=== PATIENT | male | born 1955 | race Caucasian/White ===

== ENCOUNTER 2016-09-14 21:25 | Inpatient (IN) ==
[2016-09-14 22:08] LABS: Basophils % 0.3 %; Eosinophils % 0.5 %; Hematocrit 44.1 % (37.5-50.1); Hemoglobin 14.2 g/dL (12.9-16.9); Lymphocytes % 16.3 %; Mean Corpuscular HGB Conc 32.2 g/dL (31.6-35.5); Mean Corpuscular Hemoglobin 33.6 pg (28.0-33.3); Mean Corpuscular Volume 104.5 fL (83.0-100.0); Mean Platelet Volume 9.2 fL (9.4-12.4); Monocytes # 0.4 K/mcL (0.0-1.3); Monocytes % 7.2 %; Neutrophils # 4.3 K/mcL (1.6-8.9); Platelet Count 138 K/mcL (140-400); Red Blood Count 4.22 M/mcL (4.19-5.50); Red Cell Distribution Width 15.2 % (11.5-14.5); Segmented Neutrophils % 74.7 %; VBG HCO3 28.5 mEq/L (21-27)
[2016-09-14 22:09] LABS: VBG PH 7.17 pH Units (7.32-7.42)
[2016-09-14] MEDS ORDERED: methylPREDNISolone 125 MG/2 ML VIAL IVP ONE (22:09)
[2016-09-14] MEDS ORDERED: *HR* LORazepam 2 MG/ML VIAL IVP ONE (22:12)
[2016-09-14 22:14] LABS: INR 1.2; Prothrombin Time 12.7 Seconds (9.4-12.1)
[2016-09-14 22:16] LABS: Activated Partial Thrombo Time 31.8 Seconds (26.0-36.0)
[2016-09-14] MEDS ORDERED: Ipratropium/Albuterol Neb 3 ML IH ONE (22:18)
[2016-09-14] MEDS ORDERED: Ipratropium/Albuterol Neb 3 ML ONE (22:19)
[2016-09-14 23:18] LABS: Calcium 9.2 mg/dL (8.6-10.8)
[2016-09-14 23:23] LABS: Potassium 8.3 mEq/L (3.5-4.5)
[2016-09-14] MEDS ORDERED: Furosemide 40 MG/4 ML VIAL IVP ONE (23:23)
[2016-09-14] MEDS ORDERED: Calcium Gluconate 1,000 MG in D5% in Water 100 ML IVPB ONE (23:24)
--- NOTE | 2016-09-14 23:30 | Emergency Department Note ---
Disposition Clinical Impression: Hyperkalemia Respiratory failure Qualifiers: Chronicity: acute on chronic Respiratory failure complication: hypercapnia Qualified Code(s): J96.22 - Acute and chronic respiratory failure with hypercapnia CHF (congestive heart failure) Qualifiers: Congestive heart failure type: unspecified congestive heart failure type Congestive heart failure chronicity: acute on chronic Qualified Code(s): I50.9 - Heart failure, unspecified COPD (chronic obstructive pulmonary disease) Qualifiers: COPD type: unspecified COPD Qualified Code(s): J44.9 - Chronic obstructive pulmonary disease, unspecified Disposition: Admitted As Inpatient Condition: Fair Time of Disposition: 00:17 SOB HPI - General Chief Complaint: ED Shortness of Breath/Dyspnea Stated Complaint: ITZ, right side weakness Time Seen by Provider: 09/14/16 21:41 Source: patient Mode of arrival: EMS Limitations: no limitations Nursing Notes Reviewed: Yes Vital Signs Reviewed: Yes - History of Present Illness 61-year-old male with history of end-stage renal disease, CHF, and COPD presents with worsening shortness of breath over the last 2-3 days. He was not feeling well so he did not go to dialysis this morning and his symptoms have worsened over the last 24 hours. He has wheezing that is not resolved despite nebulizer treatments. He has edema that is slightly worse than usual. Family also notes that he is having difficulty moving his left upper shoulder. In the context of shoulder injury which is being treated by orthopedic. He does not have any weakness of the lower extremities. He does not have any facial droop. History is limited due to patient's medical condition. Pt Subjective Complaint: shortness of breath - Related Data Home Medications Medication Instructions Recorded Confirmed Allopurinol [Zyloprim 100 MG] 100 mg PO DAILY 11/09/15 09/01/16 Amlodipine [Norvasc] 10 mg PO DAILY 11/09/15 09/01/16 Aspirin [Adult Low Dose Aspirin EC] 81 mg PO DAILY 11/09/15 09/01/16 Carvedilol [Coreg] 50 mg PO BID 11/09/15 09/01/16 Cinacalcet HCl [Sensipar] 60 mg PO DAILY 11/09/15 09/01/16 Docusate [Colace] 100 mg PO BID 11/09/15 09/01/16 Famotidine [Pepcid] 20 mg PO DAILY 11/09/15 09/01/16 Fluticasone Propionate Nasal 50 mcg NS DAILY 11/09/15 09/01/16 [Flonase] Furosemide [Lasix] 40 mg PO DAILY 11/09/15 09/01/16 Guaifenesin [Mucinex] 600 mg PO Q12H PRN 11/09/15 09/01/16 Mycophenolate Sodium [Myfortic] 360 mg PO BID 11/09/15 09/01/16 Omeprazole [PriLOSEC] 40 mg PO DAILY 11/09/15 09/01/16 Pravastatin Sodium [Pravastatin 10 mg PO QPM 11/09/15 09/01/16 Sodium] Sennosides [Senna] 8.6 mg PO BID 11/09/15 09/01/16 Spironolactone [Aldactone] 50 mg PO DAILY 11/09/15 09/01/16 FLUoxetine HCl [PROzac] 40 mg PO QAM 01/28/16 09/01/16 Albuterol Neb [Proventil Neb] 2.5 mg IH Q6H PRN 06/29/16 09/01/16 Albuterol Sulfate [Proair Hfa] 2 puff IH Q4-6H PRN 06/29/16 09/01/16 Alpha Lipoic Acid 100 mg PO DAILY 06/29/16 09/01/16 Ammonium Lactate [Marilee-Hydrolac] 1 appl TP DAILY 06/29/16 09/01/16 Aspirin 81 mg PO DAILY 06/29/16 09/01/16 CloNIDine HCl [Clonidine HCl] 0.3 mg PO TID 06/29/16 09/01/16 Diclofenac Sodium [Voltaren] 100 gm TP 2-3XD PRN 06/29/16 09/01/16 Ergocalciferol (VITAMIN D2) 400 unit PO BID 06/29/16 09/01/16 [Vitamin D] Gabapentin [Neurontin] 400 mg PO TID 06/29/16 09/01/16 Levothyroxine Sodium [Synthroid] 25 mcg PO DAILY 06/29/16 09/01/16 Mirtazapine 7.5 mg PO HS 06/29/16 09/01/16 Orphenadrine [Norflex] 100 mg PO HS 06/29/16 09/01/16 Oxycodone HCl 10 mg PO Q6H PRN 06/29/16 09/01/16 Polyethylene Glycol 3350 [MiraLAX] 17 gm PO BID PRN 06/29/16 09/01/16 PredniSONE 10 mg PO DAILY 06/29/16 09/01/16 Sulfamethoxazole/Trimeth DS 1 each PO MOWEFR 06/29/16 09/01/16 [Bactrim DS] Tiotropium [Spiriva] 18 mcg IH DAILY 06/29/16 09/01/16 Venlafaxine HCl [Venlafaxine HCl 37.5 mg PO BID 06/29/16 09/01/16 ER] Previous Rx's Medication Instructions Recorded Ropinirole HCl [Requip Xl] 2 mg PO DAILY #30 tab.er.24h 06/29/16 Allergies Allergy/AdvReac Type Severity Reaction Status Date / Time No Known Allergies Allergy Verified 09/14/16 21:36 All systems ED: reviewed and negative except as stated. Past Medical History - Past Medical History Attestation: Yes The following information was validated with the patient. Source: patient Medical history: Reports: CHF, COPD, diabetes, dialysis, hypertension, renal disease, thyroid disease, other Surgical history: Reports: cataract, orthopedic, other (Ankle fixation), vascular surgery (Right arm AV shunt - nonfunctional, left arm AV shunt, left subclavian dialysis access), other (All transplants in 1982 in 2010) Psychiatric history: Reports: no psych history - Social History Smoking Status: Former smoker Smokeless Tobacco Status: No Alcohol use: Reports: none Drug use: Reports: none Physical Exam - Head Head exam: atraumatic, normocephalic, normal inspection - Eye Eye exam: Present: normal appearance, PERRL, EOMI - ENT ENT exam: normal exam, normal oropharynx, mucous membranes moist - Neck Neck exam: Present: normal inspection, full ROM, trachea midline - Chest Chest inspection: Present: normal inspection, symmetric chest wall rise - Respiratory Increased work of breathing with bilateral diffuse wheezing. Cardiovascular Cardiovascular exam: Present: regular rate, normal rhythm, normal heart sounds - Abdominal Exam Abdominal exam: Present: soft, Non-Tender. Absent: tenderness, distention, guarding, rebound, rigidity - Extremities Exam Bilateral pedal edema with chronic venous stasis changes. Motor 5 out of 5 in all extremities. - Expanded Lower Extremity Exam Hip/Pelvis exam: Present: normal inspection, full ROM - Back Exam Back exam: Present: normal inspection, full ROM. Absent: tenderness, CVA tenderness (R), CVA tenderness (L) - Neurological Exam Neurological exam: Present: alert, oriented X3, CN II-XII intact - Psychiatric Psychiatric exam: Present: normal affect, normal mood - Skin Skin exam: Present: warm, dry, intact, normal color - General Limitations: no limitations General appearance: alert Course - Reevaluation(s) Reevaluation #1: Evaluation here showed COPD and congestive heart failure. Hyperkalemia to 8.3 due to missing dialysis. CO2 was initially 78, but improved after BiPAP. Patient was initially fighting BiPAP, but is tolerating it well now with Ativan. Patient received Lasix, insulin, bicarbonate, and calcium gluconate. He will need emergent dialysis. Dr. Perez is setting this up. Patient will go to ICU after dialysis. Accepted by Dr. Eid to the hospitalist service after dialysis. Time: 00:17 Vital Signs Temperature 97.8 F 09/14/16 21:28 Pulse Rate 95 09/14/16 21:28 Respiratory Rate 28 09/14/16 21:28 Blood Pressure 154/82 09/14/16 21:28 O2 Sat by Pulse Oximetry 78 L 09/14/16 21:28 Temperature 96.5 F L 09/15/16 02:30 Pulse Rate 63 09/15/16 03:00 Respiratory Rate 10 09/15/16 03:00 Blood Pressure 137/78 09/15/16 03:00 O2 Sat by Pulse Oximetry 93 L 09/15/16 03:00 Oxygen Delivery Oxygen Delivery Bipap Shortness of Breath/Dyspnea - Medical Records Medical records reviewed: Yes I reviewed the patient's medical records. - Lab Data Lab results reviewed: Yes I reviewed the patient's lab results. Result diagrams: 09/14/16 21:58 09/14/16 22:58 Lab Results 09/14/16 09/14/16 09/14/16 Range/Units 21:58 21:58 21:58 WBC 5.8 (4.3-11.1) K/mcL RBC 4.22 (4.19-5.50) M/mcL Hgb 14.2 (12.9-16.9) g/dL Hct 44.1 (37.5-50.1) % MCV 104.5 H (83.0-100.0) fL MCH 33.6 H (28.0-33.3) pg MCHC 32.2 (31.6-35.5) g/dL RDW 15.2 H (11.5-14.5) % Plt Count 138 L (140-400) K/mcL MPV 9.2 L (9.4-12.4) fL Immature Gran % 1.0 (0-4) % Seg Neutrophils % 74.7 % Lymphocytes % 16.3 % Monocytes % 7.2 % Eosinophils % 0.5 % Basophils % 0.3 % Neutrophils # 4.3 (1.6-8.9) K/mcL Lymphocytes # 1.0 (0.6-4.6) K/mcL Monocytes # 0.4 (0.0-1.3) K/mcL Eosinophils # 0.0 (0.0-0.6) K/mcL Basophils # 0.0 (0.0-0.2) K/mcL PT 12.7 H (9.4-12.1) Seconds INR 1.2 APTT 31.8 (26.0-36.0) Seconds VBG pH (7.32-7.42) pH Units VBG pCO2 (41-51) mmHg VBG pO2 (25-40) mmHg VBG HCO3 (21-27) mEq/L Sodium (136-145) mEq/L Potassium (3.5-4.5) mEq/L Chloride (98-109) mEq/L Carbon Dioxide (19-29) mEq/L BUN (8-26) mg/dL Creatinine (0.72-1.25) mg/dL Est GFR ( Amer) (> 60) Est GFR (Non-Af Amer) (> 60) BUN/Creatinine Ratio (6-26) Glucose (70-99) mg/dL POC Glucose (58-89) Calculated Osmolality (280-300) Calcium (8.6-10.8) mg/dL Troponin I 0.00 (0-0.03) ng/mL B-Natriuretic Peptide (0-100) pg/mL 09/14/16 09/14/16 09/14/16 Range/Units 21:58 21:58 22:58 WBC (4.3-11.1) K/mcL RBC (4.19-5.50) M/mcL Hgb (12.9-16.9) g/dL Hct (37.5-50.1) % MCV (83.0-100.0) fL MCH (28.0-33.3) pg MCHC (31.6-35.5) g/dL RDW (11.5-14.5) % Plt Count (140-400) K/mcL MPV (9.4-12.4) fL Immature Gran % (0-4) % Seg Neutrophils % % Lymphocytes % % Monocytes % % Eosinophils % % Basophils % % Neutrophils # (1.6-8.9) K/mcL Lymphocytes # (0.6-4.6) K/mcL Monocytes # (0.0-1.3) K/mcL Eosinophils # (0.0-0.6) K/mcL Basophils # (0.0-0.2) K/mcL PT (9.4-12.1) Seconds INR APTT (26.0-36.0) Seconds VBG pH 7.17 L* (7.32-7.42) pH Units VBG pCO2 78 H (41-51) mmHg VBG pO2 58 H (25-40) mmHg VBG HCO3 28.5 H (21-27) mEq/L Sodium 125 L (136-145) mEq/L Potassium 8.3 H* (3.5-4.5) mEq/L Chloride 92 L (98-109) mEq/L Carbon Dioxide 20 (19-29) mEq/L BUN 57 H (8-26) mg/dL Creatinine 7.44 H (0.72-1.25) mg/dL Est GFR ( Amer) 9 L (> 60) Est GFR (Non-Af Amer) 7 L (> 60) BUN/Creatinine Ratio 8 (6-26) Glucose 102 H (70-99) mg/dL POC Glucose (58-89) Calculated Osmolality 276 L (280-300) Calcium 9.2 (8.6-10.8) mg/dL Troponin I (0-0.03) ng/mL B-Natriuretic Peptide 1097 H (0-100) pg/mL 09/14/16 09/15/16 09/15/16 Range/Units 23:26 00:42 01:10 WBC (4.3-11.1) K/mcL RBC (4.19-5.50) M/mcL Hgb (12.9-16.9) g/dL Hct (37.5-50.1) % MCV (83.0-100.0) fL MCH (28.0-33.3) pg MCHC (31.6-35.5) g/dL RDW (11.5-14.5) % Plt Count (140-400) K/mcL MPV (9.4-12.4) fL Immature Gran % (0-4) % Seg Neutrophils % % Lymphocytes % % Monocytes % % Eosinophils % % Basophils % % Neutrophils # (1.6-8.9) K/mcL Lymphocytes # (0.6-4.6) K/mcL Monocytes # (0.0-1.3) K/mcL Eosinophils # (0.0-0.6) K/mcL Basophils # (0.0-0.2) K/mcL PT (9.4-12.1) Seconds INR APTT (26.0-36.0) Seconds VBG pH 7.26 L (7.32-7.42) pH Units VBG pCO2 57 H (41-51) mmHg VBG pO2 182 H (25-40) mmHg VBG HCO3 25.6 (21-27) mEq/L Sodium (136-145) mEq/L Potassium (3.5-4.5) mEq/L Chloride (98-109) mEq/L Carbon Dioxide (19-29) mEq/L BUN (8-26) mg/dL Creatinine (0.72-1.25) mg/dL Est GFR ( Amer) (> 60) Est GFR (Non-Af Amer) (> 60) BUN/Creatinine Ratio (6-26) Glucose (70-99) mg/dL POC Glucose 270 H 150 H (58-89) Calculated Osmolality (280-300) Calcium (8.6-10.8) mg/dL Troponin I (0-0.03) ng/mL B-Natriuretic Peptide (0-100) pg/mL 09/15/16 Range/Units 01:40 WBC (4.3-11.1) K/mcL RBC (4.19-5.50) M/mcL Hgb (12.9-16.9) g/dL Hct (37.5-50.1) % MCV (83.0-100.0) fL MCH (28.0-33.3) pg MCHC (31.6-35.5) g/dL RDW (11.5-14.5) % Plt Count (140-400) K/mcL MPV (9.4-12.4) fL Immature Gran % (0-4) % Seg Neutrophils % % Lymphocytes % % Monocytes % % Eosinophils % % Basophils % % Neutrophils # (1.6-8.9) K/mcL Lymphocytes # (0.6-4.6) K/mcL Monocytes # (0.0-1.3) K/mcL Eosinophils # (0.0-0.6) K/mcL Basophils # (0.0-0.2) K/mcL PT (9.4-12.1) Seconds INR APTT (26.0-36.0) Seconds VBG pH (7.32-7.42) pH Units VBG pCO2 (41-51) mmHg VBG pO2 (25-40) mmHg VBG HCO3 (21-27) mEq/L Sodium (136-145) mEq/L Potassium (3.5-4.5) mEq/L Chloride (98-109) mEq/L Carbon Dioxide (19-29) mEq/L BUN (8-26) mg/dL Creatinine (0.72-1.25) mg/dL Est GFR ( Amer) (> 60) Est GFR (Non-Af Amer) (> 60) BUN/Creatinine Ratio (6-26) Glucose (70-99) mg/dL POC Glucose 124 H (58-89) Calculated Osmolality (280-300) Calcium (8.6-10.8) mg/dL Troponin I (0-0.03) ng/mL B-Natriuretic Peptide (0-100) pg/mL - Radiology Data Radiology results reviewed: Yes I reviewed the patient's radiology results. - EKG Data EKG attestation: Yes I reviewed and interpreted this EKG. EKG results narrative: Normal sinus rhythm at 61 with first-degree AV block with CA of 272. There mild peaked T waves that are not significantly changed from [address] elevation or depression. Attestation Statement - Attestation Attestation: For this encounter, I have reviewed the resident, [employer], or PA documentation, treatment plan, and medical decision making; and I have had face to face time with this patient. 61-year-old male presents with concerns of shortness of breath. Patient states that his symptoms have been worsening over the past 2-3 days. He does report having an upper respiratory infection one week ago from which he has not improved. Patient has a history of CHF, COPD and renal failure. Patient is scheduled for dialysis Wednesday, Wednesday, Wednesday. He was unable to have his dialysis session today because he did not feel well. Patient presents emergency Department in respiratory distress. He is hypoxic on nasal cannula. He is placed on a nonrebreather with improvement of his O2 saturation. Patient was then given a breathing treatment and placed on BiPAP with improvement of symptoms. Patient will be admitted to the hospital for further care and evaluation of COPD exacerbation and likely CHF exacerbation. The resident spoke with the renal specialist on-call who agreed that the patient needed dialysis tonight secondary to his hyperkalemia. Patient was given calcium, bicarbonate and albuterol for temporary management of the patient's hyperkalemia. He was also given Lasix as he does produce some urine.
[2016-09-14 23:32] LABS: VBG HCO3 25.6 mEq/L (21-27); VBG PH 7.26 pH Units (7.32-7.42)
[2016-09-15] MEDS ORDERED: Insulin Human Regular 10 UNIT in 0.9 % Sodium Chloride 10 ML IV ONE (00:06)
[2016-09-15] MEDS ORDERED: *HR* Dextrose 50 % in Water (Vial) 50 ML VIAL IVP ONE (00:07)
[2016-09-15] MEDS ORDERED: *HR* Dextrose 50 % in Water (Syg) 50 ML SYRINGE IVP ONE (00:07)
[2016-09-15] MEDS ORDERED: Mannitol 25% vial 12.5 GM/50 ML VIAL IVP PRN (01:53)
[2016-09-15] MEDS ORDERED: 0.9 % Sodium Chloride 250 ML IV PRN ×3 (01:53→09:02)
[2016-09-15] MEDS ORDERED: Albumin 25% 12.5gm/50mL 12.5 GM/50 ML IV.SOLN IVPB PRN (01:53)
[2016-09-15] MEDS ORDERED: Ondansetron 4 MG/2 ML VIAL IVP PRN (01:55)
[2016-09-15] MEDS ORDERED: Acetaminophen 325 MG TABLET PO PRN (01:55)
[2016-09-15] MEDS ORDERED: Naloxone 0.4 MG/ML INJ IVP PRN (01:55)
[2016-09-15] MEDS ORDERED: Pantoprazole 40 MG VIAL IVPB STA (01:55)
[2016-09-15] MEDS ORDERED: Albuterol 2.5 MG/3 ML NEBULIZER IH PRN (02:07)
[2016-09-15] MEDS ORDERED: hydrALAZINE 10 MG TABLET PO PRN (02:11)
[2016-09-15] MEDS ORDERED: 0.9 % Sodium Chloride 1,000 ML PRIME SCH (02:15)
--- NOTE | 2016-09-15 02:25 | Internal Med History&Physical ---
Date of Encounter: 09/15/16 Time of Encounter: 02:00 Assessment and Plan (1) ESRD (end stage renal disease) on dialysis Status: Chronic . (2) H/O noncompliance with medical treatment, presenting hazards to health Status: Acute . (3) Hyperkalemia, diminished renal excretion Status: Resolved . (4) Acute exacerbation of COPD with asthma Status: Acute . (5) Acute on chronic respiratory failure with hypoxia and hypercapnia Status: Acute . (6) Acute respiratory acidosis Status: Acute . (7) COPD (chronic obstructive pulmonary disease) Status: Chronic . Qualifiers: COPD type: unspecified COPD Qualified Code(s): J44.9 - Chronic obstructive pulmonary disease, unspecified (8) Myoclonic disorder Status: Acute . (9) Ataxia Status: Acute . (10) Toxic metabolic encephalopathy Status: Acute . (11) Delirium due to conditions classified elsewhere Status: Acute . Internal Medicine - H&P: HPI Chief complaint: Difficulty breathing Admitted From: Emergency Dept Plans for Post Hospital Care: Home History of present illness: Mr. 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, type II DM, GERD, hypothyroidism, anemia of chronic disease, depression and anxiety, osteoarthritis, H/O gout, osteopenia, nicotine dependency The patient was visited and interviewed and examined. Patient is admitted to [facility] via the emergency department when she presents with complaints of difficulty breathing. The patient presents via EMS from home with reports of worsening shortness of breath over a three-day period of time. Patient history is noteworthy for CHF, end-stage renal disease COPD. The patient reports audible wheezing not resolved following nebulizer treatments. He reports some peripheral edema slightly worse than baseline. Denies fevers chills sweats. Denies orthopnea PND syncope or presyncopal complaints. Hemodialysis schedule due to illness. Presents with elevated potassium of 8.3. Initial PCO2 on arterial blood gas elevated at 78 improved following BiPAP application. Treated acutely in the urgent setting with intravenous Lasix insulin sodium bicarbonate and calcium gluconate to address metabolic electrolyte arrangements pending emergent hemodialysis schedule. Findings in the ED: Temperature 97.8 pulse 53-95 respirations 12-28 BP 139-154/ 79-82. O2 saturation 78% room air; 91% BiPAP. WBC 5.8 hemoglobin 14.2 platelets 38,000. Differential normal. RDW 15.2. BNP 9.2. MCV 104.5 MCH 33.6. PT 12.7 INR 1.2 PTT 31.8. Troponin 0.0. Venous blood gas pH 7.17 PCO2 78 PO2 58 bicarbonate 28.5. (Venous blood gas pH 7.26 PCO2 57 PO2 182 bicarbonate 25.6 with BiPAP). BNP 1097. Metabolic panel sodium 125 potassium 8.3 chloride 92. BUN 57 creatinine 7.44. GFR 7. Osmolality 276. EKG sinus rhythm. Rate 60. First degree AV block. Mild peaked T waves. Not significantly changed from June 2016. Chest x-ray demonstrated no acute or active cardiopulmonary process. Preliminary impression suggests end-stage renal disease hemodialysis dependent with acute volume overload and critical hyperkalemia and respiratory acidosis. Patient noncompliant with scheduled hemodialysis runs days prior to admission. Acute On chronic hypoxic hypercapnic respiratory failure is apparent. And notes symptoms motivating ER presentation. The patient presents a risk of further acute clinical decline and morbidity given his presenting chief complaint, findings and comorbid conditions. Workup and treatment progress comprehensively. Cumulative laboratory and radiographic data base was reviewed, considered and discussed. Pertinent ancillary medical records including ECW and PCI documentation was reviewed and considered. Given the patient's presenting concerns, past medical history, clinical findings and symptoms, he is admitted at this time will undergo further evaluation and disposition. Orders were written as per the computerized physician shipping order clerk system.......................................................................... .................... Consultative opinions will be sought as clinical circumstances justify. Initial consultation has been admitted to nephrology/dialysis team Pain management needs will be addressed. Laboratory and radiographic data base will be updated as appropriate. Studies include: PT/INR,APPT, Ddimer, cardiac injury panel, BNP, CPK, metabolic and hematologic panel, magnesium, phosphorus, ionized calcium, thyroid panel, lipid profile, A1c, C-peptide, CRP, sed rate, respiratory infection profile, respiratory virus panel, blood gas, lactic acid, UA, UDS, serologies, etc. Precautions: Aspiration, fall, delirium protocol/surveillance initiated. Telemetry with continuous hemodynamic monitoring and pulse oximetry initiated. Empiric antibody coverage: Intravenous Rocephin and azithromycin pending culture data. Special studies: CT chest, echocardiogram, chest x-ray, telemetry, EKG. Pulmonary toilet: Incentive spirometry, aerosol bronchodilator, mucolytic, antitussive, supplemental oxygen. Corticosteroid therapyPRN. CPAP/BiPAP supplemental oxygen delivery. Aerosol Mucomyst therapy. Fluid and electrolyte repletion efforts will proceed. Careful attention to fluid balance and renal recovery will be emphasized. Avoidance of nephrotoxic exposure and adverse drug drug interaction in the setting of impaired renal function will be monitored closely. Acute coronary syndrome protocol/surveillance initiated. DVT and PUD prophylaxis initiated: PPI therapy, intermittent pneumatic cuffs. Subcutaneous heparin. Early ambulation will be encouraged. Immunization updates recommended. Influenza and pneumococcal vaccinations as part of ongoing preventative healthcare recommendations strongly recommended. Smoking cessation counseling briefly addressed. Patient accepts nicotine substitution during this hospitalization.. Advanced care directive discussion briefly addressed. Patient does not declare any healthcare restrictions at this time. Cardiovascular risk appraisal and cardiovascular risk reduction efforts will be emphasized. Physical and occupational therapy may be consulted to evaluate/assess patient's functional capacity and progress mobility if circumstances justify. Sliding scale insulin coverage, ADA-Renal dietary restraint and schedule an as- needed basis fingerstick glucose assessments were initiated. Nutrition/ diabetes education counseling may be considered as circumstances justify. Outpatient medication schedules will be reviewed, confirmed and facilitated as appropriate. Reconciliation of home treatments including adjustments, substitutions and reintroduction into the treatment regimen will address necessary maintenance therapies for chronic pre-existing medical conditions. Plan of care has been reviewed and discussed in detail with the patient. Questions addressed. Hospital course dictated by clinical findings, treatment response and potential consultative interventions. Patient is at risk for further acute clinical decline and morbidity due to his presenting chief complaints, findings and comorbid conditions. Condition is serious. Prognosis is guarded. CODE STATUS is full. Past Med Surg Social Fam HX - Past Medical History Source: old records reviewed Medical history: arthritis, CHF, COPD, diabetes, dialysis, GERD, hyperlipidemia , hypertension, osteoporosis, renal disease, thyroid disease, other (Peripheral neuropathy. Constipation. Vitamin D deficiency.) Psychiatric history: anxiety, depression - Past Surgical History Surgical History: cataract, orthopedic, other, transplant (Transplant kidney in 1982 and then 2009. Transplant kidney biopsy 2012.), vascular surgery, other - Social History Smoking Status: Former smoker Smokeless Tobacco Status: No Alcohol use: none Drug use: none Occupational status: unemployed, disabled Current living situation: Home - Independent, With Family Activity Level: Independent ambulation, Mostly sedentary Recent Out of Country Travel Within the Last 8 Weeks: No Exposure or Possible Exposure to Illness During Travel: No Internal Medicine - H&P: Meds Allopurinol [Zyloprim 100 MG] 100 mg PO DAILY 11/09/15 [History] Amlodipine [Norvasc] 10 mg PO DAILY 11/09/15 [History] Carvedilol [Coreg] 50 mg PO BID 11/09/15 [History] Cinacalcet HCl [Sensipar] 60 mg PO DAILY 11/09/15 [History] Docusate [Colace] 100 mg PO BID 11/09/15 [History] Fluticasone Propionate Nasal [Flonase] 50 mcg NS DAILY 11/09/15 [History] Furosemide [Lasix] 40 mg PO DAILY 11/09/15 [History] Guaifenesin [Mucinex] 600 mg PO Q12H PRN 11/09/15 [History] Omeprazole [PriLOSEC] 40 mg PO DAILY 11/09/15 [History] Pravastatin Sodium 10 mg PO QPM 11/09/15 [History] Spironolactone [Aldactone] 50 mg PO DAILY 11/09/15 [History] Alpha Lipoic Acid 100 mg PO DAILY 06/29/16 [History] Aspirin 81 mg PO DAILY 06/29/16 [History] Ergocalciferol (VITAMIN D2) [Vitamin D] 400 unit PO BID 06/29/16 [History] Levothyroxine Sodium [Synthroid] 25 mcg PO DAILY 06/29/16 [History] PredniSONE 10 mg PO DAILY 06/29/16 [History] Sulfamethoxazole/Trimeth DS [Bactrim Ds] 1 each PO MOWEFR 06/29/16 [History] Venlafaxine HCl [Venlafaxine HCl ER] 37.5 mg PO BID 06/29/16 [History] Ergocalciferol (VITAMIN D2) [Vitamin D] 400 unit PO BID 09/18/16 [History] Gabapentin [Neurontin] 200 mg PO TID #0 09/21/16 [Rx] Levofloxacin [Levaquin] 750 mg PO Q48H #3 tablet 09/21/16 [Rx] Oxygen 1 each .ROUTE CONT #1 each 09/21/16 [Rx] Ropinirole [Requip] 2 mg PO DAILY #30 tablet 09/21/16 [Rx] Tiotropium [Spiriva] 18 mcg IH DAILY #2 inh 09/21/16 [Rx] Allergies No Known Allergies Allergy (Verified 09/14/16 21:36) ROS unobtainable: due to mental status All Systems PM: A 10-system review of systems was performed and is negative for pertinent findings except as documented above in the HPI. - Constitutional Constitutional: as per HPI, malaise, no chills, no fever(s), no night sweats - EENT Eyes: as per HPI, no change in vision, no discharge, no pain, no photophobia Ears: as per HPI, no ear discharge, no ear pain, no tinnitus Nose, mouth and throat: as per HPI, no dysphagia, no nasal discharge, no neck pain, no sore throat - Cardiovascular Cardiovascular ROS IM: as per HPI, edema, lightheadedness, orthopnea, no chest pain, no diaphoresis, no dyspnea, no palpitations, no syncope - Respiratory Respiratory: as per HPI, dyspnea, dyspnea on exertion, wheezing, other, no cough , no excessive phlegm production - Gastrointestinal Gastrointestinal: as per HPI, no abdominal pain, no diarrhea, no hematemesis, no hematochezia, no melena, no nausea, no vomiting - Genitourinary Genitourinary ROS male: as per HPI, other - Musculoskeletal Musculoskeletal ROS IM: as per HPI, no numbness, no tingling - Integumentary Integumentary IM: as per HPI, no rash, no unusual bruising - Neurological Neurological ROS: as per HPI, no confusion, no convulsions, no focal weakness, no numbness, no tingling, no tremor(s) - Psychiatric Psychiatric: as per HPI - Endocrine Endocrine IM: as per HPI - Hematologic/Lymphatic Hematologic/Lymphatic: as per HPI, no easy bruising - Allergic/Immunologic Allergic/Immunologic: as per HPI - Constitutional Vitals: Temp Pulse Resp BP Pulse Ox 96.5 F L 64 12 164/98 96 09/15/16 01:45 09/15/16 01:45 09/15/16 01:45 09/15/16 01:45 09/15/16 01:45 General appearance: Present: cachectic, disheveled, A&O X 3, obese, severe distress. Absent: cooperative, answers questions appropriately - Head Head exam: Present: atraumatic, normocephalic - Eye Eye exam: Present: EOMI, PERRL, conjuntiva pink, sclera anicteric Pupils: Present: normal accommodation, PERRL - ENT ENT exam: Present: mucous membranes moist, normal external ear exam, normal oropharynx - Neck Neck exam general surgery: Present: full ROM, supple, trachea midline. Absent: lymphadenopathy, tenderness, nuchal rigidity - Respiratory Respiratory exam: Present: decreased breath sounds, prolonged expiratory phase, rhonchi. Absent: accessory muscle use, rales, wheezes - Cardiovascular Cardiovascular exam: Present: distant heart sounds, RRR, +S1, +S2, tachycardia. Absent: diastolic murmur, gallop, rubs, systolic murmur - GI/Abdominal GI/Abdominal exam: Present: normal bowel sounds, soft, no peritoneal signs. Absent: distended, tenderness - Extremities Exam Extremities exam: Present: cyanotic, full ROM, joint swelling, pedal edema, tenderness, warm, radial pulses palpable and symetrical. Absent: calf tenderness - Neurological Exam Neurological exam: Present: alert, altered, CN II-XII intact, motor sensory deficit, oriented X3. Absent: pronater drift, facial droop, speech deficit - Psychiatric Psychiatric exam: Present: agitated, flat affect - Skin Skin exam: Present: cyanosis, dry, intact, warm. Absent: petechiae, rash, urticaria, vesicles Internal Med - H&P Results - Labs CBC & Chem 7: 09/21/16 06:40 09/21/16 06:40 - Impressions Vital Signs Temp Pulse Resp BP Pulse Ox 09/15/16 01:45 96.5 F L 62 12 164/98 96 09/15/16 01:36 18 112/79 09/15/16 00:44 67 12 136/94 94 L 09/15/16 00:40 16 94 L 09/15/16 00:02 53 12 139/79 91 L 09/14/16 23:41 55 19 122/73 92 L 09/14/16 23:22 57 12 118/74 90 L 09/14/16 23:02 57 18 120/75 96 09/14/16 22:23 17 95 09/14/16 22:21 62 20 153/100 92 L 09/14/16 22:08 59 15 161/142 97 09/14/16 22:01 90 L 09/14/16 21:28 97.8 F 95 28 154/82 78 L Intake and Output 09/14/16 09/14/16 09/15/16 15:59 23:59 07:59 Intake Total 120.1 / 120.1 Balance 120.1 / 120.1 Intake: IV Fluids 120.1 / 120.1 HumuLIN R 10 UNIT In 10.1 / 10.1 Normal Saline Flush 10 ML @ 1212 mls/hr IV ONCE ONE Rx#:[id number] Calcium Gluconate 1,000 110 / 110 MG In Dextrose 5% 100 ML @ 220 mls/hr IVPB ONCE ONE Rx#:[id number] Other: Weight 81.647 kg 86 kg Blood Glucose* 124 Patient Weight 09/15/16 23:59 Weight 86 kg Short CBC 09/14/16 Range/Units 21:58 WBC 5.8 (4.3-11.1) K/mcL Hgb 14.2 (12.9-16.9) g/dL Hct 44.1 (37.5-50.1) % Plt Count 138 L (140-400) K/mcL Neutrophils # 4.3 (1.6-8.9) K/mcL BMP 09/14/16 Range/Units 22:58 Sodium 125 L (136-145) mEq/L Potassium 8.3 H* (3.5-4.5) mEq/L Chloride 92 L (98-109) mEq/L Carbon Dioxide 20 (19-29) mEq/L BUN 57 H (8-26) mg/dL Creatinine 7.44 H (0.72-1.25) mg/dL Glucose 102 H (70-99) mg/dL Calcium 9.2 (8.6-10.8) mg/dL Cardiac Enzymes 09/14/16 Range/Units 21:58 Troponin I 0.00 (0-0.03) ng/mL 09/14/16 09/14/16 21:58 23:26 VBG pH 7.17 L* 7.26 L VBG pCO2 78 H 57 H VBG pO2 58 H 182 H VBG HCO3 28.5 H 25.6 Abnormal lab results MCV 104.5 fL (83.0-100.0) H 09/14/16 21:58 MCH 33.6 pg (28.0-33.3) H 09/14/16 21:58 RDW 15.2 % (11.5-14.5) H 09/14/16 21:58 Plt Count 138 K/mcL (140-400) L 09/14/16 21:58 MPV 9.2 fL (9.4-12.4) L 09/14/16 21:58 PT 12.7 Seconds (9.4-12.1) H 09/14/16 21:58 VBG pH 7.26 pH Units (7.32-7.42) L 09/14/16 23:26 VBG pCO2 57 mmHg (41-51) H 09/14/16 23:26 VBG pO2 182 mmHg (25-40) H 09/14/16 23:26 Sodium 125 mEq/L (136-145) L 09/14/16 22:58 Potassium 8.3 mEq/L (3.5-4.5) H* 09/14/16 22:58 Chloride 92 mEq/L (98-109) L 09/14/16 22:58 BUN 57 mg/dL (8-26) H 09/14/16 22:58 Creatinine 7.44 mg/dL (0.72-1.25) H 09/14/16 22:58 Est GFR ( Amer) 9 (> 60) L 09/14/16 22:58 Est GFR (Non-Af Amer) 7 (> 60) L 09/14/16 22:58 Glucose 102 mg/dL (70-99) H 09/14/16 22:58 POC Glucose 124 (58-89) H 09/15/16 01:40 Calculated Osmolality 276 (280-300) L 09/14/16 22:58 B-Natriuretic Peptide 1097 pg/mL (0-100) H 09/14/16 21:58 Allergies Allergy/AdvReac Type Severity Reaction Status Date / Time No Known Allergies Allergy Verified 09/14/16 21:36 Laboratory Results WBC 5.8 K/mcL (4.3-11.1) 09/14/16 21:58 RBC 4.22 M/mcL (4.19-5.50) 09/14/16 21:58 Hgb 14.2 g/dL (12.9-16.9) 09/14/16 21:58 Hct 44.1 % (37.5-50.1) 09/14/16 21:58 MCV 104.5 fL (83.0-100.0) H 09/14/16 21:58 MCH 33.6 pg (28.0-33.3) H 09/14/16 21:58 MCHC 32.2 g/dL (31.6-35.5) 09/14/16 21:58 RDW 15.2 % (11.5-14.5) H 09/14/16 21:58 Plt Count 138 K/mcL (140-400) L 09/14/16 21:58 MPV 9.2 fL (9.4-12.4) L 09/14/16 21:58 Immature Gran % 1.0 % (0-4) 09/14/16 21:58 Seg Neutrophils % 74.7 % 09/14/16 21:58 Lymphocytes % 16.3 % 09/14/16 21:58 Monocytes % 7.2 % 09/14/16 21:58 Eosinophils % 0.5 % 09/14/16 21:58 Basophils % 0.3 % 09/14/16 21:58 Neutrophils # 4.3 K/mcL (1.6-8.9) 09/14/16 21:58 Lymphocytes # 1.0 K/mcL (0.6-4.6) 09/14/16 21:58 Monocytes # 0.4 K/mcL (0.0-1.3) 09/14/16 21:58 Eosinophils # 0.0 K/mcL (0.0-0.6) 09/14/16 21:58 Basophils # 0.0 K/mcL (0.0-0.2) 09/14/16 21:58 PT 12.7 Seconds (9.4-12.1) H 09/14/16 21:58 INR 1.2 09/14/16 21:58 APTT 31.8 Seconds (26.0-36.0) 09/14/16 21:58 VBG pH 7.26 pH Units (7.32-7.42) L 09/14/16 23:26 VBG pCO2 57 mmHg (41-51) H 09/14/16 23:26 VBG pO2 182 mmHg (25-40) H 09/14/16 23:26 VBG HCO3 25.6 mEq/L (21-27) 09/14/16 23:26 Sodium 125 mEq/L (136-145) L 09/14/16 22:58 Potassium 8.3 mEq/L (3.5-4.5) H* 09/14/16 22:58 Chloride 92 mEq/L (98-109) L 09/14/16 22:58 Carbon Dioxide 20 mEq/L (19-29) 09/14/16 22:58 BUN 57 mg/dL (8-26) H 09/14/16 22:58 Creatinine 7.44 mg/dL (0.72-1.25) H 09/14/16 22:58 Est GFR ( Amer) 9 (> 60) L 09/14/16 22:58 Est GFR (Non-Af Amer) 7 (> 60) L 09/14/16 22:58 BUN/Creatinine Ratio 8 (6-26) 09/14/16 22:58 Glucose 102 mg/dL (70-99) H 09/14/16 22:58 POC Glucose 124 (58-89) H 09/15/16 01:40 Calculated Osmolality 276 (280-300) L 09/14/16 22:58 Calcium 9.2 mg/dL (8.6-10.8) 09/14/16 22:58 Troponin I 0.00 ng/mL (0-0.03) 09/14/16 21:58 B-Natriuretic Peptide 1097 pg/mL (0-100) H 09/14/16 21:58 Impressions Chest X-Ray 09/14/16 21:48 IMPRESSION: No evidence of acute cardiopulmonary disease. D/ / Aries Woods MD / Aries Woods MD Interpreting Provider: Aries Woods MD
[2016-09-15] MEDS ORDERED: 0.9 % Sodium Chloride 2,000 ML ONE (02:27)
[2016-09-15 03:12] LABS: Basophils % 0.2 %; Hematocrit 42.6 % (37.5-50.1); Hemoglobin 13.7 g/dL (12.9-16.9); Immature Granulocytes % 0.9 % (0-4); Lymphocytes # 0.4 K/mcL (0.6-4.6); Lymphocytes % 7.7 %; Mean Corpuscular HGB Conc 32.2 g/dL (31.6-35.5); Mean Corpuscular Hemoglobin 33.3 pg (28.0-33.3); Mean Corpuscular Volume 103.4 fL (83.0-100.0); Mean Platelet Volume 9.4 fL (9.4-12.4); Monocytes # 0.1 K/mcL (0.0-1.3); Monocytes % 1.5 %; Neutrophils # 4.2 K/mcL (1.6-8.9); Platelet Count 138 K/mcL (140-400); Red Blood Count 4.12 M/mcL (4.19-5.50); Red Cell Distribution Width 15.1 % (11.5-14.5); Segmented Neutrophils % 89.7 %
[2016-09-15 03:29] LABS: Albumin 3.2 g/dL (3.5-5.0); Albumin/Globulin Ratio 1.1 (1.1-2.2); Bilirubin,Total 0.6 mg/dL (0.2-1.2); Calcium 9.3 mg/dL (8.6-10.8); Magnesium 2.4 mg/dL (1.6-2.6); Phosphorous 7.7 mg/dL (2.3-4.7); Total Protein 6.2 g/dL (6.0-8.3)
[2016-09-15 03:33] LABS: Potassium 6.7 mEq/L (3.5-4.5)
[2016-09-15 03:49] LABS: Hepatitis B Surface Antibody 0.09 mIU/mL; Hepatitis B Surface Antigen Nonreactive (Nonreactive)
[2016-09-15] MEDS: *HR* LORazepam 2 MG/ML VIAL IVP PRN (04:56)
[2016-09-15 05:12] LABS: Basophils % 0.2 %; Hemoglobin 14.6 g/dL (12.9-16.9); Immature Granulocytes % 0.9 % (0-4); Lymphocytes # 0.3 K/mcL (0.6-4.6); Lymphocytes % 4.6 %; Mean Corpuscular HGB Conc 32.4 g/dL (31.6-35.5); Mean Corpuscular Hemoglobin 33.3 pg (28.0-33.3); Mean Corpuscular Volume 102.7 fL (83.0-100.0); Mean Platelet Volume 9.5 fL (9.4-12.4); Monocytes # 0.1 K/mcL (0.0-1.3); Monocytes % 1.2 %; Neutrophils # 5.3 K/mcL (1.6-8.9); Platelet Count 150 K/mcL (140-400); Red Blood Count 4.38 M/mcL (4.19-5.50); Red Cell Distribution Width 14.8 % (11.5-14.5); Segmented Neutrophils % 93.1 %
[2016-09-15 05:30] LABS: Albumin 3.4 g/dL (3.5-5.0); Bilirubin,Total 0.5 mg/dL (0.2-1.2); Calcium 9.6 mg/dL (8.6-10.8); Globulin 3.4 g/dL (2.4-3.5); Potassium 6.4 mEq/L (3.5-4.5); Total Protein 6.8 g/dL (6.0-8.3)
[2016-09-15] MEDS ORDERED: Dextrose Gel 15 GM PO PRN ×2 (06:30)
[2016-09-15] MEDS ORDERED: D5% in Water 1,000 ML IV PRN (06:30)
[2016-09-15 06:46] LABS: Hemoglobin A1C 4.7 %
[2016-09-15] MEDS: Tiotropium 18 MCG inhalation IH SCH (07:37)
[2016-09-15] MEDS: Insulin LISPRO 300 UNITS/3 ML VIAL SQ SCH ×4 (08:09→21:16)
--- NOTE | 2016-09-15 08:22 | Nephrology Consult Note ---
Date of Encounter: 09/15/16 Time of Encounter: 08:16 Assessment and Plan (1) Hyperkalemia Current Visit: Yes Status: Acute Patient was given urgent dialysis last night for 2 hours. K+ down from 8.3 to 6.4 Stat K+ at 8am; if K+ 5.3 or less will hold off on further dialysis today and resume his regular HD treatments tomorrow. If greater than 5.3, will proceed with additional HD today. Needs renal diet which is low K+ diet-ordered (2) ESRD (end stage renal disease) on dialysis Current Visit: Yes Status: Chronic see above re: next HD treatment Renal diet Strict I/Os Fluid restriction 1.5 liters/day Patient has permacath and fistula; fistula still maturing, placed several months ago; had fistulagram several weeks ago and narrowing found and opened per HD nurse. Currently using fistula in outpatient HD however they are only using 2 smaller needles at this time, giving fistula more time to mature before advancing to larger needles. Avoid nephrotoxins if possible (3) Hyperphosphatemia Current Visit: Yes Status: Acute Phoslo 667mg 3 tabs with meals and 2 tabs with snacks Renal diet (4) Acute on chronic respiratory failure with hypoxia and hypercapnia Current Visit: Yes Status: Acute per critical care team (5) H/O noncompliance with medical treatment, presenting hazards to health Current Visit: Yes Status: Acute Patient routinely misses one outpatient dialysis treatment every week Non-compliant with diet History of Present Illness - Reason for Consult Consult date: 09/15/16 end stage renal disease - Chief Complaint hyperkalemia, ESRD on dialysis - History of Present Illness Mr. Ackerman is a 61 year old male well known to our practice with a history significant for hypertension, dyslipidemia, chronic respiratory failure home O2 dependent, COPD, TU, ESRD HD dependent (MWF at [facility]), CKD stage 5 s/ p transplants 1982+ 2009, type II DM, GERD, hypothyroidism, anemia of chronic disease, depression and anxiety, osteoarthritis, H/O gout, osteopenia, nicotine dependency. He presented with worsening shortness of breath over the last 2-3 days and not feeling well. Mr Ackerman did not go to dialysis yesterday morning and his symptoms have worsened over the last 24 hours. Patient normally misses one treatment out of three every week. Past Med Surg Social Fam HX - Past Medical History Medical history: arthritis, CHF, COPD, diabetes, dialysis, GERD, hyperlipidemia , hypertension, osteoporosis, renal disease, thyroid disease, other (Peripheral neuropathy. Constipation. Vitamin D deficiency.) Psychiatric history: anxiety, depression - Past Surgical History Surgical History: cataract, orthopedic, other, transplant (Transplant kidney in 1982 and then 2009. Transplant kidney biopsy 2012.), vascular surgery, other - Social History Smoking Status: Former smoker Smokeless Tobacco Status: No Alcohol use: none Drug use: none Medications and Allergies Allopurinol [Zyloprim 100 MG] 100 mg PO DAILY 11/09/15 [History] Amlodipine [Norvasc] 10 mg PO DAILY 11/09/15 [History] Aspirin [Adult Low Dose Aspirin EC] 81 mg PO DAILY 11/09/15 [History] Carvedilol [Coreg] 50 mg PO BID 11/09/15 [History] Cinacalcet HCl [Sensipar] 60 mg PO DAILY 11/09/15 [History] Docusate [Colace] 100 mg PO BID 11/09/15 [History] Famotidine [Pepcid] 20 mg PO DAILY 11/09/15 [History] Fluticasone Propionate Nasal [Flonase] 50 mcg NS DAILY 11/09/15 [History] Furosemide [Lasix] 40 mg PO DAILY 11/09/15 [History] Guaifenesin [Mucinex] 600 mg PO Q12H PRN 11/09/15 [History] Mycophenolate Sodium [Myfortic] 360 mg PO BID 11/09/15 [History] Omeprazole [PriLOSEC] 40 mg PO DAILY 11/09/15 [History] Pravastatin Sodium [Pravastatin Sodium] 10 mg PO QPM 11/09/15 [History] Sennosides [Senna] 8.6 mg PO BID 11/09/15 [History] Spironolactone [Aldactone] 50 mg PO DAILY 11/09/15 [History] FLUoxetine HCl [PROzac] 40 mg PO QAM 01/28/16 [History] Albuterol Neb [Proventil Neb] 2.5 mg IH Q6H PRN 06/29/16 [History] Albuterol Sulfate [Proair Hfa] 2 puff IH Q4-6H PRN 06/29/16 [History] Alpha Lipoic Acid 100 mg PO DAILY 06/29/16 [History] Ammonium Lactate [Marilee-Hydrolac] 1 appl TP DAILY 06/29/16 [History] Aspirin 81 mg PO DAILY 06/29/16 [History] CloNIDine HCl [Clonidine HCl] 0.3 mg PO TID 06/29/16 [History] Diclofenac Sodium [Voltaren] 100 gm TP 2-3XD PRN 06/29/16 [History] Ergocalciferol (VITAMIN D2) [Vitamin D] 400 unit PO BID 06/29/16 [History] Gabapentin [Neurontin] 400 mg PO TID 06/29/16 [History] Levothyroxine Sodium [Synthroid] 25 mcg PO DAILY 06/29/16 [History] Mirtazapine 7.5 mg PO HS 06/29/16 [History] Orphenadrine [Norflex] 100 mg PO HS 06/29/16 [History] Oxycodone HCl 10 mg PO Q6H PRN 06/29/16 [History] Polyethylene Glycol 3350 [MiraLAX] 17 gm PO BID PRN 06/29/16 [History] PredniSONE 10 mg PO DAILY 06/29/16 [History] Ropinirole HCl [Requip Xl] 2 mg PO DAILY #30 tab.er.24h 06/29/16 [Rx] Sulfamethoxazole/Trimeth DS [Bactrim DS] 1 each PO MOWEFR 06/29/16 [History] Tiotropium [Spiriva] 18 mcg IH DAILY 06/29/16 [History] Venlafaxine HCl [Venlafaxine HCl ER] 37.5 mg PO BID 06/29/16 [History] Allergies No Known Allergies Allergy (Verified 09/14/16 21:36) Review of Systems All Systems: reviewed and no additional remarkable complaints except as stated Constitutional: malaise, weight gain Cardiovascular: dyspnea, dyspnea on exertion, edema, leg edema, pedal edema, no chest pain Respiratory: dyspnea, dyspnea on exertion, wheezing Gastrointestinal: no constipation, no vomiting Neurological: no behavioral changes Exam - Vital Signs Vital signs: Initial Vital Signs Temp Pulse Resp BP Pulse Ox 97.8 F 95 28 154/82 78 L 09/14/16 21:28 09/14/16 21:28 09/14/16 21:28 09/14/16 21:28 09/14/16 21:28 Vital Signs - Last 8 Hours Temp Pulse Resp BP Pulse Ox 09/15/16 08:00 78 16 168/87 91 L 09/15/16 07:51 97.6 F 09/15/16 07:10 72 92 L 09/15/16 07:00 72 16 140/85 92 L 09/15/16 06:00 73 15 156/91 92 L 09/15/16 05:00 96.8 F L 75 16 146/89 90 L 09/15/16 04:32 96.5 F L 22 150/114 09/15/16 04:30 131/77 09/15/16 04:15 152/75 09/15/16 04:14 19 125/70 90 L 09/15/16 04:00 75 12 138/85 90 L 09/15/16 03:45 118/89 09/15/16 03:30 110/76 09/15/16 03:15 118/77 09/15/16 03:00 63 10 137/78 93 L 09/15/16 02:45 146/93 09/15/16 02:44 63 11 150/84 92 L 09/15/16 02:30 96.5 F L 22 141/110 Intake and Output 09/14/16 09/15/16 09/15/16 23:59 07:59 15:59 Intake Total 600 / 720.1 Output Total 3075 / 3075 Balance -2475 / -2354.9 Intake: Oral 0 / 0 Intake, Rinseback and 600 / 600 Flushes Output: Urine 0 / 0 Total Dialysis Output 2600 / 2600 Catheter 475 / 475 Other: Weight 83.7 kg Blood Glucose* 88 88 Hemodialysis Net Fluid 2000 Removed (mL) Patient Weight 09/15/16 23:59 Weight 83.7 kg - General Appearance General appearance: well-developed, well-nourished, obese EENT: ATNC Neck: supple Respiratory: course breath sounds Cardiology: edema, normal S1, normal S2 - Dialysis Access Dialysis Vascular Access: Venous Catheter Gastrointestinal: no guarding, obese Integumentary: warm and dry Psychiatric: cooperative (sleeps through exam; on CPAP) Results - Lab Results 09/15/16 05:03 09/15/16 05:03 Most recent lab results Calcium 9.6 mg/dL (8.6-10.8) 09/15/16 05:03 Phosphorus 7.7 mg/dL (2.3-4.7) H 09/15/16 02:45 Magnesium 2.4 mg/dL (1.6-2.6) 09/15/16 02:45 Consult Discharge Plan - Plan Referrals: NO,PCP [Primary Care Provider] -
[2016-09-15] MEDS ORDERED: Gabapentin 400 MG CAPSULE PO SCH (09:00)
[2016-09-15] MEDS: cloNIDine HCl 0.1 MG TABLET PO SCH ×3 (09:20→21:15)
[2016-09-15] MEDS: *HR* Heparin 5,000 UNIT/ML VIAL SQ SCH ×2 (09:21→16:26)
[2016-09-15] MEDS: Levothyroxine 25 MCG TABLET PO SCH (09:21)
[2016-09-15] MEDS: Aspirin Enteric Coated 81 MG Tablet PO SCH (09:21)
[2016-09-15] MEDS: clonazePAM 0.5 MG TABLET PO SCH ×3 (09:21→21:16)
[2016-09-15] MEDS: FLUoxetine 20 MG CAPSULE PO SCH (09:21)
[2016-09-15] MEDS: amLODIPine 5 MG TABLET PO SCH (09:21)
[2016-09-15] MEDS: Sennosides 8.6 MG TABLET PO SCH ×2 (09:21→21:16)
[2016-09-15] MEDS: rOPINIRole 1 MG TABLET PO SCH (09:22)
[2016-09-15] MEDS: Nystatin SUSP 5 ML UD.LIQ PO SCH ×4 (09:22→21:16)
[2016-09-15] MEDS: Calcium Acetate 667 MG CAPSULE PO SCH ×2 (12:28→17:20)
--- NOTE | 2016-09-15 13:20 | Neurology - Consult Note ---
Date of Encounter: 09/15/16 Time of Encounter: 13:19 Assessment and Plan (1) Myoclonic disorder Current Visit: Yes Status: Acute This appear to be related to metabolic encephalopathy especially uremic that causes instability of gait, multi-focal myoclonus, asterixis, action tremor and sensorial clouding. The encephalopathy can certainly be complicated also by acute respiratory failure CO2 retention and still many others. No focal neurological deficits is present at this but he does have focal pain and reduced of ROM to the right arm therefore routine non contrast CT of head should be done to rule out acute intracranial abnormality. At the same time will continue aggressive medical and supportive care. History of Present Illness Chief complaint: myoclnic jerking HPI: Mr. Ackerman is a 61 year old male with past medical history significant for end -stage renal failure, s/p kidney transplant, DM, COPD, chronic pain hypothyroidism,, HTN who developed mental status changes. Neurology was consulted regarding increasing myoclonic jerking activity. Patient presented with increasing SOB since the last few days and he does have history of COPD with exacerbation. He was not feeling well and missed hemodialysis prior to admission. He has history of kidney transplant and also has some chronic myoclonic jerking disorder per medical staff who asked his earlier. It was reported that this is not an acute new symptoms. Patient is easily arousal but appears to be drowsy. He has no focal weakness in his legs but does have pain to the right arm due to the shoulder surgery. His right arm is adducted at the shoulder region. Noticed some asterixis per medical staff. No fever reported. Denies headaches. CT of head at the time of this interview not done yet Past Med Surg Social Fam HX - Past Medical History Medical history: arthritis, CHF, COPD, diabetes, dialysis, GERD, hyperlipidemia , hypertension, osteoporosis, renal disease, thyroid disease, other (Peripheral neuropathy. Constipation. Vitamin D deficiency.) Psychiatric history: anxiety, depression - Past Surgical History Surgical History: cataract, orthopedic, other, transplant (Transplant kidney in 1982 and then 2009. Transplant kidney biopsy 2012.), vascular surgery, other - Social History Smoking Status: Former smoker Smokeless Tobacco Status: No Alcohol use: none Drug use: none Medications and Allergies Allopurinol [Zyloprim 100 MG] 100 mg PO DAILY 11/09/15 [History] Amlodipine [Norvasc] 10 mg PO DAILY 11/09/15 [History] Aspirin [Adult Low Dose Aspirin EC] 81 mg PO DAILY 11/09/15 [History] Carvedilol [Coreg] 50 mg PO BID 11/09/15 [History] Cinacalcet HCl [Sensipar] 60 mg PO DAILY 11/09/15 [History] Docusate [Colace] 100 mg PO BID 11/09/15 [History] Famotidine [Pepcid] 20 mg PO DAILY 11/09/15 [History] Fluticasone Propionate Nasal [Flonase] 50 mcg NS DAILY 11/09/15 [History] Furosemide [Lasix] 40 mg PO DAILY 11/09/15 [History] Guaifenesin [Mucinex] 600 mg PO Q12H PRN 11/09/15 [History] Mycophenolate Sodium [Myfortic] 360 mg PO BID 11/09/15 [History] Omeprazole [PriLOSEC] 40 mg PO DAILY 11/09/15 [History] Pravastatin Sodium [Pravastatin Sodium] 10 mg PO QPM 11/09/15 [History] Sennosides [Senna] 8.6 mg PO BID 11/09/15 [History] Spironolactone [Aldactone] 50 mg PO DAILY 11/09/15 [History] FLUoxetine HCl [PROzac] 40 mg PO QAM 01/28/16 [History] Albuterol Neb [Proventil Neb] 2.5 mg IH Q6H PRN 06/29/16 [History] Albuterol Sulfate [Proair Hfa] 2 puff IH Q4-6H PRN 06/29/16 [History] Alpha Lipoic Acid 100 mg PO DAILY 06/29/16 [History] Ammonium Lactate [Marilee-Hydrolac] 1 appl TP DAILY 06/29/16 [History] Aspirin 81 mg PO DAILY 06/29/16 [History] CloNIDine HCl [Clonidine HCl] 0.3 mg PO TID 06/29/16 [History] Diclofenac Sodium [Voltaren] 100 gm TP 2-3XD PRN 06/29/16 [History] Ergocalciferol (VITAMIN D2) [Vitamin D] 400 unit PO BID 06/29/16 [History] Gabapentin [Neurontin] 400 mg PO TID 06/29/16 [History] Levothyroxine Sodium [Synthroid] 25 mcg PO DAILY 06/29/16 [History] Mirtazapine 7.5 mg PO HS 06/29/16 [History] Orphenadrine [Norflex] 100 mg PO HS 06/29/16 [History] Oxycodone HCl 10 mg PO Q6H PRN 06/29/16 [History] Polyethylene Glycol 3350 [MiraLAX] 17 gm PO BID PRN 06/29/16 [History] PredniSONE 10 mg PO DAILY 06/29/16 [History] Ropinirole HCl [Requip Xl] 2 mg PO DAILY #30 tab.er.24h 06/29/16 [Rx] Sulfamethoxazole/Trimeth DS [Bactrim DS] 1 each PO MOWEFR 06/29/16 [History] Tiotropium [Spiriva] 18 mcg IH DAILY 06/29/16 [History] Venlafaxine HCl [Venlafaxine HCl ER] 37.5 mg PO BID 06/29/16 [History] Allergies No Known Allergies Allergy (Verified 09/14/16 21:36) All Systems: A 10-system review of systems was performed and is negative for pertinent findings except as documented above in the HPI. Physical Examination - Vital Signs Vital Signs: Initial Vital Signs Temp Pulse Resp BP Pulse Ox 97.8 F 95 28 154/82 78 L 09/14/16 21:28 09/14/16 21:28 09/14/16 21:28 09/14/16 21:28 09/14/16 21:28 - Constitutional General appearance: uncomfortable, chronically ill - Neurologic Sensorimotor examination: other (Grossly intact but detailed sensory examination is difficult. Has pain to the right shoulder area when passively moving her right arm. Left arm has AV fistula for HD. ) Detailed motor examination: other (I detected no significant focal weakness, except limited right arm ROM due to shoulder pain. Legs withdrawal to pain equally. ) Motor examination - right side: 3/5: deltoids, 4/5: biceps, triceps, wrist flexion, wrist extension, mold cooler, hip flexors, tibialis Anterior, quadriceps, toe extension (EHL), plantarflexion Motor examination - left side: 3/5: deltoids, 4/5: biceps, triceps, wrist flexion, wrist extension, hip flexors, mold cooler, quadriceps, tibialis Anterior, toe extension (EHL), plantarflexion Detailed sensory examination: other (Grossly intact as mentioned above, detailed sensory examination difficult. Pain on passive ROM to right arm) Posture: other (none) Reflex and gait examination: other (Reflexs are brisk bilaterally. right arm DTR difficult to assess. Trace of astexis difficult to examine.) Mental Status Examination: awake, alert, oriented to person, oriented to place, follows commands appropriately, opens eyes to voice, makes eye contact, follows simple commands, answers questions by nodding yes or no Cranial nerve examination: PERRL, EOMI, visual mehta intact (difficult to assess), corneal reflexes brisk symmetrically, sensory to face intact, mastication intact, no facial asymmetry is present, no dysarthria, hearing is intact symmetrically, soft palate elevates bilaterally upon phonation (Unable to assess), gag reflex intact (Not tested), flexes SCM and trapezius muscles symmetrically with full power, tongue protrudes midline, no atrophy or facial fasiculations present Results - Laboratory Findings CBC and BMP: 09/15/16 05:03 09/15/16 08:31 Abnormal lab findings: Abnormal lab results MCV 102.7 fL (83.0-100.0) H 09/15/16 05:03 RDW 14.8 % (11.5-14.5) H 09/15/16 05:03 Lymphocytes # 0.3 K/mcL (0.6-4.6) L 09/15/16 05:03 PT 12.7 Seconds (9.4-12.1) H 09/14/16 21:58 VBG pH 7.26 pH Units (7.32-7.42) L 09/14/16 23:26 VBG pCO2 57 mmHg (41-51) H 09/14/16 23:26 VBG pO2 182 mmHg (25-40) H 09/14/16 23:26 Sodium 133 mEq/L (136-145) L 09/15/16 05:03 Potassium 7.2 mEq/L (3.5-4.5) H* 09/15/16 08:31 Chloride 95 mEq/L (98-109) L 09/15/16 05:03 BUN 37 mg/dL (8-26) H D 09/15/16 05:03 Creatinine 5.39 mg/dL (0.72-1.25) H 09/15/16 05:03 Est GFR ( Amer) 13 (> 60) L 09/15/16 05:03 Est GFR (Non-Af Amer) 11 (> 60) L 09/15/16 05:03 POC Glucose 90 (58-89) H 09/15/16 11:09 Phosphorus 7.7 mg/dL (2.3-4.7) H 09/15/16 02:45 B-Natriuretic Peptide 1097 pg/mL (0-100) H 09/14/16 21:58 Albumin 3.4 g/dL (3.5-5.0) L 09/15/16 05:03 Albumin/Globulin Ratio 1.0 (1.1-2.2) L 09/15/16 05:03 Consult Discharge Plan - Plan Referrals: NO,PCP [Primary Care Provider] -
--- NOTE | 2016-09-15 15:13 | Electrocardiograph Report ---
[place] [id number] Test Date: 2016-09-14 Pat Name: Shyam Ackerman Department: 102 Room: 02 Gender: M Pack Operator: : 1955 Requested By: Mohan Graham Order Number: [id number] Reading MD: Bouchra Miranda Measurements Intervals [place] Rate: 62 P: 70 ME: 272 QRS: 34 QRSD: 134 T: 64 QT: 379 QTc: 385 Interpretive Statements SINUS RHYTHM WITH FIRST DEGREE AV BLOCK INTRAVENTRICULAR CONDUCTION DELAY [130+ ms QRS DURATION] Electronically Signed On 09-15-2016 15:11:46 EST by Bouchra Miranda
[2016-09-15] MEDS: Gabapentin 100 MG CAPSULE PO SCH ×2 (16:26→21:16)
--- NOTE | 2016-09-15 19:09 | Internal Med Progress Note ---
Date of Encounter: 09/15/16 Time of Encounter: 10:00 - Assessment and plan (1) Acute on chronic respiratory failure with hypoxia and hypercapnia Current Visit: Yes Status: Acute Assessment and plan: Most likely due to fluid overdose caused by missing dialysis. Will arrange another dialysis today. Continue supportive treatment with BiPAP. Patient has COPD, continue bronchodilator and prednisone treatment. (2) Hyperkalemia Current Visit: Yes Status: Acute Assessment and plan: Due to missing dialysis. Had emergency dialysis, potassium level is still high , will arrange another dialysis today. Follow-up CMP. Nephrology is on board. Patient is at high risk because of severe hyperkalemia. (3) COPD (chronic obstructive pulmonary disease) Current Visit: Yes Status: Chronic Assessment and plan: Patient's shortness of breath is more like fluid overload. We will continue treat his COPD with prednisone and bronchodilator. Continue BiPAP supportive treatment Qualifiers: COPD type: unspecified COPD Qualified Code(s): J44.9 - Chronic obstructive pulmonary disease, unspecified (4) ESRD (end stage renal disease) on dialysis Current Visit: Yes Status: Chronic Assessment and plan: Patient is on hemodialysis. We will continue dialysis and follow-up renal function (5) DVT prophylaxis Current Visit: Yes Status: Acute Assessment and plan: Heparin subcutaneously - Time Spent With Patient Greater than 35 minutes - Subjective Interval history: Patient is a 61-year-old male admitted for difficulty breathing. He has a history of end-stage renal disease on hemodialysis and has missed dialysis. Patient has emergency dialysis last night. Other significant medical history include CHF, COPD, diabetes, hypertension, thyroid disease. Patient was seen and examined this morning. He is awake alert, still in acute respiratory distress and on BiPAP. Nephrology consult on case, patient still has hyperkalemia and will have another hemodialysis today. Neurology consult for jerking movement, recommendation appreciated. Had a head CT done, results negative. - Constitutional Vitals: Temp Pulse Resp BP Pulse Ox 97 F L 70 20 148/75 92 L 09/15/16 16:54 09/15/16 18:00 09/15/16 18:00 09/15/16 18:00 09/15/16 18:00 General appearance: Present: cachectic, disheveled, A&O X 3, obese, severe distress. Absent: cooperative, answers questions appropriately - Head Head exam: Present: atraumatic, normocephalic - Eye Eye exam: Present: PERRL, conjuntiva pink, sclera anicteric Pupils: Present: PERRL - Neck Neck exam general surgery: Present: supple, trachea midline. Absent: lymphadenopathy - Respiratory Respiratory exam: Present: CTAB, respiratory distress, rhonchi (Diffused rhonchi bilaterally). Absent: accessory muscle use, rales, wheezes - Cardiovascular Cardiovascular exam: Present: RRR, +S1, +S2. Absent: diastolic murmur, gallop, rubs, systolic murmur - GI/Abdominal GI/Abdominal exam: Present: normal bowel sounds, soft, no peritoneal signs. Absent: distended, tenderness - Extremities Exam Extremities exam: Present: warm, radial pulses palpable and symetrical. Absent : calf tenderness, cyanotic, pedal edema - Neurological Exam Neurological exam: Present: CN II-XII intact, oriented X3, no focal deficits. Absent: pronater drift, facial droop, speech deficit - Skin Skin exam: Present: dry, intact Internal Medicine: Result - Labs CBC & Chem 7: 09/15/16 05:03 09/15/16 08:31 Labs: Short CBC 09/15/16 09/15/16 Range/Units 02:45 05:03 WBC 4.7 5.7 (4.3-11.1) K/mcL Hgb 13.7 14.6 (12.9-16.9) g/dL Hct 42.6 45.0 (37.5-50.1) % Plt Count 138 L 150 (140-400) K/mcL Neutrophils # 4.2 5.3 (1.6-8.9) K/mcL BMP 09/15/16 09/15/16 09/15/16 02:45 05:03 08:31 Sodium 131 L 133 L Potassium 6.7 H* D 6.4 H 7.2 H* Chloride 93 L 95 L Carbon Dioxide 25 23 BUN 52 H 37 H D Creatinine 6.60 H 5.39 H Glucose 96 98 Calcium 9.3 9.6 Liver Function 09/15/16 09/15/16 Range/Units 02:45 05:03 Total Bilirubin 0.6 0.5 (0.2-1.2) mg/dL AST 13 14 (5-34) Units/L ALT 11 11 (0-55) Units/L Alkaline Phosphatase 109 119 (38-126) Units/L Albumin 3.2 L 3.4 L (3.5-5.0) g/dL - ABG Interpretation ABG results: PT/INR, D-dimer PT 12.7 Seconds (9.4-12.1) H 09/14/16 21:58 - Impressions Impressions Head CT 09/15/16 12:25 IMPRESSION: No acute intracranial abnormality. Stable mild chronic small vessel ischemic disease within the right parietal lobe periventricular white matter. New severe right maxillary sinus disease which may be acute or chronic. D/ / 09/15/2016 15:18:47 Castro Orlando MD / Rhoda Juarez Interpreting Provider: Castro Orlando MD Consult Discharge Plan - Plan Referrals: NO,PCP [Primary Care Provider] -
[2016-09-15] MEDS: Mirtazapine 15 MG TABLET PO SCH (21:16)
[2016-09-15] MEDS: Venlafaxine XR (24 HR) 37.5 MG CAP.ER.24H PO SCH (21:16)
[2016-09-15] MEDS: *HR* Morphine 2 MG/ML SYRINGE IVP PRN (21:24)
[2016-09-16] MEDS: *HR* Heparin 5,000 UNIT/ML VIAL SQ SCH ×3 (00:55→17:31)
[2016-09-16 03:37] LABS: Basophils % 0.4 %; Hematocrit 43.4 % (37.5-50.1); Hemoglobin 13.7 g/dL (12.9-16.9); Immature Granulocytes % 0.6 % (0-4); Lymphocytes # 0.9 K/mcL (0.6-4.6); Lymphocytes % 12.1 %; Mean Corpuscular HGB Conc 31.6 g/dL (31.6-35.5); Mean Corpuscular Volume 104.6 fL (83.0-100.0); Mean Platelet Volume 9.5 fL (9.4-12.4); Monocytes # 0.7 K/mcL (0.0-1.3); Monocytes % 9.6 %; Neutrophils # 5.6 K/mcL (1.6-8.9); Platelet Count 170 K/mcL (140-400); Red Blood Count 4.15 M/mcL (4.19-5.50); Red Cell Distribution Width 15.4 % (11.5-14.5); Segmented Neutrophils % 77.3 %
[2016-09-16 03:52] LABS: Bilirubin,Total 0.4 mg/dL (0.2-1.2); Globulin 2.9 g/dL (2.4-3.5); Total Protein 5.9 g/dL (6.0-8.3)
[2016-09-16 03:55] LABS: Potassium 5.5 mEq/L (3.5-4.5)
[2016-09-16] MEDS: *HR* Dextrose 50 % in Water (Syg) 50 ML SYRINGE IVP PRN (05:20)
[2016-09-16] MEDS: *HR* Morphine 2 MG/ML SYRINGE IVP PRN ×3 (05:26→23:57)
[2016-09-16] MEDS: Insulin LISPRO 300 UNITS/3 ML VIAL SQ SCH ×4 (07:52→23:49)
[2016-09-16] MEDS: Calcium Acetate 667 MG CAPSULE PO SCH ×3 (07:56→17:31)
[2016-09-16] MEDS: Tiotropium 18 MCG inhalation IH SCH (08:02)
[2016-09-16] MEDS ORDERED: 0.9 % Sodium Chloride 250 ML IV PRN (08:19)
[2016-09-16] MEDS ORDERED: predniSONE 10 MG TABLET PO SCH (09:00)
[2016-09-16] MEDS: cloNIDine HCl 0.1 MG TABLET PO SCH ×3 (09:50→23:48)
[2016-09-16] MEDS: Aspirin Enteric Coated 81 MG Tablet PO SCH (09:50)
[2016-09-16] MEDS: Venlafaxine XR (24 HR) 37.5 MG CAP.ER.24H PO SCH ×2 (09:51→23:49)
[2016-09-16] MEDS: FLUoxetine 20 MG CAPSULE PO SCH (09:51)
[2016-09-16] MEDS: Sennosides 8.6 MG TABLET PO SCH ×2 (09:51→23:49)
[2016-09-16] MEDS: Levothyroxine 25 MCG TABLET PO SCH (09:51)
[2016-09-16] MEDS: clonazePAM 0.5 MG TABLET PO SCH ×3 (09:51→23:49)
[2016-09-16] MEDS: Nystatin SUSP 5 ML UD.LIQ PO SCH ×4 (09:51→23:49)
[2016-09-16] MEDS: rOPINIRole 1 MG TABLET PO SCH (09:51)
[2016-09-16] MEDS: amLODIPine 5 MG TABLET PO SCH (09:51)
[2016-09-16] MEDS: Gabapentin 100 MG CAPSULE PO SCH ×3 (09:51→23:49)
[2016-09-16] MEDS: GuaiFENesin Liq 200 MG/10 ML UDC PO SCH ×2 (12:16→18:26)
[2016-09-16] MEDS: Azithromycin 500 MG in D5% in Water 250 ML IVPB SCH (12:42)
--- NOTE | 2016-09-16 12:46 | Nephrology Progress Note ---
Date of Encounter: 09/16/16 Time of Encounter: 09:50 - Assessment and Plan (1) ESRD (end stage renal disease) on dialysis Current Visit: Yes Status: Chronic HD today for clearance, which should help his uremic AMS (delirium and myoclonic activity) improve. (2) Delirium due to conditions classified elsewhere Current Visit: Yes Status: Acute See above (3) Hyperkalemia Current Visit: Yes Status: Acute Remains elevated; Low K+ diet and I have ordered a lower K+ bath for HD today. (4) Myoclonic disorder Current Visit: Yes Status: Acute See above Subjective Principal diagnosis: ESRD, Hyperkalemia Interval history: The pt was s/e earlier today. He did not affirm N/V/D or uremic complaints. I reviewed his interval hx: remains in the ICU and his AMS is slowly improving. Objective - Vital Signs Vital signs: Vital Signs Temp Pulse Resp BP Pulse Ox 09/16/16 12:29 64 09/16/16 12:04 97.7 F 09/16/16 09:00 64 18 156/77 95 09/16/16 08:04 12 95 09/16/16 08:01 72 09/16/16 07:49 97.8 F 09/16/16 07:00 72 12 145/78 92 L 09/16/16 06:00 80 37 143/74 98 09/16/16 05:00 75 21 156/91 95 09/16/16 04:00 97.2 F L 68 15 150/81 96 09/16/16 03:00 67 11 139/65 94 L 09/16/16 02:00 74 12 159/82 92 L 09/16/16 01:00 71 13 142/82 93 L 09/16/16 00:13 98.3 F 09/16/16 00:00 98.3 F 78 13 163/78 92 L 09/15/16 23:00 81 23 145/73 93 L 09/15/16 22:00 70 23 148/96 89 L 09/15/16 21:00 70 12 160/85 96 09/15/16 20:00 97.9 F 74 13 144/76 96 09/15/16 19:45 97.9 F 78 09/15/16 19:00 78 17 134/94 94 L 09/15/16 18:00 70 20 148/75 92 L 09/15/16 17:00 79 18 151/84 95 09/15/16 16:54 97 F L 22 121/81 09/15/16 16:45 140/76 09/15/16 16:30 142/93 09/15/16 16:15 144/86 09/15/16 16:00 69 18 146/79 92 L 09/15/16 15:45 104/85 09/15/16 15:30 148/75 09/15/16 15:25 96.9 F L 09/15/16 15:15 159/91 09/15/16 15:11 88 09/15/16 15:00 70 18 147/106 94 L 09/15/16 14:45 97.7 F 22 137/92 09/15/16 14:00 88 20 130/44 92 L 09/15/16 13:00 74 20 146/54 90 L Intake and Output 09/15/16 09/16/16 09/16/16 23:59 07:59 15:59 Output Total 2850 / 2850 500 / 500 250 / 250 Balance -2850 / -2850 -500 / -500 -250 / -250 Output: Total Dialysis Output 2600 / 2600 Catheter 250 / 250 500 / 500 250 / 250 Other: Weight 80.15 kg 79.8 kg Blood Glucose* 84 71 63 Hemodialysis Net Fluid 2000 Removed (mL) Patient Weight 09/16/16 23:59 Weight 79.8 kg - General Appearance General appearance: Present: well-developed, chronically ill, fatigue, frail EENT: Present: ATNC, PERRL, mucous membranes moist Neck: Present: supple Respiratory: Present: clear Cardiology: Present: edema, regular rate, normal S1, normal S2 Gastrointestinal: Present: normoactive bowel sounds, no guarding Integumentary: Present: no rash, warm and dry Neurologic: Present: no focal deficit, confused, disoriented Musculoskeletal: Present: no deformities, no erythema, no clubbing Psychiatric: Present: cooperative - Lab 09/16/16 03:17 09/16/16 03:17 Most recent lab results Calcium 10.0 mg/dL (8.6-10.8) 09/16/16 03:17 Phosphorus 7.7 mg/dL (2.3-4.7) H 09/15/16 02:45 Magnesium 2.4 mg/dL (1.6-2.6) 09/15/16 02:45 Consult Discharge Plan - Plan Referrals: NO,PCP [Primary Care Provider] -
--- NOTE | 2016-09-16 17:39 | Internal Med Progress Note ---
Date of Encounter: 09/16/16 Time of Encounter: 10:00 - Assessment and plan (1) Acute on chronic respiratory failure with hypoxia and hypercapnia Current Visit: Yes Status: Acute Assessment and plan: Most likely due to fluid overdose caused by missing dialysis. Plan for another dialysis today. Continue supportive treatment with BiPAP. Also consider COPD exacerbation, continue bronchodilator and prednisone treatment, add antibiotics. (2) Hyperkalemia Current Visit: Yes Status: Acute Assessment and plan: Due to missing dialysis. Had emergency dialysis, potassium level has improved, will arrange another dialysis today. Follow-up CMP. Nephrology is on board. (3) COPD (chronic obstructive pulmonary disease) Current Visit: Yes Status: Chronic Assessment and plan: Patient's shortness of breath not improved after hemodialysis. Also consider COPD exacerbation . Treat patient with prednisone 40 mg daily , and antibiotics and bronchodilator. Continue BiPAP supportive treatment Qualifiers: COPD type: unspecified COPD Qualified Code(s): J44.9 - Chronic obstructive pulmonary disease, unspecified (4) ESRD (end stage renal disease) on dialysis Current Visit: Yes Status: Chronic Assessment and plan: Patient is on hemodialysis. We will continue dialysis and follow-up renal function (5) DVT prophylaxis Current Visit: Yes Status: Acute Assessment and plan: Heparin subcutaneously - Time Spent With Patient 25 - 35 minutes - Subjective Interval history: Patient is a 61-year-old male admitted for difficulty breathing. He has a history of end-stage renal disease on hemodialysis and has missed dialysis. Patient has emergency dialysis last night. Other significant medical history include CHF, COPD, diabetes, hypertension, thyroid disease. Patient was seen and examined this morning. He is sleepy but can be aroused, still in acute respiratory distress and on BiPAP or high level oxygen. Has nonproductive cough. Hyperkalemia has improved, plan for HD today. Given his hx of COPD and cough/SOB symptoms, will also treat pt as COPD exacerbation. Abx , and steroid placed. Cough syrup placed. Continue BiPAP during night. - Constitutional Vitals: Temp Pulse Resp BP Pulse Ox 97.9 F 73 16 141/83 93 L 09/16/16 15:30 09/16/16 17:00 09/16/16 17:00 09/16/16 17:00 09/16/16 17:00 General appearance: Present: cachectic, disheveled, A&O X 3, obese, severe distress. Absent: cooperative, answers questions appropriately - Head Head exam: Present: atraumatic, normocephalic - Eye Eye exam: Present: PERRL, conjuntiva pink, sclera anicteric Pupils: Present: PERRL - Neck Neck exam general surgery: Present: supple, trachea midline. Absent: lymphadenopathy - Respiratory Respiratory exam: Present: CTAB, rhonchi (Diffuse rhonchi bilaterally), wheezes (Scattered wheezing bilaterally). Absent: accessory muscle use, rales - Cardiovascular Cardiovascular exam: Present: RRR, +S1, +S2. Absent: diastolic murmur, gallop, rubs, systolic murmur - GI/Abdominal GI/Abdominal exam: Present: normal bowel sounds, soft, no peritoneal signs. Absent: distended, tenderness - Extremities Exam Extremities exam: Present: warm, radial pulses palpable and symetrical. Absent : calf tenderness, cyanotic, pedal edema - Neurological Exam Neurological exam: Present: CN II-XII intact, oriented X3, no focal deficits. Absent: pronater drift, facial droop, speech deficit - Skin Skin exam: Present: dry, intact Internal Medicine: Result - Labs CBC & Chem 7: 09/16/16 03:17 09/16/16 03:17 Labs: Short CBC 09/16/16 Range/Units 03:17 WBC 7.2 (4.3-11.1) K/mcL Hgb 13.7 (12.9-16.9) g/dL Hct 43.4 (37.5-50.1) % Plt Count 170 (140-400) K/mcL Neutrophils # 5.6 (1.6-8.9) K/mcL BMP 09/16/16 03:17 Sodium 138 Potassium 5.5 H D Chloride 99 Carbon Dioxide 26 BUN 30 H Creatinine 5.05 H Glucose 68 L Calcium 10.0 Liver Function 09/16/16 Range/Units 03:17 Total Bilirubin 0.4 (0.2-1.2) mg/dL AST 10 (5-34) Units/L ALT 9 (0-55) Units/L Alkaline Phosphatase 99 (38-126) Units/L Albumin 3.0 L (3.5-5.0) g/dL - ABG Interpretation ABG results: PT/INR, D-dimer PT 12.7 Seconds (9.4-12.1) H 09/14/16 21:58 Consult Discharge Plan - Plan Referrals: NO,PCP [Primary Care Provider] -
--- NOTE | 2016-09-16 21:51 | Neurology Progress Note ---
Date of Encounter: 09/16/16 Time of Encounter: 11:00 Assessment and Plan (1) Myoclonic disorder Current Visit: Yes Status: Acute Again this is a chronic phenomenon likely related to his metabolic encephalopathy that usually fluctuate in intensity according to multiple medication conditions especially renal failure and uremia. The symptoms follows improvement in uremia and improve after hemodialysis. mental clouding also improved and CT of head showed no acute changes. No evidence of primary neurological disorder. Will recommend continuing medical and supportive care. Agree with reducing gabapentin dosage. Will sign off at this time please call if any questions. Subjective Principal diagnosis: myoclonic jerking Interval history: Patient seen and examined this AM around 11:30am. Patient is drowsy but easily arousable. patient's mental clouding and myoclonic jerking improved especially after dialysis last night, per nursing staff. Also noticed that his muscle strength also improved. Hand venereal disease control head are equal, although range of motion to right shoulder still limited at the shoulder area. CT of head was reviewed and it looks unremarkable. No acute intracranial abnormality reported Objective - Constitutional Vitals: Temp Pulse Resp BP Pulse Ox 98.1 F 70 17 118/73 89 L 09/16/16 20:50 09/16/16 20:00 09/16/16 20:50 09/16/16 21:20 09/16/16 20:00 - Neurological Exam Sensorimotor examination: Present: other (difficult to assess due to change in mental status but no significant abnormality noted. Withdrawal to pain in both legs) Motor Examination: Present: other (Grossly intact and symmetrical at present time. Hand venereal disease control head are equal. Right arm adducted at the right shoulder. Legs withdrawal to pain and able to hold against gravity when doing leg straight falling test) Motor examination - right side: 4/5: deltoids, biceps, triceps, wrist flexion, wrist extension, player development executive, hip flexors, tibialis Anterior, quadriceps, toe extension (EHL), plantarflexion Motor examination - left side: 4/5: deltoids, biceps, triceps, wrist flexion, wrist extension, hip flexors, player development executive, quadriceps, tibialis Anterior, toe extension (EHL), plantarflexion Sensation intact: Present: other (Grossly intact as mentioned above, detailed sensory examination difficult. Pain on passive ROM to right arm) Posture: Present: other (none) Reflex and gait examination: other (Reflexs are brisk bilaterally. right arm DTR difficult to assess. Trace of astexis difficult to examine.) Reflexes: Biceps: 2+, Triceps: 2+, Brachioradialis: 2+, Patella: 2+, Achilles: 2 + Mental Status Examination: Present: awake, alert, oriented to person, oriented to place, follows commands appropriately, answers questions appropriately, opens eyes to voice, makes eye contact, follows simple commands, answers questions by nodding yes or no Cranial nerve examination: Present: PERRL, EOMI, visual mehta intact ( difficult to assess), corneal reflexes brisk symmetrically, sensory to face intact, mastication intact, no facial asymmetry is present, no dysarthria, hearing is intact symmetrically, soft palate elevates bilaterally upon phonation (Unable to assess), gag reflex intact (Not tested), flexes SCM and trapezius muscles symmetrically with full power, tongue protrudes midline, no atrophy or facial fasiculations present Results - Laboratory Findings CBC and BMP: 09/16/16 03:17 09/16/16 03:17 Abnormal lab findings: Abnormal lab results RBC 4.15 M/mcL (4.19-5.50) L 09/16/16 03:17 MCV 104.6 fL (83.0-100.0) H 09/16/16 03:17 RDW 15.4 % (11.5-14.5) H 09/16/16 03:17 PT 12.7 Seconds (9.4-12.1) H 09/14/16 21:58 VBG pH 7.26 pH Units (7.32-7.42) L 09/14/16 23:26 VBG pCO2 57 mmHg (41-51) H 09/14/16 23:26 VBG pO2 182 mmHg (25-40) H 09/14/16 23:26 Potassium 5.5 mEq/L (3.5-4.5) H D 09/16/16 03:17 BUN 30 mg/dL (8-26) H 09/16/16 03:17 Creatinine 5.05 mg/dL (0.72-1.25) H 09/16/16 03:17 Est GFR ( Amer) 14 (> 60) L 09/16/16 03:17 Est GFR (Non-Af Amer) 12 (> 60) L 09/16/16 03:17 Glucose 68 mg/dL (70-99) L 09/16/16 03:17 Phosphorus 7.7 mg/dL (2.3-4.7) H 09/15/16 02:45 B-Natriuretic Peptide 1097 pg/mL (0-100) H 09/14/16 21:58 Serum Total Protein 5.9 g/dL (6.0-8.3) L 09/16/16 03:17 Albumin 3.0 g/dL (3.5-5.0) L 09/16/16 03:17 Albumin/Globulin Ratio 1.0 (1.1-2.2) L 09/16/16 03:17 Consult Discharge Plan - Plan Referrals: NO,PCP [Primary Care Provider] -
[2016-09-16] MEDS: *HR* LORazepam 2 MG/ML VIAL IVP PRN (22:37)
[2016-09-16] MEDS: Mirtazapine 15 MG TABLET PO SCH (23:49)
[2016-09-17] MEDS: Gabapentin 100 MG CAPSULE PO SCH ×4 (00:03→21:49)
[2016-09-17] MEDS: clonazePAM 0.5 MG TABLET PO SCH ×4 (00:03→21:49)
[2016-09-17] MEDS: *HR* Heparin 5,000 UNIT/ML VIAL SQ SCH ×3 (00:03→15:43)
[2016-09-17] MEDS: Mirtazapine 15 MG TABLET PO SCH ×2 (00:03→21:49)
[2016-09-17] MEDS: GuaiFENesin Liq 200 MG/10 ML UDC PO SCH ×5 (00:03→21:49)
[2016-09-17] MEDS: *HR* Morphine 2 MG/ML SYRINGE IVP PRN ×2 (02:45→10:23)
[2016-09-17 03:24] LABS: Basophils % 0.4 %; Eosinophils # 0.1 K/mcL (0.0-0.6); Hematocrit 47.3 % (37.5-50.1); Immature Granulocytes % 0.4 % (0-4); Lymphocytes # 0.9 K/mcL (0.6-4.6); Lymphocytes % 13.1 %; Mean Corpuscular HGB Conc 31.7 g/dL (31.6-35.5); Mean Corpuscular Hemoglobin 33.3 pg (28.0-33.3); Mean Corpuscular Volume 104.9 fL (83.0-100.0); Mean Platelet Volume 9.3 fL (9.4-12.4); Monocytes # 0.6 K/mcL (0.0-1.3); Monocytes % 9.3 %; Neutrophils # 5.2 K/mcL (1.6-8.9); Platelet Count 151 K/mcL (140-400); Red Blood Count 4.51 M/mcL (4.19-5.50); Red Cell Distribution Width 15.2 % (11.5-14.5); Segmented Neutrophils % 75.8 %
[2016-09-17 03:39] LABS: Albumin 3.1 g/dL (3.5-5.0); Bilirubin,Total 0.5 mg/dL (0.2-1.2); Calcium 9.9 mg/dL (8.6-10.8); Total Protein 6.1 g/dL (6.0-8.3)
[2016-09-17 03:40] LABS: Potassium 4.3 mEq/L (3.5-4.5)
[2016-09-17] MEDS: *HR* Dextrose 50 % in Water (Syg) 50 ML SYRINGE IVP PRN ×2 (03:50→08:26)
[2016-09-17] MEDS: Insulin LISPRO 300 UNITS/3 ML VIAL SQ SCH ×4 (07:52→21:50)
[2016-09-17] MEDS: Tiotropium 18 MCG inhalation IH SCH (08:09)
[2016-09-17] MEDS ORDERED: 0.9 % Sodium Chloride 250 ML IV PRN (08:33)
--- NOTE | 2016-09-17 08:36 | Nephrology Progress Note ---
Date of Encounter: 09/17/16 Time of Encounter: 08:34 - Assessment and Plan (1) ESRD (end stage renal disease) on dialysis Current Visit: Yes Status: Chronic Na+ and K+ now back WNL. Lethargy still remains. Getting Ativan 1mg IV, Morphine 2mg every 2 hours prn, Klonopin 0.5 mg p.o TID; meds may be contributing to patient's mental status. Agree with lowering Neurontin to 100mg TID Does not appear to be greatly fluid overload but will consider a brief 2 hours of UF today (2) Hyperkalemia Current Visit: Yes Status: Resolved (3) Hyperphosphatemia Current Visit: Yes Status: Acute Continue renal diet and binders (4) H/O noncompliance with medical treatment, presenting hazards to health Current Visit: Yes Status: Acute Non-compliant with outpatient dialysis treatments. Subjective Principal diagnosis: ESRD, Hyperkalemia Interval history: Patient seen and examined. Very lethargic, wakes up briefly when I talk to him. Objective - Vital Signs Vital signs: Vital Signs Temp Pulse Resp BP Pulse Ox 09/17/16 08:10 16 94 L 09/17/16 07:43 98.6 F 09/17/16 06:00 93 14 142/82 94 L 09/17/16 05:00 85 20 157/88 92 L 09/17/16 04:00 84 09/17/16 03:55 98.1 F 84 20 170/86 91 L 09/17/16 03:00 72 24 140/82 92 L 09/17/16 02:00 80 20 163/88 92 L 09/17/16 01:00 80 22 151/82 94 L 09/17/16 00:57 16 94 L 09/17/16 00:00 97.4 F L 69 18 134/76 90 L 09/16/16 23:46 97.4 F L 09/16/16 23:00 72 16 129/75 89 L 09/16/16 22:00 70 18 114/67 93 L 09/16/16 21:20 118/73 09/16/16 21:05 139/73 09/16/16 21:00 63 17 127/69 90 L 09/16/16 20:50 98.1 F 17 141/72 09/16/16 20:16 98.1 F 09/16/16 20:00 98.1 F 70 12 128/74 89 L 09/16/16 19:00 62 12 139/5 93 L 09/16/16 18:00 66 18 130/68 92 L 09/16/16 17:00 73 16 141/83 93 L 09/16/16 16:49 64 09/16/16 16:00 63 18 132/76 93 L 09/16/16 15:30 97.9 F 09/16/16 14:00 64 18 120/68 96 09/16/16 12:29 64 09/16/16 12:04 97.7 F 09/16/16 09:00 64 18 156/77 95 Intake and Output 09/16/16 09/17/16 09/17/16 23:59 07:59 15:59 Intake Total 700 / 700 120 / 120 Output Total 200 / 200 200 / 200 Balance 500 / 500 -80 / -80 Intake: IV Fluids 100 / 100 Rocephin 1,000 MG In 100 / 100 Dextrose 5% (Minibag+) 100 ML 100 ML @ 200 mls/ hr IVPB DAILY [facility] Rx#: [id number] Oral 0 / 0 120 / 120 Intake, Rinseback and 600 / 600 Flushes Output: Catheter 200 / 200 200 / 200 Other: Meal Dinner Percent of Meal Consumed 25% Weight 79 kg Blood Glucose* 84 66 Hemodialysis Net Fluid 595 Removed (mL) Patient Weight 09/17/16 23:59 Weight 79 kg - General Appearance General appearance: Present: chronically ill, fatigue EENT: Present: ATNC Neck: Present: supple Respiratory: Present: course breath sounds, rhonchi Cardiology: Present: edema (feet, BLL ), normal S1, normal S2 Dialysis Vascular Access: Venous Catheter Gastrointestinal: Present: no guarding Integumentary: Present: warm and dry Neurologic: Present: confused, disoriented (very lethargic) - Lab 09/17/16 02:51 09/17/16 02:51 Most recent lab results Calcium 9.9 mg/dL (8.6-10.8) 09/17/16 02:51 Phosphorus 7.7 mg/dL (2.3-4.7) H 09/15/16 02:45 Magnesium 2.4 mg/dL (1.6-2.6) 09/15/16 02:45 Consult Discharge Plan - Plan Referrals: NO,PCP [Primary Care Provider] -
[2016-09-17] MEDS: amLODIPine 5 MG TABLET PO SCH (08:45)
[2016-09-17] MEDS: rOPINIRole 1 MG TABLET PO SCH (08:45)
[2016-09-17] MEDS: predniSONE 10 MG TABLET PO SCH (08:45)
[2016-09-17] MEDS: Nystatin SUSP 5 ML UD.LIQ PO SCH ×4 (08:45→21:49)
[2016-09-17] MEDS: Calcium Acetate 667 MG CAPSULE PO SCH ×3 (08:45→17:23)
[2016-09-17] MEDS: Sennosides 8.6 MG TABLET PO SCH ×2 (08:46→21:49)
[2016-09-17] MEDS: cloNIDine HCl 0.1 MG TABLET PO SCH ×3 (08:46→21:48)
[2016-09-17] MEDS: Levothyroxine 25 MCG TABLET PO SCH (08:46)
[2016-09-17] MEDS: Aspirin Enteric Coated 81 MG Tablet PO SCH (08:46)
[2016-09-17] MEDS: Venlafaxine XR (24 HR) 37.5 MG CAP.ER.24H PO SCH ×2 (08:46→21:49)
[2016-09-17] MEDS: FLUoxetine 20 MG CAPSULE PO SCH (08:46)
[2016-09-17] MEDS ORDERED: *HR* Heparin 10,000 UNIT/10 ML VIAL IV PRN (09:07)
[2016-09-17] MEDS ORDERED: 0.9 % Sodium Chloride 1,000 ML PRIME SCH (09:15)
[2016-09-17] MEDS: Azithromycin 500 MG in D5% in Water 250 ML IVPB SCH (12:06)
--- NOTE | 2016-09-17 16:11 | Internal Med Progress Note ---
Date of Encounter: 09/17/16 Time of Encounter: 10:00 - Assessment and plan (1) Acute on chronic respiratory failure with hypoxia and hypercapnia Current Visit: Yes Status: Acute Assessment and plan: Most likely due to fluid overdose caused by missing dialysis. Patient also has signs of COPD exacerbation. Continue supportive treatment with BiPAP. continue bronchodilator and prednisone treatment, and antibiotics. (2) Hyperkalemia Current Visit: Yes Status: Resolved Assessment and plan: Due to missing dialysis. Had emergency dialysis, potassium level has improved. Follow-up CMP. Nephrology is on board. (3) COPD (chronic obstructive pulmonary disease) Current Visit: Yes Status: Chronic Assessment and plan: Patient's shortness of breath not improved after hemodialysis. Also consider COPD exacerbation . Treat patient with prednisone 40 mg daily , and antibiotics and bronchodilator. Continue BiPAP supportive treatment Qualifiers: COPD type: unspecified COPD Qualified Code(s): J44.9 - Chronic obstructive pulmonary disease, unspecified (4) ESRD (end stage renal disease) on dialysis Current Visit: Yes Status: Chronic Assessment and plan: Patient is on hemodialysis. We will continue dialysis and follow-up renal function (5) DVT prophylaxis Current Visit: Yes Status: Acute Assessment and plan: Heparin subcutaneously - Time Spent With Patient 25 - 35 minutes - Subjective Interval history: Patient is a 61-year-old male admitted for difficulty breathing. He has a history of end-stage renal disease on hemodialysis and has missed dialysis. Patient has emergency dialysis last night. Other significant medical history include CHF, COPD, diabetes, hypertension, thyroid disease. Patient was seen and examined this morning. He is more alert, awake today. Less respiratory distress. Still need on BiPAP or high level oxygen. Has nonproductive cough. Hyperkalemia has improved after HD. Jerky movement also improved. Will continue treat pt as COPD exacerbation with Abx, and steroid. Cough syrup placed. Continue BiPAP during night. - Constitutional Vitals: Temp Pulse Resp BP Pulse Ox 97.4 F L 76 16 115/69 92 L 09/17/16 11:15 09/17/16 15:00 09/17/16 15:00 09/17/16 15:00 09/17/16 15:00 General appearance: Present: cachectic, disheveled, A&O X 3, obese, severe distress. Absent: cooperative, answers questions appropriately - Head Head exam: Present: atraumatic, normocephalic - Eye Eye exam: Present: PERRL, conjuntiva pink, sclera anicteric Pupils: Present: PERRL - Neck Neck exam general surgery: Present: supple, trachea midline. Absent: lymphadenopathy - Respiratory Respiratory exam: Present: CTAB, rhonchi (Diffuse rhonchi bilaterally). Absent : accessory muscle use, rales, wheezes - Cardiovascular Cardiovascular exam: Present: RRR, +S1, +S2. Absent: diastolic murmur, gallop, rubs, systolic murmur - GI/Abdominal GI/Abdominal exam: Present: normal bowel sounds, soft, no peritoneal signs. Absent: distended, tenderness - Extremities Exam Extremities exam: Present: warm, radial pulses palpable and symetrical. Absent : calf tenderness, cyanotic, pedal edema - Neurological Exam Neurological exam: Present: CN II-XII intact, oriented X3, no focal deficits. Absent: pronater drift, facial droop, speech deficit - Skin Skin exam: Present: dry, intact Internal Medicine: Result - Labs CBC & Chem 7: 09/17/16 02:51 09/17/16 02:51 Labs: Short CBC 09/17/16 Range/Units 02:51 WBC 6.8 (4.3-11.1) K/mcL Hgb 15.0 (12.9-16.9) g/dL Hct 47.3 (37.5-50.1) % Plt Count 151 (140-400) K/mcL Neutrophils # 5.2 (1.6-8.9) K/mcL BMP 09/17/16 02:51 Sodium 140 Potassium 4.3 D Chloride 99 Carbon Dioxide 29 BUN 20 D Creatinine 4.14 H Glucose 64 L Calcium 9.9 Liver Function 09/17/16 Range/Units 02:51 Total Bilirubin 0.5 (0.2-1.2) mg/dL AST 11 (5-34) Units/L ALT 9 (0-55) Units/L Alkaline Phosphatase 104 (38-126) Units/L Albumin 3.1 L (3.5-5.0) g/dL - ABG Interpretation ABG results: PT/INR, D-dimer PT 12.7 Seconds (9.4-12.1) H 09/14/16 21:58 Consult Discharge Plan - Plan Referrals: NO,PCP [Primary Care Provider] -
[2016-09-17] MEDS: Ipratropium/Albuterol Neb 3 ML IH SCH ×3 (16:30→23:11)
[2016-09-18] MEDS: *HR* Heparin 5,000 UNIT/ML VIAL SQ SCH ×3 (00:39→16:44)
[2016-09-18] MEDS: Ipratropium/Albuterol Neb 3 ML IH SCH ×5 (03:43→20:38)
[2016-09-18 06:32] LABS: Basophils % 0.3 %; Eosinophils % 0.4 %; Hematocrit 40.8 % (37.5-50.1); Immature Granulocytes % 0.4 % (0-4); Lymphocytes # 1.3 K/mcL (0.6-4.6); Lymphocytes % 16.8 %; Mean Corpuscular HGB Conc 32.4 g/dL (31.6-35.5); Mean Corpuscular Hemoglobin 33.5 pg (28.0-33.3); Mean Corpuscular Volume 103.6 fL (83.0-100.0); Mean Platelet Volume 9.7 fL (9.4-12.4); Monocytes # 0.8 K/mcL (0.0-1.3); Monocytes % 9.5 %; Neutrophils # 5.8 K/mcL (1.6-8.9); Platelet Count 129 K/mcL (140-400); Red Blood Count 3.94 M/mcL (4.19-5.50); Segmented Neutrophils % 72.6 %
[2016-09-18 06:37] LABS: Hemoglobin 13.2 g/dL (12.9-16.9)
[2016-09-18] MEDS: GuaiFENesin Liq 200 MG/10 ML UDC PO SCH ×4 (06:42→22:38)
[2016-09-18] MEDS: Aspirin Enteric Coated 81 MG Tablet PO SCH (06:43)
[2016-09-18] MEDS: Nystatin SUSP 5 ML UD.LIQ PO SCH ×4 (06:44→22:38)
[2016-09-18] MEDS: Venlafaxine XR (24 HR) 37.5 MG CAP.ER.24H PO SCH ×2 (06:44→22:40)
[2016-09-18] MEDS: amLODIPine 5 MG TABLET PO SCH (06:44)
[2016-09-18] MEDS: predniSONE 10 MG TABLET PO SCH (06:44)
[2016-09-18] MEDS: Gabapentin 100 MG CAPSULE PO SCH ×3 (06:44→22:39)
[2016-09-18] MEDS: Sennosides 8.6 MG TABLET PO SCH ×2 (06:45→22:39)
[2016-09-18] MEDS: Levothyroxine 25 MCG TABLET PO SCH (06:45)
[2016-09-18] MEDS: FLUoxetine 20 MG CAPSULE PO SCH (06:45)
[2016-09-18 07:02] LABS: Albumin 2.8 g/dL (3.5-5.0); Bilirubin,Total 0.4 mg/dL (0.2-1.2); Globulin 2.7 g/dL (2.4-3.5); Potassium 4.9 mEq/L (3.5-4.5); Total Protein 5.5 g/dL (6.0-8.3)
[2016-09-18] MEDS ORDERED: *HR* Heparin 10,000 UNIT/10 ML VIAL IV PRN (07:34)
[2016-09-18] MEDS ORDERED: 0.9 % Sodium Chloride 1,000 ML PRIME SCH (07:45)
[2016-09-18] MEDS ORDERED: 0.9 % Sodium Chloride 2,000 ML ONE (08:09)
[2016-09-18] MEDS: Insulin LISPRO 300 UNITS/3 ML VIAL SQ SCH ×4 (08:58→22:40)
[2016-09-18] MEDS ORDERED: Furosemide 40 MG TABLET PO SCH (09:00)
[2016-09-18] MEDS: clonazePAM 0.5 MG TABLET PO SCH ×3 (09:09→22:39)
[2016-09-18] MEDS: Calcium Acetate 667 MG CAPSULE PO SCH ×3 (09:09→16:43)
[2016-09-18] MEDS: rOPINIRole 1 MG TABLET PO SCH (09:51)
[2016-09-18] MEDS: Tiotropium 18 MCG inhalation IH SCH (09:58)
--- NOTE | 2016-09-18 12:19 | Nephrology Progress Note ---
Date of Encounter: 09/18/16 Time of Encounter: 11:30 - Assessment and Plan (1) ESRD (end stage renal disease) on dialysis Current Visit: Yes Status: Chronic HD planned today for 3.5hrs with UF as tolerated Continue phos binders and sensipar (2) Hyperkalemia Current Visit: Yes Status: Resolved Potassium mildly elevated at 4.9, should resolve with HD today (3) Delirium due to conditions classified elsewhere Current Visit: Yes Status: Acute discontinued prn morphine which might have been contributing to altered MS Continue gabapentin at reduced dose Subjective Principal diagnosis: ESRD, Hyperkalemia Interval history: Pt seen and examined back at baseline mental status and awake, communicative. Objective - Vital Signs Vital signs: Vital Signs Temp Pulse Resp BP Pulse Ox 09/18/16 11:40 98.3 F 96 16 102/59 88 L 09/18/16 11:02 18 90 L 09/18/16 07:01 97.5 F L 76 20 97/59 88 L 09/18/16 03:43 16 89 L 09/18/16 03:35 98 F 70 16 93/58 89 L 09/17/16 23:25 97.7 F 72 16 96/60 96 09/17/16 23:11 16 94 L 09/17/16 20:15 16 91 L 09/17/16 19:22 98 F 82 16 115/71 90 L 09/17/16 16:36 97.9 F 09/17/16 16:30 16 94 L 09/17/16 15:00 76 16 115/69 92 L Intake and Output 09/17/16 09/18/16 09/18/16 23:59 07:59 15:59 Intake Total 350 / 350 550 / 550 240 / 240 Output Total 0 / 0 Balance 350 / 350 550 / 550 240 / 240 Intake: Oral 350 / 350 550 / 550 240 / 240 Output: Catheter 0 / 0 Other: Meal pudding Breakfast Percent of Meal Consumed 100% Weight 77.7 kg 77.2 kg Blood Glucose* 113 84 122 Patient Weight 09/18/16 23:59 Weight 77.2 kg - General Appearance General appearance: Present: chronically ill (NAD) EENT: Present: ATNC, mucous membranes moist Neck: Present: no JVD, supple Respiratory: Present: clear (ant bilat) Cardiology: Present: no edema, normal S1, normal S2 Dialysis Vascular Access: Venous Catheter Gastrointestinal: Present: no tenderness, no guarding Integumentary: Present: warm and dry, ecchymotic Neurologic: Present: no focal deficit Musculoskeletal: Present: no deformities Psychiatric: Present: mood/affect appropriate, cooperative - Lab 09/19/16 06:41 09/19/16 06:41 Most recent lab results Calcium 10.0 mg/dL (8.6-10.8) 09/18/16 05:57 Phosphorus 7.7 mg/dL (2.3-4.7) H 09/15/16 02:45 Magnesium 2.4 mg/dL (1.6-2.6) 09/15/16 02:45 Consult Discharge Plan - Plan Referrals: NO,PCP [Primary Care Provider] -
[2016-09-18] MEDS ORDERED: *HR* OxyCODONE/APAP 5/325 TABLET PO PRN (12:39)
[2016-09-18] MEDS: cloNIDine HCl 0.1 MG TABLET PO SCH ×3 (12:59→22:40)
--- NOTE | 2016-09-18 16:03 | Internal Med Progress Note ---
Date of Encounter: 09/18/16 Time of Encounter: 11:30 - Assessment and plan (1) Pneumonia Current Visit: Yes Status: Acute Assessment and plan: HCAP Add Cefepime, d/c ceftriaxone Continue supplemental O2 Incentive spirometry Qualifiers: Pneumonia type: due to unspecified organism Laterality: bilateral Lung location: unspecified part of lung Qualified Code(s): J18.9 - Pneumonia, unspecified organism (2) Hypothyroid Current Visit: Yes Status: Chronic Assessment and plan: Continue synthroid Qualifiers: Hypothyroidism type: unspecified Qualified Code(s): E03.9 - Hypothyroidism , unspecified (3) Physical deconditioning Current Visit: Yes Status: Acute Assessment and plan: PT/OT eval (4) Acute on chronic respiratory failure with hypoxia and hypercapnia Current Visit: Yes Status: Acute Assessment and plan: Most likely due to fluid overdose caused by missing dialysis, HCAP. Patient also has signs of COPD exacerbation. Continue supportive treatment with BiPAP. continue bronchodilator and prednisone treatment, and antibiotics. (5) CHF (congestive heart failure) Current Visit: Yes Status: Suspected Assessment and plan: Obtain ECHO Qualifiers: Congestive heart failure type: unspecified congestive heart failure type Congestive heart failure chronicity: acute on chronic Qualified Code(s): I50.9 - Heart failure, unspecified (6) Hyperkalemia, diminished renal excretion Current Visit: Yes Status: Resolved (7) ESRD (end stage renal disease) on dialysis Current Visit: Yes Status: Chronic Assessment and plan: Patient is on hemodialysis. We will continue dialysis and follow-up renal function - Subjective Interval history: Mr. 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, type II DM, GERD, hypothyroidism, anemia of chronic disease, depression and anxiety, osteoarthritis, H/O gout, osteopenia, nicotine dependency Patient is seen , at bedside, with no new complains Chart review reveals he is having increasing O2 requirements He is being managed for Refractory hyperkalemia, fluid overload, acute on chronic hypoxemic respiratory failure secondary to COPD, acute bronchitis CXR was ordered this morning, which revealed bilateral pneumonitis vs atelectasis Will escalate antibiotic therapy PT/OT has also been consulted to assess deconditioning - Constitutional Vitals: Temp Pulse Resp BP Pulse Ox 98.3 F 96 16 112/72 88 L 09/18/16 12:15 09/18/16 11:40 09/18/16 12:15 09/18/16 15:15 09/18/16 11:40 General appearance: Present: cachectic, disheveled, A&O X 3, obese, severe distress. Absent: cooperative, answers questions appropriately - Head Head exam: Present: atraumatic, normocephalic - Eye Eye exam: Present: PERRL, conjuntiva pink, sclera anicteric Pupils: Present: PERRL - Neck Neck exam general surgery: Present: supple, trachea midline. Absent: lymphadenopathy - Respiratory Respiratory exam: Present: rhonchi. Absent: rales, stridor, wheezes, tachypnea - Cardiovascular Cardiovascular exam: Present: RRR, +S1, +S2, systolic murmur - GI/Abdominal GI/Abdominal exam: Present: normal bowel sounds, soft, no peritoneal signs. Absent: tenderness - Extremities Exam Extremities exam: Absent: pedal edema - Neurological Exam Neurological exam: Present: alert, oriented X3, no focal deficits. Absent: pronater drift, facial droop, speech deficit - Skin Skin exam: Present: dry Internal Medicine: Result - Labs CBC & Chem 7: 09/18/16 05:57 09/18/16 05:57 Labs: Short CBC 09/18/16 Range/Units 05:57 WBC 8.0 (4.3-11.1) K/mcL Hgb 13.2 D (12.9-16.9) g/dL Hct 40.8 (37.5-50.1) % Plt Count 129 L (140-400) K/mcL Neutrophils # 5.8 (1.6-8.9) K/mcL BMP 09/18/16 05:57 Sodium 139 Potassium 4.9 H Chloride 100 Carbon Dioxide 26 BUN 39 H D Creatinine 5.92 H Glucose 86 Calcium 10.0 Liver Function 09/18/16 Range/Units 05:57 Total Bilirubin 0.4 (0.2-1.2) mg/dL AST 10 (5-34) Units/L ALT 7 (0-55) Units/L Alkaline Phosphatase 91 (38-126) Units/L Albumin 2.8 L (3.5-5.0) g/dL - ABG Interpretation ABG results: PT/INR, D-dimer PT 12.7 Seconds (9.4-12.1) H 09/14/16 21:58 - Impressions Impressions Chest X-Ray 09/18/16 08:11 IMPRESSION: Bibasilar atelectasis or pneumonitis. D/ / Panchito Prescott MD / Panchito Prescott MD Interpreting Provider: Panchito Prescott MD Consult Discharge Plan - Plan Referrals: NO,PCP [Primary Care Provider] -
[2016-09-18] MEDS: Mirtazapine 15 MG TABLET PO SCH (22:40)
[2016-09-18] MEDS: *HR* OxyCODONE/APAP 10/325 TABLET PO PRN (22:42)
[2016-09-19] MEDS: Ipratropium/Albuterol Neb 3 ML IH SCH ×6 (00:08→19:55)
[2016-09-19] MEDS: 0.9 % Sodium Chloride 250 ML IV PRN ×2 (01:30→02:11)
[2016-09-19] MEDS: *HR* Heparin 5,000 UNIT/ML VIAL SQ SCH ×3 (02:51→16:34)
[2016-09-19] MEDS: GuaiFENesin Liq 200 MG/10 ML UDC PO SCH ×3 (05:45→18:19)
[2016-09-19 07:01] LABS: Basophils % 0.5 %; Eosinophils # 0.1 K/mcL (0.0-0.6); Eosinophils % 0.9 %; Hematocrit 41.2 % (37.5-50.1); Hemoglobin 13.4 g/dL (12.9-16.9); Immature Granulocytes % 0.5 % (0-4); Lymphocytes # 1.9 K/mcL (0.6-4.6); Lymphocytes % 22.6 %; Mean Corpuscular HGB Conc 32.5 g/dL (31.6-35.5); Mean Corpuscular Hemoglobin 33.4 pg (28.0-33.3); Mean Corpuscular Volume 102.7 fL (83.0-100.0); Mean Platelet Volume 9.9 fL (9.4-12.4); Monocytes # 0.8 K/mcL (0.0-1.3); Monocytes % 9.7 %; Neutrophils # 5.4 K/mcL (1.6-8.9); Platelet Count 130 K/mcL (140-400); Red Blood Count 4.01 M/mcL (4.19-5.50); Red Cell Distribution Width 14.8 % (11.5-14.5); Segmented Neutrophils % 65.8 %
[2016-09-19 07:10] LABS: Albumin 2.8 g/dL (3.5-5.0); Bilirubin,Total 0.4 mg/dL (0.2-1.2); Calcium 9.9 mg/dL (8.6-10.8); Globulin 2.9 g/dL (2.4-3.5); Potassium 4.4 mEq/L (3.5-4.5); Total Protein 5.7 g/dL (6.0-8.3)
[2016-09-19] MEDS: Insulin LISPRO 300 UNITS/3 ML VIAL SQ SCH ×4 (08:22→22:47)
[2016-09-19] MEDS: Levothyroxine 25 MCG TABLET PO SCH (08:23)
[2016-09-19] MEDS: FLUoxetine 20 MG CAPSULE PO SCH (08:24)
[2016-09-19] MEDS: Venlafaxine XR (24 HR) 37.5 MG CAP.ER.24H PO SCH ×2 (08:24→21:10)
[2016-09-19] MEDS: Gabapentin 100 MG CAPSULE PO SCH ×3 (08:25→21:11)
[2016-09-19] MEDS: Nystatin SUSP 5 ML UD.LIQ PO SCH ×6 (08:26→21:10)
[2016-09-19] MEDS: Aspirin Enteric Coated 81 MG Tablet PO SCH (08:26)
[2016-09-19] MEDS: rOPINIRole 1 MG TABLET PO SCH (08:26)
[2016-09-19] MEDS: Calcium Acetate 667 MG CAPSULE PO SCH ×3 (08:27→17:22)
[2016-09-19] MEDS: Sennosides 8.6 MG TABLET PO SCH ×2 (08:27→21:10)
[2016-09-19] MEDS: Cefepime HCl 1,000 MG in D5% in Water (Mini-Bag+) 100 ML IVPB SCH (08:27)
[2016-09-19] MEDS: predniSONE 10 MG TABLET PO SCH (08:52)
[2016-09-19] MEDS: Tiotropium 18 MCG inhalation IH SCH (10:44)
--- NOTE | 2016-09-19 10:47 | Nephrology Progress Note ---
Date of Encounter: 09/19/16 Time of Encounter: 10:45 - Assessment and Plan (1) ESRD (end stage renal disease) on dialysis Current Visit: Yes Status: Chronic s/p HD yesterday, next HD planned for wednesday if still hospitalized Continue phos binders and sensipar (2) Delirium due to conditions classified elsewhere Current Visit: Yes Status: Acute Improved, though had issues last night. Per primary, discontinue benzos (3) Hyperkalemia Current Visit: Yes Status: Resolved Potassium normalized Continue renal diet Subjective Principal diagnosis: ESRD, Hyperkalemia Interval history: Pt seen and examined with no new complaints except still feeling very "run down " Objective - Vital Signs Vital signs: Vital Signs Temp Pulse Resp BP Pulse Ox 09/19/16 10:42 16 90 L 09/19/16 06:52 97.9 F 75 16 97/59 92 L 09/19/16 04:04 98.1 F 76 16 99/65 96 09/19/16 03:31 18 97 09/19/16 03:04 98.2 F 09/19/16 02:58 110/62 09/19/16 02:05 78/52 09/19/16 00:45 98.3 F 74 18 72/50 90 L 09/18/16 21:12 98.1 F 94 20 116/77 94 L 09/18/16 20:38 18 93 L 09/18/16 16:30 18 95 09/18/16 16:24 97.6 F 113 15 112/73 88 L 09/18/16 15:50 97.6 F 18 119/65 09/18/16 15:45 102/63 09/18/16 15:30 117/94 09/18/16 15:15 112/72 09/18/16 15:00 117/84 09/18/16 14:45 107/64 09/18/16 14:30 113/65 09/18/16 14:15 102/59 09/18/16 14:00 101/61 09/18/16 13:45 113/65 09/18/16 13:30 107/68 09/18/16 13:15 112/67 09/18/16 13:00 107/65 09/18/16 12:45 115/67 09/18/16 12:30 112/67 09/18/16 12:15 98.3 F 16 104/67 09/18/16 11:40 98.3 F 96 16 102/59 88 L 09/18/16 11:02 18 90 L Intake and Output 09/18/16 09/19/16 09/19/16 23:59 07:59 15:59 Intake Total 0 / 0 250 / 250 360 / 360 Output Total 0 / 0 200 / 200 Balance 0 / 0 50 / 50 360 / 360 Intake: IV Fluids 250 / 250 0.9 % Sodium Chloride 250 250 / 250 ML @ 999 mls/hr IV ONCE PRN Rx#:[id number] Oral 0 / 0 0 / 0 360 / 360 Output: Urine 0 / 0 200 / 200 Urethral (Gandhi) 0 / 0 0 / 0 Other: Meal Breakfast Percent of Meal Consumed 100% Weight 74 kg Blood Glucose* 114 83 Patient Weight 09/19/16 23:59 Weight 74 kg - General Appearance General appearance: Present: chronically ill (NAD) EENT: Present: ATNC, mucous membranes moist Neck: Present: no JVD, supple Cardiology: Present: no edema, normal S1, normal S2 Dialysis Vascular Access: Venous Catheter Gastrointestinal: Present: no tenderness, no guarding Integumentary: Present: warm and dry, ecchymotic Neurologic: Present: no focal deficit Musculoskeletal: Present: no deformities Psychiatric: Present: mood/affect appropriate - Lab 09/19/16 06:41 09/19/16 06:41 Most recent lab results Calcium 9.9 mg/dL (8.6-10.8) 09/19/16 06:41 Phosphorus 7.7 mg/dL (2.3-4.7) H 09/15/16 02:45 Magnesium 2.4 mg/dL (1.6-2.6) 09/15/16 02:45 Consult Discharge Plan - Plan Referrals: NO,PCP [Primary Care Provider] -
--- NOTE | 2016-09-19 13:39 | ECHO - Doppler Report ---
Echocardiogram Name: Shyam Ackerman Date of Study: 09/19/2016 Date: 1955 Ht: 70.0 in Medical Record#: [id number] Age: 61 Wt: 163.0 lb Gender: Male BSA: 1.91 Order #: [id number] Location: [facility] Room #: [id number] Reading Physician: Supriya Oliveira DO Engine Setter: Megan Bocanegra DAVID Ordering Physician: Ish Bruner MD Primary Physician: None Indications: Fluid overload Impressions: LVEF 60%. Normal left ventricular size and systolic function. There is evidence of mild diastolic dysfunction of the left ventricle. Normal right ventricular size and function. No significant valvular dysfunction. No pulmonary hypertension. Left Ventricular Wall Motion: Rest Echo Findings All wall segments showed normal motion. Findings: Study Quality * Technically adequate exam. ECG Findings * Normal sinus rhythm. Left Ventricle * LVEF 60%. * Normal LV chamber size, wall thickness and function. * Mild left ventricular diastolic dysfunction. Left Atrium * Normal left atrial size. Mitral Valve * Normal mitral valve structure. * No mitral stenosis. * No mitral regurgitation. * Mild mitral annular calcification Aortic Valve * No aortic regurgitation. * Aortic valve not well visualized. * No aortic stenosis. Tricuspid Valve * Tricuspid valve not well visualized. * Trace tricuspid regurgitation. * Estimated RA pressure is 3 mmHg. * Estimated RVSP is 32 mmHg. * No pulmonary hypertension. Pulmonic Valve * Pulmonic valve is not well visualized. * No pulmonic stenosis. * No pulmonic regurgitation. Pulmonary Artery * Pulmonary artery not well visualized. Right Ventricle * Normal right ventricular structure and function. Right Atrium * Normal right atrial size. Interatrial Septum * No evidence of PFO by color Doppler. IVC * Normal IVC dimensions and inspiratory collapse. Pericardium * There is no pericardial effusion present. Aorta * Normally sized aortic root. History Hypertension Diabetes Hypercholesteremia Family History of CAD Congestive Heart Failure 09-09-13 a Previous Echo was performed. Measurements: BP: 97/ 59 2D Normal Values IVSd: 1.10 cm 0.6 - 1.0 cm LVIDd: 4.90 cm 3.7 - 5.6 cm LVPWd: 1.10 cm 0.6 - 1.1 cm LVIDs: 3.50 cm 1.5 - 3.6 cm AO: 2.70 cm < 4.0 cm LA: 3.40 cm 2.0 - 4.0cm %FS: 28.60 cm >25 % LVOT Diam: 2.00 cm LA volume: 36 Mitral Valve Peak E:.67 m/sec Peak A:1.18 m/sec E/A Ratio:0.6 Peak E' Lat Holland:6.24 cm/s Peak E' Med Holland:5.65 cm/s E/E' Lat Ratio:10.7 E/E' Med Ratio:11.8 Tricuspid Valve TV Regurg Peak Grad: 29.00mmHg TV Regurg Peak Holland: 2.70m/sec Updated by Supriya Oliveira on 09/19/2016 1:32:20 PM electronically signed on 09/19/2016 1:33:20 PM with status of Final Wall Motion Lewis: 1=Normal, 2=Hypokinesis, 3=Akinesis, 4=Dyskinesis, 5=Aneurysmal, 6=Hyperkinetic, X=Not Visualized (Blank)=Missing
--- NOTE | 2016-09-19 16:18 | Internal Med Progress Note ---
Date of Encounter: 09/19/16 Time of Encounter: 10:45 - Assessment and plan (1) Pneumonia Current Visit: Yes Status: Acute Assessment and plan: HCAP Continue Cefepime Continue supplemental O2 Incentive spirometry Qualifiers: Pneumonia type: due to unspecified organism Laterality: bilateral Lung location: unspecified part of lung Qualified Code(s): J18.9 - Pneumonia, unspecified organism (2) Hypothyroid Current Visit: Yes Status: Chronic Assessment and plan: Continue synthroid Qualifiers: Hypothyroidism type: unspecified Qualified Code(s): E03.9 - Hypothyroidism , unspecified (3) Physical deconditioning Current Visit: Yes Status: Acute Assessment and plan: PT/OT eval (4) Acute on chronic respiratory failure with hypoxia and hypercapnia Current Visit: Yes Status: Acute Assessment and plan: Most likely due to fluid overdose caused by missing dialysis, HCAP. Patient also has signs of COPD exacerbation. Continue supportive treatment with BiPAP. continue bronchodilator and prednisone treatment, and antibiotics. (5) CHF (congestive heart failure) Current Visit: Yes Status: Suspected Assessment and plan: Some documentation of CHF per chart ECHo done today LVEF 60%, N LV size and function, mild LVDD, normal RVSS, no pulmonary HTN Qualifiers: Congestive heart failure type: unspecified congestive heart failure type Congestive heart failure chronicity: acute on chronic Qualified Code(s): I50.9 - Heart failure, unspecified (6) Hyperkalemia, diminished renal excretion Current Visit: Yes Status: Resolved (7) ESRD (end stage renal disease) on dialysis Current Visit: Yes Status: Chronic Assessment and plan: Patient is on hemodialysis. We will continue dialysis and follow-up renal function - Subjective Interval history: Mr. 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, type II DM, GERD, hypothyroidism, anemia of chronic disease, depression and anxiety, osteoarthritis, H/O gout, osteopenia, nicotine dependency Chart review reveals he is having increasing O2 requirements He is being managed for Refractory hyperkalemia, fluid overload, acute on chronic hypoxemic respiratory failure secondary to COPD, acute bronchitis CXR was 09/18 revealed bilateral pneumonitis vs atelectasis, he was started on Cefepime He is seen at bedside,denies new complains - Constitutional Vitals: Temp Pulse Resp BP Pulse Ox 97.6 F 90 16 108/68 93 L 09/19/16 11:00 09/19/16 11:00 09/19/16 11:00 09/19/16 11:00 09/19/16 11:00 General appearance: Present: A&O X 3, pleasant, obese, severe distress, answers questions appropriately. Absent: cooperative - Head Head exam: Present: atraumatic, normocephalic - Eye Eye exam: Present: PERRL, conjuntiva pink, sclera anicteric Pupils: Present: PERRL - Neck Neck exam general surgery: Present: supple, trachea midline. Absent: lymphadenopathy - Respiratory Additional comments: Right chest wall permacath CTAB NO chest wall tenderness - Cardiovascular Cardiovascular exam: Present: RRR, +S1, +S2. Absent: diastolic murmur, gallop, rubs, systolic murmur - GI/Abdominal GI/Abdominal exam: Present: normal bowel sounds, soft, no peritoneal signs. Absent: distended, tenderness - Extremities Exam Extremities exam: Present: warm, radial pulses palpable and symetrical. Absent : calf tenderness, cyanotic, pedal edema Additional comments: R ankle DJD - Neurological Exam Neurological exam: Present: CN II-XII intact, oriented X3, no focal deficits. Absent: pronater drift, facial droop, speech deficit - Skin Skin exam: Present: dry Internal Medicine: Result - Labs CBC & Chem 7: 09/19/16 06:41 09/19/16 06:41 Labs: Short CBC 09/19/16 Range/Units 06:41 WBC 8.2 (4.3-11.1) K/mcL Hgb 13.4 (12.9-16.9) g/dL Hct 41.2 (37.5-50.1) % Plt Count 130 L (140-400) K/mcL Neutrophils # 5.4 (1.6-8.9) K/mcL BMP 09/19/16 06:41 Sodium 137 Potassium 4.4 Chloride 98 Carbon Dioxide 26 BUN 26 D Creatinine 4.69 H Glucose 80 Calcium 9.9 Liver Function 09/19/16 Range/Units 06:41 Total Bilirubin 0.4 (0.2-1.2) mg/dL AST 12 (5-34) Units/L ALT 6 (0-55) Units/L Alkaline Phosphatase 88 (38-126) Units/L Albumin 2.8 L (3.5-5.0) g/dL - ABG Interpretation ABG results: PT/INR, D-dimer PT 12.7 Seconds (9.4-12.1) H 09/14/16 21:58 Consult Discharge Plan - Plan Referrals: NO,PCP [Primary Care Provider] -
[2016-09-19] MEDS: Mirtazapine 15 MG TABLET PO SCH (21:11)
[2016-09-19] MEDS: *HR* OxyCODONE/APAP 10/325 TABLET PO PRN (23:01)
[2016-09-20] MEDS: GuaiFENesin Liq 200 MG/10 ML UDC PO SCH ×4 (00:17→16:46)
[2016-09-20] MEDS: *HR* Heparin 5,000 UNIT/ML VIAL SQ SCH ×3 (00:17→16:48)
[2016-09-20] MEDS: Ipratropium/Albuterol Neb 3 ML IH SCH ×6 (00:23→20:55)
[2016-09-20 05:00] LABS: Basophils % 0.2 %; Eosinophils % 0.2 %; Hematocrit 41.7 % (37.5-50.1); Hemoglobin 13.4 g/dL (12.9-16.9); Immature Granulocytes % 0.5 % (0-4); Lymphocytes # 1.3 K/mcL (0.6-4.6); Lymphocytes % 12.7 %; Mean Corpuscular HGB Conc 32.1 g/dL (31.6-35.5); Mean Corpuscular Hemoglobin 32.7 pg (28.0-33.3); Mean Corpuscular Volume 101.7 fL (83.0-100.0); Mean Platelet Volume 9.8 fL (9.4-12.4); Neutrophils # 7.7 K/mcL (1.6-8.9); Platelet Count 144 K/mcL (140-400); Red Cell Distribution Width 14.3 % (11.5-14.5); Segmented Neutrophils % 76.4 %
[2016-09-20 05:11] LABS: Bilirubin,Total 0.4 mg/dL (0.2-1.2); Calcium 10.2 mg/dL (8.6-10.8); Potassium 4.8 mEq/L (3.5-4.5)
[2016-09-20] MEDS: *HR* OxyCODONE/APAP 10/325 TABLET PO PRN ×4 (05:36→21:34)
[2016-09-20] MEDS: Levothyroxine 25 MCG TABLET PO SCH ×2 (07:51→09:57)
[2016-09-20] MEDS: Tiotropium 18 MCG inhalation IH SCH (08:56)
[2016-09-20] MEDS: Insulin LISPRO 300 UNITS/3 ML VIAL SQ SCH ×4 (09:50→21:28)
[2016-09-20] MEDS: Cefepime HCl 1,000 MG in D5% in Water (Mini-Bag+) 100 ML IVPB SCH (09:52)
[2016-09-20] MEDS: FLUoxetine 20 MG CAPSULE PO SCH (09:54)
[2016-09-20] MEDS: Aspirin Enteric Coated 81 MG Tablet PO SCH (09:54)
[2016-09-20] MEDS: Sennosides 8.6 MG TABLET PO SCH ×2 (09:54→21:34)
[2016-09-20] MEDS: predniSONE 10 MG TABLET PO SCH (09:55)
[2016-09-20] MEDS: rOPINIRole 1 MG TABLET PO SCH (09:55)
[2016-09-20] MEDS: Nystatin SUSP 5 ML UD.LIQ PO SCH ×4 (09:56→21:34)
[2016-09-20] MEDS: Gabapentin 100 MG CAPSULE PO SCH ×3 (09:56→21:33)
[2016-09-20] MEDS: Venlafaxine XR (24 HR) 37.5 MG CAP.ER.24H PO SCH ×2 (09:56→21:33)
[2016-09-20] MEDS: Calcium Acetate 667 MG CAPSULE PO SCH ×3 (09:57→16:40)
[2016-09-20] MEDS ORDERED: Bisacodyl 10 MG RECTAL SUPPOSITORY RC ONE (10:01)
--- NOTE | 2016-09-20 10:04 | Internal Med Progress Note ---
Date of Encounter: 09/20/16 Time of Encounter: 09:45 - Assessment and plan (1) Pneumonia Current Visit: Yes Status: Acute Assessment and plan: HCAP Continue Cefepime Continue supplemental O2 Incentive spirometry Qualifiers: Pneumonia type: due to unspecified organism Laterality: bilateral Lung location: unspecified part of lung Qualified Code(s): J18.9 - Pneumonia, unspecified organism (2) Hypothyroid Current Visit: Yes Status: Chronic Assessment and plan: Continue synthroid Qualifiers: Hypothyroidism type: unspecified Qualified Code(s): E03.9 - Hypothyroidism , unspecified (3) Physical deconditioning Current Visit: Yes Status: Acute Assessment and plan: PT/OT eval noted Patient to return home (4) Acute on chronic respiratory failure with hypoxia and hypercapnia Current Visit: Yes Status: Acute Assessment and plan: Improved. Most likely due to fluid overdose caused by missing dialysis, HCAP. Patient also has signs of COPD exacerbation. Continue supportive treatment with BiPAP. continue bronchodilator and prednisone treatment, and antibiotics. (5) CHF (congestive heart failure) Current Visit: Yes Status: Chronic Assessment and plan: Some documentation of CHF per chart ECHo done today LVEF 60%, N LV size and function, mild LVDD, normal RVSS, no pulmonary HTN Qualifiers: Congestive heart failure type: diastolic Congestive heart failure chronicity: acute on chronic Qualified Code(s): I50.33 - Acute on chronic diastolic (congestive) heart failure (6) Hyperkalemia, diminished renal excretion Current Visit: Yes Status: Resolved (7) ESRD (end stage renal disease) on dialysis Current Visit: Yes Status: Chronic Assessment and plan: Patient is on hemodialysis. We will continue dialysis and follow-up renal function - Subjective Interval history: Mr. 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, type II DM, GERD, hypothyroidism, anemia of chronic disease, depression and anxiety, osteoarthritis, H/O gout, osteopenia, nicotine dependency Chart review reveals he is having increasing O2 requirements He is being managed for Refractory hyperkalemia, fluid overload, acute on chronic hypoxemic respiratory failure secondary to COPD, acute bronchitis CXR was 09/18 revealed bilateral pneumonitis vs atelectasis, he was started on Cefepime He is seen at bedside, sitting up in bed He Complains of constipation he has an indwelling Gandhi he has 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 Absent: cooperative - Head Head exam: Present: atraumatic, normocephalic - Eye Eye exam: Present: PERRL, conjuntiva pink, sclera anicteric Pupils: Present: PERRL - Neck Neck exam general surgery: Present: supple, trachea midline. Absent: lymphadenopathy - Respiratory Respiratory exam: Present: CTAB. Absent: accessory muscle use, rales, rhonchi, wheezes Additional comments: Right chest wall permacath - Cardiovascular Cardiovascular exam: Present: RRR, +S1, +S2. Absent: diastolic murmur, gallop, rubs, systolic murmur - GI/Abdominal GI/Abdominal exam: Present: normal bowel sounds, soft, no peritoneal signs. Absent: distended, tenderness - Extremities Exam Extremities exam: Present: warm, radial pulses palpable and symetrical. Absent : calf tenderness, cyanotic, pedal edema Additional comments: R ankle deformed - Neurological Exam Neurological exam: Present: CN II-XII intact, oriented X3, no focal deficits. Absent: pronater drift, facial droop, speech deficit - Skin Skin exam: Present: dry Internal Medicine: Result - Labs CBC & Chem 7: 09/20/16 04:18 09/20/16 04:18 Labs: Short CBC 09/20/16 Range/Units 04:18 WBC 10.0 (4.3-11.1) K/mcL Hgb 13.4 (12.9-16.9) g/dL Hct 41.7 (37.5-50.1) % Plt Count 144 (140-400) K/mcL Neutrophils # 7.7 (1.6-8.9) K/mcL BMP 09/20/16 04:18 Sodium 137 Potassium 4.8 H Chloride 99 Carbon Dioxide 25 BUN 46 H D Creatinine 6.31 H Glucose 64 L Calcium 10.2 Liver Function 09/20/16 Range/Units 04:18 Total Bilirubin 0.4 (0.2-1.2) mg/dL AST 10 (5-34) Units/L ALT 7 (0-55) Units/L Alkaline Phosphatase 99 (38-126) Units/L Albumin 3.0 L (3.5-5.0) g/dL - ABG Interpretation ABG results: PT/INR, D-dimer PT 12.7 Seconds (9.4-12.1) H 09/14/16 21:58 Consult Discharge Plan - Plan Referrals: NO,PCP [Primary Care Provider] -
--- NOTE | 2016-09-20 12:55 | Nephrology Progress Note ---
Date of Encounter: 09/20/16 Time of Encounter: 13:10 - Assessment and Plan (1) ESRD (end stage renal disease) on dialysis Status: Chronic s/p HD wednesday, next HD planned for wednesday if still hospitalized Continue phos binders and sensipar (2) Delirium due to conditions classified elsewhere Status: Acute Improved, though still on/off confused. should improved on discharge in familiar enviroment Per primary, discontinue benzos (3) Hyperkalemia Status: Resolved Potassium slightly elevated at 4.8, not surprising for second day without HD, will monitor for now Continue renal diet Subjective Principal diagnosis: ESRD, Hyperkalemia Interval history: Pt seen and examined with no new complaints. Still gets a little confused on/ off. Objective - Vital Signs Vital signs: Vital Signs Temp Pulse Resp BP Pulse Ox 09/20/16 10:44 98.0 F 87 20 138/77 96 09/20/16 08:58 19 91 L 09/20/16 07:26 97.4 F L 91 19 131/70 93 L 09/20/16 04:27 18 94 L 09/20/16 04:13 97.7 F 104 20 144/78 95 09/20/16 00:23 18 92 L 09/19/16 23:52 97.5 F L 100 20 129/71 94 L 09/19/16 20:05 98.5 F 75 20 135/73 97 09/19/16 19:55 20 92 L 09/19/16 16:17 16 92 L 09/19/16 16:14 98.3 F 80 18 123/75 95 Intake and Output 09/19/16 09/20/16 09/20/16 23:59 07:59 15:59 Intake Total 240 / 240 240 / 240 Output Total 250 / 250 350 / 350 Balance -10 / -10 -110 / -110 Intake: Oral 240 / 240 240 / 240 Output: Catheter 250 / 250 350 / 350 Other: Meal Apolinar crackers, peanut butter, pudding Breakfast Percent of Meal Consumed 75% 100% Weight 73.482 kg Blood Glucose* 134 68 83 Patient Weight 09/20/16 23:59 Weight 73.482 kg - General Appearance General appearance: Present: chronically ill (NAD) EENT: Present: ATNC, mucous membranes moist Neck: Present: supple Respiratory: Present: clear Cardiology: Present: no edema, normal S1, normal S2 Dialysis Vascular Access: Venous Catheter Gastrointestinal: Present: no tenderness, no guarding Integumentary: Present: warm and dry Neurologic: Present: no focal deficit Musculoskeletal: Present: no deformities Psychiatric: Present: mood/affect appropriate - Lab 09/21/16 06:40 09/21/16 06:40 Most recent lab results Calcium 10.2 mg/dL (8.6-10.8) 09/20/16 04:18 Phosphorus 7.7 mg/dL (2.3-4.7) H 09/15/16 02:45 Magnesium 2.4 mg/dL (1.6-2.6) 09/15/16 02:45 Consult Discharge Plan - Plan Instructions: Levofloxacin (By mouth), Ropinirole (By mouth), Tiotropium (By breathing), Heart Failure (DC), Chronic Obstructive Pulmonary Disease (DC), Hyperkalemia (DC) Referrals: Lucio Rodriguez MD [Non-Partnered Physician] - (The Physician is in active.. Patient insisted he is seeing this physician. Patient will call himself for his hospital follow up. Or Hospice is taking will take care of it..) Prescriptions: Levofloxacin [Levaquin] 750 mg PO Q48H #3 tablet Oxygen 1 each .ROUTE CONT #1 each Ropinirole [Requip] 2 mg PO DAILY #30 tablet Tiotropium [Spiriva] 18 mcg IH DAILY #2 inh
[2016-09-20] MEDS: Mirtazapine 15 MG TABLET PO SCH (21:34)
[2016-09-21] MEDS: GuaiFENesin Liq 200 MG/10 ML UDC PO SCH ×3 (00:36→13:25)
[2016-09-21] MEDS: *HR* Heparin 5,000 UNIT/ML VIAL SQ SCH ×2 (00:36→08:33)
[2016-09-21] MEDS: Ipratropium/Albuterol Neb 3 ML IH SCH ×5 (00:48→16:39)
[2016-09-21] MEDS: *HR* OxyCODONE/APAP 10/325 TABLET PO PRN ×3 (01:59→14:00)
[2016-09-21] MEDS: Nystatin SUSP 5 ML UD.LIQ PO SCH ×2 (07:07→13:25)
[2016-09-21] MEDS: Sennosides 8.6 MG TABLET PO SCH (07:07)
[2016-09-21] MEDS: Venlafaxine XR (24 HR) 37.5 MG CAP.ER.24H PO SCH (07:07)
[2016-09-21] MEDS: Levothyroxine 25 MCG TABLET PO SCH (07:08)
[2016-09-21] MEDS: Aspirin Enteric Coated 81 MG Tablet PO SCH (07:08)
[2016-09-21] MEDS: rOPINIRole 1 MG TABLET PO SCH (07:08)
[2016-09-21] MEDS: FLUoxetine 20 MG CAPSULE PO SCH (07:08)
[2016-09-21] MEDS: Gabapentin 100 MG CAPSULE PO SCH ×2 (07:08→14:00)
[2016-09-21] MEDS: predniSONE 10 MG TABLET PO SCH (07:09)
[2016-09-21 07:19] LABS: Albumin 3.2 g/dL (3.5-5.0); Basophils % 0.1 %; Bilirubin,Total 0.5 mg/dL (0.2-1.2); Calcium 10.1 mg/dL (8.6-10.8); Eosinophils % 0.2 %; Globulin 3.2 g/dL (2.4-3.5); Hematocrit 41.4 % (37.5-50.1); Hemoglobin 13.6 g/dL (12.9-16.9); Immature Granulocytes % 0.5 % (0-4); Lymphocytes # 1.3 K/mcL (0.6-4.6); Lymphocytes % 14.9 %; Mean Corpuscular HGB Conc 32.9 g/dL (31.6-35.5); Mean Corpuscular Hemoglobin 33.5 pg (28.0-33.3); Monocytes # 0.8 K/mcL (0.0-1.3); Monocytes % 8.6 %; Neutrophils # 6.6 K/mcL (1.6-8.9); Platelet Count 149 K/mcL (140-400); Potassium 4.7 mEq/L (3.5-4.5); Red Blood Count 4.06 M/mcL (4.19-5.50); Red Cell Distribution Width 14.5 % (11.5-14.5); Segmented Neutrophils % 75.7 %; Total Protein 6.4 g/dL (6.0-8.3)
[2016-09-21] MEDS: Tiotropium 18 MCG inhalation IH SCH (07:58)
[2016-09-21] MEDS ORDERED: 0.9 % Sodium Chloride 250 ML IV PRN (08:28)
[2016-09-21] MEDS ORDERED: *HR* Heparin 10,000 UNIT/10 ML VIAL IV PRN (08:28)
[2016-09-21] MEDS: Insulin LISPRO 300 UNITS/3 ML VIAL SQ SCH ×2 (08:29→11:29)
[2016-09-21] MEDS: Calcium Acetate 667 MG CAPSULE PO SCH ×2 (08:33→14:33)
[2016-09-21] MEDS ORDERED: 0.9 % Sodium Chloride 2,000 ML ONE (09:17)
--- NOTE | 2016-09-21 10:20 | Discharge Summary ---
Date of Encounter: 09/21/16 Time of Encounter: 10:19 - Discharge Diagnosis (1) Pneumonia Priority: Primary Status: Acute Qualifiers: Pneumonia type: due to unspecified organism Laterality: bilateral Lung location: unspecified part of lung Qualified Code(s): J18.9 - Pneumonia, unspecified organism (2) Hypothyroid Priority: Secondary Status: Chronic Qualifiers: Hypothyroidism type: unspecified Qualified Code(s): E03.9 - Hypothyroidism , unspecified (3) Physical deconditioning Priority: Primary Status: Acute (4) Acute on chronic respiratory failure with hypoxia and hypercapnia Priority: Primary Status: Acute (5) CHF (congestive heart failure) Priority: Secondary Status: Chronic Qualifiers: Congestive heart failure type: diastolic Congestive heart failure chronicity: acute on chronic Qualified Code(s): I50.33 - Acute on chronic diastolic (congestive) heart failure (6) Hyperkalemia, diminished renal excretion Priority: Primary Status: Resolved (7) ESRD (end stage renal disease) on dialysis Priority: Secondary Status: Chronic - Discharge Medications Prescriptions: Levofloxacin [Levaquin] 750 mg PO Q48H #3 tablet Oxygen 1 each .ROUTE CONT #1 each Ropinirole [Requip] 2 mg PO DAILY #30 tablet Tiotropium [Spiriva] 18 mcg IH DAILY #2 inh Home Medications: Allopurinol [Zyloprim 100 MG] 100 mg PO DAILY 11/09/15 [History] Amlodipine [Norvasc] 10 mg PO DAILY 11/09/15 [History] Carvedilol [Coreg] 50 mg PO BID 11/09/15 [History] Cinacalcet HCl [Sensipar] 60 mg PO DAILY 11/09/15 [History] Docusate [Colace] 100 mg PO BID 11/09/15 [History] Fluticasone Propionate Nasal [Flonase] 50 mcg NS DAILY 11/09/15 [History] Furosemide [Lasix] 40 mg PO DAILY 11/09/15 [History] Guaifenesin [Mucinex] 600 mg PO Q12H PRN 11/09/15 [History] Omeprazole [PriLOSEC] 40 mg PO DAILY 11/09/15 [History] Pravastatin Sodium 10 mg PO QPM 11/09/15 [History] Spironolactone [Aldactone] 50 mg PO DAILY 11/09/15 [History] Alpha Lipoic Acid 100 mg PO DAILY 06/29/16 [History] Aspirin 81 mg PO DAILY 06/29/16 [History] Ergocalciferol (VITAMIN D2) [Vitamin D] 400 unit PO BID 06/29/16 [History] Levothyroxine Sodium [Synthroid] 25 mcg PO DAILY 06/29/16 [History] PredniSONE 10 mg PO DAILY 06/29/16 [History] Sulfamethoxazole/Trimeth DS [Bactrim Ds] 1 each PO MOWEFR 06/29/16 [History] Venlafaxine HCl [Venlafaxine HCl ER] 37.5 mg PO BID 06/29/16 [History] Ergocalciferol (VITAMIN D2) [Vitamin D] 400 unit PO BID 09/18/16 [History] Gabapentin [Neurontin] 200 mg PO TID #0 09/21/16 [Rx] Levofloxacin [Levaquin] 750 mg PO Q48H #3 tablet 09/21/16 [Rx] Oxygen 1 each .ROUTE CONT #1 each 09/21/16 [Rx] Ropinirole [Requip] 2 mg PO DAILY #30 tablet 09/21/16 [Rx] Tiotropium [Spiriva] 18 mcg IH DAILY #2 inh 09/21/16 [Rx] Allergies/Adverse Reactions: Allergies No Known Allergies Allergy (Verified 09/14/16 21:36) Procedures/tests Complete & Pending: Procedures Performed prior 72 hours Category Date Time Status EV echocardiogram Routine Y 09/19/16 12:00 Completed Date of admission: 09/15/16 02:06 Primary care physician: PCP NO Consults: 09/15/16 02:15 Consult to Dialysis [CONS] ONCE 09/15/16 06:30 Consult to Sub Prior [CONS] Routine Comment: 09/15/16 09:00 Consult to Neurology [CONS] Routine Consulting Provider: [facility] Reason for Consult: ESRD HD patient presenting with H/O of persisting myoclonic twitching uncertain etiology. These evaluate advised. Time Notified: 06:26 Call Completed: No 09/15/16 09:15 Consult to Dialysis [CONS] ONCE 09/16/16 08:30 Consult to Dialysis [CONS] ONCE 09/17/16 08:45 Consult to Dialysis [CONS] ONCE 09/17/16 09:15 Consult to Dialysis [CONS] ONCE 09/18/16 05:00 Consult to Dialysis [CONS] ONCE 09/18/16 15:59 PT [Consult to Physical Therapy] [CONS] Routine Comment: Evaluate, develop and implement POC 09/18/16 16:00 OT [Consult to Occupational Therapy] [CONS] Routine Comment: Evaluate, develop and implement POC 09/21/16 08:30 Consult to Dialysis [CONS] ONCE Discharging clinician: Ish Bruner Anticipated date of discharge: 09/21/16 - Patient Status Disposition: Hospice - Home Condition: Fair Functional capacity at discharge: wheelchair bound Overall status at discharge: patient is progressing back to baseline - Discharge Instructions Instructions: Levofloxacin (By mouth), Ropinirole (By mouth), Tiotropium (By breathing), Heart Failure (DC), Chronic Obstructive Pulmonary Disease (DC), Hyperkalemia (DC) Follow Up With: Lucio Rodriguez MD [Non-Partnered Physician] - (The Physician is in active.. Patient insisted he is seeing this physician. Patient will call himself for his hospital follow up. Or Hospice is taking will take care of it..) - Diet and Activity Activity: resume usual activities as tolerated, wear oxygen at all times Diet: low fat, low cholesterol, low salt diet, other (Renal diet) Interval History: See below Hospital course: Mr. 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, type II DM, GERD, hypothyroidism, anemia of chronic disease, depression and anxiety, osteoarthritis, H/O gout, osteopenia, nicotine dependency He was admitted for altered mental status secondary to acute metabolic encephalopathy , refractory hyperkalemia, fluid overload secondary to non- compliance with dialysis, acute on chronic hypoxemic respiratory failure secondary to COPD, HCAP Patient improved with repeated daily hemodiaysis sessions His potassium has since returned to baseline ECHo done 09/19 showed LVEF 60%, N LV size and function, mild LVDD, normal RVSS, no pulmonary HTN His home doses of gabapentin was decreased due to his mental status on admission Also, he has been without most of his blood pressure medications, hence will continue to hold clonidine on discharge, he may resume other medications CXR on admission revealed bilateral pneumonitis, patient received total 5 days of IV antibiotics inpatient He will be discharged on po levaquin for 3 more doses Due to his DJD and OA, PT/OT was consulted Patient reports living alone, being independent and moves around with an electric wheelchair He later stated he has home hospice, return home to hospice services Tobacco cessation strongly encouraged Home O2 dosing increased per requirement of patient Immunization is UTD - Time Spent with Patient Total time spent providing and/or coordinating discharge services: Greater than 30 minutes (40 minutes spent with prescriptions, assessment, face to face, documentation) - Constitutional Vitals: Temp Pulse Resp BP Pulse Ox 97.6 F 78 18 156/81 91 L 09/21/16 07:49 09/21/16 07:49 09/21/16 07:59 09/21/16 07:49 09/21/16 07:59 General appearance: Present: A&O X 3, pleasant, no acute distress, obese, answers questions appropriately. Absent: cooperative - Head Head exam: Present: atraumatic, normocephalic - Eye Eye exam: Present: PERRL, conjuntiva pink, sclera anicteric Pupils: Present: PERRL - Neck Neck exam general surgery: Present: supple, trachea midline. Absent: lymphadenopathy - Respiratory Additional comments: Chest wall with R permacath Chest exam unremarkable otherwise - Cardiovascular Cardiovascular exam: Present: RRR, +S1, +S2. Absent: diastolic murmur, gallop, rubs, systolic murmur - GI/Abdominal GI/Abdominal exam: Present: normal bowel sounds, soft, no peritoneal signs. Absent: distended, tenderness - Extremities Exam Extremities exam: Absent: pedal edema Additional comments: Deformed R ankle due to DJD - Neurological Exam Neurological exam: Present: CN II-XII intact, oriented X3, no focal deficits. Absent: pronater drift, facial droop, speech deficit - Skin Skin exam: Present: dry
--- NOTE | 2016-09-21 13:27 | Nephrology Progress Note ---
Date of Encounter: 09/21/16 Time of Encounter: 10:45 - Assessment and Plan (1) ESRD (end stage renal disease) on dialysis Status: Chronic Continue HD with UF as tolerated. Resume next HD outpatient on wednesday upon discharge Continue phos binders and sensipar (2) Delirium due to conditions classified elsewhere Status: Acute Mostly resolved, will monitor on outpatient Per primary, discontinue benzos (3) Hyperkalemia Status: Resolved Potassium stable at 4.7 Continue renal diet Subjective Principal diagnosis: ESRD, Hyperkalemia Interval history: Pt seen and examined on hD with no new complaints. Eager to go home today Objective - Vital Signs Vital signs: Vital Signs Temp Pulse Resp BP Pulse Ox 09/21/16 11:45 155/73 09/21/16 11:30 138/77 09/21/16 11:15 151/66 09/21/16 11:00 146/79 09/21/16 10:45 148/75 09/21/16 10:30 150/75 09/21/16 10:15 125/67 09/21/16 10:00 158/76 09/21/16 09:45 161/72 09/21/16 09:40 18 161/71 09/21/16 07:59 18 91 L 09/21/16 07:49 97.6 F 78 18 156/81 87 L 09/21/16 05:09 98.0 F 81 16 155/86 90 L 09/21/16 04:35 16 98 09/21/16 00:45 20 91 L 09/21/16 00:36 97.7 F 91 16 166/80 94 L 09/20/16 20:55 18 90 L 09/20/16 20:07 98.8 F 89 16 137/84 90 L 09/20/16 16:43 97.6 F 83 18 155/71 90 L 09/20/16 15:17 96 Intake and Output 09/20/16 09/21/16 09/21/16 23:59 07:59 15:59 Intake Total 840 / 840 Output Total 0 / 0 Balance 840 / 840 Intake: Oral 240 / 240 Intake, Rinseback and 600 / 600 Flushes Output: Urine 0 / 0 Other: Meal Breakfast Percent of Meal Consumed 100% Weight 74 kg 74 kg Blood Glucose* 161 75 96 Hemodialysis Net Fluid 1430 Removed (mL) Patient Weight 09/21/16 23:59 Weight 74 kg - General Appearance General appearance: Present: chronically ill (NAD) EENT: Present: ATNC, mucous membranes moist Neck: Present: supple Respiratory: Present: clear Cardiology: Present: no edema, normal S1, normal S2 Dialysis Vascular Access: Venous Catheter Gastrointestinal: Present: no tenderness, no guarding Integumentary: Present: warm and dry Neurologic: Present: no focal deficit Musculoskeletal: Present: no deformities Psychiatric: Present: mood/affect appropriate - Lab 09/21/16 06:40 09/21/16 06:40 Most recent lab results Calcium 10.1 mg/dL (8.6-10.8) 09/21/16 06:40 Phosphorus 7.7 mg/dL (2.3-4.7) H 09/15/16 02:45 Magnesium 2.4 mg/dL (1.6-2.6) 09/15/16 02:45 Consult Discharge Plan - Plan Instructions: Levofloxacin (By mouth), Ropinirole (By mouth), Tiotropium (By breathing), Heart Failure (DC), Chronic Obstructive Pulmonary Disease (DC), Hyperkalemia (DC) Referrals: Lucio Rodriguez MD [Non-Partnered Physician] - (The Physician is in active.. Patient insisted he is seeing this physician. Patient will call himself for his hospital follow up. Or Hospice is taking will take care of it..) Prescriptions: Levofloxacin [Levaquin] 750 mg PO Q48H #3 tablet Oxygen 1 each .ROUTE CONT #1 each Ropinirole [Requip] 2 mg PO DAILY #30 tablet Tiotropium [Spiriva] 18 mcg IH DAILY #2 inh
[2016-09-21] MEDS: Cefepime HCl 1,000 MG in D5% in Water (Mini-Bag+) 100 ML IVPB SCH (14:38)
--- NOTE | 2016-09-21 15:52 | Physician Discharge Referral ---
Home Health/Hosp Referral Info Transfer to: Hospice (Home hospice) Provider in Charge Post Discharge: Poultry Service Technician - Diagnosis (1) Pneumonia Priority: Primary Status: Acute (2) Hypothyroid Priority: Secondary Status: Chronic (3) Physical deconditioning Priority: Primary Status: Acute (4) Acute on chronic respiratory failure with hypoxia and hypercapnia Priority: Primary Status: Acute (5) CHF (congestive heart failure) Priority: Secondary Status: Chronic (6) Hyperkalemia, diminished renal excretion Priority: Primary Status: Resolved (7) ESRD (end stage renal disease) on dialysis Priority: Secondary Status: Chronic - Respiratory Orders Oxygen / L per min (3L /minute continuous) Smoking Cessation: Smoking cessation has been advised. For more information, call the [employer] Tobacco Quit Line at 9-549-PRDH-NOW. - Diet/Nutrition Diet/Nutrition Orders: Renal, Cardiac, No Concentrated Sweets - Activity Activity Orders: Chair (Wheel chair) - Services Needed Home Care Orders: HO[facility] hospice 2X weekly - Transfer Medications Prescriptions: Levofloxacin [Levaquin] 750 mg PO Q48H #3 tablet Oxygen 1 each .ROUTE CONT #1 each Ropinirole [Requip] 2 mg PO DAILY #30 tablet Tiotropium [Spiriva] 18 mcg IH DAILY #2 inh Home Medications: Allopurinol [Zyloprim 100 MG] 100 mg PO DAILY 11/09/15 [History] Amlodipine [Norvasc] 10 mg PO DAILY 11/09/15 [History] Carvedilol [Coreg] 50 mg PO BID 11/09/15 [History] Cinacalcet HCl [Sensipar] 60 mg PO DAILY 11/09/15 [History] Docusate [Colace] 100 mg PO BID 11/09/15 [History] Fluticasone Propionate Nasal [Flonase] 50 mcg NS DAILY 11/09/15 [History] Furosemide [Lasix] 40 mg PO DAILY 11/09/15 [History] Guaifenesin [Mucinex] 600 mg PO Q12H PRN 11/09/15 [History] Omeprazole [PriLOSEC] 40 mg PO DAILY 11/09/15 [History] Pravastatin Sodium 10 mg PO QPM 11/09/15 [History] Spironolactone [Aldactone] 50 mg PO DAILY 11/09/15 [History] Alpha Lipoic Acid 100 mg PO DAILY 06/29/16 [History] Aspirin 81 mg PO DAILY 06/29/16 [History] Ergocalciferol (VITAMIN D2) [Vitamin D] 400 unit PO BID 06/29/16 [History] Levothyroxine Sodium [Synthroid] 25 mcg PO DAILY 06/29/16 [History] PredniSONE 10 mg PO DAILY 06/29/16 [History] Sulfamethoxazole/Trimeth DS [Bactrim Ds] 1 each PO MOWEFR 06/29/16 [History] Venlafaxine HCl [Venlafaxine HCl ER] 37.5 mg PO BID 06/29/16 [History] Ergocalciferol (VITAMIN D2) [Vitamin D] 400 unit PO BID 09/18/16 [History] Gabapentin [Neurontin] 200 mg PO TID #0 09/21/16 [Rx] Levofloxacin [Levaquin] 750 mg PO Q48H #3 tablet 09/21/16 [Rx] Oxygen 1 each .ROUTE CONT #1 each 09/21/16 [Rx] Ropinirole [Requip] 2 mg PO DAILY #30 tablet 09/21/16 [Rx] Tiotropium [Spiriva] 18 mcg IH DAILY #2 inh 09/21/16 [Rx] Allergies/Adverse Reactions: Allergies No Known Allergies Allergy (Verified 09/14/16 21:36) Certification: Further, I certify that my clinical findings support that this patient is homebound (i.e. absences from home require considerable and taxing effort and are for medical reasons or church services or infrequently or short duration when for other reasons) because: Homebound Reason: Patient requires assistance of a person or device to safely leave home, Leaving home requires considerable and taxing effort due to condition, Severity of cardiac or pulmonary status limits activity tolerance Attestation: My signature below is to certify that this patient is under my care and that I, or nurse practitioner, or a physician's psychiatric nursing assistant working with me, has a face-to -face encounter with this patient.
[2016-09-21 16:22] VITALS: BP 122/41
== END 2016-09-21 16:40 | disposition hospice, home (50) | DRG 291 ==
LOC: EMEROO 21:25 → ICNU 21:25 → SUATTDRO 09-15 02:06 → 2ANU 09-17 18:19
PROVIDERS: ADMIT Pediatrics; ATTEND Internal Medicine

== ENCOUNTER 2016-12-29 14:41 | Inpatient (IN) ==
[~2016-12-29 14:41] MED LIST: *HR* Etomidate 20 MG/10 ML AMPUL IVP ONE; *HR* Midazolam HCl 5 MG/5 ML VIAL IVP ONE; *HR* Rocuronium Bromide 50 MG/5 ML VIAL IVC ONE; *HR* Succinylcholine 200 MG/10 ML VIAL IVP ONE
[2016-12-29] MEDS ORDERED: Ipratropium/Albuterol Neb 3 ML IH ONE (14:59)
[2016-12-29] MEDS ORDERED: methylPREDNISolone 125 MG/2 ML VIAL IVP ONE (14:59)
[2016-12-29 15:25] LABS: Basophils # 0.1 K/mcL (0.0-0.2); Basophils % 0.7 %; Eosinophils # 0.1 K/mcL (0.0-0.6); Eosinophils % 1.5 %; Hematocrit 47.4 % (37.5-50.1); Hemoglobin 15.7 g/dL (12.9-16.9); Immature Granulocytes % 0.5 % (0-4); Lymphocytes # 1.4 K/mcL (0.6-4.6); Lymphocytes % 17.5 %; Mean Corpuscular HGB Conc 33.1 g/dL (31.6-35.5); Mean Corpuscular Hemoglobin 33.8 pg (28.0-33.3); Mean Corpuscular Volume 102.2 fL (83.0-100.0); Mean Platelet Volume 9.7 fL (9.4-12.4); Monocytes # 0.7 K/mcL (0.0-1.3); Monocytes % 8.9 %; Neutrophils # 5.9 K/mcL (1.6-8.9); Platelet Count 163 K/mcL (140-400); Red Blood Count 4.64 M/mcL (4.19-5.50); Red Cell Distribution Width 14.5 % (11.5-14.5); Segmented Neutrophils % 70.9 %
--- NOTE | 2016-12-29 15:32 | Emergency Department Note ---
Disposition Clinical Impression: Altered mental status Disposition: Admitted As Inpatient Referrals: NO,PCP [Primary Care Provider] - Forms: ED Satisfaction Letter Altered Mental Status HPI - General Chief Complaint: ED Altered Mental Status Stated Complaint: altered mental status Time Seen by Provider: 12/29/16 14:52 Source: family Limitations: altered mental status Nursing Notes Reviewed: Yes Vital Signs Reviewed: Yes - History of Present Illness HPI Narrative: Presents from home due to her mental status. Per family report this is more lethargic and not as responsive. There is no report of chest pain or shortness of breath. States he has been altered. Patient has had similar fashion similar to his medication. There is no reported shortness of breath or chest pain. There is no report of any injuries. Patient does live alone so they are not sure. Last known well was unknown. - Related Data Home Medications Medication Instructions Recorded Confirmed Allopurinol [Zyloprim 100 MG] 100 mg PO DAILY 11/09/15 12/29/16 Carvedilol [Coreg] 50 mg PO BID 11/09/15 12/29/16 Cinacalcet HCl [Sensipar] 60 mg PO DAILY 11/09/15 12/29/16 Docusate [Colace] 100 mg PO BID 11/09/15 12/29/16 Fluticasone Propionate Nasal 50 mcg NS DAILY 11/09/15 12/29/16 [Flonase] Furosemide [Lasix] 40 mg PO BID 11/09/15 12/29/16 Omeprazole [PriLOSEC] 40 mg PO DAILY 11/09/15 12/29/16 Pravastatin Sodium 10 mg PO QPM 11/09/15 12/29/16 Alpha Lipoic Acid 100 mg PO DAILY 06/29/16 12/29/16 Aspirin 81 mg PO DAILY 06/29/16 12/29/16 Levothyroxine Sodium [Synthroid] 25 mcg PO DAILY 06/29/16 12/29/16 Sulfamethoxazole/Trimeth DS 1 each PO MOWEFR 06/29/16 12/29/16 [Bactrim Ds] predniSONE [PredniSONE] 10 mg PO DAILY 06/29/16 12/29/16 Ergocalciferol (VITAMIN D2) 400 unit PO BID 09/18/16 12/29/16 [Vitamin D] Albuterol Neb [Proventil Neb] 2.5 mg IH Q6H PRN 12/29/16 12/29/16 Albuterol Sulfate [Proair Hfa] 2 puff IH Q4-6H PRN 12/29/16 12/29/16 Amlodipine Besylate 10 mg PO DAILY 12/29/16 12/29/16 Ammonium Lactate [Marilee-Hydrolac] 1 appl TP DAILY 12/29/16 12/29/16 Calcium Acetate [Phos-LO] 667 mg PO 12/29/16 Diclofenac Sodium [Voltaren] 1 appl TP TID PRN 12/29/16 12/29/16 FLUoxetine HCl [Prozac] 40 mg PO DAILY 12/29/16 12/29/16 Famotidine [Heartburn Prevention] 20 mg PO DAILY 12/29/16 12/29/16 Gabapentin [Neurontin] 400 mg PO TID 12/29/16 12/29/16 Orphenadrine [Norflex] 100 mg PO HS 12/29/16 12/29/16 Oxycodone HCl 10 mg PO Q6H PRN 12/29/16 12/29/16 Oxygen 1 each NS CONT 12/29/16 12/29/16 Polyethylene Glycol 3350 17 gm PO BID 12/29/16 12/29/16 [Smoothlax] Sennosides [Senna] 8.6 mg PO BID PRN 12/29/16 12/29/16 Spironolactone [Aldactone] 25 mg PO DAILY 12/29/16 12/29/16 Tiotropium [Spiriva] 18 mcg IH DAILY 12/29/16 12/29/16 Venlafaxine XR (24 HR) [Effexor XR] 37.5 mg PO 12/29/16 12/29/16 cloNIDine HCl [Clonidine HCl] 0.3 mg PO TID 12/29/16 12/29/16 Allergies Allergy/AdvReac Type Severity Reaction Status Date / Time No Known Allergies Allergy Verified 12/29/16 14:46 Limitations: ROS unobtainable due to patients medical condition Past Medical History - Past Medical History Source: obtained from family Medical history: Reports: arthritis, CHF, COPD, diabetes, dialysis, GERD, hyperlipidemia, hypertension, osteoporosis, renal disease, thyroid disease, other Surgical history: Reports: cataract, orthopedic, other, transplant (Transplant kidney in 1982 and then 2009. Transplant kidney biopsy 2013.), vascular surgery , other Psychiatric history: Reports: anxiety, depression - Social History Smoking Status: Former smoker Smokeless Tobacco Status: No Alcohol use: Reports: none Drug use: Reports: none Physical Exam - General Limitations: altered mental status General appearance: in no apparent distress - Head Head exam: atraumatic, normocephalic, normal inspection - Eye Eye exam: Present: normal appearance, PERRL, EOMI - ENT ENT exam: normal exam, normal oropharynx, mucous membranes moist - Neck Neck exam: Present: normal inspection. Absent: tenderness, lymphadenopathy, thyromegaly - Chest Chest inspection: Present: normal inspection, symmetric chest wall rise - Respiratory Respiratory exam: Present: wheezes, prolonged expiratory phase - Cardiovascular Cardiovascular exam: Present: regular rate, normal rhythm, normal heart sounds - Abdominal Exam Abdominal exam: Present: soft, Non-Tender. Absent: tenderness, distention, guarding, rebound, rigidity Course Vital Signs Temperature 98.1 F 12/29/16 14:46 Pulse Rate 78 12/29/16 14:46 Respiratory Rate 18 12/29/16 14:46 Blood Pressure 110/72 12/29/16 14:46 O2 Sat by Pulse Oximetry 99 12/29/16 14:46 Temperature 98.1 F 12/29/16 14:46 Pulse Rate 102 12/29/16 16:51 Respiratory Rate 17 12/29/16 16:52 Blood Pressure 152/97 12/29/16 16:52 O2 Sat by Pulse Oximetry 99 12/29/16 16:52 Oxygen Delivery Oxygen Delivery Room Air Procedures - Intubation sedative: Etomidate Mg Given: 20 paralytic: Succinylcholine Mg Given: 100 Laryngoscope: Corrine ET Tube Size: 7.5 ET Tube Uncuffed: No Tube Secured Location: lips Tube Placement Confirmation: visualized tube passing through cords, equal breath sounds bilaterally, confirmation by capnometry Intubation Complications: none Altered Mental Status - Differential Diagnosis Likely: alcoholic intoxication, altered mental status, hypoglycemia, subarachnoid hemorrhage, substance use - Lab Data Lab results reviewed: Yes I reviewed the patient's lab results. Result diagrams: 12/29/16 15:12 12/29/16 15:12 Lab Results 12/29/16 12/29/16 12/29/16 Range/Units 15:12 15:12 15:12 WBC 8.2 (4.3-11.1) K/mcL RBC 4.64 (4.19-5.50) M/mcL Hgb 15.7 (12.9-16.9) g/dL Hct 47.4 (37.5-50.1) % MCV 102.2 H (83.0-100.0) fL MCH 33.8 H (28.0-33.3) pg MCHC 33.1 (31.6-35.5) g/dL RDW 14.5 (11.5-14.5) % Plt Count 163 (140-400) K/mcL MPV 9.7 (9.4-12.4) fL Immature Gran % 0.5 (0-4) % Seg Neutrophils % 70.9 % Lymphocytes % 17.5 % Monocytes % 8.9 % Eosinophils % 1.5 % Basophils % 0.7 % Neutrophils # 5.9 (1.6-8.9) K/mcL Lymphocytes # 1.4 (0.6-4.6) K/mcL Monocytes # 0.7 (0.0-1.3) K/mcL Eosinophils # 0.1 (0.0-0.6) K/mcL Basophils # 0.1 (0.0-0.2) K/mcL ABG pH (7.32-7.45) pH Units ABG pCO2 (35-45) mmHg ABG pO2 (85-104) mmHg ABG HCO3 (21-27) mEQ/L ABG Total CO2 (20-26) mEq/L ABG O2 Saturation (95-98) % ABG Base Excess (-2.0 to 3.0) mEq/L Respiration Rate Blood Gas Modality Inspired O2 % Tidal Volume cc PEEP cm H2O Sodium 135 L (136-145) mEq/L Potassium 5.8 H (3.5-4.5) mEq/L Chloride 94 L (98-109) mEq/L Carbon Dioxide 28 (19-29) mEq/L BUN 41 H (8-26) mg/dL Creatinine 6.84 H (0.72-1.25) mg/dL Est GFR ( Amer) 10 L (> 60) Est GFR (Non-Af Amer) 8 L (> 60) BUN/Creatinine Ratio 6 (6-26) Glucose 114 H (70-99) mg/dL Calculated Osmolality 291 (280-300) Lactic Acid 1.1 (0.5-2.2) mmol/L Calcium 10.7 (8.6-10.8) mg/dL Total Bilirubin 0.6 (0.2-1.2) mg/dL AST 10 (5-34) Units/L ALT 10 (0-55) Units/L Alkaline Phosphatase 109 (38-126) Units/L Ammonia (18-72) mcmol/L Troponin I (0-0.03) ng/mL Serum Total Protein 6.6 (6.0-8.3) g/dL Albumin 3.3 L (3.5-5.0) g/dL Globulin 3.3 (2.4-3.5) g/dL Albumin/Globulin Ratio 1.0 L (1.1-2.2) TSH 1.697 (0.350-4.840) mcIU/mL Urine Color (Yellow) Urine Clarity (Clear) Urine pH (5.0-8.0) pH Units Ur Specific [place] (1.010-1.025) Urine Protein (Neg-Trace) mg/dL Urine Glucose (UA) (Normal) mg/dL Urine Ketones (Negative) mg/dL Urine Blood (Negative) Urine Nitrite (Negative) Urine Bilirubin (Negative) Urine Urobilinogen (Normal) mg/dL Ur Leukocyte Esterase (Negative) Urine Microscopic RBC (0-3) per hpf Urine Microscopic WBC (0-3) per hpf Ur Squamous Epith Cells (None-Few) per lpf Urine Bacteria (None-Few) per hpf Hyaline Casts (None-Few) per lpf Urine Opiates Screen (Rihuvf=094) ng/mL Ur Barbiturates Screen (Ljdfde=097) ng/mL Ur Phencyclidine Scrn (Cutoff=25) ng/mL Ur Amphetamines Screen (Wuijga=1405) ng/mL U Benzodiazepines Scrn (Mxfogf=781) ng/mL Urine Cocaine Screen (Cutoff= 300) ng/mL U Marijuana (THC) Screen (Cutoff = 50) ng/mL 12/29/16 12/29/16 12/29/16 Range/Units 15:12 15:28 15:51 WBC (4.3-11.1) K/mcL RBC (4.19-5.50) M/mcL Hgb (12.9-16.9) g/dL Hct (37.5-50.1) % MCV (83.0-100.0) fL MCH (28.0-33.3) pg MCHC (31.6-35.5) g/dL RDW (11.5-14.5) % Plt Count (140-400) K/mcL MPV (9.4-12.4) fL Immature Gran % (0-4) % Seg Neutrophils % % Lymphocytes % % Monocytes % % Eosinophils % % Basophils % % Neutrophils # (1.6-8.9) K/mcL Lymphocytes # (0.6-4.6) K/mcL Monocytes # (0.0-1.3) K/mcL Eosinophils # (0.0-0.6) K/mcL Basophils # (0.0-0.2) K/mcL ABG pH 7.40 (7.32-7.45) pH Units ABG pCO2 53 H (35-45) mmHg ABG pO2 59 L (85-104) mmHg ABG HCO3 32.8 H (21-27) mEQ/L ABG Total CO2 34.4 H (20-26) mEq/L ABG O2 Saturation 90 L (95-98) % ABG Base Excess 6.2 H (-2.0 to 3.0) mEq/L Respiration Rate Blood Gas Modality NC Inspired O2 36 % Tidal Volume cc PEEP cm H2O Sodium (136-145) mEq/L Potassium (3.5-4.5) mEq/L Chloride (98-109) mEq/L Carbon Dioxide (19-29) mEq/L BUN (8-26) mg/dL Creatinine (0.72-1.25) mg/dL Est GFR ( Amer) (> 60) Est GFR (Non-Af Amer) (> 60) BUN/Creatinine Ratio (6-26) Glucose (70-99) mg/dL Calculated Osmolality (280-300) Lactic Acid (0.5-2.2) mmol/L Calcium (8.6-10.8) mg/dL Total Bilirubin (0.2-1.2) mg/dL AST (5-34) Units/L ALT (0-55) Units/L Alkaline Phosphatase (38-126) Units/L Ammonia (18-72) mcmol/L Troponin I 0.01 (0-0.03) ng/mL Serum Total Protein (6.0-8.3) g/dL Albumin (3.5-5.0) g/dL Globulin (2.4-3.5) g/dL Albumin/Globulin Ratio (1.1-2.2) TSH (0.350-4.840) mcIU/mL Urine Color Dark Yellow (Yellow) Urine Clarity Turbid A (Clear) Urine pH 7.0 (5.0-8.0) pH Units Ur Specific [place] 1.018 (1.010-1.025) Urine Protein 100 H (Neg-Trace) mg/dL Urine Glucose (UA) Normal (Normal) mg/dL Urine Ketones Negative (Negative) mg/dL Urine Blood Moderate H (Negative) Urine Nitrite Negative (Negative) Urine Bilirubin Small H (Negative) Urine Urobilinogen Normal (Normal) mg/dL Ur Leukocyte Esterase Large H (Negative) Urine Microscopic RBC 15-30 H (0-3) per hpf Urine Microscopic WBC TNTC H (0-3) per hpf Ur Squamous Epith Cells None Seen (None-Few) per lpf Urine Bacteria None Seen (None-Few) per hpf Hyaline Casts None Seen (None-Few) per lpf Urine Opiates Screen (Umffnn=932) ng/mL Ur Barbiturates Screen (Rfivvd=996) ng/mL Ur Phencyclidine Scrn (Cutoff=25) ng/mL Ur Amphetamines Screen (Goacid=8101) ng/mL U Benzodiazepines Scrn (Riwibj=430) ng/mL Urine Cocaine Screen (Cutoff= 300) ng/mL U Marijuana (THC) Screen (Cutoff = 50) ng/mL 12/29/16 12/29/16 12/29/16 Range/Units 16:46 16:55 17:27 WBC (4.3-11.1) K/mcL RBC (4.19-5.50) M/mcL Hgb (12.9-16.9) g/dL Hct (37.5-50.1) % MCV (83.0-100.0) fL MCH (28.0-33.3) pg MCHC (31.6-35.5) g/dL RDW (11.5-14.5) % Plt Count (140-400) K/mcL MPV (9.4-12.4) fL Immature Gran % (0-4) % Seg Neutrophils % % Lymphocytes % % Monocytes % % Eosinophils % % Basophils % % Neutrophils # (1.6-8.9) K/mcL Lymphocytes # (0.6-4.6) K/mcL Monocytes # (0.0-1.3) K/mcL Eosinophils # (0.0-0.6) K/mcL Basophils # (0.0-0.2) K/mcL ABG pH 7.44 (7.32-7.45) pH Units ABG pCO2 46 H (35-45) mmHg ABG pO2 56 L (85-104) mmHg ABG HCO3 31.2 H (21-27) mEQ/L ABG Total CO2 32.6 H (20-26) mEq/L ABG O2 Saturation 90 L (95-98) % ABG Base Excess 5.9 H (-2.0 to 3.0) mEq/L Respiration Rate 12 Blood Gas Modality VENT Inspired O2 40 % Tidal Volume 600 cc PEEP 5 cm H2O Sodium (136-145) mEq/L Potassium (3.5-4.5) mEq/L Chloride (98-109) mEq/L Carbon Dioxide (19-29) mEq/L BUN (8-26) mg/dL Creatinine (0.72-1.25) mg/dL Est GFR ( Amer) (> 60) Est GFR (Non-Af Amer) (> 60) BUN/Creatinine Ratio (6-26) Glucose (70-99) mg/dL Calculated Osmolality (280-300) Lactic Acid (0.5-2.2) mmol/L Calcium (8.6-10.8) mg/dL Total Bilirubin (0.2-1.2) mg/dL AST (5-34) Units/L ALT (0-55) Units/L Alkaline Phosphatase (38-126) Units/L Ammonia 27 (18-72) mcmol/L Troponin I (0-0.03) ng/mL Serum Total Protein (6.0-8.3) g/dL Albumin (3.5-5.0) g/dL Globulin (2.4-3.5) g/dL Albumin/Globulin Ratio (1.1-2.2) TSH (0.350-4.840) mcIU/mL Urine Color (Yellow) Urine Clarity (Clear) Urine pH (5.0-8.0) pH Units Ur Specific [place] (1.010-1.025) Urine Protein (Neg-Trace) mg/dL Urine Glucose (UA) (Normal) mg/dL Urine Ketones (Negative) mg/dL Urine Blood (Negative) Urine Nitrite (Negative) Urine Bilirubin (Negative) Urine Urobilinogen (Normal) mg/dL Ur Leukocyte Esterase (Negative) Urine Microscopic RBC (0-3) per hpf Urine Microscopic WBC (0-3) per hpf Ur Squamous Epith Cells (None-Few) per lpf Urine Bacteria (None-Few) per hpf Hyaline Casts (None-Few) per lpf Urine Opiates Screen Positive H (Swntlk=737) ng/mL Ur Barbiturates Screen Negative (Npzxvp=346) ng/mL Ur Phencyclidine Scrn Negative (Cutoff=25) ng/mL Ur Amphetamines Screen Negative (Ezdinr=2403) ng/mL U Benzodiazepines Scrn Negative (Avrmgr=388) ng/mL Urine Cocaine Screen Negative (Cutoff= 300) ng/mL U Marijuana (THC) Screen Negative (Cutoff = 50) ng/mL - Radiology Data Radiology results reviewed: Yes I reviewed the patient's radiology results. Head CT 12/29/16 14:53 IMPRESSION: 1. No acute intracranial abnormality. 2. Stable chronic white matter microvascular ischemic changes. D/ / Len Nunn MD / Len Nunn MD Interpreting Provider: Len Nunn MD Chest X-Ray 12/29/16 14:54 IMPRESSION: No acute process. D/ / Castro Orlando MD / Castro Orlando MD Interpreting Provider: Castro Orlando MD - EKG Data EKG attestation: Yes I reviewed and interpreted this EKG. EKG shows normal: sinus rhythm Rate: normal Rhythm: NSR TPA Checklist - LKW: 3-4.5 hrs Add. Contraindications Patient/family understanding: The patient/family members have been counseled and understood the risk, benefit , and alternatives of treatment. Critical Care Time Total Critical Care Time: 60 Attestation: Critical care performed: Time is exclusive of separately billable procedures. Time includes: direct patient care, patient reassessment, coordination of patient care, interpretation of data (laboratory data, radiology data, and respiratory data), review of patient's medical records, medical consultation and documentation of patient care. Procedures included in critical care time: Procedures excluded from critical care time:
[2016-12-29 15:37] LABS: Albumin 3.3 g/dL (3.5-5.0); Bilirubin,Total 0.6 mg/dL (0.2-1.2); Calcium 10.7 mg/dL (8.6-10.8); Globulin 3.3 g/dL (2.4-3.5); Potassium 5.8 mEq/L (3.5-4.5); Total Protein 6.6 g/dL (6.0-8.3)
[2016-12-29 15:38] LABS: ABG Base Excess 6.2 mEq/L (-2.0 to 3.0); ABG HCO3 32.8 mEQ/L (21-27); ABG Oxygen Saturation 90 % (95-98); ABG PCO2 53 mmHg (35-45); ABG PO2 59 mmHg (85-104); ABG TCO2 34.4 mEq/L (20-26)
[2016-12-29 15:40] LABS: Blood Gas FiO2 36 %
[2016-12-29] MEDS ORDERED: *HR* LORazepam 2 MG/ML VIAL ONE (15:53)
[2016-12-29 15:58] LABS: Thyroid Stimulating Hormone 1.697 mcIU/mL (0.350-4.840)
[2016-12-29] MEDS ORDERED: Propofol 500 MG/50 ML INFUS..BTL ONE ×2 (16:05→17:56)
[2016-12-29] MEDS ORDERED: 0.9 % Sodium Chloride 1,000 ML ONE (16:14)
[2016-12-29] MEDS ORDERED: *HR* Midazolam HCl 5 MG/ML VIAL IVP ONE (16:15)
[2016-12-29 16:56] LABS: Bilirubin,Urine Small (Negative); Blood,Urine Moderate (Negative); Clarity,Urine Turbid (Clear); Color,Urine Dark Yellow (Yellow); Glucose,Urine (UA) Normal (Normal); Ketones,Urine Negative (Negative); Leukocyte Esterase,Urine Large (Negative); Nitrite,Urine Negative (Negative); Protein,Urine 100 mg/dL (Neg-Trace); Specific Gravity,Urine 1.018 (1.010-1.025); Urobilinogen,Urine Normal (Normal)
[2016-12-29 16:59] LABS: Bacteria,Urine None Seen per hpf (None-Few); Hyaline Casts,Urine None Seen per lpf (None-Few); RBC,Urine 15-30 per hpf (0-3); Squamous Epithelial Cell,Urine None Seen per lpf (None-Few); WBC,Urine TNTC per hpf (0-3)
[2016-12-29 17:03] LABS: Amphetamine Screen,Urine Negative ng/mL (Cutoff=1000); Barbiturate Screen,Urine Negative ng/mL (Cutoff=200); Benzodiazepines Screen,Urine Negative ng/mL (Cutoff=200); Cannabinoid Screen,Urine Negative ng/mL (Cutoff = 50); Cocaine Screen,Urine Negative ng/mL (Cutoff= 300); Opiate Screen,Urine Positive ng/mL (Cutoff=300); Phencyclidine Screen,Urine Negative ng/mL (Cutoff=25)
[2016-12-29 17:42] LABS: ABG Base Excess 5.9 mEq/L (-2.0 to 3.0); ABG HCO3 31.2 mEQ/L (21-27); ABG Oxygen Saturation 90 % (95-98); ABG PCO2 46 mmHg (35-45); ABG PH 7.44 pH Units (7.32-7.45); ABG PO2 56 mmHg (85-104); ABG TCO2 32.6 mEq/L (20-26); Blood Gas FiO2 40 %; Blood Gas PEEP 5 cm H2O; Blood Gas Respiration Rate 12; Blood Gas VT 600 cc
[2016-12-29] MEDS ORDERED: *HR* HYDROmorphone (PF) 1 MG/ML SYRINGE IVP ONE ×2 (18:07→18:58)
[2016-12-29] MEDS ORDERED: 0.9 % Sodium Chloride 500 ML ONE (18:21)
[2016-12-29] MEDS ORDERED: Naloxone 0.4 MG/ML INJ IVP PRN (21:14)
[2016-12-29 21:26] LABS: ABG Base Excess 3.1 mEq/L (-2.0 to 3.0); ABG HCO3 29.9 mEQ/L (21-27); ABG Oxygen Saturation 89 % (95-98); ABG PCO2 53 mmHg (35-45); ABG PH 7.36 pH Units (7.32-7.45); ABG PO2 58 mmHg (85-104); ABG TCO2 31.5 mEq/L (20-26)
[2016-12-29] MEDS ORDERED: Lacri-Lube 3.5 GM TUBE BOTH EYES PRN (21:26)
[2016-12-29 21:27] LABS: Blood Gas FiO2 40 %; Blood Gas PEEP 5 cm H2O; Blood Gas Respiration Rate 12; Blood Gas VT 550 cc
[2016-12-29] MEDS ORDERED: Ipratropium/Albuterol Neb 3 ML IH PRN (21:30)
--- NOTE | 2016-12-29 21:39 | Internal Med History&Physical ---
<Darnell Serrano - Last Filed: 12/29/16 21:56> Date of Encounter: 12/29/16 Time of Encounter: 21:55 Assessment and Plan (1) Altered mental status Current visit: Yes Status: Acute Unknown cause however opioid use in the setting of end-stage renal disease appears to be most likely at this time. Patient also has a UTI so altered mental status in the setting of infection is also possible. Does not appear to be related to his end-stage renal disease or uremia. Chest x-ray is normal, no signs of infection. Head CT is unremarkable. Patient was intubated to protect his airway, we will monitor overnight and hopefully extubate tomorrow. Family states that the patient is receiving services through [facility] however they stated the patient is full code and the patient only recently stated that he wished to have everything done to prolong his life. Qualifiers: Altered mental status type: somnolence Qualified Code(s): R40.0 - Somnolence (2) ESRD (end stage renal disease) on dialysis Current visit: No Status: Chronic Patient normally gets dialysis Wednesday, family states that the patient has not missed any dialysis. Nephrology has been consulted no indications for acute dialysis at this time, we will plan for regular scheduled dialysis tomorrow. (3) Hyperkalemia, diminished renal excretion Current visit: No Status: Resolved Likely related to end-stage renal disease, appears slightly above his baseline but there are no EKG changes. No indications for acute dialysis at this time. (4) Hypothyroid Current visit: No Status: Chronic TSH normal, continue Synthroid Qualifiers: Hypothyroidism type: unspecified Qualified Code(s): E03.9 - Hypothyroidism , unspecified (5) DVT prophylaxis Current visit: No Status: Acute Heparin 5000 units subcutaneous twice a day. Internal Medicine - H&P: HPI Chief complaint: Altered Mental status History of present illness: Mr. Ackerman is a 61 year old male with history of ESRD status post transplant on dialysis, COPD, hypertension presents with altered mental status. Patient is intubated and sedated and cannot provide history. Per family the patient seemed to be confused and not acting right on Wednesday. They state that Wednesday he seemed more like his normal self and completed his regular scheduled dialysis session on Wednesday. Family then states that today he again was more confused and altered so they called the squad. ED physician states that the patient was altered upon arrival, not following commands and there is concern that he was not protecting his airway so the patient was intubated. Past Med Surg Social Fam HX - Past Medical History Medical history: arthritis, CHF, COPD, diabetes, dialysis, GERD, hyperlipidemia , hypertension, osteoporosis, renal disease, thyroid disease, other Psychiatric history: anxiety, depression - Past Surgical History Surgical History: cataract, orthopedic, other, transplant (Transplant kidney in 1982 and then 2009. Transplant kidney biopsy 2012.), vascular surgery, other - Social History Smoking Status: Former smoker Smokeless Tobacco Status: No Alcohol use: none Drug use: none - Additional Family History Additional family history: Unable to obtain Internal Medicine - H&P: Meds Allopurinol [Zyloprim 100 MG] 100 mg PO DAILY 11/09/15 [History] Carvedilol [Coreg] 50 mg PO BID 11/09/15 [History] Cinacalcet HCl [Sensipar] 60 mg PO DAILY 11/09/15 [History] Docusate [Colace] 100 mg PO BID 11/09/15 [History] Fluticasone Propionate Nasal [Flonase] 50 mcg NS DAILY 11/09/15 [History] Furosemide [Lasix] 40 mg PO BID 11/09/15 [History] Omeprazole [PriLOSEC] 40 mg PO DAILY 11/09/15 [History] Pravastatin Sodium 10 mg PO QPM 11/09/15 [History] Alpha Lipoic Acid 100 mg PO DAILY 06/29/16 [History] Aspirin 81 mg PO DAILY 06/29/16 [History] Levothyroxine Sodium [Synthroid] 25 mcg PO DAILY 06/29/16 [History] Sulfamethoxazole/Trimeth DS [Bactrim Ds] 1 each PO MOWEFR 06/29/16 [History] predniSONE [PredniSONE] 10 mg PO DAILY 06/29/16 [History] Ergocalciferol (VITAMIN D2) [Vitamin D] 400 unit PO BID 09/18/16 [History] Albuterol Neb [Proventil Neb] 2.5 mg IH Q6H PRN 12/29/16 [History] Albuterol Sulfate [Proair Hfa] 2 puff IH Q4-6H PRN 12/29/16 [History] Amlodipine Besylate 10 mg PO DAILY 12/29/16 [History] Ammonium Lactate [Marilee-Hydrolac] 1 appl TP DAILY 12/29/16 [History] Calcium Acetate [Phos-LO] 667 mg PO 12/29/16 [History] Diclofenac Sodium [Voltaren] 1 appl TP TID PRN 12/29/16 [History] FLUoxetine HCl [Prozac] 40 mg PO DAILY 12/29/16 [History] Famotidine [Heartburn Prevention] 20 mg PO DAILY 12/29/16 [History] Gabapentin [Neurontin] 400 mg PO TID 12/29/16 [History] Orphenadrine [Norflex] 100 mg PO HS 12/29/16 [History] Oxycodone HCl 10 mg PO Q6H PRN 12/29/16 [History] Oxygen 1 each NS CONT 12/29/16 [History] Polyethylene Glycol 3350 [Smoothlax] 17 gm PO BID 12/29/16 [History] Sennosides [Senna] 8.6 mg PO BID PRN 12/29/16 [History] Spironolactone [Aldactone] 25 mg PO DAILY 12/29/16 [History] Tiotropium [Spiriva] 18 mcg IH DAILY 12/29/16 [History] Venlafaxine XR (24 HR) [Effexor XR] 37.5 mg PO 12/29/16 [History] cloNIDine HCl [Clonidine HCl] 0.3 mg PO TID 12/29/16 [History] Allergies No Known Allergies Allergy (Verified 12/29/16 14:46) ROS unobtainable: due to endotracheal tube All Systems PM: A 10-system review of systems was performed and is negative for pertinent findings except as documented above in the HPI. - Constitutional Vitals: Temp Pulse Resp BP Pulse Ox 97.4 F L 78 12 131/85 92 12/29/16 20:00 12/29/16 20:00 12/29/16 21:22 12/29/16 20:00 12/29/16 21:22 Exam: Intubated and sedated. No acute distress. - Eye Eye exam: Present: EOMI, PERRL - ENT ENT exam: Present: mucous membranes dry - Neck Neck exam general surgery: Present: full ROM - Respiratory Respiratory exam: Present: CTAB. Absent: rales, rhonchi, wheezes - Cardiovascular Cardiovascular exam: Present: RRR. Absent: gallop, rubs, systolic murmur - GI/Abdominal GI/Abdominal exam: Present: normal bowel sounds, soft. Absent: distended, tenderness - Extremities Exam Extremities exam: Present: warm. Absent: pedal edema, tenderness Additional comments: Fistula in the left upper arm with a weak palpable thrill but good bruit. Ecchymosis to the upper extremities bilaterally. - Neurological Exam Neurological exam: Present: no focal deficits Additional comments: Patient is awake but sedated. He is not following commands. He is moving all 4 limbs spontaneously. Internal Med - H&P Results - Labs CBC & Chem 7: 12/29/16 15:12 12/29/16 15:12 - ABG Interpretation ABG results: 12/29/16 21:03 ABG pH 7.36 ABG pCO2 53 H ABG pO2 58 L ABG HCO3 29.9 H ABG Total CO2 31.5 H ABG O2 Saturation 89 L ABG Base Excess 3.1 H <Steven Bynum - Last Filed: 12/30/16 04:28> Date of Encounter: 12/29/16 Internal Medicine - H&P: HPI History of present illness: Mr. Ackerman is a 61 year old male All Systems PM: A 10-system review of systems was performed and is negative for pertinent findings except as documented above in the HPI. - Constitutional Vitals: Temp Pulse Resp BP Pulse Ox 97.8 F 69 12 100/64 95 12/30/16 04:00 12/30/16 04:00 12/30/16 04:08 12/30/16 04:00 12/30/16 04:08 Internal Med - H&P Results - Labs CBC & Chem 7: 12/30/16 03:12 12/29/16 15:12 Labs: Short CBC 12/30/16 Range/Units 03:12 WBC 5.5 (4.3-11.1) K/mcL Hgb 16.1 (12.9-16.9) g/dL Hct 45.4 (37.5-50.1) % Plt Count 151 (140-400) K/mcL Neutrophils # 4.8 (1.6-8.9) K/mcL Cardiac Enzymes 12/29/16 12/30/16 Range/Units 21:33 03:12 Troponin I 0.03 0.03 (0-0.03) ng/mL - ABG Interpretation ABG results: 12/29/16 21:03 ABG pH 7.36 ABG pCO2 53 H ABG pO2 58 L ABG HCO3 29.9 H ABG Total CO2 31.5 H ABG O2 Saturation 89 L ABG Base Excess 3.1 H - Impressions ITS Impressions Chest X-Ray 12/29/16 20:30 IMPRESSION: Limited study due to patient rotation. The tania is not well seen, but the endotracheal tube tip is projecting in area of the right mainstem bronchus origin. Consider retraction of tube or repeat radiograph. D/ / Stanford Clayton MD / Stanford Clayton MD Interpreting Provider: Stanford Clayton MD X-Ray 12/29/16 20:30 IMPRESSION: Tip and side port of the enteric tube in the gastric body. D/ / Torsten Price MD / Torsten Price MD Interpreting Provider: Torsten Price MD - Diagnostic Studies Chest x-ray Status: image reviewed by me CT scan - head Status: image reviewed by me - Attending Attestation Patient with multiple co-morbidities admitted with critical illness, with multiple vital organ impairment; brain, respiratory and renal with a high probability of imminent life threatening deterioration in his condition. I performed critical intervention, involving high complexity decision making to assess, manipulate, and support vital organ system failure; and I spent about 45 minutes engaged in work directly related to the patient's care at his immediate bedside and also on the unit.
[2016-12-29] MEDS: Lacri-Lube 3.5 GM TUBE BOTH EYES SCH (21:44)
[2016-12-29] MEDS: Budesonide/Formoterol 160/4.5 MDI IH SCH (23:31)
[2016-12-30 03:19] LABS: Basophils % 0.2 %; Hematocrit 45.4 % (37.5-50.1); Hemoglobin 16.1 g/dL (12.9-16.9); Immature Granulocytes % 0.5 % (0-4); Lymphocytes # 0.6 K/mcL (0.6-4.6); Lymphocytes % 10.6 %; Mean Corpuscular HGB Conc 35.5 g/dL (31.6-35.5); Mean Corpuscular Hemoglobin 35.9 pg (28.0-33.3); Mean Corpuscular Volume 101.3 fL (83.0-100.0); Mean Platelet Volume 10.7 fL (9.4-12.4); Monocytes # 0.1 K/mcL (0.0-1.3); Monocytes % 1.4 %; Neutrophils # 4.8 K/mcL (1.6-8.9); Platelet Count 151 K/mcL (140-400); Red Blood Count 4.48 M/mcL (4.19-5.50); Red Cell Distribution Width 14.1 % (11.5-14.5); Segmented Neutrophils % 87.3 %
[2016-12-30 03:40] LABS: INR 1.1; Prothrombin Time 11.9 Seconds (9.4-12.1)
[2016-12-30] MEDS: Lacri-Lube 3.5 GM TUBE BOTH EYES SCH ×6 (04:06→23:31)
[2016-12-30 05:03] LABS: ABG Base Excess 7.8 mEq/L (-2.0 to 3.0); ABG HCO3 34.7 mEQ/L (21-27); ABG Oxygen Saturation 95 % (95-98); ABG PCO2 56 mmHg (35-45); ABG PO2 75 mmHg (85-104); ABG TCO2 36.4 mEq/L (20-26)
[2016-12-30 05:08] LABS: Blood Gas FiO2 80 %; Blood Gas PEEP 5 cm H2O; Blood Gas Respiration Rate 12; Blood Gas VT 550 cc
[2016-12-30] MEDS: *HR* Heparin 5,000 UNIT/ML VIAL SQ SCH ×2 (05:27→18:33)
[2016-12-30] MEDS: Pantoprazole 40 MG VIAL IVPB SCH (05:29)
[2016-12-30] MEDS: Levothyroxine 25 MCG TABLET PO SCH (05:32)
[2016-12-30 07:13] LABS: Albumin 3.1 g/dL (3.5-5.0); Albumin/Globulin Ratio 0.8 (1.1-2.2); Bilirubin,Total 0.5 mg/dL (0.2-1.2); Calcium 11.4 mg/dL (8.6-10.8); Globulin 4.1 g/dL (2.4-3.5); Total Protein 7.2 g/dL (6.0-8.3)
--- NOTE | 2016-12-30 07:15 | Pulmonology Consult Note ---
Date of Encounter: 12/30/16 Time of Encounter: 07:15 Assessment and Plan (1) Altered mental status Current Visit: Yes Status: Acute Patient admitted with altered mental status for the last several days. Intubated due to concerns if he could protect his airway. Cause of the altered mental status is unknown. Head CT negative. Labs indicated that this should not be secondary to patient's ERSD or uremia. Concern is that the patient uses opioids in the setting of ESRD with positive urine drugs screen. He also is on a very high dose of neurotin that with his ESRD could result in altered mental status. Patient also has a UTI however WBC and patient does not appear to be septic. Will re-evaluate patient after dialysis. Patient will hopefully begin to wake up. - Continue to monitor vitals and labs - Antibiotics for UTI - Dialysis for ESRD - If secondary to medication use, patient should improve with time. Qualifiers: Altered mental status type: somnolence Qualified Code(s): R40.0 - Somnolence (2) Respiratory failure Current Visit: No Status: Acute Reports of patient gurgling prior to intubation. Initial CXR showed no acute abnormality. Overnight patient would desaturate and required increasing FiO2 support. This morning on exam patient has wheezing and some rhonchi. He does have underlying COPD. - Repeat CXR - Continue duonebs - Continue home dose prednisone - Wean O2 as tolerated towards extubation Qualifiers: Chronicity: acute on chronic Respiratory failure complication: hypercapnia Qualified Code(s): J96.22 - Acute and chronic respiratory failure with hypercapnia (3) Urinary tract infection Current Visit: Yes Status: Acute UA suggestive of UTI with moderate blood, large LE, and WBC. Blood WBC was normal and patient has been afebrile. Patient does not appear to be septic, as such, unsure if this is the cause of patient's AMS. Started ceftriaxone. - Ceftriaxone 1g daily (day 1/5) - Follow cultures Qualifiers: Urinary tract infection type: site unspecified Hematuria presence: without hematuria Qualified Code(s): N39.0 - Urinary tract infection, site not specified (4) ESRD (end stage renal disease) on dialysis Current Visit: No Status: Chronic Patient with history of ESRD s/p failed renal transplant now on dialysis. Creatinine and potassium are elevated but patient is due for dialysis today. Nephrology consulted. While we do not believe that there is a metabolic/ eletrolyte cause of patient's AMS, will re-evaluate after dialysis. - Appreciate nephrology recommendations - Dialysis today - Re-evaluate after dialysis. (5) Hyperkalemia, diminished renal excretion Current Visit: No Status: Resolved Hyperkalemia secondary to ESRD. Plan for dialysis today. - Nephrology consulted - Dialysis today - Follow potassium levels. (6) CHF (congestive heart failure) Current Visit: No Status: Chronic Patient with history of CHF. Last ECHO showed LVEF 60% and mild diastolic dysfunction. - Monitor fluid status Qualifiers: Congestive heart failure type: diastolic Congestive heart failure chronicity: acute on chronic Qualified Code(s): I50.33 - Acute on chronic diastolic (congestive) heart failure (7) COPD (chronic obstructive pulmonary disease) Current Visit: No Status: Chronic Reports of patient gurgling prior to intubation. Initial CXR showed no acute abnormality. Overnight patient would desaturate and required increasing FiO2 support. This morning on exam patient has wheezing and some rhonchi. He does have underlying COPD. - Repeat CXR - Continue duonebs - Continue home dose prednisone - Wean O2 as tolerated towards extubation Qualifiers: COPD type: unspecified COPD Qualified Code(s): J44.9 - Chronic obstructive pulmonary disease, unspecified (8) DVT prophylaxis Current Visit: No Status: Acute History of Present Illness Consult date: 12/30/16 Reason for consult: other (Critical Care - Intubated in ICU) Chief complaint: Altered Mental Status History of present illness: Mr Shyam Ackerman is a 61yo male with PMH of ESRD s/p transplant on diallysis, COPD, HTN and CHF who presented with altered mental status for several days. Patient was gurgling and not following commands in the ED so patient was intubated for airway protection. Altered mental status work up revealed negative head CT, electrolytes not drastically out of range, and no signs of infection. UDS was positive for opiates. UA suggestive of UTI. Patient seen and examined this morning. Afebrile overnight, vital signs largely within normal limits. He remains intubated and sedated. He opens eyes to voice. Neuro exam limited due to sedation. Lungs with inspiratory wheezes and maybe some rhonchi. Abdomen soft non-tender. Left foot is swollen and a little warm, was present on admission. Does not seem to cause pain and patient moves his leg and foot. Past Med Surg Social Fam HX - Past Medical History Medical history: arthritis, CHF, COPD, diabetes, dialysis, GERD, hyperlipidemia , hypertension, osteoporosis, renal disease, thyroid disease, other Psychiatric history: anxiety, depression - Past Surgical History Surgical History: cataract, orthopedic, other, transplant (Transplant kidney in 1982 and then 2009. Transplant kidney biopsy 2012.), vascular surgery, other - Social History Smoking Status: Former smoker Smokeless Tobacco Status: No Alcohol use: none Drug use: none Medications and Allergies Allopurinol [Zyloprim 100 MG] 100 mg PO DAILY 11/09/15 [History] Carvedilol [Coreg] 50 mg PO BID 11/09/15 [History] Cinacalcet HCl [Sensipar] 60 mg PO DAILY 11/09/15 [History] Docusate [Colace] 100 mg PO BID 11/09/15 [History] Fluticasone Propionate Nasal [Flonase] 50 mcg NS DAILY 11/09/15 [History] Furosemide [Lasix] 40 mg PO BID 11/09/15 [History] Omeprazole [PriLOSEC] 40 mg PO DAILY 11/09/15 [History] Pravastatin Sodium 10 mg PO QPM 11/09/15 [History] Alpha Lipoic Acid 100 mg PO DAILY 06/29/16 [History] Aspirin 81 mg PO DAILY 06/29/16 [History] Levothyroxine Sodium [Synthroid] 25 mcg PO DAILY 06/29/16 [History] Sulfamethoxazole/Trimeth DS [Bactrim Ds] 1 each PO MOWEFR 06/29/16 [History] predniSONE [PredniSONE] 10 mg PO DAILY 06/29/16 [History] Ergocalciferol (VITAMIN D2) [Vitamin D] 400 unit PO BID 09/18/16 [History] Albuterol Neb [Proventil Neb] 2.5 mg IH Q6H PRN 12/29/16 [History] Albuterol Sulfate [Proair Hfa] 2 puff IH Q4-6H PRN 12/29/16 [History] Amlodipine Besylate 10 mg PO DAILY 12/29/16 [History] Ammonium Lactate [Marilee-Hydrolac] 1 appl TP DAILY 12/29/16 [History] Calcium Acetate [Phos-LO] 667 mg PO 12/29/16 [History] Diclofenac Sodium [Voltaren] 1 appl TP TID PRN 12/29/16 [History] FLUoxetine HCl [Prozac] 40 mg PO DAILY 12/29/16 [History] Famotidine [Heartburn Prevention] 20 mg PO DAILY 12/29/16 [History] Gabapentin [Neurontin] 400 mg PO TID 12/29/16 [History] Orphenadrine [Norflex] 100 mg PO HS 12/29/16 [History] Oxycodone HCl 10 mg PO Q6H PRN 12/29/16 [History] Oxygen 1 each NS CONT 12/29/16 [History] Polyethylene Glycol 3350 [Smoothlax] 17 gm PO BID 12/29/16 [History] Sennosides [Senna] 8.6 mg PO BID PRN 12/29/16 [History] Spironolactone [Aldactone] 25 mg PO DAILY 12/29/16 [History] Tiotropium [Spiriva] 18 mcg IH DAILY 12/29/16 [History] Venlafaxine XR (24 HR) [Effexor XR] 37.5 mg PO 12/29/16 [History] cloNIDine HCl [Clonidine HCl] 0.3 mg PO TID 12/29/16 [History] Allergies No Known Allergies Allergy (Verified 12/29/16 14:46) ROS unobtainable: due to endotracheal tube All Systems: A 10-system review of systems was performed and is negative for pertinent findings except as documented above in the HPI. Physical Examination Vital Signs: Vital Signs, Last 4 Hours Temp Pulse Resp BP Pulse Ox 12/30/16 06:00 73 12 111/67 92 12/30/16 05:26 12 97 12/30/16 05:00 80 12 120/73 99 12/30/16 04:08 12 95 12/30/16 04:00 97.8 F 69 12 100/64 95 General appearance: other (Intubated and sedated) Eyes: nonicteric ENT: oropharynx moist, other (ET tube in place) Neck: supple Effort: normal Inspection: normal Auscultation: bilateral: wheezes, rhonchi Cardiovascular: regular rate and rhythm Gastrointestinal: soft, non-tender, non-distended Extremities: other (right foot is big and slightly warm) Musculoskeletal: joint inflammation unable to assess due to mental status Ventilator Settings Ventilator Settings: Ventilator Settings, Last 8 Hours Ventilator Mode A/C Ventilator Mode VC+ Ventilator Mode A/C Ventilator Mode VC+ Ventilator Mode VC+ Ventilator Mode A/C Ventilator Mode A/C Ventilator Mode A/C Ventilator Mode VC+ Ventilator Mode A/C Ventilator Mode A/C Ventilator Mode VC+ Ventilator Tidal Volume 550 Setting Ventilator Tidal Volume 550 Setting Ventilator Tidal Volume 550 Setting Ventilator Tidal Volume 550 Setting Ventilator Tidal Volume 550 Setting Ventilator Tidal Volume 550 Setting Ventilator Tidal Volume 550 Setting Ventilator Tidal Volume 550 Setting Ventilator Tidal Volume 550 Setting Ventilator Tidal Volume 550 Setting Ventilator Tidal Volume 550 Setting Ventilator Tidal Volume 550 Setting Ventilator Respiratory Rate 12 Setting Ventilator Respiratory Rate 12 Setting Ventilator Respiratory Rate 12 Setting Ventilator Respiratory Rate 12 Setting Ventilator Respiratory Rate 12 Setting Ventilator Respiratory Rate 12 Setting Ventilator Respiratory Rate 12 Setting Ventilator Respiratory Rate 12 Setting Ventilator Respiratory Rate 12 Setting Ventilator Respiratory Rate 12 Setting Ventilator Respiratory Rate 12 Setting Ventilator Respiratory Rate 12 Setting Actual Respiratory Rate 12 Actual Respiratory Rate 12 Actual Respiratory Rate 12 Actual Respiratory Rate 12 Actual Respiratory Rate 12 Actual Respiratory Rate 12 Actual Respiratory Rate 12 Actual Respiratory Rate 12 Actual Respiratory Rate 12 Actual Respiratory Rate 12 Actual Respiratory Rate 12 Positive End Expiratory 5 Pressure Positive End Expiratory 5 Pressure Positive End Expiratory 5 Pressure Positive End Expiratory 5 Pressure Positive End Expiratory 5 Pressure Positive End Expiratory 5 Pressure Positive End Expiratory 5 Pressure Positive End Expiratory 5 Pressure Positive End Expiratory 5 Pressure Positive End Expiratory 5 Pressure Positive End Expiratory 5 Pressure Positive End Expiratory 5 Pressure Peak Inspiratory Airway 25 Pressure Peak Inspiratory Airway 27 Pressure Peak Inspiratory Airway 28 Pressure Peak Inspiratory Airway 23 Pressure Peak Inspiratory Airway 23 Pressure Peak Inspiratory Airway 27 Pressure Peak Inspiratory Airway 24 Pressure Peak Inspiratory Airway 23 Pressure Peak Inspiratory Airway 26 Pressure Peak Inspiratory Airway 26 Pressure Peak Inspiratory Airway 22 Pressure Results - Laboratory Findings CBC and BMP: 12/30/16 03:12 12/30/16 09:14 ABG ABG pH 7.40 pH Units (7.32-7.45) 12/30/16 04:33 ABG pCO2 56 mmHg (35-45) H 12/30/16 04:33 ABG pO2 75 mmHg (85-104) L 12/30/16 04:33 ABG O2 Saturation 95 % (95-98) 12/30/16 04:33 PT/INR, D-dimer PT 11.9 Seconds (9.4-12.1) 12/30/16 03:12 Abnormal lab findings: Abnormal lab results MCV 101.3 fL (83.0-100.0) H 12/30/16 03:12 MCH 35.9 pg (28.0-33.3) H 12/30/16 03:12 ABG pCO2 56 mmHg (35-45) H 12/30/16 04:33 ABG pO2 75 mmHg (85-104) L 12/30/16 04:33 ABG HCO3 34.7 mEQ/L (21-27) H 12/30/16 04:33 ABG Total CO2 36.4 mEq/L (20-26) H 12/30/16 04:33 ABG Base Excess 7.8 mEq/L (-2.0 to 3.0) H 12/30/16 04:33 Sodium 135 mEq/L (136-145) L 12/29/16 15:12 Potassium 5.8 mEq/L (3.5-4.5) H 12/29/16 15:12 Chloride 94 mEq/L (98-109) L 12/29/16 15:12 BUN 41 mg/dL (8-26) H 12/29/16 15:12 Creatinine 6.84 mg/dL (0.72-1.25) H 12/29/16 15:12 Est GFR ( Amer) 10 (> 60) L 12/29/16 15:12 Est GFR (Non-Af Amer) 8 (> 60) L 12/29/16 15:12 Glucose 114 mg/dL (70-99) H 12/29/16 15:12 POC Glucose 119 (58-89) H 12/29/16 20:06 Magnesium 2.7 mg/dL (1.6-2.6) H 12/29/16 21:33 Albumin 3.3 g/dL (3.5-5.0) L 12/29/16 15:12 Albumin/Globulin Ratio 1.0 (1.1-2.2) L 12/29/16 15:12 Urine Clarity Turbid (Clear) A 12/29/16 15:51 Urine Protein 100 mg/dL (Neg-Trace) H 12/29/16 15:51 Urine Blood Moderate (Negative) H 12/29/16 15:51 Urine Bilirubin Small (Negative) H 12/29/16 15:51 Ur Leukocyte Esterase Large (Negative) H 12/29/16 15:51 Urine Microscopic RBC 15-30 per hpf (0-3) H 12/29/16 15:51 Urine Microscopic WBC TNTC per hpf (0-3) H 12/29/16 15:51 Urine Opiates Screen Positive ng/mL (Ylkacb=007) H 12/29/16 16:46 - Diagnostic Findings Chest x-ray: report reviewed, image reviewed - Clinical Findings Intake & Output: Intake & Output 12/29/16 12/29/16 12/30/16 15:59 23:59 07:59 Intake Total 233 / 247.0 93 / 93 Output Total 150 / 150 775 / 775 Balance 83 / 97.0 -682 / -682 Weight 77.5 kg Consult Discharge Plan - Plan Referrals: NO,PCP [Primary Care Provider] -
[2016-12-30] MEDS: Budesonide/Formoterol 160/4.5 MDI IH SCH ×2 (07:42→19:33)
[2016-12-30] MEDS: predniSONE 10 MG TABLET PO SCH (08:07)
[2016-12-30] MEDS: Chlorhexidine Rinse 15 ML MOUTHWASH MM SCH ×2 (08:07→20:26)
[2016-12-30] MEDS: Aspirin 81 MG TAB.CHEW PO SCH (08:07)
[2016-12-30] MEDS: FLUoxetine 20 MG CAPSULE PO SCH (08:07)
[2016-12-30] MEDS: cloNIDine HCl 0.1 MG TABLET PO SCH ×3 (08:08→20:27)
[2016-12-30 08:28] LABS: Potassium 6.6 mEq/L (3.5-4.5)
[2016-12-30] MEDS ORDERED: 0.9 % Sodium Chloride 250 ML IVC PRN (09:30)
[2016-12-30] MEDS ORDERED: 0.9 % Sodium Chloride 1,000 ML PRIME SCH (09:30)
[2016-12-30 09:38] LABS: Acetaminophen < 1.0 mcg/mL (10-30); Ethanol < 10 mg/dL (0-10); Potassium 6.5 mEq/L (3.5-4.5); Salicylate < 5.0 mg/dL (15-30)
[2016-12-30 10:00] LABS: Hepatitis B Surface Antigen Nonreactive (Nonreactive)
--- NOTE | 2016-12-30 11:24 | Electrocardiograph Report ---
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
[2016-12-30] MEDS: Ipratropium/Albuterol Neb 3 ML IH SCH ×4 (11:59→23:33)
--- NOTE | 2016-12-30 12:18 | Nephrology Consult Note ---
Date of Encounter: 12/30/16 Time of Encounter: 12:17 Assessment and Plan (1) ESRD (end stage renal disease) on dialysis Current Visit: No Status: Chronic Patient seen on dialysis. HD MWF Renal dose medications Renal diet once patient is eating. Will evaluate for the need for additional dialysis. (2) Altered mental status Current Visit: Yes Status: Acute Likely multifactorial. Gabapentin could be contributing. Agree with holding neurontin. Not secondary to uremia. Per primary team. Qualifiers: Qualified Code(s): R40.0 - Somnolence (3) Urinary tract infection Current Visit: Yes Status: Acute Managment per primary team. Qualifiers: Qualified Code(s): N39.0 - Urinary tract infection, site not specified History of Present Illness - Reason for Consult Consult date: 12/30/16 end stage renal disease - Chief Complaint ESRD AMS - History of Present Illness Mr. Ackerman is a 61 yo man with a history of ESRD followed by Dr. Fulton who presents with altered mental status. History obtained from the electronic chart and discussion with primary team. Patient is intubated and sedated. Past Med Surg Social Fam HX - Past Medical History Medical history: arthritis, CHF, COPD, diabetes, dialysis, GERD, hyperlipidemia , hypertension, osteoporosis, renal disease, thyroid disease, other Psychiatric history: anxiety, depression - Past Surgical History Surgical History: cataract, orthopedic, other, transplant (Transplant kidney in 1982 and then 2009. Transplant kidney biopsy 2012.), vascular surgery, other - Social History Smoking Status: Former smoker Smokeless Tobacco Status: No Alcohol use: none Drug use: none Medications and Allergies Allopurinol [Zyloprim 100 MG] 100 mg PO DAILY 11/09/15 [History] Carvedilol [Coreg] 50 mg PO BID 11/09/15 [History] Cinacalcet HCl [Sensipar] 60 mg PO DAILY 11/09/15 [History] Docusate [Colace] 100 mg PO BID 11/09/15 [History] Fluticasone Propionate Nasal [Flonase] 50 mcg NS DAILY 11/09/15 [History] Furosemide [Lasix] 40 mg PO BID 11/09/15 [History] Omeprazole [PriLOSEC] 40 mg PO DAILY 11/09/15 [History] Pravastatin Sodium 10 mg PO QPM 11/09/15 [History] Alpha Lipoic Acid 100 mg PO DAILY 06/29/16 [History] Aspirin 81 mg PO DAILY 06/29/16 [History] Levothyroxine Sodium [Synthroid] 25 mcg PO DAILY 06/29/16 [History] Sulfamethoxazole/Trimeth DS [Bactrim Ds] 1 each PO MOWEFR 06/29/16 [History] predniSONE [PredniSONE] 10 mg PO DAILY 06/29/16 [History] Ergocalciferol (VITAMIN D2) [Vitamin D] 400 unit PO BID 09/18/16 [History] Albuterol Neb [Proventil Neb] 2.5 mg IH Q6H PRN 12/29/16 [History] Albuterol Sulfate [Proair Hfa] 2 puff IH Q4-6H PRN 12/29/16 [History] Amlodipine Besylate 10 mg PO DAILY 12/29/16 [History] Ammonium Lactate [Marilee-Hydrolac] 1 appl TP DAILY 12/29/16 [History] Calcium Acetate [Phos-LO] 667 mg PO 12/29/16 [History] Diclofenac Sodium [Voltaren] 1 appl TP TID PRN 12/29/16 [History] FLUoxetine HCl [Prozac] 40 mg PO DAILY 12/29/16 [History] Famotidine [Heartburn Prevention] 20 mg PO DAILY 12/29/16 [History] Gabapentin [Neurontin] 400 mg PO TID 12/29/16 [History] Orphenadrine [Norflex] 100 mg PO HS 12/29/16 [History] Oxycodone HCl 10 mg PO Q6H PRN 12/29/16 [History] Oxygen 1 each NS CONT 12/29/16 [History] Polyethylene Glycol 3350 [Smoothlax] 17 gm PO BID 12/29/16 [History] Sennosides [Senna] 8.6 mg PO BID PRN 12/29/16 [History] Spironolactone [Aldactone] 25 mg PO DAILY 12/29/16 [History] Tiotropium [Spiriva] 18 mcg IH DAILY 12/29/16 [History] Venlafaxine XR (24 HR) [Effexor XR] 37.5 mg PO 12/29/16 [History] cloNIDine HCl [Clonidine HCl] 0.3 mg PO TID 12/29/16 [History] Allergies No Known Allergies Allergy (Verified 12/29/16 14:46) Review of Systems ROS unobtainable: due to endotracheal tube Exam - Vital Signs Vital signs: Initial Vital Signs Temp Pulse Resp BP Pulse Ox 98.1 F 78 18 110/72 99 12/29/16 14:46 12/29/16 14:46 12/29/16 14:46 12/29/16 14:46 12/29/16 14:46 Vital Signs - Last 8 Hours Temp Pulse Resp BP Pulse Ox 12/30/16 12:10 101/54 12/30/16 11:55 105/76 12/30/16 11:46 97.6 F 12/30/16 11:40 93/58 12/30/16 11:25 92/62 12/30/16 11:10 93/52 12/30/16 10:55 90/58 12/30/16 10:40 97.6 F 18 100/62 12/30/16 10:15 66 12 97/58 96 12/30/16 09:15 65 12 84/56 92 12/30/16 09:00 12 89/58 93 12/30/16 08:15 70 12 116/72 90 12/30/16 07:30 12 89/56 99 12/30/16 07:15 74 12 98/67 91 12/30/16 07:00 97.6 F 12/30/16 06:00 73 12 111/67 92 12/30/16 05:26 12 97 12/30/16 05:00 80 12 120/73 99 Intake and Output 12/29/16 12/30/16 12/30/16 23:59 07:59 15:59 Intake Total 233 / 247.0 633 / 633 Output Total 150 / 150 800 / 800 Balance 83 / 97.0 -707 / -707 608 / 608 Intake: IV Fluids 233 / 247.0 Diprivan 500 mg In 50 ml 50 / 50 As .ROUTE .STK-[facility] Rx #:[id number] Versed 50 MG In 0.9 % 76 / 90.0 Sodium Chloride 90 ML @ 0 .02 MG/KG/HR 3.26 mls/hr IVC [facility] Rx#: [id number] Diprivan 1,000 mg In 100 7 / 7 93 / 93 33 / 33 ml @ 30 MCG/KG/MIN 14.696 mls/hr IVC .Q6H49M [facility] Rx#:[id number] Rocephin 1,000 MG In 100 / 100 Dextrose 5% (Minibag+) 100 ML 100 ML @ 200 mls/ hr IVPB Q24H [facility] Rx#: [id number] Oral 0 / 0 0 / 0 Intake, Rinseback and 600 / 600 Flushes Output: Catheter 150 / 150 50 / 50 25 / 25 Gastric Drainage 750 / 750 Other: Weight 77.5 kg Hemodialysis Net Fluid 1110 Removed (mL) Patient Weight 12/30/16 23:59 Weight 77.5 kg - General Appearance General appearance: well-developed, well-nourished EENT: ATNC Neck: supple Respiratory: course breath sounds Cardiology: no edema, regular rate Gastrointestinal: no tenderness Integumentary: warm and dry Additional Comments: intubated and sedated Musculoskeletal: no cyanosis Results - Lab Results 12/31/16 06:09 12/31/16 06:09 Most recent lab results ABG pH 7.40 pH Units (7.32-7.45) 12/30/16 04:33 ABG pCO2 56 mmHg (35-45) H 12/30/16 04:33 ABG pO2 75 mmHg (85-104) L 12/30/16 04:33 ABG HCO3 34.7 mEQ/L (21-27) H 12/30/16 04:33 ABG O2 Saturation 95 % (95-98) 12/30/16 04:33 Calcium 11.4 mg/dL (8.6-10.8) H 12/30/16 05:18 Magnesium 2.7 mg/dL (1.6-2.6) H 12/29/16 21:33 Consult Discharge Plan - Plan Referrals: NO,PCP [Primary Care Provider] -
[2016-12-30] MEDS: Dexmedetomidine HCl 400 MCG/100 ML MLS IVC SCH (16:16)
[2016-12-30] MEDS ORDERED: *HR* FentaNYL (PF) 100 MCG/2 ML VIAL IVP ONE (23:24)
[2016-12-31] MEDS: Dexmedetomidine HCl 400 MCG/100 ML MLS IVC SCH (01:13)
[2016-12-31] MEDS: *HR* Midazolam HCl 2 MG/2 ML VIAL IVP PRN ×5 (01:16→08:30)
[2016-12-31] MEDS: Ipratropium/Albuterol Neb 3 ML IH SCH ×6 (03:24→23:11)
[2016-12-31] MEDS: Lacri-Lube 3.5 GM TUBE BOTH EYES SCH ×5 (04:00→20:23)
[2016-12-31 04:46] LABS: ABG Base Excess 6.7 mEq/L (-2.0 to 3.0); ABG HCO3 31.3 mEQ/L (21-27); ABG Oxygen Saturation 96 % (95-98); ABG PCO2 43 mmHg (35-45); ABG PH 7.47 pH Units (7.32-7.45); ABG PO2 78 mmHg (85-104); ABG TCO2 32.6 mEq/L (20-26)
[2016-12-31 04:51] LABS: Blood Gas FiO2 80 %
[2016-12-31] MEDS: Pantoprazole 40 MG VIAL IVPB SCH (04:58)
[2016-12-31] MEDS: *HR* Heparin 5,000 UNIT/ML VIAL SQ SCH ×2 (05:01→17:50)
[2016-12-31] MEDS: Levothyroxine 25 MCG TABLET PO SCH (05:02)
[2016-12-31 06:23] LABS: Basophils % 0.2 %; Eosinophils % 0.2 %; Hematocrit 48.9 % (37.5-50.1); Hemoglobin 15.7 g/dL (12.9-16.9); Immature Granulocytes % 0.6 % (0-4); Ionized Calcium 1.16 mmol/L (1.15-1.35); Lymphocytes # 1.1 K/mcL (0.6-4.6); Lymphocytes % 9.7 %; Mean Corpuscular HGB Conc 32.1 g/dL (31.6-35.5); Mean Corpuscular Hemoglobin 32.8 pg (28.0-33.3); Mean Corpuscular Volume 102.3 fL (83.0-100.0); Mean Platelet Volume 10.3 fL (9.4-12.4); Monocytes # 0.9 K/mcL (0.0-1.3); Monocytes % 7.9 %; Neutrophils # 9.2 K/mcL (1.6-8.9); Platelet Count 148 K/mcL (140-400); Red Blood Count 4.78 M/mcL (4.19-5.50); Red Cell Distribution Width 14.4 % (11.5-14.5); Segmented Neutrophils % 81.4 %
[2016-12-31 06:27] LABS: Calcium 10.6 mg/dL (8.6-10.8); Magnesium 2.1 mg/dL (1.6-2.6); Phosphorous 6.9 mg/dL (2.3-4.7)
[2016-12-31 06:28] LABS: Potassium 5.4 mEq/L (3.5-4.5)
[2016-12-31] MEDS: Budesonide/Formoterol 160/4.5 MDI IH SCH ×2 (07:44→19:55)
[2016-12-31 08:45] LABS: Uric Acid 4.6 mg/dL (3.5-7.2)
[2016-12-31] MEDS: Aspirin 81 MG TAB.CHEW PO SCH (08:48)
[2016-12-31] MEDS: predniSONE 10 MG TABLET PO SCH (08:48)
[2016-12-31] MEDS: FLUoxetine 20 MG CAPSULE PO SCH (08:48)
[2016-12-31] MEDS: Chlorhexidine Rinse 15 ML MOUTHWASH MM SCH ×2 (09:03→20:23)
--- NOTE | 2016-12-31 09:16 | Pulmonology Progress Note ---
Date of Encounter: 12/31/16 Time of Encounter: 08:45 Assessment and Plan (1) Altered mental status Current Visit: Yes Status: Acute Patient admitted with altered mental status for the last several days. Intubated due to concerns if he could protect his airway. Head CT negative. Believe altered mental status is secondary to patients use of neurotin and opioids in setting of ESRD. Patient also has a UTI however WBC and patient does not appear to be septic. Patient is very agitated off sedation. He is requiring FiO2 of 80%, as such we are not ready to extubate at this time. Will continue with fentanyl and propofol for sedation. Hopeful for sedation holiday and SBT in the morning. - Supportive care - Continue sedation with fentanyl and propofol. - Will wean sedation as tolerated. Qualifiers: Altered mental status type: somnolence Qualified Code(s): R40.0 - Somnolence (2) Respiratory failure Current Visit: No Status: Acute Reports of patient gurgling prior to intubation. Patient continues to require high amounts of supplemental oxygen - FiO2 of 80%. His WBC doubled, we are getting a lots of sputum on suction and on exam lungs with diffuse rhonchi. Concern for aspiration pneumonia with underlying COPD. - On Ceftriaxon (day 2) for aspiration pneumonia/UTI - Continue duonebs - Wean O2 as tolerated towards extubation Qualifiers: Chronicity: acute on chronic Respiratory failure complication: hypercapnia Qualified Code(s): J96.22 - Acute and chronic respiratory failure with hypercapnia (3) Urinary tract infection Current Visit: Yes Status: Acute UA suggestive of UTI with moderate blood, large LE, and WBC. Blood WBC was normal and patient has been afebrile. Patient does not appear to be septic, as such, unsure if this is the cause of patient's AMS. Started ceftriaxone. 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 Creatinine and potassium are elevated but patient is due for dialysis today. Nephrology consulted. While we do not believe that there is a metabolic/ eletrolyte cause of patient's AMS, will re-evaluate after dialysis. - Appreciate nephrology recommendations - Dialysis MWF - Continue medications per his transplant search consultant including bactrim and prednisone. (5) CHF (congestive heart failure) Current Visit: No Status: Chronic Patient with history of CHF. Last ECHO showed LVEF 60% and mild diastolic dysfunction. - Monitor fluid status Qualifiers: Congestive heart failure type: diastolic Congestive heart failure chronicity: acute on chronic Qualified Code(s): I50.33 - Acute on chronic diastolic (congestive) heart failure (6) COPD (chronic obstructive pulmonary disease) Current Visit: No Status: Chronic Reports of patient gurgling prior to intubation. Initial CXR showed no acute abnormality. Overnight patient would desaturate and required increasing FiO2 support. This morning on exam patient has wheezing and some rhonchi. He does have underlying COPD. - Repeat CXR - Continue duonebs - Continue home dose prednisone - Wean O2 as tolerated towards extubation Qualifiers: COPD type: unspecified COPD Qualified Code(s): J44.9 - Chronic obstructive pulmonary disease, unspecified (7) DVT prophylaxis Current Visit: No Status: Acute Heparin Neuro: Altered mental status. Agitated. Continue fentayl and propofol for sedation Pulm: Acute respiratory failure. Requiring FiO2 80%. Wean as tolerated. Concern for aspiration pneumonia, on ceftriaxone. Underlying COPD, on duonebs Cardiac: Hypotensive with sedation. Not currently requiring vasopressors. Continue to monitor blood pressure GI/Fluids/Electrolytes: Started tube feeds to today. GI ppx Renal: ESRD. Dialysis MWF ID: Concern for UTI and aspiration pneumonia. Cultures pending. On Ceftriaxone (day 2) Heme/Onc: Heparin for DVT ppx Endocrine: SSI Dispo: ICU Subjective Principal diagnosis: Altered Mental Status Interval history: Overnight, patient was very agitated and fighting with the vent. However, with sedation, patient was hypotensive all the way down to the 70s systolic. This morning precedex was transitioned to propofol and fentanyl for sedation with some improvement in BL and agitation. Patient is still requiring 80% FiO2 to maintain oxygen saturation. Tmax overnight of 100.1. Hr 60s-100. RR 16/22. Blood pressure on the lower side. Patient seen and examined. To voice patient opens his eyes and starts fighting against restraints and reaching for the tube. He does not follow commands. Lungs with diffuse rhonchi and wheezing. Abdomen soft, non-tender. Objective PUL Vital signs: Last Vital Signs Temp 99.4 F 12/31/16 08:14 Pulse 100 12/31/16 06:00 Resp 24 12/31/16 07:44 BP 86/65 12/31/16 07:44 Pulse Ox 91 12/31/16 07:44 General appearance: agitated, other (Intubated. ) Eyes: nonicteric ENT: oropharynx moist Effort: normal Auscultation: bilateral: wheezes, rhonchi Cardiovascular: regular rate and rhythm Gastrointestinal: soft, non-tender, non-distended Extremities: no edema Musculoskeletal: other (right ankle excessively large, appears to have chronic deformity ) unable to assess due to mental status Ventilator Settings Ventilator Settings: Ventilator Settings, Last 8 Hours Ventilator Mode VC+ Ventilator Mode VC+ Ventilator Mode VC+ Ventilator Mode VC+ Ventilator Mode VC+ Ventilator Mode VC+ Ventilator Mode VC+ Ventilator Mode VC+ Ventilator Mode VC+ Ventilator Mode VC+ Ventilator Mode VC+ Ventilator Tidal Volume 550 Setting Ventilator Tidal Volume 550 Setting Ventilator Tidal Volume 550 Setting Ventilator Tidal Volume 550 Setting Ventilator Tidal Volume 550 Setting Ventilator Tidal Volume 550 Setting Ventilator Tidal Volume 550 Setting Ventilator Tidal Volume 550 Setting Ventilator Tidal Volume 550 Setting Ventilator Tidal Volume 550 Setting Ventilator Tidal Volume 550 Setting Ventilator Respiratory Rate 12 Setting Ventilator Respiratory Rate 12 Setting Ventilator Respiratory Rate 12 Setting Ventilator Respiratory Rate 12 Setting Ventilator Respiratory Rate 12 Setting Ventilator Respiratory Rate 12 Setting Ventilator Respiratory Rate 12 Setting Ventilator Respiratory Rate 12 Setting Ventilator Respiratory Rate 12 Setting Ventilator Respiratory Rate 12 Setting Ventilator Respiratory Rate 12 Setting Actual Respiratory Rate 18 Actual Respiratory Rate 22 Actual Respiratory Rate 18 Actual Respiratory Rate 17 Actual Respiratory Rate 26 Actual Respiratory Rate 17 Actual Respiratory Rate 17 Actual Respiratory Rate 17 Actual Respiratory Rate 19 Actual Respiratory Rate 16 Positive End Expiratory 5 Pressure Positive End Expiratory 5 Pressure Positive End Expiratory 5 Pressure Positive End Expiratory 5 Pressure Positive End Expiratory 5 Pressure Positive End Expiratory 5 Pressure Positive End Expiratory 5 Pressure Positive End Expiratory 5 Pressure Positive End Expiratory 5 Pressure Positive End Expiratory 5 Pressure Positive End Expiratory 5 Pressure Peak Inspiratory Airway 12 Pressure Peak Inspiratory Airway 21 Pressure Peak Inspiratory Airway 21 Pressure Peak Inspiratory Airway 23 Pressure Peak Inspiratory Airway 20 Pressure Peak Inspiratory Airway 22 Pressure Peak Inspiratory Airway 19 Pressure Peak Inspiratory Airway 23 Pressure Peak Inspiratory Airway 20 Pressure Peak Inspiratory Airway 23 Pressure Results - Laboratory Findings CBC and BMP: 12/31/16 06:09 12/31/16 06:09 ABG ABG pH 7.47 pH Units (7.32-7.45) H 12/31/16 04:40 ABG pCO2 43 mmHg (35-45) 12/31/16 04:40 ABG pO2 78 mmHg (85-104) L 12/31/16 04:40 ABG O2 Saturation 96 % (95-98) 12/31/16 04:40 PT/INR, D-dimer PT 11.9 Seconds (9.4-12.1) 12/30/16 03:12 Abnormal lab findings: Abnormal lab results WBC 11.3 K/mcL (4.3-11.1) H D 12/31/16 06:09 MCV 102.3 fL (83.0-100.0) H 12/31/16 06:09 Neutrophils # 9.2 K/mcL (1.6-8.9) H 12/31/16 06:09 ABG pH 7.47 pH Units (7.32-7.45) H 12/31/16 04:40 ABG pO2 78 mmHg (85-104) L 12/31/16 04:40 ABG HCO3 31.3 mEQ/L (21-27) H 12/31/16 04:40 ABG Total CO2 32.6 mEq/L (20-26) H 12/31/16 04:40 ABG Base Excess 6.7 mEq/L (-2.0 to 3.0) H 12/31/16 04:40 Potassium 5.4 mEq/L (3.5-4.5) H D 12/31/16 06:09 Chloride 97 mEq/L (98-109) L 12/31/16 06:09 BUN 32 mg/dL (8-26) H D 12/31/16 06:09 Creatinine 5.95 mg/dL (0.72-1.25) H 12/31/16 06:09 Est GFR ( Amer) 12 (> 60) L 12/31/16 06:09 Est GFR (Non-Af Amer) 10 (> 60) L 12/31/16 06:09 BUN/Creatinine Ratio 5 (6-26) L 12/31/16 06:09 Phosphorus 6.9 mg/dL (2.3-4.7) H 12/31/16 06:09 Albumin 3.1 g/dL (3.5-5.0) L 12/30/16 05:18 Globulin 4.1 g/dL (2.4-3.5) H 12/30/16 05:18 Albumin/Globulin Ratio 0.8 (1.1-2.2) L 12/30/16 05:18 Urine Clarity Turbid (Clear) A 12/29/16 15:51 Urine Protein 100 mg/dL (Neg-Trace) H 12/29/16 15:51 Urine Blood Moderate (Negative) H 12/29/16 15:51 Urine Bilirubin Small (Negative) H 12/29/16 15:51 Ur Leukocyte Esterase Large (Negative) H 12/29/16 15:51 Urine Microscopic RBC 15-30 per hpf (0-3) H 12/29/16 15:51 Urine Microscopic WBC TNTC per hpf (0-3) H 12/29/16 15:51 Salicylates < 5.0 mg/dL (15-30) L 12/30/16 09:14 Urine Opiates Screen Positive ng/mL ([id number]) H 12/29/16 16:46 Acetaminophen < 1.0 mcg/mL (10-30) L 12/30/16 09:14 - Diagnostic Findings Chest x-ray: report reviewed, image reviewed - Clinical Findings Intake & Output: Intake & Output 12/30/16 12/31/16 12/31/16 23:59 07:59 15:59 Intake Total 322 / 322 Output Total 450 / 450 100 / 100 0 / 0 Balance -128 / -128 -76 / -76 0 / 0 Weight 72.8 kg Consult Discharge Plan - Plan Referrals: NO,PCP [Primary Care Provider] -
[2016-12-31] MEDS: FentaNYL (PF) 1,000 MCG in 0.9 % Sodium Chloride 80 ML IVC SCH ×2 (11:02→23:05)
[2016-12-31] MEDS: cloNIDine HCl 0.1 MG TABLET PO SCH (11:03)
--- NOTE | 2016-12-31 12:13 | Nephrology Progress Note ---
Date of Encounter: 12/31/16 Time of Encounter: 12:13 - Assessment and Plan (1) ESRD (end stage renal disease) on dialysis Current Visit: No Status: Chronic HD MWF Adjust medications for renal function. (2) Altered mental status Current Visit: Yes Status: Acute Etiology unclear. May be multifactorial. Currently intubated and sedated. Qualifiers: Altered mental status type: somnolence Qualified Code(s): R40.0 - Somnolence (3) Urinary tract infection Current Visit: Yes Status: Acute Urine culture ordered. Qualifiers: Urinary tract infection type: site unspecified Hematuria presence: without hematuria Qualified Code(s): N39.0 - Urinary tract infection, site not specified (4) Acute on chronic respiratory failure with hypoxia and hypercapnia Current Visit: No Status: Acute Currently intubated on significant supplemental oxygen. I spoke with the team this morning. With his unexplained hypoxia and shock there is the possibility of a PE. He is being treated for infection. To evaluate for a PE nephrology is ok with a CTPA. Subjective Principal diagnosis: esrd AMS Interval history: Mr. Ackerman remains intubated and sedated. ROS is unobtainable. Objective - Vital Signs Vital signs: Vital Signs Temp Pulse Resp BP Pulse Ox 12/31/16 11:43 98.7 F 12/31/16 11:20 104 21 93/50 92 12/31/16 11:07 21 162/82 94 12/31/16 10:30 82 25 86/52 92 12/31/16 09:42 20 79/40 90 12/31/16 09:15 81 19 79/60 90 12/31/16 08:14 99.4 F 12/31/16 08:00 89 22 86/65 90 12/31/16 07:44 24 86/65 91 12/31/16 06:00 100 22 90/45 90 12/31/16 05:45 18 87/64 90 12/31/16 05:09 100.1 F H 12/31/16 05:00 85 19 79/55 89 12/31/16 04:00 71 26 74/54 90 12/31/16 03:24 17 78/49 90 12/31/16 03:00 65 17 78/49 91 12/31/16 02:00 69 17 99/62 92 12/31/16 01:25 19 74/51 93 12/31/16 01:00 61 16 74/51 90 12/31/16 00:00 98.6 F 64 16 67/56 90 12/30/16 23:33 18 98/61 90 12/30/16 23:00 62 16 86/56 90 12/30/16 22:00 67 16 103/90 91 12/30/16 21:08 13 85/59 91 12/30/16 21:00 58 12 85/59 93 12/30/16 20:27 97.4 F L 12/30/16 20:00 63 14 83/59 91 12/30/16 19:33 13 82/60 92 12/30/16 19:00 76 12 109/71 94 12/30/16 18:10 74 16 89/59 91 12/30/16 17:05 13 80/56 91 12/30/16 17:00 72 12 97/58 12/30/16 16:15 81 12 100/67 12/30/16 16:06 97.7 F 12/30/16 16:00 12 101/67 94 12/30/16 15:15 80 15 102/64 94 12/30/16 14:15 97.6 F 86 14 108/69 94 12/30/16 14:10 105/71 12/30/16 13:55 89/56 12/30/16 13:40 16 97/66 90 12/30/16 13:25 93/63 12/30/16 13:10 84 15 97/66 90 12/30/16 12:55 94/65 12/30/16 12:40 91/59 12/30/16 12:25 88/62 12/30/16 12:15 80 13 83/57 92 Intake and Output 12/30/16 12/31/16 12/31/16 23:59 07:59 15:59 Intake Total 322 / 322 86 / 86 Output Total 450 / 450 100 / 100 0 / 0 Balance -128 / -128 -76 / -76 86 / 86 Intake: IV Fluids 322 / 322 24 24 86 / 86 PRECEDEX 400 mcg In 100 100 / 100 14 / 14 86 / 86 ml @ 0.2 MCG/KG/HR 3.875 mls/hr IVC .Q24H [facility] Rx#: [id number] Diprivan 1,000 mg In 100 122 / 122 10 / 10 ml @ 30 MCG/KG/MIN 14.696 mls/hr IVC .Q6H49M [facility] Rx#:[id number] Rocephin 1,000 MG In 100 / 100 Dextrose 5% (Minibag+) 100 ML 100 ML @ 200 mls/ hr IVPB Q24H [facility] Rx#: [id number] Output: Catheter 50 / 50 50 / 50 0 / 0 Gastric Drainage 400 / 400 50 / 50 Other: Weight 72.8 kg Patient Weight 12/31/16 23:59 Weight 72.8 kg - General Appearance General appearance: Present: well-developed, well-nourished, sedated on ventilator, intubated EENT: Present: ATNC Neck: Present: supple Respiratory: Present: course breath sounds Additional Comments: tachycardic Gastrointestinal: Present: no tenderness Integumentary: Present: warm and dry Musculoskeletal: Present: no cyanosis - Lab 12/31/16 06:09 12/31/16 06:09 Most recent lab results ABG pH 7.47 pH Units (7.32-7.45) H 12/31/16 04:40 ABG pCO2 43 mmHg (35-45) 12/31/16 04:40 ABG pO2 78 mmHg (85-104) L 12/31/16 04:40 ABG HCO3 31.3 mEQ/L (21-27) H 12/31/16 04:40 ABG O2 Saturation 96 % (95-98) 12/31/16 04:40 Calcium 10.6 mg/dL (8.6-10.8) 12/31/16 06:09 Phosphorus 6.9 mg/dL (2.3-4.7) H 12/31/16 06:09 Magnesium 2.1 mg/dL (1.6-2.6) 12/31/16 06:09 Consult Discharge Plan - Plan Referrals: NO,PCP [Primary Care Provider] -
--- NOTE | 2016-12-31 14:01 | Event Note ---
Date of Encounter: 12/31/16 Time of Encounter: 13:52 Attending addendum: The patient was seen and examined with the house staff. Full resident note follow. 1. Acute respiratory failure with hypoxia 2. Encephalopathy 3. End-stage renal disease 4. Urinary tract infection 61-year-old male with a medical history significant for end-stage renal disease , COPD, congestive heart failure, diabetes, and opioid dependence. The patient presented to the emergency room with altered mental status and was intubated on 12/29/2016. Acute respiratory failure in the setting of encephalopathy and failure to protect airway coupled with hypoxia. Continue full vent support for now as FiO2 requirements preclude extubation. Will repeat CXR in light of worsening oxygenation. Encephalopathy of unclear etiology but suspect toxic etiology related to polypharmacy. May be related to gabapentin (on a high dose for ESRD), opioids, hypercapnia, or underlying infection (urinalysis is suggestive of urinary tract infection and sputum concerning for aspiration). CT scan of the head was unremarkable for an acute intracranial process. Continue supportive measures and minimize sedating medications as able. Discontinued gabapentin - he will need to be on a reduced dose of gabapentin at the time of discharge. Urinalysis concerning for infection, but this can sometimes be difficult to interpret in the setting of end-stage renal disease. Will culture sputum concerning for aspiration. Currently, patient is on ceftriaxone for a 7 day course. We will follow urine and sputum cultures. Continue ICU level of care. Total direct critical care time: 35 minutes
[2017-01-01] MEDS: Lacri-Lube 3.5 GM TUBE BOTH EYES SCH ×3 (00:28→07:50)
[2017-01-01] MEDS: Ipratropium/Albuterol Neb 3 ML IH SCH ×6 (03:11→23:46)
[2017-01-01 04:16] LABS: ABG Base Excess 6.2 mEq/L (-2.0 to 3.0); ABG HCO3 31.9 mEQ/L (21-27); ABG Oxygen Saturation 87 % (95-98); ABG PCO2 48 mmHg (35-45); ABG PH 7.43 pH Units (7.32-7.45); ABG PO2 52 mmHg (85-104); ABG TCO2 33.4 mEq/L (20-26); Blood Gas FiO2 70 %
[2017-01-01 04:51] LABS: Basophils % 0.1 %; Eosinophils % 0.2 %; Hematocrit 44.4 % (37.5-50.1); Immature Granulocytes % 0.5 % (0-4); Lymphocytes # 0.9 K/mcL (0.6-4.6); Lymphocytes % 6.7 %; Mean Corpuscular HGB Conc 33.8 g/dL (31.6-35.5); Mean Corpuscular Hemoglobin 34.4 pg (28.0-33.3); Mean Corpuscular Volume 101.8 fL (83.0-100.0); Mean Platelet Volume 10.2 fL (9.4-12.4); Monocytes % 7.1 %; Neutrophils # 11.4 K/mcL (1.6-8.9); Platelet Count 130 K/mcL (140-400); Red Blood Count 4.36 M/mcL (4.19-5.50); Red Cell Distribution Width 14.3 % (11.5-14.5); Segmented Neutrophils % 85.4 %
[2017-01-01 05:01] LABS: Ionized Calcium 1.2 mmol/L (1.15-1.35)
[2017-01-01 05:29] LABS: Magnesium 2.4 mg/dL (1.6-2.6); Phosphorous 8.2 mg/dL (2.3-4.7)
[2017-01-01] MEDS: *HR* Heparin 5,000 UNIT/ML VIAL SQ SCH ×2 (05:57→17:52)
[2017-01-01] MEDS: Levothyroxine 25 MCG TABLET PO SCH (05:57)
[2017-01-01] MEDS: Pantoprazole 40 MG VIAL IVPB SCH (05:57)
[2017-01-01] MEDS: Budesonide/Formoterol 160/4.5 MDI IH SCH (07:41)
--- NOTE | 2017-01-01 07:47 | Pulmonology Progress Note ---
Date of Encounter: 01/01/17 Time of Encounter: 07:46 Assessment and Plan (1) Altered mental status Current Visit: Yes Status: Acute Patient admitted with altered mental status for several days. Intubated in the ED due to inability to protect his airway. Head CT on admission negative. Altered mental status believed to be secondary to polypharmacy with neurotin and opioids in the setting of ESRD. Patient also had a UA suggestive of UTI however patient does not appear to be sepsis, so likely not the cause of his AMS. Due to significant agitation, patient is sedated with propofol and sedation. He is much less agitated and cooperative with questions today. However he is still requiring elevated vent settings making extubation hard. - Supportive care. - Continue sedation with fentanyl and propofol. - Will wean sedation as tolerated. Qualifiers: Altered mental status type: unspecified Qualified Code(s): R41.82 - Altered mental status, unspecified (2) Respiratory failure Current Visit: No Status: Acute Patient with respiratory failure intubated in the ED due to failure to protect his airway secondary to his altered mental status. Patient continues to require high amounts of supplemental oxygen - FiO2 of 70%. Overnight he became persistently more hypoxemic hanging out around 90% and desaturating down to 84% despite vent settings. Cause of patients continued hypoxia is unclear. There is concern for possibility of aspiration pneumonia - he did have increased WBC and lots of sputum. He is on Ceftriaxone for antibiotic coverage. He has underlying COPD as well. - Due to not having a good reason for patient's continued hypoxia with associated tachypnea, will get a CT angio chest to evaluate for possible PE. May consider an ECHO - Continue Ceftriaxone (day 47) for aspiration pneumonia/UTI - Continue duonebs - Wean O2 as tolerated Qualifiers: Chronicity: acute on chronic Respiratory failure complication: hypercapnia Qualified Code(s): J96.22 - Acute and chronic respiratory failure with hypercapnia (3) Urinary tract infection Current Visit: Yes Status: Acute UA on admission suggestive of UTI with moderate blood, large LE, and WBC. However, patient is a dialysis and does not make urine, making this hard to interpret. Will complete 7 days of antibiotics to cover for possible UTI and/ or aspiration pneumonia. 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 Scheduled dialysis MWF. Nephrology consulted. - Appreciate nephrology recommendations - Dialysis MWF - Continue medications per his transplant perianesthesia nurse including bactrim and prednisone. (5) CHF (congestive heart failure) Current Visit: No Status: Chronic Patient with history of CHF. Last ECHO showed LVEF 60% and mild diastolic dysfunction. - Monitor fluid status Qualifiers: Congestive heart failure type: diastolic Congestive heart failure chronicity: acute on chronic Qualified Code(s): I50.33 - Acute on chronic diastolic (congestive) heart failure (6) COPD (chronic obstructive pulmonary disease) Current Visit: No Status: Chronic Qualifiers: COPD type: unspecified COPD Qualified Code(s): J44.9 - Chronic obstructive pulmonary disease, unspecified (7) DVT prophylaxis Current Visit: No Status: Acute Heparin Neuro: Altered mental status. On fentanyl and propofol for sedation. He opens eyes to voice and is cooperative with questions Pulm: Acute respiratory failure requiring FiO2 80%. Cause of continued hypoxia is uncertain. Concern for aspiration pneumonia, on ceftriaxone. Underlying COPD, on duonebs. With the continued hypoxia and tachypnea, will get a CT angio chest. Cardiac: Hypotensive with sedation. Not currently requiring vasopressors. Continue to monitor blood pressure. 500ml fluid bolus this morning GI/Fluids/Electrolytes: On tube feeds. Protonix. Renal: ESRD. Dialysis MWF ID: Blood cultures negative. Concern for UTI and aspiration pneumonia. On Ceftriaxone (day 37) Heme/Onc: Heparin for DVT ppx Endocrine: Monitor glucose levels Dispo: ICU Subjective Principal diagnosis: Altered Mental Status Interval history: Mr Ackerman is a 61yo male admitted 12/29/2016 with AMS believed secondary to polypharmacy. Overnight, patient was sedated with propofol and fentanyl. However, he continues to require high FiO2 settings of 70%. This morning, patients O2 saturation gradually keep decreasing down around 85%. He is tachycardic in the 120s with a Tmax of 99.3. Patient seen and examined. Patient opens his eyes to voice and was able to shake his head yes/no to answer questions. Lungs with improved aeration today, no rhonchi on exam. Abdomen soft, non-tender. Objective PUL Vital signs: Last Vital Signs Temp 99.3 F 01/01/17 04:00 Pulse 121 01/01/17 07:00 Resp 19 01/01/17 07:41 BP 86/57 01/01/17 07:41 Pulse Ox 90 01/01/17 07:41 General appearance: no acute distress, other (Intubated and sedated) Eyes: nonicteric ENT: oropharynx moist Neck: supple Effort: normal Auscultation: bilateral: diminished breath sounds, wheezes Cardiovascular: other (Sinus tachycardia) Gastrointestinal: soft, non-tender, non-distended Extremities: no cyanosis, other (Right ankle is large and chornically deformed) other (Intubated and sedated but opens eyes to voice and is able to communicat with yes/no head movements) Ventilator Settings Ventilator Settings: Ventilator Settings, Last 8 Hours Ventilator Mode VC+ Ventilator Mode VC+ Ventilator Mode VC+ Ventilator Mode VC+ Ventilator Mode VC+ Ventilator Mode VC+ Ventilator Mode VC+ Ventilator Mode VC+ Ventilator Mode VC+ Ventilator Mode VC+ Ventilator Mode VC+ Ventilator Mode VC+ Ventilator Mode VC+ Ventilator Tidal Volume 550 Setting Ventilator Tidal Volume 550 Setting Ventilator Tidal Volume 550 Setting Ventilator Tidal Volume 550 Setting Ventilator Tidal Volume 550 Setting Ventilator Tidal Volume 550 Setting Ventilator Tidal Volume 550 Setting Ventilator Tidal Volume 550 Setting Ventilator Tidal Volume 550 Setting Ventilator Tidal Volume 550 Setting Ventilator Tidal Volume 550 Setting Ventilator Tidal Volume 550 Setting Ventilator Tidal Volume 550 Setting Ventilator Respiratory Rate 12 Setting Ventilator Respiratory Rate 12 Setting Ventilator Respiratory Rate 12 Setting Ventilator Respiratory Rate 12 Setting Ventilator Respiratory Rate 12 Setting Ventilator Respiratory Rate 12 Setting Ventilator Respiratory Rate 12 Setting Ventilator Respiratory Rate 12 Setting Ventilator Respiratory Rate 12 Setting Ventilator Respiratory Rate 12 Setting Ventilator Respiratory Rate 12 Setting Ventilator Respiratory Rate 12 Setting Ventilator Respiratory Rate 12 Setting Actual Respiratory Rate 19 Actual Respiratory Rate 19 Actual Respiratory Rate 19 Actual Respiratory Rate 18 Actual Respiratory Rate 16 Actual Respiratory Rate 18 Actual Respiratory Rate 20 Actual Respiratory Rate 20 Actual Respiratory Rate 18 Actual Respiratory Rate 18 Actual Respiratory Rate 17 Actual Respiratory Rate 18 Positive End Expiratory 10 Pressure Positive End Expiratory 10 Pressure Positive End Expiratory 10 Pressure Positive End Expiratory 10 Pressure Positive End Expiratory 10 Pressure Positive End Expiratory 10 Pressure Positive End Expiratory 10 Pressure Positive End Expiratory 10 Pressure Positive End Expiratory 10 Pressure Positive End Expiratory 10 Pressure Positive End Expiratory 10 Pressure Positive End Expiratory 10 Pressure Positive End Expiratory 10 Pressure Peak Inspiratory Airway 26 Pressure Peak Inspiratory Airway 26 Pressure Peak Inspiratory Airway 25 Pressure Peak Inspiratory Airway 27 Pressure Peak Inspiratory Airway 27 Pressure Peak Inspiratory Airway 25 Pressure Peak Inspiratory Airway 26 Pressure Peak Inspiratory Airway 25 Pressure Peak Inspiratory Airway 25 Pressure Peak Inspiratory Airway 25 Pressure Peak Inspiratory Airway 26 Pressure Peak Inspiratory Airway 25 Pressure Results - Laboratory Findings CBC and BMP: 01/01/17 04:43 01/01/17 04:43 ABG ABG pH 7.43 pH Units (7.32-7.45) 01/01/17 04:06 ABG pCO2 48 mmHg (35-45) H 01/01/17 04:06 ABG pO2 52 mmHg (85-104) L 01/01/17 04:06 ABG O2 Saturation 87 % (95-98) L 01/01/17 04:06 PT/INR, D-dimer PT 11.9 Seconds (9.4-12.1) 12/30/16 03:12 Abnormal lab findings: Abnormal lab results WBC 13.4 K/mcL (4.3-11.1) H 01/01/17 04:43 MCV 101.8 fL (83.0-100.0) H 01/01/17 04:43 MCH 34.4 pg (28.0-33.3) H 01/01/17 04:43 Plt Count 130 K/mcL (140-400) L 01/01/17 04:43 Neutrophils # 11.4 K/mcL (1.6-8.9) H 01/01/17 04:43 ABG pCO2 48 mmHg (35-45) H 01/01/17 04:06 ABG pO2 52 mmHg (85-104) L 01/01/17 04:06 ABG HCO3 31.9 mEQ/L (21-27) H 01/01/17 04:06 ABG Total CO2 33.4 mEq/L (20-26) H 01/01/17 04:06 ABG O2 Saturation 87 % (95-98) L 01/01/17 04:06 ABG Base Excess 6.2 mEq/L (-2.0 to 3.0) H 01/01/17 04:06 Potassium 5.0 mEq/L (3.5-4.5) H 01/01/17 04:43 Chloride 96 mEq/L (98-109) L 01/01/17 04:43 BUN 48 mg/dL (8-26) H D 01/01/17 04:43 Creatinine 7.63 mg/dL (0.72-1.25) H 01/01/17 04:43 Est GFR ( Amer) 11 (> 60) L 01/01/17 04:43 Est GFR (Non-Af Amer) 8 (> 60) L 01/01/17 04:43 Glucose 118 mg/dL (70-99) H 01/01/17 04:43 Calculated Osmolality 358 (280-300) H 01/01/17 04:43 Phosphorus 8.2 mg/dL (2.3-4.7) H 01/01/17 04:43 Albumin 3.1 g/dL (3.5-5.0) L 12/30/16 05:18 Globulin 4.1 g/dL (2.4-3.5) H 12/30/16 05:18 Albumin/Globulin Ratio 0.8 (1.1-2.2) L 12/30/16 05:18 Urine Clarity Turbid (Clear) A 12/29/16 15:51 Urine Protein 100 mg/dL (Neg-Trace) H 12/29/16 15:51 Urine Blood Moderate (Negative) H 12/29/16 15:51 Urine Bilirubin Small (Negative) H 12/29/16 15:51 Ur Leukocyte Esterase Large (Negative) H 12/29/16 15:51 Urine Microscopic RBC 15-30 per hpf (0-3) H 12/29/16 15:51 Urine Microscopic WBC TNTC per hpf (0-3) H 12/29/16 15:51 Salicylates < 5.0 mg/dL (15-30) L 12/30/16 09:14 Urine Opiates Screen Positive ng/mL ([id number]) H 12/29/16 16:46 Acetaminophen < 1.0 mcg/mL (10-30) L 12/30/16 09:14 - Diagnostic Findings Chest x-ray: report reviewed, image reviewed - Clinical Findings Intake & Output: Intake & Output 12/31/16 12/31/16 01/01/17 15:59 23:59 07:59 Intake Total 111 / 111 435 / 435 349 / 349 Output Total 0 / 0 0 / 0 0 / 0 Balance 111 / 111 435 / 435 349 / 349 Weight 76.43 kg Consult Discharge Plan - Plan Referrals: NO,PCP [Primary Care Provider] -
[2017-01-01] MEDS: predniSONE 10 MG TABLET PO SCH (07:51)
[2017-01-01] MEDS: Aspirin 81 MG TAB.CHEW PO SCH (07:52)
[2017-01-01] MEDS: FLUoxetine 20 MG CAPSULE PO SCH (07:52)
[2017-01-01] MEDS: Chlorhexidine Rinse 15 ML MOUTHWASH MM SCH ×2 (07:52→21:21)
[2017-01-01] MEDS ORDERED: 0.9 % Sodium Chloride 250 ML IVC PRN (08:09)
[2017-01-01] MEDS ORDERED: 0.9 % Sodium Chloride 1,000 ML PRIME SCH (08:15)
[2017-01-01] MEDS ORDERED: Ringers Solution, Lactated 500 ML IVC ONE (09:05)
[2017-01-01] MEDS ORDERED: 0.9 % Sodium Chloride 500 ML IVC ONE (09:07)
[2017-01-01] MEDS: FentaNYL (PF) 1,000 MCG in 0.9 % Sodium Chloride 80 ML IVC SCH ×2 (11:01→20:33)
--- NOTE | 2017-01-01 11:13 | Nephrology Progress Note ---
Date of Encounter: 01/01/17 Time of Encounter: 12:00 - Assessment and Plan (1) ESRD (end stage renal disease) on dialysis Current Visit: No Status: Chronic Continue HD with no further UF given hypotension Will bolus albumin 25g x1 now as well Agree with renally dosing medications (2) Altered mental status Current Visit: Yes Status: Acute Improving, will keep off opiates and gabapentin for now Qualifiers: Altered mental status type: unspecified Qualified Code(s): R41.82 - Altered mental status, unspecified (3) Acute on chronic respiratory failure with hypoxia and hypercapnia Current Visit: No Status: Acute Vent setting adjustments per primary team. Will consider extra UD in am if fluid overload suspected as part of/cause of poor vent weaning (4) Urinary tract infection Current Visit: Yes Status: Acute Anbiotics per primary team, currently on ceftriazone pending culture results Qualifiers: Urinary tract infection type: site unspecified Hematuria presence: without hematuria Qualified Code(s): N39.0 - Urinary tract infection, site not specified Subjective Principal diagnosis: Altered Mental Status Interval history: Interim events noted. Pt seen and examined during HD and discussed with HD nurse , ICU nurse and house staff. He was found awake and complaining of a headache after a hypotensive episode on HD with UF discontinued. Objective - Vital Signs Vital signs: Vital Signs Temp Pulse Resp BP Pulse Ox 01/01/17 11:06 22 74/62 90 01/01/17 11:00 123 26 76/62 89 01/01/17 10:45 100/64 01/01/17 10:30 89/66 01/01/17 10:15 99.4 F 18 95/65 01/01/17 10:00 104 16 89/61 92 01/01/17 09:38 18 78/56 95 01/01/17 09:00 114 18 78/56 93 01/01/17 08:00 19 17 85/60 92 01/01/17 07:41 19 86/57 90 01/01/17 07:00 121 19 86/57 87 01/01/17 06:00 118 19 91/57 88 01/01/17 05:30 18 88 01/01/17 05:00 116 16 97/58 88 01/01/17 04:00 99.3 F 122 18 96/66 90 01/01/17 03:11 20 89 01/01/17 03:00 121 20 94/68 90 01/01/17 02:00 105 18 103/64 89 01/01/17 01:20 18 92 01/01/17 01:00 101 17 93/58 89 01/01/17 00:00 99.1 F 105 18 95/62 91 12/31/16 23:35 99.1 F 12/31/16 23:11 16 92 12/31/16 23:00 105 12 89/59 93 12/31/16 22:00 101 14 92/61 91 12/31/16 21:20 16 92 12/31/16 21:00 97 17 119/71 91 12/31/16 20:00 108 17 114/73 93 12/31/16 19:55 16 92 12/31/16 19:50 98.9 F 12/31/16 18:00 87 19 101/64 90 12/31/16 17:20 97.3 F L 12/31/16 17:15 87 15 101/64 92 12/31/16 17:09 15 98/62 91 12/31/16 16:15 83 14 110/63 91 12/31/16 15:37 15 89/56 89 12/31/16 15:15 88 15 89/56 88 12/31/16 14:12 98 99/66 12/31/16 13:39 20 107/71 93 12/31/16 13:15 119 18 107/71 92 12/31/16 12:15 118 20 85/54 90 12/31/16 11:43 98.7 F 12/31/16 11:20 104 21 93/50 92 Intake and Output 12/31/16 01/01/17 01/01/17 23:59 07:59 15:59 Intake Total 435 / 435 449 / 449 1007 / 1007 Output Total 0 / 0 0 / 0 0 / 0 Balance 435 / 435 449 / 449 1007 / 1007 Intake: IV Fluids 300 / 300 200 / 200 100 / 100 0.9 % Sodium Chloride 500 0 / 0 ML @ 1875 mls/hr IVC . Q16M ONE Rx#:[id number] FentaNYL (PF) 1,000 MCG 100 / 100 100 / 100 In 0.9 % Sodium Chloride 80 ML @ 50 MCG/HR 5 mls/ hr IVC CONT [facility] Rx#: [id number] Diprivan 1,000 mg In 100 100 / 100 200 / 200 ml @ 5 MCG/KG/MIN 2.184 mls/hr IVC .Q24H [facility] Rx#: [id number] Rocephin 1,000 MG In 100 / 100 Dextrose 5% (Minibag+) 100 ML 100 ML @ 200 mls/ hr IVPB Q24H [facility] Rx#: [id number] Oral 0 / 0 0 / 0 Tube Feeding 135 / 135 249 / 249 187 / 187 Other 120 / 120 Intake, Rinseback and 600 / 600 Flushes Output: Urine 0 / 0 0 / 0 0 / 0 Catheter 0 / 0 Other: Weight 76.43 kg 76.43 kg Hemodialysis Net Fluid 520 Removed (mL) Patient Weight 01/01/17 23:59 Weight 76.43 kg - General Appearance General appearance: Present: chronically ill, intubated EENT: Present: ATNC Respiratory: Present: course breath sounds Cardiology: Present: edema (trace LE bilat), normal S1, normal S2 Dialysis Vascular Access: Arteriovenous Fistula thrill: Yes bruit: Yes Gastrointestinal: Present: no tenderness, no guarding Integumentary: Present: warm and dry Additional Comments: awake, responsive Musculoskeletal: Present: no deformities Additional Comments: moving all extremities - Lab 01/01/17 04:43 01/01/17 04:43 Most recent lab results ABG pH 7.43 pH Units (7.32-7.45) 01/01/17 04:06 ABG pCO2 48 mmHg (35-45) H 01/01/17 04:06 ABG pO2 52 mmHg (85-104) L 01/01/17 04:06 ABG HCO3 31.9 mEQ/L (21-27) H 01/01/17 04:06 ABG O2 Saturation 87 % (95-98) L 01/01/17 04:06 Calcium 9.0 mg/dL (8.6-10.8) D 01/01/17 04:43 Phosphorus 8.2 mg/dL (2.3-4.7) H 01/01/17 04:43 Magnesium 2.4 mg/dL (1.6-2.6) 01/01/17 04:43 Consult Discharge Plan - Plan Referrals: NO,PCP [Primary Care Provider] -
[2017-01-01] MEDS ORDERED: Albumin 25% 25gram/100mL 25 GM/100 ML IV.SOLN IVPB ONE (12:04)
[2017-01-01] MEDS ORDERED: 0.9 % Sodium Chloride 2,000 ML ONE (16:29)
[2017-01-02] MEDS: FentaNYL (PF) 1,000 MCG in 0.9 % Sodium Chloride 80 ML IVC SCH ×3 (03:38→21:26)
[2017-01-02] MEDS: Ipratropium/Albuterol Neb 3 ML IH SCH ×6 (04:11→23:51)
[2017-01-02] MEDS: Pantoprazole 40 MG VIAL IVPB SCH (05:02)
[2017-01-02] MEDS: Levothyroxine 25 MCG TABLET PO SCH (05:02)
[2017-01-02] MEDS: *HR* Heparin 5,000 UNIT/ML VIAL SQ SCH ×2 (05:02→17:38)
[2017-01-02 05:52] LABS: ABG HCO3 30.2 mEQ/L (21-27); ABG Oxygen Saturation 88 % (95-98); ABG PCO2 51 mmHg (35-45); ABG PH 7.38 pH Units (7.32-7.45); ABG PO2 55 mmHg (85-104); ABG TCO2 31.8 mEq/L (20-26); Blood Gas FiO2 70 %
[2017-01-02 06:09] LABS: Basophils % 0.2 %; Eosinophils # 0.1 K/mcL (0.0-0.6); Hematocrit 41.7 % (37.5-50.1); Hemoglobin 13.6 g/dL (12.9-16.9); Immature Granulocytes % 0.6 % (0-4); Lymphocytes # 0.8 K/mcL (0.6-4.6); Lymphocytes % 6.2 %; Mean Corpuscular HGB Conc 32.6 g/dL (31.6-35.5); Mean Corpuscular Volume 104.3 fL (83.0-100.0); Mean Platelet Volume 10.5 fL (9.4-12.4); Monocytes % 7.8 %; Neutrophils # 10.5 K/mcL (1.6-8.9); Platelet Count 127 K/mcL (140-400); Red Cell Distribution Width 14.4 % (11.5-14.5); Segmented Neutrophils % 84.2 %
[2017-01-02 06:12] LABS: Ionized Calcium 1.34 mmol/L (1.15-1.35)
[2017-01-02 06:19] LABS: Magnesium 2.3 mg/dL (1.6-2.6); Phosphorous 7.3 mg/dL (2.3-4.7); Potassium 4.8 mEq/L (3.5-4.5)
--- NOTE | 2017-01-02 07:51 | Pulmonology Progress Note ---
Date of Encounter: 01/02/17 Time of Encounter: 07:48 Assessment and Plan (1) Acute respiratory failure with hypoxia Current Visit: Yes Status: Acute 61-year-old male with a medical history significant for end-stage renal disease , COPD, congestive heart failure, diabetes, and opioid dependence. The patient presented to the emergency room with altered mental status and was intubated on 12/29/2016. Acute respiratory failure in the setting of encephalopathy and failure to protect the airway coupled with hypoxia. Patient continues to have PEEP and FiO2 requirements proportion to chest imaging. CT angiogram of the chest ruled out PE, and did reveal dense atelectatic changes likely consistent with aspiration. Echocardiogram with bubble study is pending. Continue full vent support as PEEP and FiO2 requirements preclude spontaneous breathing trial. (2) Encephalopathy Current Visit: Yes Status: Acute Encephalopathy of unclear etiology but suspect toxic etiology related to polypharmacy. May be related to gabapentin (on a high dose for ESRD), opioids, hypercapnia, or underlying infection (urinalysis is suggestive of urinary tract infection and sputum concerning for aspiration). CT scan of the head was unremarkable for an acute intracranial process. Continue supportive measures and minimize sedating medications as able. Discontinued gabapentin he will need to be on a reduced dose of gabapentin at the time of discharge. (3) ESRD (end stage renal disease) on dialysis Current Visit: No Status: Chronic Ongoing dialysis needs per nephrology. (4) Pneumonia Current Visit: No Status: Acute Clinical picture of encephalopathy and infiltrates in the dependent areas of the longer consistent with aspiration pneumonia. Sputum culture is pending. Currently on ceftriaxone with a plan for a seven-day course. Total direct critical care time: 35 minutes Qualifiers: Pneumonia type: aspiration pneumonia Aspiration pneumonia type: unspecified Laterality: bilateral Lung location: unspecified part of lung Qualified Code(s): J69.0 - Pneumonitis due to inhalation of food and vomit Subjective Principal diagnosis: Altered Mental Status Interval history: No acute overnight events. Patient did not undergo spontaneous breathing trial due to high PEEP and FiO2 requirements. Objective PUL Vital signs: Last Vital Signs Temp 98.1 F 01/02/17 07:26 Pulse 122 01/02/17 07:00 Resp 22 01/02/17 07:00 BP 89/59 01/02/17 07:00 Pulse Ox 88 01/02/17 07:00 General: Intubated and sedated Eyes: nonicteric ENT: Endotracheal tube in place Neck: supple, no lymphadenopathy Lungs: Coarse bilateral breath sounds Cardiovascular: regular rate and rhythm Gastrointestinal: normoactive bowel sounds, soft, non-tender, non-distended Integumentary: Right venous stasis changes noted Extremities: no cyanosis, no edema Musculoskeletal: Destructive changes of right foot joint that appear chronic Neuro: Sedate Ventilator Settings Ventilator Settings: Ventilator Settings, Last 8 Hours Ventilator Mode VC+ Ventilator Mode VC+ Ventilator Mode VC+ Ventilator Mode VC+ Ventilator Mode VC+ Ventilator Mode VC+ Ventilator Mode VC+ Ventilator Mode VC+ Ventilator Mode VC+ Ventilator Mode VC+ Ventilator Mode VC+ Ventilator Mode VC+ Ventilator Tidal Volume 550 Setting Ventilator Tidal Volume 550 Setting Ventilator Tidal Volume 550 Setting Ventilator Tidal Volume 550 Setting Ventilator Tidal Volume 550 Setting Ventilator Tidal Volume 550 Setting Ventilator Tidal Volume 550 Setting Ventilator Tidal Volume 550 Setting Ventilator Tidal Volume 550 Setting Ventilator Tidal Volume 550 Setting Ventilator Tidal Volume 550 Setting Ventilator Tidal Volume 550 Setting Ventilator Respiratory Rate 12 Setting Ventilator Respiratory Rate 12 Setting Ventilator Respiratory Rate 12 Setting Ventilator Respiratory Rate 12 Setting Ventilator Respiratory Rate 12 Setting Ventilator Respiratory Rate 12 Setting Ventilator Respiratory Rate 12 Setting Ventilator Respiratory Rate 12 Setting Ventilator Respiratory Rate 12 Setting Ventilator Respiratory Rate 12 Setting Ventilator Respiratory Rate 12 Setting Ventilator Respiratory Rate 12 Setting Actual Respiratory Rate 22 Actual Respiratory Rate 19 Actual Respiratory Rate 20 Actual Respiratory Rate 20 Actual Respiratory Rate 20 Actual Respiratory Rate 20 Actual Respiratory Rate 20 Actual Respiratory Rate 19 Actual Respiratory Rate 18 Actual Respiratory Rate 18 Actual Respiratory Rate 16 Positive End Expiratory 15 Pressure Positive End Expiratory 15 Pressure Positive End Expiratory 15 Pressure Positive End Expiratory 15 Pressure Positive End Expiratory 15 Pressure Positive End Expiratory 15 Pressure Positive End Expiratory 15 Pressure Positive End Expiratory 15 Pressure Positive End Expiratory 15 Pressure Positive End Expiratory 15 Pressure Positive End Expiratory 15 Pressure Positive End Expiratory 15 Pressure Peak Inspiratory Airway 28 Pressure Peak Inspiratory Airway 28 Pressure Peak Inspiratory Airway 31 Pressure Peak Inspiratory Airway 28 Pressure Peak Inspiratory Airway 27 Pressure Peak Inspiratory Airway 31 Pressure Peak Inspiratory Airway 27 Pressure Peak Inspiratory Airway 27 Pressure Peak Inspiratory Airway 27 Pressure Peak Inspiratory Airway 29 Pressure Peak Inspiratory Airway 29 Pressure Results - Laboratory Findings CBC and BMP: 01/02/17 05:57 01/02/17 05:57 ABG ABG pH 7.38 pH Units (7.32-7.45) 01/02/17 05:37 ABG pCO2 51 mmHg (35-45) H 01/02/17 05:37 ABG pO2 55 mmHg (85-104) L 01/02/17 05:37 ABG O2 Saturation 88 % (95-98) L 01/02/17 05:37 PT/INR, D-dimer PT 11.9 Seconds (9.4-12.1) 12/30/16 03:12 Abnormal lab findings: Abnormal lab results WBC 12.5 K/mcL (4.3-11.1) H 01/02/17 05:57 RBC 4.00 M/mcL (4.19-5.50) L 01/02/17 05:57 MCV 104.3 fL (83.0-100.0) H 01/02/17 05:57 MCH 34.0 pg (28.0-33.3) H 01/02/17 05:57 Plt Count 127 K/mcL (140-400) L 01/02/17 05:57 Neutrophils # 10.5 K/mcL (1.6-8.9) H 01/02/17 05:57 ABG pCO2 51 mmHg (35-45) H 01/02/17 05:37 ABG pO2 55 mmHg (85-104) L 01/02/17 05:37 ABG HCO3 30.2 mEQ/L (21-27) H 01/02/17 05:37 ABG Total CO2 31.8 mEq/L (20-26) H 01/02/17 05:37 ABG O2 Saturation 88 % (95-98) L 01/02/17 05:37 ABG Base Excess 4.0 mEq/L (-2.0 to 3.0) H 01/02/17 05:37 Potassium 4.8 mEq/L (3.5-4.5) H 01/02/17 05:57 Chloride 97 mEq/L (98-109) L 01/02/17 05:57 BUN 39 mg/dL (8-26) H 01/02/17 05:57 Creatinine 6.41 mg/dL (0.72-1.25) H 01/02/17 05:57 Est GFR ( Amer) 11 (> 60) L 01/02/17 05:57 Est GFR (Non-Af Amer) 9 (> 60) L 01/02/17 05:57 Glucose 134 mg/dL (70-99) H 01/02/17 05:57 POC Glucose 97 (58-89) H 01/01/17 23:53 Calcium 11.0 mg/dL (8.6-10.8) H D 01/02/17 05:57 Phosphorus 7.3 mg/dL (2.3-4.7) H 01/02/17 05:57 Albumin 3.1 g/dL (3.5-5.0) L 12/30/16 05:18 Globulin 4.1 g/dL (2.4-3.5) H 12/30/16 05:18 Albumin/Globulin Ratio 0.8 (1.1-2.2) L 12/30/16 05:18 Urine Clarity Turbid (Clear) A 12/29/16 15:51 Urine Protein 100 mg/dL (Neg-Trace) H 12/29/16 15:51 Urine Blood Moderate (Negative) H 12/29/16 15:51 Urine Bilirubin Small (Negative) H 12/29/16 15:51 Ur Leukocyte Esterase Large (Negative) H 12/29/16 15:51 Urine Microscopic RBC 15-30 per hpf (0-3) H 12/29/16 15:51 Urine Microscopic WBC TNTC per hpf (0-3) H 12/29/16 15:51 Salicylates < 5.0 mg/dL (15-30) L 12/30/16 09:14 Urine Opiates Screen Positive ng/mL (Zvtcmq=[id number]) H 12/29/16 16:46 Acetaminophen < 1.0 mcg/mL (10-30) L 12/30/16 09:14 - Microbiology Findings Microbiology Findings: Microbiology, Last 48 Hours 12/29/16 21:38 Blood Culture - Preliminary Peripheral Venipuncture No growth. 12/29/16 21:33 Blood Culture - Preliminary Peripheral Venipuncture No growth. - Clinical Findings Intake & Output: Intake & Output 01/01/17 01/01/17 01/02/17 15:59 23:59 07:59 Intake Total 1280 / 1280 797 / 797 556 / 556 Output Total 1144 / 1144 0 / 0 0 / 0 Balance 136 / 136 797 / 797 556 / 556 Weight 76.43 kg 77.3 kg Consult Discharge Plan - Plan Referrals: NO,PCP [Primary Care Provider] -
[2017-01-02] MEDS ORDERED: 0.9 % Sodium Chloride 250 ML IVC PRN (08:47)
[2017-01-02] MEDS ORDERED: Albumin 25% 25gram/100mL 25 GM/100 ML IV.SOLN IVPB ONE ×2 (08:53→15:20)
[2017-01-02] MEDS: Chlorhexidine Rinse 15 ML MOUTHWASH MM SCH ×2 (09:35→21:22)
[2017-01-02] MEDS: Aspirin 81 MG TAB.CHEW PO SCH (09:36)
[2017-01-02] MEDS: predniSONE 10 MG TABLET PO SCH (09:37)
[2017-01-02] MEDS: FLUoxetine 20 MG CAPSULE PO SCH (09:39)
[2017-01-02] MEDS ORDERED: Albumin 25% 12.5gm/50mL 12.5 GM/50 ML IV.SOLN ONE (09:49)
[2017-01-02] MEDS ORDERED: 0.9 % Sodium Chloride 2,000 ML ONE (09:49)
--- NOTE | 2017-01-02 10:55 | Nephrology Progress Note ---
Date of Encounter: 01/02/17 Time of Encounter: 11:30 - Assessment and Plan (1) ESRD (end stage renal disease) on dialysis Current Visit: No Status: Chronic Continue UF with goal of 2-3kg if tolerated given hypotension. Goal if to aid in improving oxygenation if volume is an issue Will bolus albumin 25g x1 at start of UF Next HD planned for wednesday (2) Altered mental status Current Visit: Yes Status: Acute Improving, will keep off opiates and gabapentin for now Qualifiers: Altered mental status type: unspecified Qualified Code(s): R41.82 - Altered mental status, unspecified (3) Acute on chronic respiratory failure with hypoxia and hypercapnia Current Visit: No Status: Acute Vent setting adjustments per primary team. Discussed current pulm status on 80% FiO2 with family (4) Urinary tract infection Current Visit: Yes Status: Acute Anbiotics per primary team, currently on ceftriazone pending culture results Qualifiers: Urinary tract infection type: site unspecified Hematuria presence: without hematuria Qualified Code(s): N39.0 - Urinary tract infection, site not specified Subjective Principal diagnosis: Altered Mental Status Interval history: Pt seen and examined during HD today, still intubated but awake. Family at bedside. CTA chest was negative for PE yesterday Objective - Vital Signs Vital signs: Vital Signs Temp Pulse Resp BP Pulse Ox 01/02/17 10:40 001/56 01/02/17 10:25 102/56 01/02/17 10:10 100.0 F H 26 92/59 01/02/17 10:00 126 23 95/57 88 01/02/17 09:43 22 93/59 87 01/02/17 09:00 122 22 98/57 88 01/02/17 08:00 118 23 82/58 87 01/02/17 07:45 22 86/57 89 01/02/17 07:26 98.1 F 01/02/17 07:00 122 22 89/59 88 01/02/17 06:26 22 89/61 90 01/02/17 06:00 120 20 93/63 90 01/02/17 05:00 120 20 84/57 91 01/02/17 04:12 20 85/55 90 01/02/17 04:00 99.6 F 114 20 85/55 91 01/02/17 03:49 114 01/02/17 03:00 112 20 80/54 88 01/02/17 02:07 18 85/52 90 01/02/17 02:00 111 18 85/52 91 01/02/17 01:00 107 18 81/49 93 01/02/17 00:44 98.0 F 01/02/17 00:00 103 16 92/60 92 01/01/17 23:59 103 01/01/17 23:46 17 92 01/01/17 23:00 103 12 102/70 92 01/01/17 22:00 107 15 95/59 93 01/01/17 21:58 15 90 01/01/17 21:00 106 21 96/67 92 01/01/17 20:52 98.7 F 01/01/17 20:06 112 01/01/17 20:00 98 16 97/65 91 01/01/17 19:51 17 90 01/01/17 19:00 112 17 106/73 90 01/01/17 18:00 104 16 99/70 92 01/01/17 17:32 22 118/73 91 01/01/17 17:00 104 21 88/58 93 01/01/17 16:00 98.3 F 119 18 89/65 94 01/01/17 15:59 18 89/65 94 01/01/17 15:00 119 17 85/71 93 01/01/17 14:00 98.3 F 114 18 88/64 92 01/01/17 13:50 98.3 F 20 96/67 01/01/17 13:18 20 102/73 91 01/01/17 13:00 119 17 97/81 91 01/01/17 12:45 103/81 01/01/17 12:30 93/71 01/01/17 12:15 95/75 01/01/17 12:00 98.1 F 119 22 74/62 90 01/01/17 11:45 91/79 01/01/17 11:30 98.1 F 90/73 01/01/17 11:20 90/73 01/01/17 11:15 89/67 01/01/17 11:10 87/53 01/01/17 11:06 22 74/62 90 01/01/17 11:05 93/70 01/01/17 11:00 123 26 76/62 89 Intake and Output 01/01/17 01/02/17 01/02/17 23:59 07:59 15:59 Intake Total 797 / 797 556 / 556 600 / 600 Output Total 0 / 0 0 / 0 Balance 797 / 797 556 / 556 600 / 600 Intake: IV Fluids 300 / 300 200 / 200 FentaNYL (PF) 1,000 MCG 100 / 100 100 / 100 In 0.9 % Sodium Chloride 80 ML @ 50 MCG/HR 5 mls/ hr IVC CONT [facility] Rx#: [id number] Diprivan 1,000 mg In 100 100 / 100 100 / 100 ml @ 5 MCG/KG/MIN 2.184 mls/hr IVC .Q24H [facility] Rx#: [id number] Rocephin 1,000 MG In 100 / 100 Dextrose 5% (Minibag+) 100 ML 100 ML @ 200 mls/ hr IVPB Q24H [facility] Rx#: [id number] Oral 0 / 0 Tube Feeding 497 / 497 356 / 356 Intake, Rinseback and 600 / 600 Flushes Output: Urine 0 / 0 0 / 0 Other: Meal Nourishment/Supplement Nourishment/Supplement Weight 77.3 kg Blood Glucose* 97 Hemodialysis Net Fluid 910 Removed (mL) Patient Weight 01/02/17 23:59 Weight 77.3 kg - General Appearance General appearance: Present: chronically ill, intubated EENT: Present: ATNC Neck: Present: no JVD, supple Respiratory: Present: course breath sounds Cardiology: Present: edema (trace LE edema bilat), normal S1, normal S2 Gastrointestinal: Present: no tenderness, no guarding Integumentary: Present: warm and dry Additional Comments: opens eyes and responsive Musculoskeletal: Present: no deformities Psychiatric: Present: cooperative - Lab 01/02/17 05:57 01/02/17 05:57 Most recent lab results ABG pH 7.38 pH Units (7.32-7.45) 01/02/17 05:37 ABG pCO2 51 mmHg (35-45) H 01/02/17 05:37 ABG pO2 55 mmHg (85-104) L 01/02/17 05:37 ABG HCO3 30.2 mEQ/L (21-27) H 01/02/17 05:37 ABG O2 Saturation 88 % (95-98) L 01/02/17 05:37 Calcium 11.0 mg/dL (8.6-10.8) H D 01/02/17 05:57 Phosphorus 7.3 mg/dL (2.3-4.7) H 01/02/17 05:57 Magnesium 2.3 mg/dL (1.6-2.6) 01/02/17 05:57 Consult Discharge Plan - Plan Referrals: NO,PCP [Primary Care Provider] -
[2017-01-03] MEDS: Ipratropium/Albuterol Neb 3 ML IH SCH ×5 (04:02→20:12)
[2017-01-03 04:21] LABS: Ionized Calcium 1.28 mmol/L (1.15-1.35)
[2017-01-03 04:26] LABS: Hematocrit 41.2 % (37.5-50.1); Immature Platelets 5.8 % (1.1-6.1); Mean Corpuscular HGB Conc 31.6 g/dL (31.6-35.5); Mean Corpuscular Hemoglobin 32.8 pg (28.0-33.3); Mean Platelet Volume 11.3 fL (9.4-12.4); Platelet Count 146 K/mcL (140-400); Red Blood Count 3.96 M/mcL (4.19-5.50)
[2017-01-03 04:35] LABS: Calcium 11.8 mg/dL (8.6-10.8); Magnesium 2.9 mg/dL (1.6-2.6); Phosphorous 8.9 mg/dL (2.3-4.7)
[2017-01-03 04:52] LABS: Eosinophils # 0.3 K/mcL (0.0-0.6); Large Platelets Present (Not Present); Lymphocytes # 0.6 K/mcL (0.6-4.6); Macrocytosis Present (Not Present); Monocytes # 2.2 K/mcL (0.0-1.3); Neutrophils # 10.7 K/mcL (1.6-8.9); Platelet Estimate Normal (Normal); Polychromasia 1+ (Not Present); Reactive Lymphocytes Present (Not Present)
[2017-01-03 04:55] LABS: Anisocytosis 1+ (Not Present)
[2017-01-03] MEDS: Pantoprazole 40 MG VIAL IVPB SCH (05:19)
[2017-01-03] MEDS: *HR* Heparin 5,000 UNIT/ML VIAL SQ SCH ×2 (05:20→17:30)
[2017-01-03] MEDS: Levothyroxine 25 MCG TABLET PO SCH (05:20)
[2017-01-03 08:06] LABS: INR 1.4; Prothrombin Time 15.5 Seconds (9.4-12.1)
[2017-01-03] MEDS ORDERED: *HR* Vecuronium 10 MG VIAL IVP ONE (08:47)
--- NOTE | 2017-01-03 08:51 | Procedure Note ---
Date of procedure: 01/03/17 Pre-op diagnosis: hypotension Post-op diagnosis: same Procedure: A timeout was performed prior to the procedure. The left groin was cleaned and draped in a sterile fashion. The skin and subcutaneous tissue was anesthetized with subcutaneous lidocaine. The left femoral vein was accessed with ultrasound guidance. A wire was passed into the vessel. The skin was nicked and dilated. A triple-lumen central venous catheter was passed over the wire into the vessel. Good blood draw from all 2 of the 3 ports (difficulty drawing from he brown port), which were subsequently flushed. The catheter was sutured into place, and a sterile dressing was placed. No untoward events. Anesthesia: local Surgeon: Bryan Mcintyre Estimated blood loss (cc): 2 Disposition: ICU
--- NOTE | 2017-01-03 08:56 | Pulmonology Progress Note ---
Date of Encounter: 01/03/17 Time of Encounter: 08:54 Assessment and Plan (1) Acute respiratory failure with hypoxia Current Visit: Yes Status: Acute 61-year-old male with a medical history significant for end-stage renal disease , COPD, congestive heart failure, diabetes, and opioid dependence. The patient presented to the emergency room with altered mental status and was intubated on 12/29/2016. Acute respiratory failure in the setting of encephalopathy and failure to protect the airway coupled with hypoxia. Patient continues to have PEEP and FiO2 requirements out of proportion to chest imaging. CT angiogram of the chest ruled out PE, and did reveal dense atelectatic changes likely consistent with aspiration. Echocardiogram with bubble study is pending. Continue full vent support as PEEP and FiO2 requirements preclude spontaneous breathing trial. Plan today is to change sedation to Versed drip plus existing fentanyl drip and trial paralytic to see if this improves oxygenation. (2) Encephalopathy Current Visit: Yes Status: Acute Encephalopathy of unclear etiology but suspect toxic etiology related to polypharmacy. May be related to gabapentin (on a high dose for ESRD), opioids, hypercapnia, or underlying infection (urinalysis is suggestive of urinary tract infection and sputum concerning for aspiration). CT scan of the head was unremarkable for an acute intracranial process. Continue supportive measures and minimize sedating medications as able. Discontinued gabapentin he will need to be on a reduced dose of gabapentin at the time of discharge. (3) ESRD (end stage renal disease) on dialysis Current Visit: No Status: Chronic Ongoing dialysis needs per nephrology. (4) Hypotension Current Visit: Yes Status: Acute Largely appears to be sedation related. A left femoral central venous catheter was placed, and we will begin norepinephrine for a goal mean arterial pressure of 65 mmHg. Check lactate. Qualifiers: Hypotension type: hypotension due to drug Qualified Code(s): I95.2 - Hypotension due to drugs (5) Pneumonia Current Visit: No Status: Acute Clinical picture of encephalopathy and infiltrates in the dependent areas of the longer consistent with aspiration pneumonia. Sputum culture reveals a gram- negative migel. Currently on ceftriaxone, so I will broaden him to cefepime. Total direct critical care time: 35 minutes Qualifiers: Pneumonia type: aspiration pneumonia Aspiration pneumonia type: unspecified Laterality: bilateral Lung location: unspecified part of lung Qualified Code(s): J69.0 - Pneumonitis due to inhalation of food and vomit Subjective Principal diagnosis: Altered Mental Status Interval history: No acute overnight events. Patient did not undergo spontaneous breathing trial due to high PEEP and FiO2 requirements. The patient's oxygenation improves when deeply sedated, however his blood pressure drops for sedation. Objective PUL Vital signs: Last Vital Signs Temp 97.6 F 01/03/17 07:15 Pulse 93 01/03/17 08:00 Resp 19 01/03/17 08:00 BP 75/44 01/03/17 08:00 Pulse Ox 95 01/03/17 08:00 General: Intubated and sedated Eyes: nonicteric ENT: Endotracheal tube in place Neck: supple, no lymphadenopathy Lungs: Coarse bilateral breath sounds Cardiovascular: regular rate and rhythm Gastrointestinal: normoactive bowel sounds, soft, non-tender, non-distended Integumentary: Right venous stasis changes noted Extremities: no cyanosis, no edema Musculoskeletal: Destructive changes of right foot joint that appear chronic Neuro: Sedate Ventilator Settings Ventilator Settings: Ventilator Settings, Last 8 Hours Ventilator Mode VC+ Ventilator Mode VC+ Ventilator Mode VC+ Ventilator Mode VC+ Ventilator Mode VC+ Ventilator Mode VC+ Ventilator Mode VC+ Ventilator Mode VC+ Ventilator Mode VC+ Ventilator Mode VC+ Ventilator Tidal Volume 550 Setting Ventilator Tidal Volume 550 Setting Ventilator Tidal Volume 550 Setting Ventilator Tidal Volume 550 Setting Ventilator Tidal Volume 550 Setting Ventilator Tidal Volume 550 Setting Ventilator Tidal Volume 550 Setting Ventilator Tidal Volume 550 Setting Ventilator Tidal Volume 550 Setting Ventilator Tidal Volume 550 Setting Ventilator Respiratory Rate 12 Setting Ventilator Respiratory Rate 12 Setting Ventilator Respiratory Rate 12 Setting Ventilator Respiratory Rate 12 Setting Ventilator Respiratory Rate 12 Setting Ventilator Respiratory Rate 12 Setting Ventilator Respiratory Rate 12 Setting Ventilator Respiratory Rate 12 Setting Ventilator Respiratory Rate 12 Setting Ventilator Respiratory Rate 12 Setting Actual Respiratory Rate 21 Actual Respiratory Rate 21 Actual Respiratory Rate 20 Actual Respiratory Rate 20 Actual Respiratory Rate 19 Actual Respiratory Rate 19 Actual Respiratory Rate 16 Actual Respiratory Rate 23 Actual Respiratory Rate 20 Actual Respiratory Rate 18 Positive End Expiratory 15 Pressure Positive End Expiratory 15 Pressure Positive End Expiratory 15 Pressure Positive End Expiratory 15 Pressure Positive End Expiratory 15 Pressure Positive End Expiratory 15 Pressure Positive End Expiratory 15 Pressure Positive End Expiratory 15 Pressure Positive End Expiratory 15 Pressure Positive End Expiratory 15 Pressure Peak Inspiratory Airway 21 Pressure Peak Inspiratory Airway 21 Pressure Peak Inspiratory Airway 21 Pressure Peak Inspiratory Airway 21 Pressure Peak Inspiratory Airway 22 Pressure Peak Inspiratory Airway 21 Pressure Peak Inspiratory Airway 20 Pressure Peak Inspiratory Airway 20 Pressure Peak Inspiratory Airway 20 Pressure Peak Inspiratory Airway 21 Pressure Results - Laboratory Findings CBC and BMP: 01/03/17 03:28 01/03/17 03:28 ABG ABG pH 7.38 pH Units (7.32-7.45) 01/02/17 05:37 ABG pCO2 51 mmHg (35-45) H 01/02/17 05:37 ABG pO2 55 mmHg (85-104) L 01/02/17 05:37 ABG O2 Saturation 88 % (95-98) L 01/02/17 05:37 PT/INR, D-dimer PT 15.5 Seconds (9.4-12.1) H 01/03/17 07:54 Abnormal lab findings: Abnormal lab results WBC 13.7 K/mcL (4.3-11.1) H 01/03/17 03:28 RBC 3.96 M/mcL (4.19-5.50) L 01/03/17 03:28 MCV 104.0 fL (83.0-100.0) H 01/03/17 03:28 Band Neutrophils % 20.0 % (0-4) H 01/03/17 03:28 Neutrophils # 10.7 K/mcL (1.6-8.9) H 01/03/17 03:28 Monocytes # 2.2 K/mcL (0.0-1.3) H 01/03/17 03:28 Reactive Lymphocytes Present (Not Present) A 01/03/17 03:28 Large Platelets Present (Not Present) A 01/03/17 03:28 Polychromasia 1+ (Not Present) A 01/03/17 03:28 Anisocytosis 1+ (Not Present) A 01/03/17 03:28 Macrocytosis Present (Not Present) A 01/03/17 03:28 PT 15.5 Seconds (9.4-12.1) H 01/03/17 07:54 ABG pCO2 51 mmHg (35-45) H 01/02/17 05:37 ABG pO2 55 mmHg (85-104) L 01/02/17 05:37 ABG HCO3 30.2 mEQ/L (21-27) H 01/02/17 05:37 ABG Total CO2 31.8 mEq/L (20-26) H 01/02/17 05:37 ABG O2 Saturation 88 % (95-98) L 01/02/17 05:37 ABG Base Excess 4.0 mEq/L (-2.0 to 3.0) H 01/02/17 05:37 Potassium 6.0 mEq/L (3.5-4.5) H D 01/03/17 03:28 Chloride 94 mEq/L (98-109) L 01/03/17 03:28 BUN 60 mg/dL (8-26) H D 01/03/17 03:28 Creatinine 8.16 mg/dL (0.72-1.25) H 01/03/17 03:28 Est GFR ( Amer) 8 (> 60) L 01/03/17 03:28 Est GFR (Non-Af Amer) 7 (> 60) L 01/03/17 03:28 Glucose 100 mg/dL (70-99) H 01/03/17 03:28 POC Glucose 97 (58-89) H 01/01/17 23:53 Calculated Osmolality 303 (280-300) H 01/03/17 03:28 Calcium 11.8 mg/dL (8.6-10.8) H 01/03/17 03:28 Phosphorus 8.9 mg/dL (2.3-4.7) H 01/03/17 03:28 Magnesium 2.9 mg/dL (1.6-2.6) H 01/03/17 03:28 Albumin 3.1 g/dL (3.5-5.0) L 12/30/16 05:18 Globulin 4.1 g/dL (2.4-3.5) H 12/30/16 05:18 Albumin/Globulin Ratio 0.8 (1.1-2.2) L 12/30/16 05:18 Urine Clarity Turbid (Clear) A 12/29/16 15:51 Urine Protein 100 mg/dL (Neg-Trace) H 12/29/16 15:51 Urine Blood Moderate (Negative) H 12/29/16 15:51 Urine Bilirubin Small (Negative) H 12/29/16 15:51 Ur Leukocyte Esterase Large (Negative) H 12/29/16 15:51 Urine Microscopic RBC 15-30 per hpf (0-3) H 12/29/16 15:51 Urine Microscopic WBC TNTC per hpf (0-3) H 12/29/16 15:51 Salicylates < 5.0 mg/dL (15-30) L 12/30/16 09:14 Urine Opiates Screen Positive ng/mL (Cwkasu=135) H 12/29/16 16:46 Acetaminophen < 1.0 mcg/mL (10-30) L 12/30/16 09:14 - Microbiology Findings Microbiology Findings: Microbiology, Last 48 Hours 01/02/17 10:35 Sputum Culture - Preliminary Sputum Gram Negative Migel 12/29/16 21:38 Blood Culture - Preliminary Peripheral Venipuncture No growth. 12/29/16 21:33 Blood Culture - Preliminary Peripheral Venipuncture No growth. - Clinical Findings Intake & Output: Intake & Output 01/02/17 01/03/17 01/03/17 23:59 07:59 15:59 Intake Total 719 / 719 787 / 787 Output Total 0 / 0 Balance 719 / 719 787 / 787 Weight 91.8 kg Consult Discharge Plan - Plan Referrals: NO,PCP [Primary Care Provider] -
[2017-01-03] MEDS: predniSONE 10 MG TABLET PO SCH (09:08)
[2017-01-03] MEDS: Aspirin 81 MG TAB.CHEW PO SCH (09:09)
[2017-01-03] MEDS: FLUoxetine 20 MG CAPSULE PO SCH (09:09)
[2017-01-03] MEDS: Chlorhexidine Rinse 15 ML MOUTHWASH MM SCH ×2 (09:09→20:18)
[2017-01-03] MEDS: Cefepime HCl 1,000 MG in D5% in Water (Mini-Bag+) 100 ML IVPB SCH (09:21)
[2017-01-03] MEDS: Norepinephrine 4 MG in D5% in Water 250 ML IVC SCH ×2 (09:33→20:21)
[2017-01-03] MEDS: FentaNYL (PF) 1,000 MCG in 0.9 % Sodium Chloride 80 ML IVC SCH ×2 (11:34→18:19)
--- NOTE | 2017-01-03 11:36 | Nephrology Progress Note ---
Date of Encounter: 01/03/17 Time of Encounter: 14:30 - Assessment and Plan (1) ESRD (end stage renal disease) on dialysis Current Visit: No Status: Chronic Next HD planned for wednesday (2) Altered mental status Current Visit: Yes Status: Acute Improving, will keep off opiates and gabapentin for now Qualifiers: Altered mental status type: unspecified Qualified Code(s): R41.82 - Altered mental status, unspecified (3) Acute on chronic respiratory failure with hypoxia and hypercapnia Current Visit: No Status: Acute Vent setting adjustments per primary team. (4) Urinary tract infection Current Visit: Yes Status: Acute Antibiotics per primary team Qualifiers: Urinary tract infection type: site unspecified Hematuria presence: without hematuria Qualified Code(s): N39.0 - Urinary tract infection, site not specified (5) Hyperkalemia Current Visit: Yes Status: Acute Potassium noted elevated at 6.0, will dose with kayexalate Subjective Principal diagnosis: Altered Mental Status Interval history: Pt seen and examined still intubated and sedated. Per nurse, started on pressor support with levophed. Objective - Vital Signs Vital signs: Vital Signs Temp Pulse Resp BP Pulse Ox 01/03/17 11:09 13 94/57 88 01/03/17 10:41 20 75/48 93 01/03/17 10:00 92 12 93/58 92 01/03/17 09:30 19 81/52 90 01/03/17 09:00 92 20 66/47 91 01/03/17 08:00 93 19 75/44 95 01/03/17 07:15 97.6 F 01/03/17 07:00 95 20 82/48 92 01/03/17 06:00 98 20 88/49 91 01/03/17 05:59 20 90/60 93 01/03/17 05:00 98 20 86/51 93 01/03/17 04:02 18 87/50 93 01/03/17 04:00 98.5 F 100 19 87/50 93 01/03/17 03:53 99 01/03/17 03:00 99 18 67/49 94 01/03/17 02:08 24 92/53 95 01/03/17 02:00 97.8 F 102 22 92/53 94 01/03/17 01:00 106 18 89/61 92 01/03/17 00:00 99.6 F 109 20 70/53 92 01/02/17 23:51 18 91/52 91 01/02/17 23:15 112 01/02/17 23:00 112 20 75/52 89 01/02/17 22:05 20 103/63 89 01/02/17 22:00 114 22 90/54 89 01/02/17 21:00 113 21 101/59 88 01/02/17 20:51 100 F H 01/02/17 20:07 21 75/57 92 01/02/17 20:00 115 21 91/59 91 01/02/17 19:59 115 01/02/17 19:00 123 23 91/59 90 01/02/17 18:00 110 22 83/55 88 01/02/17 17:28 21 85/51 87 01/02/17 17:00 105 23 85/51 91 01/02/17 16:00 106 19 73/49 92 01/02/17 15:43 22 67/41 90 01/02/17 15:41 97.1 F L 01/02/17 15:00 105 21 66/44 89 01/02/17 14:00 122 20 92/58 90 01/02/17 13:20 22 92/55 89 01/02/17 13:00 118 22 92/55 89 01/02/17 12:00 98.3 F 122 22 94/64 90 01/02/17 11:55 88/58 01/02/17 11:40 78/56 Intake and Output 01/02/17 01/03/17 01/03/17 23:59 07:59 15:59 Intake Total 719 / 719 787 / 787 Output Total 0 / 0 Balance 719 / 719 787 / 787 Intake: IV Fluids 400 / 400 405 / 405 0.9 % Sodium Chloride 250 250 / 250 ML @ 937.5 mls/hr IVC . Q16M [facility] Rx#:[id number] FentaNYL (PF) 1,000 MCG 100 / 100 75 / 75 In 0.9 % Sodium Chloride 80 ML @ 50 MCG/HR 5 mls/ hr IVC CONT [facility] Rx#: [id number] Diprivan 1,000 mg In 100 100 / 100 80 / 80 ml @ 5 MCG/KG/MIN 2.184 mls/hr IVC .Q24H [facility] Rx#: [id number] Flexbumin 25 gm In 100 ml 100 / 100 @ 100 mls/hr IVPB ONCE ONE Rx#:[id number] Rocephin 1,000 MG In 100 / 100 Dextrose 5% (Minibag+) 100 ML 100 ML @ 200 mls/ hr IVPB Q24H [facility] Rx#: [id number] Tube Feeding 319 / 319 382 / 382 Output: Urine 0 / 0 Other: Meal Nourishment/Supplement Nourishment/Supplement Weight 91.8 kg Patient Weight 01/03/17 23:59 Weight 91.8 kg - General Appearance General appearance: Present: chronically ill, sedated on ventilator, intubated EENT: Present: ATNC Neck: Present: supple Respiratory: Present: course breath sounds Cardiology: Present: no edema, normal S1, normal S2 Dialysis Vascular Access: Arteriovenous Fistula thrill: Yes bruit: Yes Gastrointestinal: Present: no tenderness, no guarding Integumentary: Present: warm and dry Additional Comments: sedated, intubated Musculoskeletal: Present: no deformities Additional Comments: sedated, intubated - Lab 01/04/17 04:25 01/04/17 18:04 Most recent lab results ABG pH 7.38 pH Units (7.32-7.45) 01/02/17 05:37 ABG pCO2 51 mmHg (35-45) H 01/02/17 05:37 ABG pO2 55 mmHg (85-104) L 01/02/17 05:37 ABG HCO3 30.2 mEQ/L (21-27) H 01/02/17 05:37 ABG O2 Saturation 88 % (95-98) L 01/02/17 05:37 Calcium 11.8 mg/dL (8.6-10.8) H 01/03/17 03:28 Phosphorus 8.9 mg/dL (2.3-4.7) H 01/03/17 03:28 Magnesium 2.9 mg/dL (1.6-2.6) H 01/03/17 03:28 Consult Discharge Plan - Plan Referrals: NO,PCP [Primary Care Provider] -
[2017-01-03] MEDS ORDERED: *HR* Vecuronium 10 MG VIAL IVP PRN (12:17)
[2017-01-03 17:21] LABS: VBG HCO3 28.4 mEq/L (21-27); VBG PH 7.21 pH Units (7.32-7.42)
[2017-01-03 20:24] LABS: VBG HCO3 28.7 mEq/L (21-27); VBG PH 7.26 pH Units (7.32-7.42)
[2017-01-04] MEDS: Ipratropium/Albuterol Neb 3 ML IH SCH ×6 (00:07→20:53)
[2017-01-04] MEDS: FentaNYL (PF) 1,000 MCG in 0.9 % Sodium Chloride 80 ML IVC SCH ×4 (02:19→23:17)
[2017-01-04] MEDS: Norepinephrine 4 MG in D5% in Water 250 ML IVC SCH ×4 (04:26→23:18)
[2017-01-04 04:33] LABS: Hematocrit 42.8 % (37.5-50.1); Hemoglobin 13.2 g/dL (12.9-16.9); Mean Corpuscular HGB Conc 30.8 g/dL (31.6-35.5); Mean Platelet Volume 11.1 fL (9.4-12.4); Platelet Count 175 K/mcL (140-400)
[2017-01-04 04:39] LABS: Ionized Calcium 1.39 mmol/L (1.15-1.35)
[2017-01-04 04:44] LABS: ABG HCO3 26.3 mEQ/L (21-27); ABG Oxygen Saturation 91 % (95-98); ABG PO2 77 mmHg (85-104); ABG TCO2 28.5 mEq/L (20-26)
[2017-01-04 04:52] LABS: ABG PCO2 72 mmHg (35-45); Blood Gas FiO2 80 %
[2017-01-04 04:53] LABS: Lymphocytes # 0.4 K/mcL (0.6-4.6); Monocytes # 0.6 K/mcL (0.0-1.3); Neutrophils # 8.6 K/mcL (1.6-8.9); Platelet Estimate Normal (Normal)
[2017-01-04 04:53] LABS: ABG PH 7.17 pH Units (7.32-7.45)
[2017-01-04 04:54] LABS: Macrocytosis Present (Not Present); Polychromasia 1+ (Not Present); Tear Drop Cells 2+ (Not Present)
[2017-01-04 04:55] LABS: Anisocytosis 1+ (Not Present); Large Platelets Present (Not Present); Poikilocytosis 1+ (Not Present); Toxic Granulation Present (Not Present)
[2017-01-04] MEDS ORDERED: Sodium Bicarbonate 100 MEQ in 0.45 % Sodium Chloride 1,000 ML IVC SCH (06:00)
[2017-01-04] MEDS: *HR* Heparin 5,000 UNIT/ML VIAL SQ SCH ×2 (06:30→17:16)
[2017-01-04] MEDS: Pantoprazole 40 MG VIAL IVPB SCH (06:30)
[2017-01-04] MEDS: Levothyroxine 25 MCG TABLET PO SCH (06:30)
[2017-01-04 07:02] LABS: Calcium 11.8 mg/dL (8.6-10.8); Magnesium 2.9 mg/dL (1.6-2.6); Phosphorous 12.2 mg/dL (2.3-4.7); Potassium 6.1 mEq/L (3.5-4.5)
[2017-01-04 07:52] LABS: ABG HCO3 32.5 mEQ/L (21-27); ABG Oxygen Saturation 100 % (95-98); ABG PCO2 66 mmHg (35-45); ABG PO2 230 mmHg (85-104); ABG TCO2 34.5 mEq/L (20-26)
[2017-01-04 07:54] LABS: Blood Gas FiO2 100 %
[2017-01-04] MEDS: Budesonide/Formoterol 80/4.5 MDI IH SCH ×2 (08:24→20:55)
[2017-01-04] MEDS ORDERED: Levofloxacin 750 MG/150 ML 750 MG/150 ML BAG IVPB ONE (09:00)
[2017-01-04] MEDS: Cefepime HCl 1,000 MG in D5% in Water (Mini-Bag+) 100 ML IVPB SCH (09:06)
[2017-01-04] MEDS: Chlorhexidine Rinse 15 ML MOUTHWASH MM SCH ×2 (09:06→21:12)
[2017-01-04] MEDS: FLUoxetine 20 MG CAPSULE PO SCH (09:07)
[2017-01-04] MEDS: Aspirin 81 MG TAB.CHEW PO SCH (09:07)
[2017-01-04] MEDS: Dexmedetomidine HCl 400 MCG/100 ML MLS IVC SCH ×2 (09:07→21:11)
[2017-01-04] MEDS: methylPREDNISolone 125 MG/2 ML VIAL IVP SCH ×2 (09:10→15:38)
[2017-01-04] MEDS ORDERED: 0.9 % Sodium Chloride 250 ML IVC PRN (09:12)
[2017-01-04] MEDS ORDERED: Albumin 25% 25gram/100mL 25 GM/100 ML IV.SOLN IVPB PRN (09:17)
--- NOTE | 2017-01-04 09:26 | Pulmonology Progress Note ---
<Peter Godwin - Last Filed: 01/04/17 09:26> Date of Encounter: 01/04/17 Time of Encounter: 09:25 Assessment and Plan (1) Acute respiratory failure with hypoxia Current Visit: Yes Status: Acute PAtietn with history of COPD. And chronic hypoxemic respiratory failure/ on Home O2 Emphysematous changes seen on CT. FiO2 was increased overnight. However this may have been secondary to the issues with the ET. tube. Patient also with diminished breath sounds bilaterally and wheezing. Likely now in AECOPD. Bacterial pneumonia with presumtive organism being Pseudomonas spp. breath stacking on vent. Plan: -ET tube returned to original location. Will repeat CXR to ensure it is in correct location. -We will add symbicort and IV solumedrol for AECOPD. -Patient is on cefepime but we will add Levofloxacin for double coverage given the patient has likley pseudomonas. -Wean Fio2 and PEEP as tolerated. Slow Respiratory rate to prevent breath stacking. repeat ABG ordered. (2) Altered mental status Current Visit: Yes Status: Acute etiology is likely multilateral given his infection and prescription medications ( percocet /Neurontin that was not renally dosed). Continue to reasses. continue daily sedation vacations. DC versed and change to precedex. Qualifiers: Altered mental status type: unspecified Qualified Code(s): R41.82 - Altered mental status, unspecified (3) Encephalopathy Current Visit: Yes Status: Acute as stated above. (4) Hyperkalemia Current Visit: Yes Status: Acute Patient has had multiple bowel movements after Kayexalate. Spoke with Nephrology and will dialyze him this AM. Repeat K ordered. (5) Hypotension Current Visit: Yes Status: Acute Likely from IV sedation and increased intrathoracic pressure ( breath stacking) Changed ventilator settings. Wean Levophed Qualifiers: Hypotension type: hypotension due to drug Qualified Code(s): I95.2 - Hypotension due to drugs (6) Hyperphosphatemia Current Visit: No Status: Acute (7) ESRD (end stage renal disease) on dialysis Current Visit: No Status: Chronic (8) Hyperkalemia Current Visit: No Status: Resolved as stated above. (9) History of renal transplant Current Visit: Yes Status: Acute (10) DVT prophylaxis Current Visit: No Status: Acute SQ heparin Neuro: AMS likley secondary to medications. stop Versed and add precedex. Daily sedation vacations.Continue to reasses. Cardio: Hypotension. Afebrile and currently dose not meet sepsis criteria. I think this is likely from a combination of IV sedatives and incrfeased intrathoracic pressures. Chagned vent settings . Wean levophed. Pulm: As stated above. GI: Constipation: Resolved. Renal: As stated above. MSK: PT/OT when more stable. Heme: No issues at this time. Leukocytosis has resolved. Electrolytes: Multiple abnormalites. Should correct with dialysis this AM. Integument: Routine skin care. Lines: Femoral CVC has no signs of infection, Et OG. Subjective Principal diagnosis: Altered Mental Status Interval history: Patient had his ET tube pulled out some last night hour he was not totally extubated. It is since been placed back to its original position. He has had several loose bowel movements hour was given Kayexalate. He remains on mechanical ventilation and sedated. Objective PUL Vital signs: Last Vital Signs Temp 98.0 F 01/04/17 08:01 Pulse 103 01/04/17 06:00 Resp 24 01/04/17 08:25 BP 98/65 01/04/17 06:08 Pulse Ox 96 01/04/17 08:25 Gen.: This is a well-developed well-nourished 61-year-old male who is currently on mechanical ventilation and sedated. Appears to be tolerating that well. HEENT: Head is normocephalic and atraumatic. Anicteric sclera pupils are equally round reactive to light. ET tube is in place 24 cm of left. OG in place. Trachea midline. Heart: Regular rate and rhythm without murmurs rubs or gallops. No JVD. Lungs: Normal rise and x-rays of the chest wall bilaterally. He has some bilateral expiratory wheezes breath sounds are diminished bilaterally. Abdomen: Patient has a multiple surgical scars one of which appears to be a renal transplant scar. Bowel sounds positive all quadrants. Soft palpation. Musculoskeletal: Grossly normal for age. Does have some deformities of the left foot. Unchanged from prior exams. Extremities: No clubbing, cyanosis or edema. Integument: No rashes or lesions noted. Ventilator Settings Ventilator Settings: Ventilator Settings, Last 8 Hours Ventilator Mode VC+ Ventilator Mode VC+ Ventilator Mode VC+ Ventilator Mode VC+ Ventilator Mode VC+ Ventilator Mode VC+ Ventilator Mode VC+ Ventilator Tidal Volume 600 Setting Ventilator Tidal Volume 600 Setting Ventilator Tidal Volume 600 Setting Ventilator Tidal Volume 550 Setting Ventilator Tidal Volume 550 Setting Ventilator Tidal Volume 550 Setting Ventilator Tidal Volume 550 Setting Ventilator Respiratory Rate 24 Setting Ventilator Respiratory Rate 24 Setting Ventilator Respiratory Rate 24 Setting Ventilator Respiratory Rate 24 Setting Ventilator Respiratory Rate 24 Setting Ventilator Respiratory Rate 24 Setting Ventilator Respiratory Rate 24 Setting Actual Respiratory Rate 24 Actual Respiratory Rate 24 Actual Respiratory Rate 26 Actual Respiratory Rate 27 Actual Respiratory Rate 24 Positive End Expiratory 15 Pressure Positive End Expiratory 15 Pressure Positive End Expiratory 15 Pressure Positive End Expiratory 15 Pressure Positive End Expiratory 15 Pressure Positive End Expiratory 15 Pressure Positive End Expiratory 15 Pressure Peak Inspiratory Airway 36 Pressure Peak Inspiratory Airway 34 Pressure Peak Inspiratory Airway 28 Pressure Peak Inspiratory Airway 32 Pressure Peak Inspiratory Airway 32 Pressure Results - Laboratory Findings CBC and BMP: 01/04/17 04:25 01/04/17 04:25 ABG ABG pH 7.30 pH Units (7.32-7.45) L D 01/04/17 07:39 ABG pCO2 66 mmHg (35-45) H 01/04/17 07:39 ABG pO2 230 mmHg (85-104) H 01/04/17 07:39 ABG O2 Saturation 100 % (95-98) H 01/04/17 07:39 PT/INR, D-dimer PT 15.5 Seconds (9.4-12.1) H 01/03/17 07:54 Abnormal lab findings: Abnormal lab results RBC 4.00 M/mcL (4.19-5.50) L 01/04/17 04:25 MCV 107.0 fL (83.0-100.0) H 01/04/17 04:25 MCHC 30.8 g/dL (31.6-35.5) L 01/04/17 04:25 Band Neutrophils % 6.0 % (0-4) H 01/04/17 04:25 Metamyelocytes % 2.0 % (0) H 01/04/17 04:25 Lymphocytes # 0.4 K/mcL (0.6-4.6) L 01/04/17 04:25 Reactive Lymphocytes Present (Not Present) A 01/03/17 03:28 Toxic Granulation Present (Not Present) A 01/04/17 04:25 Large Platelets Present (Not Present) A 01/04/17 04:25 Polychromasia 1+ (Not Present) A 01/04/17 04:25 Poikilocytosis 1+ (Not Present) A 01/04/17 04:25 Anisocytosis 1+ (Not Present) A 01/04/17 04:25 Macrocytosis Present (Not Present) A 01/04/17 04:25 Tear Drop Cells 2+ (Not Present) A 01/04/17 04:25 PT 15.5 Seconds (9.4-12.1) H 01/03/17 07:54 ABG pH 7.30 pH Units (7.32-7.45) L D 01/04/17 07:39 ABG pCO2 66 mmHg (35-45) H 01/04/17 07:39 ABG pO2 230 mmHg (85-104) H 01/04/17 07:39 ABG HCO3 32.5 mEQ/L (21-27) H 01/04/17 07:39 ABG Total CO2 34.5 mEq/L (20-26) H 01/04/17 07:39 ABG O2 Saturation 100 % (95-98) H 01/04/17 07:39 ABG Base Excess 4.0 mEq/L (-2.0 to 3.0) H 01/04/17 07:39 VBG pH 7.26 pH Units (7.32-7.42) L 01/03/17 20:00 VBG pCO2 64 mmHg (41-51) H 01/03/17 20:00 VBG pO2 53 mmHg (25-40) H 01/03/17 20:00 VBG HCO3 28.7 mEq/L (21-27) H 01/03/17 20:00 Potassium 6.1 mEq/L (3.5-4.5) H D 01/04/17 04:25 Chloride 95 mEq/L (98-109) L 01/04/17 04:25 BUN 96 mg/dL (8-26) H D 01/04/17 04:25 Creatinine 10.26 mg/dL (0.72-1.25) H 01/04/17 04:25 Est GFR ( Amer) 6 (> 60) L 01/04/17 04:25 Est GFR (Non-Af Amer) 5 (> 60) L 01/04/17 04:25 Glucose 162 mg/dL (70-99) H 01/04/17 04:25 POC Glucose 97 (58-89) H 01/01/17 23:53 Calculated Osmolality 327 (280-300) H 01/04/17 04:25 Calcium 11.8 mg/dL (8.6-10.8) H 01/04/17 04:25 Ionized Calcium 1.39 mmol/L (1.15-1.35) H 01/04/17 04:25 Phosphorus 12.2 mg/dL (2.3-4.7) H 01/04/17 04:25 Magnesium 2.9 mg/dL (1.6-2.6) H 01/04/17 04:25 Albumin 3.1 g/dL (3.5-5.0) L 12/30/16 05:18 Globulin 4.1 g/dL (2.4-3.5) H 12/30/16 05:18 Albumin/Globulin Ratio 0.8 (1.1-2.2) L 12/30/16 05:18 Urine Clarity Turbid (Clear) A 12/29/16 15:51 Urine Protein 100 mg/dL (Neg-Trace) H 12/29/16 15:51 Urine Blood Moderate (Negative) H 12/29/16 15:51 Urine Bilirubin Small (Negative) H 12/29/16 15:51 Ur Leukocyte Esterase Large (Negative) H 12/29/16 15:51 Urine Microscopic RBC 15-30 per hpf (0-3) H 12/29/16 15:51 Urine Microscopic WBC TNTC per hpf (0-3) H 12/29/16 15:51 Salicylates < 5.0 mg/dL (15-30) L 12/30/16 09:14 Urine Opiates Screen Positive ng/mL ([id number]=124) H 12/29/16 16:46 Acetaminophen < 1.0 mcg/mL (10-30) L 12/30/16 09:14 - Microbiology Findings Microbiology Findings: Microbiology, Last 48 Hours 01/02/17 10:35 Sputum Culture - Preliminary Sputum Gram Negative Migel - Diagnostic Findings Chest x-ray: pending, image reviewed (Notable for ET tube out of place. We have placed ET tube back to prior position in order to repeat x-ray.) - Clinical Findings Intake & Output: Intake & Output 01/03/17 01/04/17 01/04/17 23:59 07:59 15:59 Intake Total 470 / 470 429 / 429 Output Total 0 / 0 Balance 470 / 470 429 / 429 Weight 76.5 kg Consult Discharge Plan - Plan Referrals: NO,PCP [Primary Care Provider] - <Yelitza Randle - Last Filed: 01/04/17 10:15> Date of Encounter: 01/04/17 Objective PUL Vital signs: Last Vital Signs Temp 98.0 F 01/04/17 08:01 Pulse 103 01/04/17 06:00 Resp 20 01/04/17 09:42 BP 98/65 01/04/17 06:08 Pulse Ox 86 01/04/17 09:42 Ventilator Settings Ventilator Settings: Ventilator Settings, Last 8 Hours Ventilator Mode VC+ Ventilator Mode VC+ Ventilator Mode VC+ Ventilator Mode VC+ Ventilator Mode VC+ Ventilator Mode VC+ Ventilator Tidal Volume 600 Setting Ventilator Tidal Volume 600 Setting Ventilator Tidal Volume 600 Setting Ventilator Tidal Volume 600 Setting Ventilator Tidal Volume 550 Setting Ventilator Tidal Volume 550 Setting Ventilator Respiratory Rate 20 Setting Ventilator Respiratory Rate 24 Setting Ventilator Respiratory Rate 24 Setting Ventilator Respiratory Rate 24 Setting Ventilator Respiratory Rate 24 Setting Ventilator Respiratory Rate 24 Setting Actual Respiratory Rate 20 Actual Respiratory Rate 24 Actual Respiratory Rate 24 Actual Respiratory Rate 26 Positive End Expiratory 12 Pressure Positive End Expiratory 15 Pressure Positive End Expiratory 15 Pressure Positive End Expiratory 15 Pressure Positive End Expiratory 15 Pressure Positive End Expiratory 15 Pressure Peak Inspiratory Airway 33 Pressure Peak Inspiratory Airway 36 Pressure Peak Inspiratory Airway 34 Pressure Peak Inspiratory Airway 28 Pressure Results - Laboratory Findings CBC and BMP: 01/04/17 04:25 01/04/17 04:25 ABG ABG pH 7.29 pH Units (7.32-7.45) L 01/04/17 09:50 ABG pCO2 66 mmHg (35-45) H 01/04/17 09:50 ABG pO2 51 mmHg (85-104) L 01/04/17 09:50 ABG O2 Saturation 81 % (95-98) L 01/04/17 09:50 PT/INR, D-dimer PT 15.5 Seconds (9.4-12.1) H 01/03/17 07:54 Abnormal lab findings: Abnormal lab results RBC 4.00 M/mcL (4.19-5.50) L 01/04/17 04:25 MCV 107.0 fL (83.0-100.0) H 01/04/17 04:25 MCHC 30.8 g/dL (31.6-35.5) L 01/04/17 04:25 Band Neutrophils % 6.0 % (0-4) H 01/04/17 04:25 Metamyelocytes % 2.0 % (0) H 01/04/17 04:25 Lymphocytes # 0.4 K/mcL (0.6-4.6) L 01/04/17 04:25 Reactive Lymphocytes Present (Not Present) A 01/03/17 03:28 Toxic Granulation Present (Not Present) A 01/04/17 04:25 Large Platelets Present (Not Present) A 01/04/17 04:25 Polychromasia 1+ (Not Present) A 01/04/17 04:25 Poikilocytosis 1+ (Not Present) A 01/04/17 04:25 Anisocytosis 1+ (Not Present) A 01/04/17 04:25 Macrocytosis Present (Not Present) A 01/04/17 04:25 Tear Drop Cells 2+ (Not Present) A 01/04/17 04:25 PT 15.5 Seconds (9.4-12.1) H 01/03/17 07:54 ABG pH 7.29 pH Units (7.32-7.45) L 01/04/17 09:50 ABG pCO2 66 mmHg (35-45) H 01/04/17 09:50 ABG pO2 51 mmHg (85-104) L 01/04/17 09:50 ABG HCO3 31.7 mEQ/L (21-27) H 01/04/17 09:50 ABG Total CO2 33.7 mEq/L (20-26) H 01/04/17 09:50 ABG O2 Saturation 81 % (95-98) L 01/04/17 09:50 ABG Base Excess 3.1 mEq/L (-2.0 to 3.0) H 01/04/17 09:50 VBG pH 7.26 pH Units (7.32-7.42) L 01/03/17 20:00 VBG pCO2 64 mmHg (41-51) H 01/03/17 20:00 VBG pO2 53 mmHg (25-40) H 01/03/17 20:00 VBG HCO3 28.7 mEq/L (21-27) H 01/03/17 20:00 Potassium 6.1 mEq/L (3.5-4.5) H D 01/04/17 04:25 Chloride 95 mEq/L (98-109) L 01/04/17 04:25 BUN 96 mg/dL (8-26) H D 01/04/17 04:25 Creatinine 10.26 mg/dL (0.72-1.25) H 01/04/17 04:25 Est GFR ( Amer) 6 (> 60) L 01/04/17 04:25 Est GFR (Non-Af Amer) 5 (> 60) L 01/04/17 04:25 Glucose 162 mg/dL (70-99) H 01/04/17 04:25 POC Glucose 97 (58-89) H 01/01/17 23:53 Calculated Osmolality 327 (280-300) H 01/04/17 04:25 Calcium 11.8 mg/dL (8.6-10.8) H 01/04/17 04:25 Ionized Calcium 1.39 mmol/L (1.15-1.35) H 01/04/17 04:25 Phosphorus 12.2 mg/dL (2.3-4.7) H 01/04/17 04:25 Magnesium 2.9 mg/dL (1.6-2.6) H 01/04/17 04:25 Albumin 3.1 g/dL (3.5-5.0) L 12/30/16 05:18 Globulin 4.1 g/dL (2.4-3.5) H 12/30/16 05:18 Albumin/Globulin Ratio 0.8 (1.1-2.2) L 12/30/16 05:18 Urine Clarity Turbid (Clear) A 12/29/16 15:51 Urine Protein 100 mg/dL (Neg-Trace) H 12/29/16 15:51 Urine Blood Moderate (Negative) H 12/29/16 15:51 Urine Bilirubin Small (Negative) H 12/29/16 15:51 Ur Leukocyte Esterase Large (Negative) H 12/29/16 15:51 Urine Microscopic RBC 15-30 per hpf (0-3) H 12/29/16 15:51 Urine Microscopic WBC TNTC per hpf (0-3) H 12/29/16 15:51 Salicylates < 5.0 mg/dL (15-30) L 12/30/16 09:14 Urine Opiates Screen Positive ng/mL ([id number]) H 12/29/16 16:46 Acetaminophen < 1.0 mcg/mL (10-30) L 12/30/16 09:14 - Microbiology Findings Microbiology Findings: Microbiology, Last 48 Hours 01/02/17 10:35 Sputum Culture - Preliminary Sputum Gram Negative Migel - Clinical Findings Intake & Output: Intake & Output 01/03/17 01/04/17 01/04/17 23:59 07:59 15:59 Intake Total 470 / 470 429 / 429 341 / 341 Output Total 0 / 0 Balance 470 / 470 429 / 429 341 / 341 Weight 76.5 kg - Attending Attestation I examined this patient and my medical decision-making was reviewed with the SIGN ARTIST/PA/Advanced Practice Nurse/Resident Physician. I agree with the documented findings, disposition and treatment plan as described except to the extent set forth below. Patient seen and examined. Labs, radiology, chart personally reviewed. 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 He do not feel patient may need ARDS criteria. I have lowered PA and FiO2 was changing his tidal volume with improvement in his ABG. His plateau pressure is acceptable and there is evidence of intrinsic PEEP and I am hoping with adding bronchodilators as well as systemic steroid for suspicion of COPD might improve his condition. Cardiovascular: Shock which is most likely septic in nature. We will repeat lactic acid GI: Nutrition per dietary and GI prophylaxis per routine Heme: DVT prophylaxis per routine ID: Continue antibiotics and plan to de-escalation Renal; urine out put and renal funtion reviewed. Patient with hyperkalemia anterior received treatment and will coordinate with nephrology for hemodialysis Endorcine: blood glucose is monitored Lines: all lines checked and no evidence of infections Skin: skin care to prevent pressure ulcers per nursing routine care I spent 35 min of Critical Care time with this patient. It involved decision making of high complexity to assess, manipulate, and support vital organ system failure and/or to prevent further life threatening deterioration of the patient' s condition. The time involved in the performance of separately reportable procedures was not counted toward critical care time.
[2017-01-04 09:59] LABS: ABG Base Excess 3.1 mEq/L (-2.0 to 3.0); ABG HCO3 31.7 mEQ/L (21-27); ABG Oxygen Saturation 81 % (95-98); ABG PCO2 66 mmHg (35-45); ABG PH 7.29 pH Units (7.32-7.45); ABG PO2 51 mmHg (85-104); ABG TCO2 33.7 mEq/L (20-26); Blood Gas FiO2 80 %
--- NOTE | 2017-01-04 19:33 | Nephrology Progress Note ---
Date of Encounter: 01/04/17 Time of Encounter: 14:15 - Assessment and Plan (1) ESRD (end stage renal disease) on dialysis Current Visit: No Status: Chronic Continue HD for 4 hours with 2k since repeat potassium now down to 5.1 UF goal of 2-3kg with albumin boluses prn hypotension (2) Altered mental status Current Visit: Yes Status: Acute Improving, will keep off opiates and gabapentin for now Qualifiers: Altered mental status type: unspecified Qualified Code(s): R41.82 - Altered mental status, unspecified (3) Acute on chronic respiratory failure with hypoxia and hypercapnia Current Visit: No Status: Acute Vent setting adjustments per primary team. Continue antibiotics (4) Urinary tract infection Current Visit: Yes Status: Acute Anbiotics per primary team Qualifiers: Urinary tract infection type: site unspecified Hematuria presence: without hematuria Qualified Code(s): N39.0 - Urinary tract infection, site not specified (5) Hyperkalemia Current Visit: Yes Status: Acute Potassium noted elevated at 7.1 this am with additional kayexalate given with BM HD should help stabilize as well Subjective Principal diagnosis: Altered Mental Status Interval history: Pt seen and examined during HD today, still intubated and sedated. BMs after kayexalate this am for potassium of 7.1. Objective - Vital Signs Vital signs: Vital Signs Temp Pulse Resp BP Pulse Ox 01/04/17 18:00 92 19 107/66 90 01/04/17 17:55 20 90 01/04/17 17:00 85 20 114/74 89 01/04/17 16:00 98.1 F 91 20 114/74 86 01/04/17 15:50 20 95 01/04/17 15:04 98.1 F 22 106/57 01/04/17 15:00 91 20 105/58 88 01/04/17 14:55 99/58 01/04/17 14:45 102/63 01/04/17 14:40 97/68 01/04/17 14:30 103/65 01/04/17 14:25 78/63 01/04/17 14:10 101/72 01/04/17 14:00 100 20 96/69 88 01/04/17 13:55 100/66 01/04/17 13:52 20 108 01/04/17 13:40 99/70 01/04/17 13:25 103/63 01/04/17 13:10 107/73 01/04/17 13:00 99 23 99/74 87 01/04/17 12:55 109/73 01/04/17 12:40 104/64 01/04/17 12:25 109/67 01/04/17 12:10 100/70 01/04/17 12:00 97.7 F 94 21 109/67 88 01/04/17 11:55 102/64 01/04/17 11:40 111/69 01/04/17 11:25 99/67 01/04/17 11:18 20 90 01/04/17 11:10 102/68 01/04/17 11:00 103 20 102/67 90 01/04/17 10:55 98.0 F 20 101/68 01/04/17 10:00 96 20 105/65 90 01/04/17 09:42 20 86 01/04/17 09:00 107 20 95/60 86 01/04/17 08:25 24 96 01/04/17 08:01 98.0 F 01/04/17 08:00 98.0 F 96 20 114/72 86 01/04/17 07:43 24 100 01/04/17 07:00 106 20 99/68 96 01/04/17 06:08 24 98/65 99 01/04/17 06:00 103 24 97/60 99 01/04/17 05:00 109 24 87/55 99 01/04/17 04:41 97.9 F 01/04/17 04:11 26 83/56 96 01/04/17 04:00 115 25 83/56 95 01/04/17 03:00 124 25 84/58 95 01/04/17 02:05 26 72/46 94 01/04/17 02:00 117 24 85/57 96 01/04/17 01:00 113 24 83/53 100 01/04/17 00:25 99.2 F 01/04/17 00:07 26 78/54 99 01/04/17 00:00 115 24 78/54 100 01/03/17 23:00 113 24 83/57 94 01/03/17 22:08 24 77/52 88 01/03/17 22:00 101 24 77/52 89 01/03/17 21:00 103 24 73/49 93 01/03/17 20:12 24 73/48 90 01/03/17 20:00 98.9 F 101 24 82/54 90 Intake and Output 01/04/17 01/04/17 01/04/17 07:59 15:59 23:59 Intake Total 429 / 429 1391 / 1391 707 / 707 Output Total 2600 / 2600 0 / 0 Balance 429 / 429 -1209 / -1209 707 / 707 Intake: IV Fluids 429 / 429 791 / 791 FentaNYL (PF) 1,000 MCG 109 / 109 191 / 191 In 0.9 % Sodium Chloride 80 ML @ 50 MCG/HR 5 mls/ hr IVC [facility] Rx#: [id number] Versed 50 MG In 0.9 % 100 / 100 100 / 100 Sodium Chloride 90 ML @ 2 MG/HR 4 mls/hr IVC [facility] Rx#:[id number] Levophed 4 MG In Dextrose 220 / 220 500 / 500 5% 250 ML @ 2 MCG/MIN 7. 5 mls/hr IVC .[facility] Rx #:[id number] Oral 0 / 0 Tube Feeding 707 / 707 Intake, Rinseback and 600 / 600 Flushes Output: Urine 0 / 0 0 / 0 Total Dialysis Output 2600 / 2600 Rectal Tube 0 / 0 Other: Stool Size Large Moderate Small Stool Consistency liquid liquid liquid Stool Color Brown Yellow # Bowel Movements 1 Weight 76.5 kg Hemodialysis Net Fluid 2000 Removed (mL) Patient Weight 01/04/17 23:59 Weight 76.5 kg - General Appearance General appearance: Present: chronically ill, sedated on ventilator, intubated EENT: Present: ATNC Neck: Present: supple Additional Comments: decreased BS throughout bilat Cardiology: Present: no edema, normal S1, normal S2 Dialysis Vascular Access: Arteriovenous Fistula thrill: Yes bruit: Yes Gastrointestinal: Present: no tenderness, no guarding Integumentary: Present: warm and dry Additional Comments: intubated, sedated Musculoskeletal: Present: no deformities Additional Comments: intubated, sedated - Lab 01/04/17 04:25 01/04/17 18:04 Most recent lab results ABG pH 7.29 pH Units (7.32-7.45) L 01/04/17 09:50 ABG pCO2 66 mmHg (35-45) H 01/04/17 09:50 ABG pO2 51 mmHg (85-104) L 01/04/17 09:50 ABG HCO3 31.7 mEQ/L (21-27) H 01/04/17 09:50 ABG O2 Saturation 81 % (95-98) L 01/04/17 09:50 Calcium 11.8 mg/dL (8.6-10.8) H 01/04/17 04:25 Phosphorus 12.2 mg/dL (2.3-4.7) H 01/04/17 04:25 Magnesium 2.9 mg/dL (1.6-2.6) H 01/04/17 04:25 Consult Discharge Plan - Plan Referrals: NO,PCP [Primary Care Provider] -
[2017-01-05] MEDS: methylPREDNISolone 125 MG/2 ML VIAL IVP SCH ×3 (00:06→15:42)
[2017-01-05] MEDS: Ipratropium/Albuterol Neb 3 ML IH SCH ×7 (00:25→23:53)
[2017-01-05] MEDS ORDERED: *HR* Metoprolol 5 MG/5 ML VIAL IVP ONE ×2 (01:33)
[2017-01-05 05:24] LABS: Basophils % 0.1 %; Hematocrit 36.9 % (37.5-50.1); Hemoglobin 11.9 g/dL (12.9-16.9); Immature Granulocytes % 0.8 % (0-4); Lymphocytes # 0.2 K/mcL (0.6-4.6); Lymphocytes % 3.3 %; Mean Corpuscular HGB Conc 32.2 g/dL (31.6-35.5); Mean Corpuscular Hemoglobin 33.1 pg (28.0-33.3); Mean Corpuscular Volume 102.5 fL (83.0-100.0); Mean Platelet Volume 10.9 fL (9.4-12.4); Monocytes # 0.6 K/mcL (0.0-1.3); Monocytes % 8.2 %; Neutrophils # 6.4 K/mcL (1.6-8.9); Nucleated Red Blood Cells 0.4 /100 WBC (0); Platelet Count 197 K/mcL (140-400); Red Cell Distribution Width 13.7 % (11.5-14.5); Segmented Neutrophils % 87.6 %
[2017-01-05] MEDS: Pantoprazole 40 MG VIAL IVPB SCH (05:26)
[2017-01-05] MEDS: *HR* Heparin 5,000 UNIT/ML VIAL SQ SCH ×2 (05:26→18:21)
[2017-01-05] MEDS: Levothyroxine 25 MCG TABLET PO SCH (05:26)
[2017-01-05 05:34] LABS: Ionized Calcium 1.37 mmol/L (1.15-1.35)
[2017-01-05 05:40] LABS: Albumin 2.8 g/dL (3.5-5.0); Albumin/Globulin Ratio 0.7 (1.1-2.2); Bilirubin,Total 0.5 mg/dL (0.2-1.2); Calcium 12.4 mg/dL (8.6-10.8); Globulin 4.3 g/dL (2.4-3.5); Magnesium 2.4 mg/dL (1.6-2.6); Phosphorous 8.6 mg/dL (2.3-4.7); Potassium 5.4 mEq/L (3.5-4.5); Total Protein 7.1 g/dL (6.0-8.3)
[2017-01-05 05:43] LABS: ABG Base Excess 6.2 mEq/L (-2.0 to 3.0); ABG HCO3 32.7 mEQ/L (21-27); ABG Oxygen Saturation 89 % (95-98); ABG PCO2 54 mmHg (35-45); ABG PH 7.39 pH Units (7.32-7.45); ABG PO2 57 mmHg (85-104); ABG TCO2 34.4 mEq/L (20-26)
[2017-01-05 05:44] LABS: Platelet Estimate Normal (Normal)
[2017-01-05 05:46] LABS: Blood Gas FiO2 80 %
[2017-01-05] MEDS: FentaNYL (PF) 1,000 MCG in 0.9 % Sodium Chloride 80 ML IVC SCH ×3 (06:07→21:12)
[2017-01-05] MEDS: Budesonide/Formoterol 80/4.5 MDI IH SCH ×2 (07:35→20:31)
[2017-01-05] MEDS: FLUoxetine 20 MG CAPSULE PO SCH (08:25)
[2017-01-05] MEDS: Aspirin 81 MG TAB.CHEW PO SCH (08:25)
[2017-01-05] MEDS: Chlorhexidine Rinse 15 ML MOUTHWASH MM SCH ×2 (08:25→21:28)
[2017-01-05] MEDS: Dexmedetomidine HCl 400 MCG/100 ML MLS IVC SCH ×2 (08:41→21:24)
--- NOTE | 2017-01-05 12:16 | Nephrology Progress Note ---
Date of Encounter: 01/05/17 Time of Encounter: 12:14 - Assessment and Plan (1) ESRD (end stage renal disease) on dialysis Current Visit: No Status: Chronic Plan for HD tomorrow-will run 4 hours again tomorrow to try and get better clearance (2) Hypercalcemia Current Visit: Yes Status: Acute Ca+ up to 12.4 Unclear why Ca+ is rising Will run HD for 4 hours again tomorrow Vit D level Ionized Ca+ level PTH (3) Acute on chronic respiratory failure with hypoxia and hypercapnia Current Visit: No Status: Acute per primary team (4) Hyperphosphatemia Current Visit: No Status: Acute Phos 8.6 History non-compliant with diet/binders Subjective Principal diagnosis: Altered Mental Status Interval history: Patient seen and examined in ICU. Eyes open and seems to acknowledge my voice. Objective - Vital Signs Vital signs: Vital Signs Temp Pulse Resp BP Pulse Ox 01/05/17 12:00 97.6 F 124 20 106/91 91 01/05/17 11:15 102 20 120/88 93 01/05/17 11:00 20 93 01/05/17 10:00 98.0 F 101 20 108/75 91 01/05/17 09:40 21 91 01/05/17 09:00 98.4 F 101 20 114/73 91 01/05/17 08:00 98.4 F 95 20 110/70 92 01/05/17 07:36 20 92 01/05/17 07:00 97.8 F 106 20 93/72 91 01/05/17 06:00 120 20 97/66 90 01/05/17 05:00 104 20 92/74 90 01/05/17 04:55 98.1 F 01/05/17 04:00 96.8 F L 101 20 108/70 93 01/05/17 03:55 20 111/79 92 01/05/17 03:41 102 01/05/17 03:00 102 20 109/69 93 01/05/17 02:00 123 20 100/77 90 01/05/17 01:00 121 20 108/80 93 01/05/17 00:25 20 109/73 92 01/05/17 00:00 97.8 F 123 20 109/73 92 01/04/17 23:00 113 20 136/69 92 01/04/17 22:30 21 112/71 92 05/29/17 22:00 95 20 119/71 92 01/04/17 21:00 87 20 115/71 93 01/04/17 20:53 20 129/75 92 01/04/17 20:00 87 20 129/75 93 01/04/17 19:54 99.3 F 01/04/17 19:00 92 20 134/78 91 01/04/17 18:00 92 19 107/66 90 01/04/17 17:55 20 90 01/04/17 17:00 85 20 114/74 89 01/04/17 16:00 98.1 F 91 20 114/74 86 01/04/17 15:50 20 95 01/04/17 15:04 98.1 F 22 106/57 01/04/17 15:00 91 20 105/58 88 01/04/17 14:55 99/58 01/04/17 14:45 102/63 01/04/17 14:40 97/68 01/04/17 14:30 103/65 01/04/17 14:25 78/63 01/04/17 14:10 101/72 01/04/17 14:00 100 20 96/69 88 01/04/17 13:55 100/66 01/04/17 13:52 20 108 01/04/17 13:40 99/70 01/04/17 13:25 103/63 01/04/17 13:10 107/73 01/04/17 13:00 99 23 99/74 87 01/04/17 12:55 109/73 01/04/17 12:40 104/64 01/04/17 12:25 109/67 Intake and Output 01/04/17 01/05/17 01/05/17 23:59 07:59 15:59 Intake Total 1357 / 1357 100 / 100 475 / 475 Output Total 0 / 0 Balance 1357 / 1357 100 / 100 475 / 475 Intake: IV Fluids 650 / 650 100 / 100 450 / 450 PRECEDEX 400 mcg In 100 100 / 100 100 / 100 ml @ 0.2 MCG/KG/HR 3.825 mls/hr IVC .Q24H [facility] Rx#: [id number] FentaNYL (PF) 1,000 MCG 100 / 100 100 / 100 In 0.9 % Sodium Chloride 80 ML @ 50 MCG/HR 5 mls/ hr IVC CONT [facility] Rx#: [id number] Levophed 4 MG In Dextrose 250 / 250 150 / 150 5% 250 ML @ 2 MCG/MIN 7. 5 mls/hr IVC .CONT [facility] Rx #:[id number] Flexbumin 25 gm In 100 ml 100 / 100 @ 60 mls/hr IVPB ONCE [facility] Rx#:[id number] Maxipime 1,000 MG In 100 / 100 Dextrose 5% (Minibag+) 100 ML 100 ML @ 200 mls/ hr IVPB DAILY [facility] Rx#: [id number] Cipro Premix 400 MG/200 200 / 200 ML 400 mg In 200 ml @ 200 mls/hr IVPB Q48H [facility] Rx# :[id number] Tube Feeding 707 / 707 Free Water Intake Amount 25 / 25 Output: Urine 0 / 0 Rectal Tube 0 / 0 Catheter 0 / 0 Other: Stool Size Small Stool Consistency liquid Weight 78.426 kg Blood Glucose* 147 Patient Weight 01/05/17 23:59 Weight 78.426 kg - General Appearance General appearance: Present: chronically ill, sedated on ventilator, intubated EENT: Present: ATNC Neck: Present: supple Respiratory: Present: clear (decreased throughout) Cardiology: Present: no edema, normal S1, normal S2 Dialysis Vascular Access: Arteriovenous Fistula thrill: Yes bruit: Yes Gastrointestinal: Present: no tenderness, no guarding, obese Integumentary: Present: warm and dry Additional Comments: intubated; makes eye contact - Lab 01/05/17 05:13 01/05/17 05:13 Most recent lab results ABG pH 7.39 pH Units (7.32-7.45) 01/05/17 05:35 ABG pCO2 54 mmHg (35-45) H 01/05/17 05:35 ABG pO2 57 mmHg (85-104) L 01/05/17 05:35 ABG HCO3 32.7 mEQ/L (21-27) H 01/05/17 05:35 ABG O2 Saturation 89 % (95-98) L 01/05/17 05:35 Calcium 12.4 mg/dL (8.6-10.8) H 01/05/17 05:13 Phosphorus 8.6 mg/dL (2.3-4.7) H 01/05/17 05:13 Magnesium 2.4 mg/dL (1.6-2.6) 01/05/17 05:13 Consult Discharge Plan - Plan Referrals: NO,PCP [Primary Care Provider] -
--- NOTE | 2017-01-05 13:12 | Internal Med Progress Note ---
Date of Encounter: 01/05/17 Time of Encounter: 13:14 - Assessment and plan (1) Acute respiratory failure with hypoxia Current Visit: Yes Status: Acute (2) Altered mental status Current Visit: Yes Status: Acute Qualifiers: Altered mental status type: unspecified Qualified Code(s): R41.82 - Altered mental status, unspecified (3) Encephalopathy Current Visit: Yes Status: Acute (4) Hyperkalemia Current Visit: Yes Status: Acute (5) Hypotension Current Visit: Yes Status: Acute Qualifiers: Hypotension type: hypotension due to drug Qualified Code(s): I95.2 - Hypotension due to drugs (6) Hyperphosphatemia Current Visit: No Status: Acute (7) ESRD (end stage renal disease) on dialysis Current Visit: No Status: Chronic (8) Hyperkalemia Current Visit: No Status: Resolved (9) History of renal transplant Current Visit: Yes Status: Acute (10) DVT prophylaxis Current Visit: No Status: Acute - Subjective Interval history: No major events overnight. Patient had some atrial fibrillation with RVR overnight. This has since resolved. PAtient continues to require mechanical ventilation and is currently on sedations. - Constitutional Vitals: Temp Pulse Resp BP Pulse Ox 97.6 F 124 20 106/91 91 01/05/17 12:20 01/05/17 12:00 01/05/17 12:00 01/05/17 12:00 01/05/17 12:00 Internal Medicine: Result - Labs CBC & Chem 7: 01/05/17 05:13 01/05/17 05:13 Labs: Short CBC 01/05/17 Range/Units 05:13 WBC 7.3 (4.3-11.1) K/mcL Hgb 11.9 L (12.9-16.9) g/dL Hct 36.9 L (37.5-50.1) % Plt Count 197 (140-400) K/mcL Neutrophils # 6.4 (1.6-8.9) K/mcL BMP 01/04/17 01/05/17 18:04 05:13 Sodium 137 Potassium 5.1 H 5.4 H Chloride 91 L Carbon Dioxide 25 BUN 67 H D Creatinine 5.59 H Glucose 153 H Calcium 12.4 H Liver Function 01/05/17 Range/Units 05:13 Total Bilirubin 0.5 (0.2-1.2) mg/dL AST 39 H (5-34) Units/L ALT 24 (0-55) Units/L Alkaline Phosphatase 120 (38-126) Units/L Albumin 2.8 L (3.5-5.0) g/dL - ABG Interpretation ABG results: ABG ABG pH 7.39 pH Units (7.32-7.45) 01/05/17 05:35 ABG pCO2 54 mmHg (35-45) H 01/05/17 05:35 ABG pO2 57 mmHg (85-104) L 01/05/17 05:35 ABG O2 Saturation 89 % (95-98) L 01/05/17 05:35 PT/INR, D-dimer PT 15.5 Seconds (9.4-12.1) H 01/03/17 07:54 Consult Discharge Plan - Plan Referrals: NO,PCP [Primary Care Provider] -
--- NOTE | 2017-01-05 13:20 | Pulmonology Progress Note ---
Date of Encounter: 01/05/17 Time of Encounter: 06:35 Assessment and Plan (1) Acute respiratory failure with hypoxia Current Visit: Yes Status: Acute Patietn with history of COPD. And chronic hypoxemic respiratory failure/ on Home O2 Emphysematous changes seen on CT. AECOPD Bacterial pneumonia with MDR Pseudomonas breath stacking on vent has resolved. Currently meeting ventilation and oxygenation goals. Plan: -continue symbicort and IV solumedrol for AECOPD. -Antibiotics changed to Ciprofloxacin and Ceftazadime -Wean Fio2 and PEEP as tolerated. (2) Altered mental status Current Visit: Yes Status: Acute etiology is likely multilateral given his infection and prescription medications ( percocet /Neurontin that was not renally dosed). Continue to reasses. continue daily sedation vacations. Limit sedating medications as much as possible. Qualifiers: Altered mental status type: unspecified Qualified Code(s): R41.82 - Altered mental status, unspecified (3) Encephalopathy Current Visit: Yes Status: Acute as stated above. (4) Hyperkalemia Current Visit: Yes Status: Acute improved. patient had HD yesterday. continue to monitor. (5) Hypotension Current Visit: Yes Status: Acute improving. continue to Wean Levophed Qualifiers: Hypotension type: hypotension due to drug Qualified Code(s): I95.2 - Hypotension due to drugs (6) ESRD (end stage renal disease) on dialysis Current Visit: No Status: Chronic (7) History of renal transplant Current Visit: Yes Status: Acute (8) DVT prophylaxis Current Visit: No Status: Acute SQ heparin Neuro: AMS likley secondary to medications. Daily sedation vacations. Versed changed to precedex yesterday. Continue to reassess. Cardio: Hypotension. Afebrile and currently dose not meet sepsis criteria. I think this is likely from a combination of IV sedatives and increased intrathoracic pressures. Chagned vent settings yesterdays . Weaning levophed. Pulm: As stated above. GI: Constipation: Resolved. Renal: As stated above. MSK: PT/OT when more stable. Heme: No issues at this time. Leukocytosis has resolved. Electrolytes: Multiple abnormalites. Should correct with dialysis this AM. Integument: Routine skin care. ID: MDR Pseudomonas. Antibiotics changed to sensitivities. Lines: Femoral CVC has no signs of infection, Et OG. Subjective Principal diagnosis: Altered Mental Status Interval history: No major events overnight. Patient did have some episodes of afib RVR. However he is currently in sinus rhythm. He continue to require mechanical ventilation and sedation. Objective PUL Vital signs: Last Vital Signs Temp 97.6 F 01/05/17 12:20 Pulse 124 01/05/17 12:00 Resp 20 01/05/17 12:00 BP 106/91 01/05/17 12:00 Pulse Ox 91 01/05/17 12:00 Gen.: This is a well-developed well-nourished 59-year-old male who is currently on mechanical ventilation and sedation. HEENT: There is no cephalic atraumatic. Pupils equally round react light and accommodation. Anicteric sclera, moist mucous members. The endotracheal and OG tube are in place. Trachea midline. Next on heart: Regular rate and rhythm without murmurs rubs or gallops. Lungs: Diminished throughout. Mild extort he wheezes greater than yesterday however appears to have more airflow today. Normal rise extensive the chest wall bilaterally. Abdomen: Multiple surgical scars. Bowel sounds are positive. Nondistended soft to palpation. No masses. Musculoskeletal: Grossly normal for age he does have some baseline deformity of the left ankle is unchanged. Stream Ms.: No clubbing, cyanosis or edema. Integument: No rashes or lesions noted. Ventilator Settings Ventilator Settings: Ventilator Settings, Last 8 Hours Ventilator Mode VC+ Ventilator Mode VC+ Ventilator Mode VC+ Ventilator Mode VC+ Ventilator Mode VC+ Ventilator Mode VC+ Ventilator Mode VC+ Ventilator Mode VC+ Ventilator Mode VC+ Ventilator Mode VC+ Ventilator Tidal Volume 600 Setting Ventilator Tidal Volume 600 Setting Ventilator Tidal Volume 600 Setting Ventilator Tidal Volume 600 Setting Ventilator Tidal Volume 600 Setting Ventilator Tidal Volume 600 Setting Ventilator Tidal Volume 600 Setting Ventilator Tidal Volume 600 Setting Ventilator Tidal Volume 600 Setting Ventilator Tidal Volume 600 Setting Ventilator Respiratory Rate 20 Setting Ventilator Respiratory Rate 20 Setting Ventilator Respiratory Rate 20 Setting Ventilator Respiratory Rate 20 Setting Ventilator Respiratory Rate 20 Setting Ventilator Respiratory Rate 20 Setting Ventilator Respiratory Rate 20 Setting Ventilator Respiratory Rate 20 Setting Ventilator Respiratory Rate 20 Setting Ventilator Respiratory Rate 20 Setting Actual Respiratory Rate 20 Actual Respiratory Rate 20 Actual Respiratory Rate 20 Actual Respiratory Rate 20 Actual Respiratory Rate 22 Actual Respiratory Rate 20 Actual Respiratory Rate 20 Actual Respiratory Rate 21 Actual Respiratory Rate 20 Positive End Expiratory 12 Pressure Positive End Expiratory 12 Pressure Positive End Expiratory 12 Pressure Positive End Expiratory 12 Pressure Positive End Expiratory 12 Pressure Positive End Expiratory 12 Pressure Positive End Expiratory 12 Pressure Positive End Expiratory 12 Pressure Positive End Expiratory 12 Pressure Positive End Expiratory 12 Pressure Peak Inspiratory Airway 31 Pressure Peak Inspiratory Airway 37 Pressure Peak Inspiratory Airway 29 Pressure Peak Inspiratory Airway 27 Pressure Peak Inspiratory Airway 30 Pressure Peak Inspiratory Airway 29 Pressure Peak Inspiratory Airway 28 Pressure Peak Inspiratory Airway 29 Pressure Peak Inspiratory Airway 31 Pressure Results - Laboratory Findings CBC and BMP: 01/05/17 05:13 01/05/17 05:13 ABG ABG pH 7.39 pH Units (7.32-7.45) 01/05/17 05:35 ABG pCO2 54 mmHg (35-45) H 01/05/17 05:35 ABG pO2 57 mmHg (85-104) L 01/05/17 05:35 ABG O2 Saturation 89 % (95-98) L 01/05/17 05:35 PT/INR, D-dimer PT 15.5 Seconds (9.4-12.1) H 01/03/17 07:54 Abnormal lab findings: Abnormal lab results RBC 3.60 M/mcL (4.19-5.50) L 01/05/17 05:13 Hgb 11.9 g/dL (12.9-16.9) L 01/05/17 05:13 Hct 36.9 % (37.5-50.1) L 01/05/17 05:13 MCV 102.5 fL (83.0-100.0) H 01/05/17 05:13 Band Neutrophils % 6.0 % (0-4) H 01/04/17 04:25 Metamyelocytes % 2.0 % (0) H 01/04/17 04:25 Lymphocytes # 0.2 K/mcL (0.6-4.6) L 01/05/17 05:13 Nucleated RBCs/100 WBC 0.4 /100 WBC (0) H 01/05/17 05:13 Reactive Lymphocytes Present (Not Present) A 01/03/17 03:28 Toxic Granulation Present (Not Present) A 01/04/17 04:25 Large Platelets Present (Not Present) A 01/04/17 04:25 Polychromasia 1+ (Not Present) A 01/04/17 04:25 Poikilocytosis 1+ (Not Present) A 01/04/17 04:25 Anisocytosis 1+ (Not Present) A 01/04/17 04:25 Macrocytosis Present (Not Present) A 01/04/17 04:25 Tear Drop Cells 2+ (Not Present) A 01/04/17 04:25 PT 15.5 Seconds (9.4-12.1) H 01/03/17 07:54 ABG pCO2 54 mmHg (35-45) H 01/05/17 05:35 ABG pO2 57 mmHg (85-104) L 01/05/17 05:35 ABG HCO3 32.7 mEQ/L (21-27) H 01/05/17 05:35 ABG Total CO2 34.4 mEq/L (20-26) H 01/05/17 05:35 ABG O2 Saturation 89 % (95-98) L 01/05/17 05:35 ABG Base Excess 6.2 mEq/L (-2.0 to 3.0) H 01/05/17 05:35 VBG pH 7.26 pH Units (7.32-7.42) L 01/03/17 20:00 VBG pCO2 64 mmHg (41-51) H 01/03/17 20:00 VBG pO2 53 mmHg (25-40) H 01/03/17 20:00 VBG HCO3 28.7 mEq/L (21-27) H 01/03/17 20:00 Potassium 5.4 mEq/L (3.5-4.5) H 01/05/17 05:13 Chloride 91 mEq/L (98-109) L 01/05/17 05:13 BUN 67 mg/dL (8-26) H D 01/05/17 05:13 Creatinine 5.59 mg/dL (0.72-1.25) H 01/05/17 05:13 Est GFR ( Amer) 13 (> 60) L 01/05/17 05:13 Est GFR (Non-Af Amer) 10 (> 60) L 01/05/17 05:13 Glucose 153 mg/dL (70-99) H 01/05/17 05:13 POC Glucose 137 (58-89) H 01/05/17 12:00 Calculated Osmolality 306 (280-300) H 01/05/17 05:13 Calcium 12.4 mg/dL (8.6-10.8) H 01/05/17 05:13 Ionized Calcium 1.37 mmol/L (1.15-1.35) H 01/05/17 05:13 Phosphorus 8.6 mg/dL (2.3-4.7) H 01/05/17 05:13 AST 39 Units/L (5-34) H 01/05/17 05:13 Albumin 2.8 g/dL (3.5-5.0) L 01/05/17 05:13 Globulin 4.3 g/dL (2.4-3.5) H 01/05/17 05:13 Albumin/Globulin Ratio 0.7 (1.1-2.2) L 01/05/17 05:13 Urine Clarity Turbid (Clear) A 12/29/16 15:51 Urine Protein 100 mg/dL (Neg-Trace) H 12/29/16 15:51 Urine Blood Moderate (Negative) H 12/29/16 15:51 Urine Bilirubin Small (Negative) H 12/29/16 15:51 Ur Leukocyte Esterase Large (Negative) H 12/29/16 15:51 Urine Microscopic RBC 15-30 per hpf (0-3) H 12/29/16 15:51 Urine Microscopic WBC TNTC per hpf (0-3) H 12/29/16 15:51 Salicylates < 5.0 mg/dL (15-30) L 12/30/16 09:14 Urine Opiates Screen Positive ng/mL (Biqpvr=350) H 12/29/16 16:46 Acetaminophen < 1.0 mcg/mL (10-30) L 12/30/16 09:14 - Microbiology Findings Microbiology Findings: Microbiology, Last 48 Hours 12/29/16 21:38 Blood Culture - Final Peripheral Venipuncture No growth. 12/29/16 21:33 Blood Culture - Final Peripheral Venipuncture No growth. 01/02/17 10:35 Sputum Culture - Final Sputum P. aeruginosa MDRO - Clinical Findings Intake & Output: Intake & Output 01/04/17 01/05/17 01/05/17 23:59 07:59 15:59 Intake Total 1357 / 1357 100 / 100 475 / 475 Output Total 0 / 0 Balance 1357 / 1357 100 / 100 475 / 475 Weight 78.426 kg Consult Discharge Plan - Plan Referrals: NO,PCP [Primary Care Provider] -
[2017-01-05] MEDS ORDERED: D5 IVPB ONE (14:00)
[2017-01-05] MEDS ORDERED: WATER IVPB ONE (14:00)
[2017-01-05] MEDS ORDERED: CEFTAZIDIME IVPB ONE (14:00)
[2017-01-05] MEDS ORDERED: Lacri-Lube 3.5 GM TUBE BOTH EYES PRN (17:28)
[2017-01-05] MEDS ORDERED: Cefepime HCl 1,000 MG in D5% in Water (Mini-Bag+) 100 ML IVPB SCH (18:00)
--- NOTE | 2017-01-05 18:28 | Electrocardiograph Report ---
[address] [place], [place] [address] Test Date: 2017-01-03 Pat Name: Shyam Ackerman Department: 109 Room: 02 Gender: M Pattern Filer: VIOLETTE : 1955 Requested By: Tia Mcdonald Order Number: [id number] Reading MD: Supriya Oliveira Measurements Intervals [place] Rate: 104 P: MD: 0 QRS: 73 QRSD: 108 T: 73 QT: 312 QTc: 372 Interpretive Statements SINUS TACHYCARDIA FIRST DEGREE AVB POSSIBLE ANTERIOR MYOCARDIAL INFARCTION, OF INDETERMINATE AGE POSSIBLE INFERIOR MYOCARDIAL INFARCTION, PROBABLY OLD Electronically Signed On 01-05-2017 18:26:44 EDT by Supriya Oliveira
[2017-01-05] MEDS ORDERED: Chlorhexidine Rinse 15 ML MOUTHWASH MM SCH (21:00)
[2017-01-05] MEDS: Lacri-Lube 3.5 GM TUBE BOTH EYES SCH (21:29)
[2017-01-06] MEDS: Lacri-Lube 3.5 GM TUBE BOTH EYES SCH ×6 (00:03→21:14)
[2017-01-06] MEDS: methylPREDNISolone 125 MG/2 ML VIAL IVP SCH ×3 (00:03→16:09)
[2017-01-06] MEDS: FentaNYL (PF) 1,000 MCG in 0.9 % Sodium Chloride 80 ML IVC SCH ×5 (02:30→19:47)
[2017-01-06 03:25] LABS: Basophils % 0.2 %; Hematocrit 31.7 % (37.5-50.1); Hemoglobin 10.2 g/dL (12.9-16.9); Immature Granulocytes % 1.6 % (0-4); Lymphocytes # 0.4 K/mcL (0.6-4.6); Lymphocytes % 3.8 %; Mean Corpuscular HGB Conc 32.2 g/dL (31.6-35.5); Mean Corpuscular Hemoglobin 32.7 pg (28.0-33.3); Mean Corpuscular Volume 101.6 fL (83.0-100.0); Mean Platelet Volume 11.3 fL (9.4-12.4); Monocytes # 0.6 K/mcL (0.0-1.3); Neutrophils # 8.7 K/mcL (1.6-8.9); Nucleated Red Blood Cells 0.2 /100 WBC (0); Platelet Count 213 K/mcL (140-400); Red Blood Count 3.12 M/mcL (4.19-5.50); Red Cell Distribution Width 13.9 % (11.5-14.5); Segmented Neutrophils % 88.4 %
[2017-01-06 03:34] LABS: Ionized Calcium 1.33 mmol/L (1.15-1.35)
[2017-01-06] MEDS: Ipratropium/Albuterol Neb 3 ML IH SCH ×5 (03:35→19:33)
[2017-01-06 03:44] LABS: Calcium 12.3 mg/dL (8.6-10.8); Magnesium 2.7 mg/dL (1.6-2.6); Phosphorous 10.8 mg/dL (2.3-4.7); Potassium 5.6 mEq/L (3.5-4.5)
[2017-01-06] MEDS: Dexmedetomidine HCl 400 MCG/100 ML MLS IVC SCH ×2 (03:56→08:01)
[2017-01-06 04:15] LABS: ABG Base Excess 2.9 mEq/L (-2.0 to 3.0); ABG HCO3 29.4 mEQ/L (21-27); ABG Oxygen Saturation 95 % (95-98); ABG PCO2 52 mmHg (35-45); ABG PH 7.36 pH Units (7.32-7.45); ABG PO2 80 mmHg (85-104)
[2017-01-06 04:16] LABS: Blood Gas FiO2 80 %
[2017-01-06] MEDS: *HR* Heparin 5,000 UNIT/ML VIAL SQ SCH ×2 (06:02→18:00)
[2017-01-06] MEDS: Pantoprazole 40 MG VIAL IVPB SCH (06:02)
[2017-01-06] MEDS: Levothyroxine 25 MCG TABLET PO SCH (06:02)
[2017-01-06] MEDS: Aspirin 81 MG TAB.CHEW PO SCH (08:00)
[2017-01-06] MEDS: Chlorhexidine Rinse 15 ML MOUTHWASH MM SCH ×2 (08:00→21:15)
[2017-01-06] MEDS: FLUoxetine 20 MG CAPSULE PO SCH (08:00)
[2017-01-06] MEDS: Budesonide/Formoterol 80/4.5 MDI IH SCH ×2 (08:32→19:33)
--- NOTE | 2017-01-06 08:56 | Pulmonology Progress Note ---
<Chel Torres - Last Filed: 01/06/17 10:41> Date of Encounter: 01/06/17 Time of Encounter: 08:52 Assessment and Plan (1) Acute respiratory failure with hypoxia Current Visit: Yes Status: Acute Acute on chronic respiratory failure with hypoxia -- Patient with respiratory failure intubated in the ED due to failure to protect his airway secondary to his altered mental status. Patient has been intubated for 8 days now. Continues to require high amounts of supplemental oxygen - FiO2 of 70%. Continue hypoxia is likely secondary to bacterial pneumonia with exacerbation of patients underlying COPD, on home O2. CT scan was negative for PE, showed emphysema and atalectasis/pneumonia. - Continue high ventilatory settings, wean as tolerated - Continue antibiotics - Continue symbicort, IV steroids and schedule duonebs. (2) COPD with acute exacerbation Current Visit: Yes Status: Acute Acute COPD exacerbation -- Patient with underlying COPD on home oxygen. Current exacerbation likely secondary to aspiration pneumonia. On appropriate antibiotic coverage for aspiration pneumonia. Will continue supportive care - Duonebs scheduled Q4H - Solu-medrol 80mg Q8H - Continue home symbicort - Continue antibiotics - Wean vent settings as tolerated (3) Aspiration pneumonia Current Visit: Yes Status: Acute Aspiration pneumonia -- Sputum culture grew MDR pseudomonas. He initially received ceftriaxone for coverage of aspiration pneumonia. This was changed to cefepime and ciprofloxicin based on culture growth (2 days). Due to culture sensitivity, antibiotics were broadened to ceftazidime and ciprofloxicin (day 2) . Plan for a total of 14 days of appropriate antibiotic coverage (day 4/14). Continue supportive care. - Continue ciprofloxicin (day 4) - Continue ceftazidime (day 2) - Continue duonebs, steroids, home symbicort - Wean vent settings as tolerated (4) Altered mental status Current Visit: Yes Status: Acute Patient admitted with altered mental status for several days. Intubated in the ED due to inability to protect his airway. Head CT on admission negative. Altered mental status believed to be secondary to polypharmacy with neurotin and opioids in the setting of ESRD. Due to agitation with the vent, patient is sedated. He is still requiring elevated vent settings. - Supportive care - Continue sedation - Will wean sedation as tolerated Qualifiers: Altered mental status type: unspecified Qualified Code(s): R41.82 - Altered mental status, unspecified (5) Atrial fibrillation Current Visit: Yes Status: Acute Patient with history of atrial fibrillation on carvedilol 50mg BID and ASA at home. Currently heart rate is running between 90-115. B-jus as been on hold due to patient's lower blood pressures. Will monitor this morning. If patient does not require more vasopressors, will restart B-jus. If we are not able to do that, we will consider starting amiodarone drip today. - Monitor heart rate - Continue ASA Qualifiers: Atrial fibrillation type: chronic Qualified Code(s): I48.2 - Chronic atrial fibrillation (6) Hypotension Current Visit: Yes Status: Acute Patient with hypotension requiring levophed, currently weaned off. Blood pressure in the 80-90s/60s maintaining MAP >60. Monitor blood pressure. He may require vassopressors again with dialysis today. - Monitor blood pressure - Vassopressors if needed to maintain MAP >60 Qualifiers: Hypotension type: hypotension due to drug Qualified Code(s): I95.2 - Hypotension due to drugs (7) ESRD (end stage renal disease) on dialysis Current Visit: No Status: Chronic Patient with history of ESRD s/p failed renal transplant now on dialysis. Scheduled dialysis MWF. Nephrology consulted. - Appreciate nephrology recommendations - Dialysis MWF - Continue medications per his transplant cook italian style food including bactrim and prednisone. (8) CHF (congestive heart failure) Current Visit: No Status: Chronic Patient with reported history of CHF. Last ECHO showed LVEF 60% and mild diastolic dysfunction. ECHO this admission shows hyperdyamic left ventricle with EF of 70%. - Monitor fluid status Qualifiers: Congestive heart failure type: diastolic Congestive heart failure chronicity: acute on chronic Qualified Code(s): I50.33 - Acute on chronic diastolic (congestive) heart failure (9) DVT prophylaxis Current Visit: No Status: Acute Heparin Neuro: Altered mental status likely secondary to polypharmcy with ESRD. Maintain sedation. Daily sedation vacations. Pulm: Acute respiratory failure requiring FiO2 80% likely due to COPD and pseudomonas pneumonia. Continue antibiotics. On duonebs, symbicort, steroids. Cause of continued hypoxia is uncertain. Wean vent settings as tolerated Cardiac: Hypotensive with sedation. Not currently requiring vasopressors. Continue to monitor blood pressure. Maintain MAP >60. Monitor atrial fibrillation - may require B-jus or amio GI/Fluids/Electrolytes: Will adjust tube feeds due to high residuals. Protonix ppx Renal: ESRD. Dialysis MWF ID: MDR pseudomonas on ceftazidime and cipro. Heme/Onc: Heparin for DVT ppx Endocrine: Monitor glucose levels Skin: pressure ulcer on forehead and coccyx - continue ICU skin care Lines: Femoral CVC, ET, OG Dispo: ICU Subjective Principal diagnosis: Altered Mental Status Interval history: Mr Ackerman is a 61yo male admitted 12/29/2016 with AMS believed secondary to polypharmacy in setting of ESRD. Found to have MDR pseudomonas pneumonia. No acute events overnight. Patient remains sedated with precedex and fentanyl. He continues to require high FiO2 settings of 80% to maintain oxygen saturation. Patient is in atrial fibrillation with heart rate 90s-120. He was afebrile overnight. RR in the 20s. He was weaned off of levophed and is currently maintaining MAPS >60 with no vassopressor support. Patient seen and examined. He opens his eyes to voice and is a little agitated , overbreathing the vent. Lungs diminished with diffuse rhonchi and fine wheezing. Abdomen soft, non-tender. No pedal edema noted. Objective PUL Vital signs: Last Vital Signs Temp 97.7 F 01/06/17 07:31 Pulse 115 01/06/17 08:00 Resp 19 01/06/17 08:01 BP 92/65 01/06/17 08:00 Pulse Ox 90 01/06/17 08:01 General appearance: other (Intubated and sedated. Will open eyes spontaneously and to voice) Eyes: nonicteric ENT: oropharynx moist Effort: mildly labored Auscultation: bilateral: diminished breath sounds, wheezes, rhonchi Cardiovascular: irregular rhythm (Atrial fibrillation rate 90s-120) Gastrointestinal: soft, non-tender, non-distended Integumentary: normal Extremities: no cyanosis, no edema Musculoskeletal: other (Right ankle chronical deformed and enlarged) unable to assess due to mental status Ventilator Settings Ventilator Settings: Ventilator Settings, Last 8 Hours Ventilator Mode VC+ Ventilator Mode VC+ Ventilator Mode VC+ Ventilator Mode VC+ Ventilator Mode VC+ Ventilator Mode VC+ Ventilator Mode VC+ Ventilator Tidal Volume 650 Setting Ventilator Tidal Volume 650 Setting Ventilator Tidal Volume 600 Setting Ventilator Tidal Volume 600 Setting Ventilator Tidal Volume 600 Setting Ventilator Tidal Volume 600 Setting Ventilator Tidal Volume 600 Setting Ventilator Respiratory Rate 14 Setting Ventilator Respiratory Rate 14 Setting Ventilator Respiratory Rate 20 Setting Ventilator Respiratory Rate 20 Setting Ventilator Respiratory Rate 20 Setting Ventilator Respiratory Rate 20 Setting Ventilator Respiratory Rate 20 Setting Actual Respiratory Rate 18 Actual Respiratory Rate 18 Actual Respiratory Rate 20 Actual Respiratory Rate 20 Actual Respiratory Rate 20 Actual Respiratory Rate 29 Positive End Expiratory 12 Pressure Positive End Expiratory 12 Pressure Positive End Expiratory 12 Pressure Positive End Expiratory 12 Pressure Positive End Expiratory 12 Pressure Positive End Expiratory 12 Pressure Positive End Expiratory 12 Pressure Peak Inspiratory Airway 33 Pressure Peak Inspiratory Airway 32 Pressure Peak Inspiratory Airway 33 Pressure Peak Inspiratory Airway 32 Pressure Peak Inspiratory Airway 33 Pressure Peak Inspiratory Airway 21 Pressure Results - Laboratory Findings CBC and BMP: 01/06/17 03:18 01/06/17 03:18 ABG ABG pH 7.36 pH Units (7.32-7.45) 01/06/17 04:08 ABG pCO2 52 mmHg (35-45) H 01/06/17 04:08 ABG pO2 80 mmHg (85-104) L 01/06/17 04:08 ABG O2 Saturation 95 % (95-98) 01/06/17 04:08 PT/INR, D-dimer PT 15.5 Seconds (9.4-12.1) H 01/03/17 07:54 Abnormal lab findings: Abnormal lab results RBC 3.12 M/mcL (4.19-5.50) L 01/06/17 03:18 Hgb 10.2 g/dL (12.9-16.9) L D 01/06/17 03:18 Hct 31.7 % (37.5-50.1) L 01/06/17 03:18 MCV 101.6 fL (83.0-100.0) H 01/06/17 03:18 Band Neutrophils % 6.0 % (0-4) H 01/04/17 04:25 Metamyelocytes % 2.0 % (0) H 01/04/17 04:25 Lymphocytes # 0.4 K/mcL (0.6-4.6) L 01/06/17 03:18 Nucleated RBCs/100 WBC 0.2 /100 WBC (0) H 01/06/17 03:18 Reactive Lymphocytes Present (Not Present) A 01/03/17 03:28 Toxic Granulation Present (Not Present) A 01/04/17 04:25 Large Platelets Present (Not Present) A 01/04/17 04:25 Polychromasia 1+ (Not Present) A 01/04/17 04:25 Poikilocytosis 1+ (Not Present) A 01/04/17 04:25 Anisocytosis 1+ (Not Present) A 01/04/17 04:25 Macrocytosis Present (Not Present) A 01/04/17 04:25 Tear Drop Cells 2+ (Not Present) A 01/04/17 04:25 PT 15.5 Seconds (9.4-12.1) H 01/03/17 07:54 ABG pCO2 52 mmHg (35-45) H 01/06/17 04:08 ABG pO2 80 mmHg (85-104) L 01/06/17 04:08 ABG HCO3 29.4 mEQ/L (21-27) H 01/06/17 04:08 ABG Total CO2 31.0 mEq/L (20-26) H 01/06/17 04:08 VBG pH 7.26 pH Units (7.32-7.42) L 01/03/17 20:00 VBG pCO2 64 mmHg (41-51) H 01/03/17 20:00 VBG pO2 53 mmHg (25-40) H 01/03/17 20:00 VBG HCO3 28.7 mEq/L (21-27) H 01/03/17 20:00 Potassium 5.6 mEq/L (3.5-4.5) H 01/06/17 03:18 Chloride 90 mEq/L (98-109) L 01/06/17 03:18 BUN 116 mg/dL (8-26) H D 01/06/17 03:18 Creatinine 7.02 mg/dL (0.72-1.25) H 01/06/17 03:18 Est GFR ( Amer) 10 (> 60) L 01/06/17 03:18 Est GFR (Non-Af Amer) 8 (> 60) L 01/06/17 03:18 Glucose 131 mg/dL (70-99) H 01/06/17 03:18 POC Glucose 137 (58-89) H 01/05/17 12:00 Calculated Osmolality 321 (280-300) H 01/06/17 03:18 Calcium 12.3 mg/dL (8.6-10.8) H 01/06/17 03:18 Phosphorus 10.8 mg/dL (2.3-4.7) H 01/06/17 03:18 Magnesium 2.7 mg/dL (1.6-2.6) H 01/06/17 03:18 AST 39 Units/L (5-34) H 01/05/17 05:13 Albumin 2.8 g/dL (3.5-5.0) L 01/05/17 05:13 Globulin 4.3 g/dL (2.4-3.5) H 01/05/17 05:13 Albumin/Globulin Ratio 0.7 (1.1-2.2) L 01/05/17 05:13 PTH Intact 691.4 pg/ml (8.5-72.5) H 01/05/17 14:19 Urine Clarity Turbid (Clear) A 12/29/16 15:51 Urine Protein 100 mg/dL (Neg-Trace) H 12/29/16 15:51 Urine Blood Moderate (Negative) H 12/29/16 15:51 Urine Bilirubin Small (Negative) H 12/29/16 15:51 Ur Leukocyte Esterase Large (Negative) H 12/29/16 15:51 Urine Microscopic RBC 15-30 per hpf (0-3) H 12/29/16 15:51 Urine Microscopic WBC TNTC per hpf (0-3) H 12/29/16 15:51 Salicylates < 5.0 mg/dL (15-30) L 12/30/16 09:14 Urine Opiates Screen Positive ng/mL ([id number]) H 12/29/16 16:46 Acetaminophen < 1.0 mcg/mL (10-30) L 12/30/16 09:14 - Microbiology Findings Microbiology Findings: Microbiology, Last 48 Hours 12/29/16 21:38 Blood Culture - Final Peripheral Venipuncture No growth. 12/29/16 21:33 Blood Culture - Final Peripheral Venipuncture No growth. 01/02/17 10:35 Sputum Culture - Final Sputum P. aeruginosa MDRO - Diagnostic Findings Chest x-ray: report reviewed, image reviewed - Clinical Findings Intake & Output: Intake & Output 01/05/17 01/06/17 01/06/17 23:59 07:59 15:59 Intake Total 342 / 342 399 / 399 197 / 197 Output Total 0 / 0 Balance 342 / 342 399 / 399 197 / 197 Consult Discharge Plan - Plan Referrals: NO,PCP [Primary Care Provider] - <Yelitza Randle - Last Filed: 01/06/17 12:18> Date of Encounter: 01/06/17 Objective PUL Vital signs: Last Vital Signs Temp 97.2 F L 01/06/17 11:11 Pulse 97 01/06/17 10:00 Resp 17 01/06/17 11:17 BP 95/60 01/06/17 12:00 Pulse Ox 87 01/06/17 11:17 Ventilator Settings Ventilator Settings: Ventilator Settings, Last 8 Hours Ventilator Mode VC+ Ventilator Mode VC+ Ventilator Mode VC+ Ventilator Mode VC+ Ventilator Mode VC+ Ventilator Mode VC+ Ventilator Mode VC+ Ventilator Mode VC+ Ventilator Tidal Volume 650 Setting Ventilator Tidal Volume 650 Setting Ventilator Tidal Volume 650 Setting Ventilator Tidal Volume 650 Setting Ventilator Tidal Volume 650 Setting Ventilator Tidal Volume 650 Setting Ventilator Tidal Volume 600 Setting Ventilator Tidal Volume 600 Setting Ventilator Respiratory Rate 14 Setting Ventilator Respiratory Rate 14 Setting Ventilator Respiratory Rate 14 Setting Ventilator Respiratory Rate 14 Setting Ventilator Respiratory Rate 14 Setting Ventilator Respiratory Rate 14 Setting Ventilator Respiratory Rate 20 Setting Ventilator Respiratory Rate 20 Setting Actual Respiratory Rate 23 Actual Respiratory Rate 18 Actual Respiratory Rate 15 Actual Respiratory Rate 18 Actual Respiratory Rate 18 Actual Respiratory Rate 20 Actual Respiratory Rate 20 Positive End Expiratory 12 Pressure Positive End Expiratory 12 Pressure Positive End Expiratory 12 Pressure Positive End Expiratory 12 Pressure Positive End Expiratory 12 Pressure Positive End Expiratory 12 Pressure Positive End Expiratory 12 Pressure Positive End Expiratory 12 Pressure Peak Inspiratory Airway 30 Pressure Peak Inspiratory Airway 24 Pressure Peak Inspiratory Airway 23 Pressure Peak Inspiratory Airway 33 Pressure Peak Inspiratory Airway 32 Pressure Peak Inspiratory Airway 33 Pressure Peak Inspiratory Airway 32 Pressure Results - Laboratory Findings CBC and BMP: 01/06/17 03:18 01/06/17 03:18 ABG ABG pH 7.33 pH Units (7.32-7.45) 01/06/17 08:58 ABG pCO2 50 mmHg (35-45) H 01/06/17 08:58 ABG pO2 79 mmHg (85-104) L 01/06/17 08:58 ABG O2 Saturation 95 % (95-98) 01/06/17 08:58 PT/INR, D-dimer PT 15.5 Seconds (9.4-12.1) H 01/03/17 07:54 Abnormal lab findings: Abnormal lab results RBC 3.12 M/mcL (4.19-5.50) L 01/06/17 03:18 Hgb 10.2 g/dL (12.9-16.9) L D 01/06/17 03:18 Hct 31.7 % (37.5-50.1) L 01/06/17 03:18 MCV 101.6 fL (83.0-100.0) H 01/06/17 03:18 Band Neutrophils % 6.0 % (0-4) H 01/04/17 04:25 Metamyelocytes % 2.0 % (0) H 01/04/17 04:25 Lymphocytes # 0.4 K/mcL (0.6-4.6) L 01/06/17 03:18 Nucleated RBCs/100 WBC 0.2 /100 WBC (0) H 01/06/17 03:18 Reactive Lymphocytes Present (Not Present) A 01/03/17 03:28 Toxic Granulation Present (Not Present) A 01/04/17 04:25 Large Platelets Present (Not Present) A 01/04/17 04:25 Polychromasia 1+ (Not Present) A 01/04/17 04:25 Poikilocytosis 1+ (Not Present) A 01/04/17 04:25 Anisocytosis 1+ (Not Present) A 01/04/17 04:25 Macrocytosis Present (Not Present) A 01/04/17 04:25 Tear Drop Cells 2+ (Not Present) A 01/04/17 04:25 PT 15.5 Seconds (9.4-12.1) H 01/03/17 07:54 ABG pCO2 50 mmHg (35-45) H 01/06/17 08:58 ABG pO2 79 mmHg (85-104) L 01/06/17 08:58 ABG Total CO2 27.9 mEq/L (20-26) H 01/06/17 08:58 VBG pH 7.26 pH Units (7.32-7.42) L 01/03/17 20:00 VBG pCO2 64 mmHg (41-51) H 01/03/17 20:00 VBG pO2 53 mmHg (25-40) H 01/03/17 20:00 VBG HCO3 28.7 mEq/L (21-27) H 01/03/17 20:00 Potassium 5.6 mEq/L (3.5-4.5) H 01/06/17 03:18 Chloride 90 mEq/L (98-109) L 01/06/17 03:18 BUN 116 mg/dL (8-26) H D 01/06/17 03:18 Creatinine 7.02 mg/dL (0.72-1.25) H 01/06/17 03:18 Est GFR ( Amer) 10 (> 60) L 01/06/17 03:18 Est GFR (Non-Af Amer) 8 (> 60) L 01/06/17 03:18 Glucose 131 mg/dL (70-99) H 01/06/17 03:18 POC Glucose 119 (58-89) H 01/06/17 10:54 Calculated Osmolality 321 (280-300) H 01/06/17 03:18 Calcium 12.3 mg/dL (8.6-10.8) H 01/06/17 03:18 Phosphorus 10.8 mg/dL (2.3-4.7) H 01/06/17 03:18 Magnesium 2.7 mg/dL (1.6-2.6) H 01/06/17 03:18 AST 39 Units/L (5-34) H 01/05/17 05:13 Albumin 2.8 g/dL (3.5-5.0) L 01/05/17 05:13 Globulin 4.3 g/dL (2.4-3.5) H 01/05/17 05:13 Albumin/Globulin Ratio 0.7 (1.1-2.2) L 01/05/17 05:13 PTH Intact 691.4 pg/ml (8.5-72.5) H 01/05/17 14:19 Urine Clarity Turbid (Clear) A 12/29/16 15:51 Urine Protein 100 mg/dL (Neg-Trace) H 12/29/16 15:51 Urine Blood Moderate (Negative) H 12/29/16 15:51 Urine Bilirubin Small (Negative) H 12/29/16 15:51 Ur Leukocyte Esterase Large (Negative) H 12/29/16 15:51 Urine Microscopic RBC 15-30 per hpf (0-3) H 12/29/16 15:51 Urine Microscopic WBC TNTC per hpf (0-3) H 12/29/16 15:51 Salicylates < 5.0 mg/dL (15-30) L 12/30/16 09:14 Urine Opiates Screen Positive ng/mL ([id number]=[id number]) H 12/29/16 16:46 Acetaminophen < 1.0 mcg/mL (10-30) L 12/30/16 09:14 - Microbiology Findings Microbiology Findings: Microbiology, Last 48 Hours 12/29/16 21:38 Blood Culture - Final Peripheral Venipuncture No growth. 12/29/16 21:33 Blood Culture - Final Peripheral Venipuncture No growth. 01/02/17 10:35 Sputum Culture - Final Sputum P. aeruginosa MDRO - Clinical Findings Intake & Output: Intake & Output 01/05/17 01/06/17 01/06/17 23:59 07:59 15:59 Intake Total 342 / 342 399 / 399 949 / 949 Output Total 0 / 0 Balance 342 / 342 399 / 399 949 / 949 - Attending Attestation I examined this patient and my medical decision-making was reviewed with the TURN SUPERVISOR/PA/Advanced Practice Nurse/Resident Physician. I agree with the documented findings, disposition and treatment plan as described except to the extent set forth below. Patient seen and examined. Labs, radiology, chart personally reviewed. Agree with resident's history and physical, assessment, plan with following comments: INFORMATION TECHNOLOGY ADVISOR: Patient sedated before the event synchrony and due to significant auto PEEP will need patient to be with deep sedation, Pulmonary: There is significant amount of PEEPi on the ventilator due to his underlying COPD and increased his tidal volume with lowering his respiratory rate for patient to be able to exhale longer and get rid of auto PEEP Cardiovascular: There is some improvement,. Patient has chronic A. fib with the rate is acceptable, he blood pressure remain stable we will resume low dose beta jus GI: Nutrition per dietary and GI prophylaxis per routine Heme: DVT prophylaxis per routine ID: Continue antibiotics and plan to de-escalation Renal; urine out put and renal funtion reviewed. Nephrology follow-up and hemodialysis Endorcine: blood glucose is monitored Lines: all lines checked and no evidence of infections Skin: skin care to prevent pressure ulcers per nursing routine care I spent 35 min of Critical Care time with this patient. It involved decision making of high complexity to assess, manipulate, and support vital organ system failure and/or to prevent further life threatening deterioration of the patient' s condition. The time involved in the performance of separately reportable procedures was not counted toward critical care time.
[2017-01-06] MEDS ORDERED: Levofloxacin 500 MG/100 ML 500 MG/100 ML BAG IVPB SCH (09:00)
[2017-01-06 09:08] LABS: ABG Base Excess -0.1 mEq/L (-2.0 to 3.0); ABG HCO3 26.4 mEQ/L (21-27); ABG Oxygen Saturation 95 % (95-98); ABG PCO2 50 mmHg (35-45); ABG PH 7.33 pH Units (7.32-7.45); ABG PO2 79 mmHg (85-104); ABG TCO2 27.9 mEq/L (20-26); Blood Gas FiO2 80 %; Blood Gas PEEP 5 cm H2O; Blood Gas Respiration Rate 14; Blood Gas VT 650 cc
[2017-01-06] MEDS ORDERED: 0.9 % Sodium Chloride 250 ML IVC PRN (10:20)
[2017-01-06] MEDS ORDERED: Albumin 25% 25gram/100mL 25 GM/100 ML IV.SOLN IVPB PRN (10:33)
[2017-01-06] MEDS ORDERED: 0.9 % Sodium Chloride 2,000 ML ONE (10:46)
[2017-01-06] MEDS ORDERED: Albumin 25% 12.5gm/50mL 25.0 GM/100 ML IV.SOLN ONE (10:46)
[2017-01-06] MEDS: Norepinephrine 4 MG in D5% in Water 250 ML IVC SCH (11:14)
--- NOTE | 2017-01-06 13:22 | Nephrology Progress Note ---
Date of Encounter: 01/06/17 - Assessment and Plan (1) ESRD (end stage renal disease) on dialysis Current Visit: No Status: Chronic Next HD planned for wednesday (2) Altered mental status Current Visit: Yes Status: Acute Improving, will keep off opiates and gabapentin for now Qualifiers: Altered mental status type: unspecified Qualified Code(s): R41.82 - Altered mental status, unspecified (3) Acute on chronic respiratory failure with hypoxia and hypercapnia Current Visit: No Status: Acute Vent setting adjustments per primary team. (4) Urinary tract infection Current Visit: Yes Status: Acute Antibiotics per primary team Qualifiers: Urinary tract infection type: site unspecified Hematuria presence: without hematuria Qualified Code(s): N39.0 - Urinary tract infection, site not specified (5) Hyperkalemia Current Visit: Yes Status: Acute Potassium noted elevated at 6.0, will dose with kayexalate Subjective Principal diagnosis: Altered Mental Status Interval history: Pt seen and examined still intubated and sedated. Per nurse, started on pressor support with levophed. Objective - Vital Signs Vital signs: Vital Signs Temp Pulse Resp BP Pulse Ox 01/06/17 13:15 117/54 01/06/17 13:00 109 14 99/69 91 01/06/17 12:45 102/63 01/06/17 12:30 90/62 01/06/17 12:15 92/59 01/06/17 12:00 99 14 90/69 91 01/06/17 11:45 97/73 01/06/17 11:30 106 102/72 01/06/17 11:17 17 87 01/06/17 11:15 77/63 01/06/17 11:11 97.2 F L 01/06/17 11:00 110 22 105/78 88 01/06/17 10:45 85/64 01/06/17 10:30 97.7 F 18 92/57 01/06/17 10:00 97 18 91/62 92 01/06/17 09:00 87 15 88/58 94 01/06/17 08:01 19 90 01/06/17 08:00 115 15 92/65 91 01/06/17 07:31 97.7 F 01/06/17 07:00 121 22 88/72 89 05/31/17 06:28 20 92 01/06/17 06:00 117 21 96/67 91 01/06/17 05:00 116 20 103/70 92 01/06/17 04:00 98.6 F 133 20 116/68 94 01/06/17 03:35 29 92 01/06/17 03:00 127 20 100/76 94 01/06/17 02:00 115 22 105/66 90 01/06/17 01:00 122 20 108/72 92 01/06/17 00:00 98.3 F 118 20 110/61 94 01/05/17 23:53 22 92 01/05/17 23:00 102 20 71/59 92 01/05/17 22:00 94 23 72/55 88 01/05/17 21:00 110 26 85/62 91 01/05/17 20:33 20 91 01/05/17 20:00 98.7 F 114 25 107/77 91 01/05/17 19:55 98.7 F 01/05/17 19:00 111 22 110/62 90 01/05/17 18:30 22 116/82 93 01/05/17 18:04 22 89 01/05/17 18:00 117 20 80/55 93 01/05/17 17:00 110 20 92/63 90 01/05/17 16:00 97.6 F 108 20 109/82 92 01/05/17 15:56 97.6 F 01/05/17 15:37 21 93 01/05/17 15:00 112 21 96/67 92 01/05/17 14:00 104 20 118/79 92 01/05/17 13:50 20 92 Intake and Output 01/05/17 01/06/17 01/06/17 23:59 07:59 15:59 Intake Total 342 / 342 399 / 399 1031 / 1031 Output Total 0 / 0 Balance 342 / 342 399 / 399 1031 / 1031 Intake: IV Fluids 304 / 304 319 / 319 252 / 252 PRECEDEX 400 mcg In 100 100 / 100 100 / 100 150 / 150 ml @ 0.2 MCG/KG/HR 3.825 mls/hr IVC .Q24H [facility] Rx#: [id number] FentaNYL (PF) 1,000 MCG 100 / 100 200 / 200 100 / 100 In 0.9 % Sodium Chloride 80 ML @ 50 MCG/HR 5 mls/ hr IVC [facility] Rx#: [id number] Levophed 4 MG In Dextrose 4 / 4 19 / 19 0 / 0 5% 250 ML @ 2 MCG/MIN 7. 5 mls/hr IVC [facility] Rx #:[id number] Diprivan 1,000 mg In 100 2 / 2 ml @ 5 MCG/KG/MIN 2.353 mls/hr IVC .Q24H [facility] Rx#: [id number] Tazicef 500 mg In 100 / 100 Dextrose 5% 100 ML @ 200 mls/hr IVPB ONCE ONE Rx#: [id number] Oral 0 / 0 Tube Feeding 38 / 38 80 / 80 69 / 69 Intake, Rinseback and 600 / 600 Flushes Free Water Intake Amount 0 / 0 110 / 110 Output: Urine 0 / 0 Rectal Tube 0 / 0 Other: # Urine Diapers 0 Blood Glucose* 119 Hemodialysis Net Fluid 2475 Removed (mL) - Lab 01/06/17 03:18 01/06/17 03:18 Most recent lab results ABG pH 7.33 pH Units (7.32-7.45) 01/06/17 08:58 ABG pCO2 50 mmHg (35-45) H 01/06/17 08:58 ABG pO2 79 mmHg (85-104) L 01/06/17 08:58 ABG HCO3 26.4 mEQ/L (21-27) 01/06/17 08:58 ABG O2 Saturation 95 % (95-98) 01/06/17 08:58 Calcium 12.3 mg/dL (8.6-10.8) H 01/06/17 03:18 Phosphorus 10.8 mg/dL (2.3-4.7) H 01/06/17 03:18 Magnesium 2.7 mg/dL (1.6-2.6) H 01/06/17 03:18 Consult Discharge Plan - Plan Referrals: NO,PCP [Primary Care Provider] -
[2017-01-06] MEDS ORDERED: Amiodarone Premix 150 MG/100 ML BAG IVPB ONE (14:29)
[2017-01-06] MEDS ORDERED: Amiodarone Premix 360 MG/200 ML BAG IVC ONE (14:29)
[2017-01-06] MEDS: D5 IVPB SCH (14:47)
[2017-01-06] MEDS: CEFTAZIDIME IVPB SCH (14:47)
[2017-01-06] MEDS: WATER IVPB SCH (14:47)
--- NOTE | 2017-01-06 17:51 | Event Note ---
<Peter Godwin - Last Filed: 01/06/17 17:52> Date of Encounter: 01/06/17 Time of Encounter: 17:47 Procedure Note: Central Venous Catheter Insertion Indication:Shock. Need for Central venous access. Attending Physician: Yelitza Randle M.D. [employer] Plant Maintainer: Peter Godwin D.O. PGY3 Business Analyst Manager: Len Brown D.O PGY1 Indication: This is a 61 year-old male next filled with hypotension requiring vasopressor agents. . Consent: Detailed explanation of the procedure, treatment options, risks including but not limited to infection and bleeding, and benefits were explained to the patient's son. A written informed consent was obtained. Technique: A time out was preformed identifying the correct procedure, the correct location with the nursing staff. The right neck was prepped with 2% chlorhexidine and draped with a full length sterile sheet in the usual fashion. The right internal jugular vein was accessed under ultrasound guidance with an 18 gauge thin wall needle. Placement was confirmed with the guidewire via ultrasound. A triple lumen catheter was then inserted via the seldinger technique. Blood was withdrawn from all lumens and flushed with normal saline. The catheter was sutured in place and a sterile dressing was applied over the site prior to removal of drapes. The patient tolerated the procedure well and there were no complications. Chest x ray: CXR was ordered and CVC appears to be in place. Final report pending. EBL: Minimal Complication: None <Yelitza Randle - Last Filed: 01/06/17 17:57> Date of Encounter: 01/06/17 I examined this patient and my medical decision-making was reviewed with the PUBLIC SERVICES ASSISTANT/PA/Advanced Practice Nurse/Resident Physician. I agree with the documented findings, disposition and treatment plan as described except to the extent set forth below. I have personally supervised and assisted resident's placing central lines without immediate complications
[2017-01-06] MEDS: Amiodarone Premix 360 MG/200 ML BAG IVC SCH (21:13)
[2017-01-07] MEDS: FentaNYL (PF) 3,000 MCG in 0.9 % Sodium Chloride 240 ML IVC SCH ×3 (00:02→23:40)
[2017-01-07] MEDS: Ipratropium/Albuterol Neb 3 ML IH SCH ×6 (00:06→20:25)
[2017-01-07] MEDS: Lacri-Lube 3.5 GM TUBE BOTH EYES SCH ×7 (00:38→23:50)
[2017-01-07] MEDS: methylPREDNISolone 125 MG/2 ML VIAL IVP SCH ×3 (00:38→17:03)
[2017-01-07 04:17] LABS: Basophils % 0.2 %; Hematocrit 37.1 % (37.5-50.1); Immature Granulocytes % 2.1 % (0-4); Lymphocytes # 0.2 K/mcL (0.6-4.6); Lymphocytes % 2.5 %; Mean Corpuscular HGB Conc 32.3 g/dL (31.6-35.5); Mean Corpuscular Hemoglobin 33.1 pg (28.0-33.3); Mean Corpuscular Volume 102.5 fL (83.0-100.0); Mean Platelet Volume 10.9 fL (9.4-12.4); Monocytes # 0.4 K/mcL (0.0-1.3); Monocytes % 3.9 %; Neutrophils # 8.6 K/mcL (1.6-8.9); Nucleated Red Blood Cells 0.2 /100 WBC (0); Platelet Count 164 K/mcL (140-400); Red Blood Count 3.62 M/mcL (4.19-5.50); Red Cell Distribution Width 13.7 % (11.5-14.5); Segmented Neutrophils % 91.3 %
[2017-01-07 04:26] LABS: Ionized Calcium 1.45 mmol/L (1.15-1.35)
[2017-01-07 04:29] LABS: Calcium 11.9 mg/dL (8.6-10.8); Magnesium 2.4 mg/dL (1.6-2.6); Phosphorous 10.1 mg/dL (2.3-4.7); Potassium 4.3 mEq/L (3.5-4.5)
[2017-01-07 04:50] LABS: ABG Base Excess 2.5 mEq/L (-2.0 to 3.0); ABG HCO3 30.8 mEQ/L (21-27); ABG Oxygen Saturation 87 % (95-98); ABG PCO2 64 mmHg (35-45); ABG PH 7.29 pH Units (7.32-7.45); ABG PO2 59 mmHg (85-104); ABG TCO2 32.8 mEq/L (20-26)
[2017-01-07 04:51] LABS: Blood Gas FiO2 80 %
[2017-01-07] MEDS: *HR* Heparin 5,000 UNIT/ML VIAL SQ SCH ×2 (05:57→17:06)
[2017-01-07] MEDS: Pantoprazole 40 MG VIAL IVPB SCH (05:57)
[2017-01-07] MEDS: Levothyroxine 25 MCG TABLET PO SCH (06:03)
[2017-01-07 06:20] LABS: ABG Base Excess 2.5 mEq/L (-2.0 to 3.0); ABG HCO3 30.5 mEQ/L (21-27); ABG Oxygen Saturation 88 % (95-98); ABG PCO2 62 mmHg (35-45); ABG PO2 61 mmHg (85-104); ABG TCO2 32.4 mEq/L (20-26); Blood Gas FiO2 80 %
[2017-01-07] MEDS: Budesonide/Formoterol 80/4.5 MDI IH SCH ×2 (07:36→20:25)
--- NOTE | 2017-01-07 07:41 | Pulmonology Progress Note ---
<Len Brown - Last Filed: 01/07/17 13:39> Date of Encounter: 01/07/17 Time of Encounter: 07:39 Assessment and Plan (1) Acute respiratory failure with hypoxia Current Visit: Yes Status: Acute intubated (12/29) in the ED due to failure to protect his airway secondary to his altered mental status complicated by bacterial pneumonia and COPD exacerbation - continue antibiotics and scheduled bronchodilators/steroids continues to require high amounts of ventilator support, high FiO2 and PEEP - wean as tolerated, FiO2 decreased from 80 to 70% - continue to monitor and plan to come down to 60% ETT continues to slide up, continue to monitor as we make adjustments high risk for tracheostomy, will discuss plan of care with family (2) COPD with acute exacerbation Current Visit: Yes Status: Acute likely exacerbation of underlying COPD improved aeration and no wheezing continue scheduled duonebs and steroids - will de-escalate Solu-medrol to 60mg BID (3) Aspiration pneumonia Current Visit: Yes Status: Acute CTA chest 01/01 - dense consolidation in L > R suggestive of developing pneumonia or aspiration sputum culture 01/02 grew Pseudomonas MDR - initially received Ceftriaxone for coverage but changed to Cefepime and Levaquin - escalated to Ceftazidime and Cipro on 01/05 after sensitivities showed intermediate sensitivity to Cefepime and Levaquin - currently day 3 of appropriate antibiotics, expect 14 days of treatment to end 01/18 Qualifiers: Aspiration pneumonia type: unspecified Laterality: unspecified laterality Lung location: unspecified part of lung Qualified Code(s): J69.0 - Pneumonitis due to inhalation of food and vomit (4) Altered mental status Current Visit: Yes Status: Acute admitted with altered mental status, suspect secondary to polypharmacy with gabapentin and opioids in setting of ESRD CT Head 12/29 - no acute intracranial abnormality heavily sedated for vent synchrony continue supportive care avoid gabapentin and opioids Qualifiers: Altered mental status type: unspecified Qualified Code(s): R41.82 - Altered mental status, unspecified (5) Hypotension Current Visit: Yes Status: Acute resolved off vasopressors currently changed femoral CVC to R IJ CVC goal MAP >60 Qualifiers: Hypotension type: hypotension due to drug Qualified Code(s): I95.2 - Hypotension due to drugs (6) ESRD (end stage renal disease) on dialysis Current Visit: Yes Status: 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 scheduled dialysis MWF renal dose medications nephrology on board and appreciated (7) Atrial fibrillation Current Visit: Yes Status: Chronic history of chronic atrial fibrillation HR avg 78-115 started on amio EKG (01/07) reveals atrial fibrillation with HR 99 and QT/QTc 357/413 continue to monitor Qualifiers: Atrial fibrillation type: chronic Qualified Code(s): I48.2 - Chronic atrial fibrillation (8) CHF (congestive heart failure) Current Visit: No Status: Chronic history of CHF last ECHO EF 60% with mild diastolic dysfunction TTE 01/01 - suboptimal imaging to detect PFO, EF 70% with hyperdynamic LV systolic function with normal RV size and systolic function Qualifiers: Congestive heart failure type: diastolic Congestive heart failure chronicity: acute on chronic Qualified Code(s): I50.33 - Acute on chronic diastolic (congestive) heart failure (9) DVT prophylaxis Current Visit: No Status: Acute Heparin Neuro: AMS likely secondary to polypharmcy with ESRD, continue sedation; follows simple commands and moves all 4 extremities Pulm: requiring high FiO2 and PEEP, continue to wean as tolerated; sputum grew Pseudomonas MDR on appropriated antibiotics; continue scheduled duonebs and steroids; cause of continued hypoxia remains uncertain; wean vent settings as tolerated Cardiac: off pressors; MAP >60; atrial fibrillation with normal ventricular response on Amio GI/Fluids/Electrolytes: TFs adjusted but continues to have residuals; Reglan added; Protonix ppx Renal: ESRD. Dialysis MWF ID: MDR pseudomonas on ceftazidime and cipro day 3 Heme/Onc: Heparin for DVT ppx Endocrine: Monitor glucose levels, low dose ISS added Skin: pressure ulcer on forehead and coccyx - continue ICU skin care Lines: R IJ CVC, ET, OG Dispo: ICU Subjective Principal diagnosis: Altered Mental Status Interval history: No major events overnight. Patient seen and examined at bedside. Minor ventilator setting changes. Remain sedated on propofol and fentanyl. Continues to require high PEEP. Remains off pressors. He appears in no acute distress. Unable to obtain a reliable review of systems due to mental state however will follow simple commands such thumbs up and squeezed my fingers. When asked to squeeze fingers to indicate pain, he did not. Did not grimace on physical examination. Objective PUL Vital signs: Last Vital Signs Temp 96.8 F L 01/07/17 07:20 Pulse 84 01/07/17 06:00 Resp 16 01/07/17 06:06 BP 82/53 01/07/17 06:06 Pulse Ox 92 01/07/17 06:06 General appearance: no acute distress, other (Intubated and sedated, opens eyes to voice and follow simple commands) Eyes: nonicteric, other (PERRL) ENT: other (Endotracheal intubation with OG-tube) Effort: other (Mechanically ventilated) Auscultation: bilateral: clear Cardiovascular: irregular rhythm Gastrointestinal: normoactive bowel sounds, soft, non-tender, non-distended Integumentary: other (Multiple areas of ecchymosis and scabs on hands and chest) Extremities: no cyanosis, no edema, pulses normal Musculoskeletal: other (Chronic right ankle deformity) non-focal exam (Moves all 4 extremities), pupils equal and round, unable to assess due to mental status (Sedated) Ventilator Settings Ventilator Settings: Ventilator Settings, Last 8 Hours Ventilator Mode VC+ Ventilator Mode VC+ Ventilator Mode VC+ Ventilator Mode VC+ Ventilator Mode VC+ Ventilator Mode VC+ Ventilator Mode VC+ Ventilator Mode VC+ Ventilator Mode VC+ Ventilator Mode VC+ Ventilator Mode VC+ Ventilator Mode VC+ Ventilator Tidal Volume 650 Setting Ventilator Tidal Volume 650 Setting Ventilator Tidal Volume 650 Setting Ventilator Tidal Volume 650 Setting Ventilator Tidal Volume 650 Setting Ventilator Tidal Volume 650 Setting Ventilator Tidal Volume 650 Setting Ventilator Tidal Volume 650 Setting Ventilator Tidal Volume 650 Setting Ventilator Tidal Volume 650 Setting Ventilator Tidal Volume 650 Setting Ventilator Tidal Volume 650 Setting Ventilator Respiratory Rate 16 Setting Ventilator Respiratory Rate 16 Setting Ventilator Respiratory Rate 16 Setting Ventilator Respiratory Rate 16 Setting Ventilator Respiratory Rate 16 Setting Ventilator Respiratory Rate 14 Setting Ventilator Respiratory Rate 14 Setting Ventilator Respiratory Rate 14 Setting Ventilator Respiratory Rate 14 Setting Ventilator Respiratory Rate 14 Setting Ventilator Respiratory Rate 14 Setting Ventilator Respiratory Rate 14 Setting Actual Respiratory Rate 16 Actual Respiratory Rate 16 Actual Respiratory Rate 16 Actual Respiratory Rate 14 Actual Respiratory Rate 14 Actual Respiratory Rate 14 Actual Respiratory Rate 15 Actual Respiratory Rate 14 Actual Respiratory Rate 19 Actual Respiratory Rate 14 Positive End Expiratory 12 Pressure Positive End Expiratory 12 Pressure Positive End Expiratory 12 Pressure Positive End Expiratory 12 Pressure Positive End Expiratory 12 Pressure Positive End Expiratory 12 Pressure Positive End Expiratory 12 Pressure Positive End Expiratory 12 Pressure Positive End Expiratory 12 Pressure Positive End Expiratory 12 Pressure Positive End Expiratory 12 Pressure Positive End Expiratory 12 Pressure Peak Inspiratory Airway 36 Pressure Peak Inspiratory Airway 36 Pressure Peak Inspiratory Airway 33 Pressure Peak Inspiratory Airway 31 Pressure Peak Inspiratory Airway 42 Pressure Peak Inspiratory Airway 32 Pressure Peak Inspiratory Airway 32 Pressure Peak Inspiratory Airway 36 Pressure Peak Inspiratory Airway 31 Pressure Peak Inspiratory Airway 35 Pressure Results - Laboratory Findings CBC and BMP: 01/07/17 04:10 01/07/17 04:10 ABG ABG pH 7.30 pH Units (7.32-7.45) L 01/07/17 06:13 ABG pCO2 62 mmHg (35-45) H 01/07/17 06:13 ABG pO2 61 mmHg (85-104) L 01/07/17 06:13 ABG O2 Saturation 88 % (95-98) L 01/07/17 06:13 PT/INR, D-dimer PT 15.5 Seconds (9.4-12.1) H 01/03/17 07:54 Abnormal lab findings: Abnormal lab results RBC 3.62 M/mcL (4.19-5.50) L 01/07/17 04:10 Hgb 12.0 g/dL (12.9-16.9) L D 01/07/17 04:10 Hct 37.1 % (37.5-50.1) L 01/07/17 04:10 MCV 102.5 fL (83.0-100.0) H 01/07/17 04:10 Band Neutrophils % 6.0 % (0-4) H 01/04/17 04:25 Metamyelocytes % 2.0 % (0) H 01/04/17 04:25 Lymphocytes # 0.2 K/mcL (0.6-4.6) L 01/07/17 04:10 Nucleated RBCs/100 WBC 0.2 /100 WBC (0) H 01/07/17 04:10 Reactive Lymphocytes Present (Not Present) A 01/03/17 03:28 Toxic Granulation Present (Not Present) A 01/04/17 04:25 Large Platelets Present (Not Present) A 01/04/17 04:25 Polychromasia 1+ (Not Present) A 01/04/17 04:25 Poikilocytosis 1+ (Not Present) A 01/04/17 04:25 Anisocytosis 1+ (Not Present) A 01/04/17 04:25 Macrocytosis Present (Not Present) A 01/04/17 04:25 Tear Drop Cells 2+ (Not Present) A 01/04/17 04:25 PT 15.5 Seconds (9.4-12.1) H 01/03/17 07:54 ABG pH 7.30 pH Units (7.32-7.45) L 01/07/17 06:13 ABG pCO2 62 mmHg (35-45) H 01/07/17 06:13 ABG pO2 61 mmHg (85-104) L 01/07/17 06:13 ABG HCO3 30.5 mEQ/L (21-27) H 01/07/17 06:13 ABG Total CO2 32.4 mEq/L (20-26) H 01/07/17 06:13 ABG O2 Saturation 88 % (95-98) L 01/07/17 06:13 VBG pH 7.26 pH Units (7.32-7.42) L 01/03/17 20:00 VBG pCO2 64 mmHg (41-51) H 01/03/17 20:00 VBG pO2 53 mmHg (25-40) H 01/03/17 20:00 VBG HCO3 28.7 mEq/L (21-27) H 01/03/17 20:00 Sodium 134 mEq/L (136-145) L 01/07/17 04:10 Chloride 89 mEq/L (98-109) L 01/07/17 04:10 BUN 78 mg/dL (8-26) H D 01/07/17 04:10 Creatinine 4.59 mg/dL (0.72-1.25) H 01/07/17 04:10 Est GFR ( Amer) 16 (> 60) L 01/07/17 04:10 Est GFR (Non-Af Amer) 13 (> 60) L 01/07/17 04:10 Glucose 161 mg/dL (70-99) H 01/07/17 04:10 POC Glucose 132 (58-89) H 01/06/17 23:26 Calculated Osmolality 305 (280-300) H 01/07/17 04:10 Calcium 11.9 mg/dL (8.6-10.8) H 01/07/17 04:10 Ionized Calcium 1.45 mmol/L (1.15-1.35) H 01/07/17 04:10 Phosphorus 10.1 mg/dL (2.3-4.7) H 01/07/17 04:10 AST 39 Units/L (5-34) H 01/05/17 05:13 Albumin 2.8 g/dL (3.5-5.0) L 01/05/17 05:13 Globulin 4.3 g/dL (2.4-3.5) H 01/05/17 05:13 Albumin/Globulin Ratio 0.7 (1.1-2.2) L 01/05/17 05:13 PTH Intact 691.4 pg/ml (8.5-72.5) H 01/05/17 14:19 Urine Clarity Turbid (Clear) A 12/29/16 15:51 Urine Protein 100 mg/dL (Neg-Trace) H 12/29/16 15:51 Urine Blood Moderate (Negative) H 12/29/16 15:51 Urine Bilirubin Small (Negative) H 12/29/16 15:51 Ur Leukocyte Esterase Large (Negative) H 12/29/16 15:51 Urine Microscopic RBC 15-30 per hpf (0-3) H 12/29/16 15:51 Urine Microscopic WBC TNTC per hpf (0-3) H 12/29/16 15:51 Salicylates < 5.0 mg/dL (15-30) L 12/30/16 09:14 Urine Opiates Screen Positive ng/mL (Qurbgx=217) H 12/29/16 16:46 Acetaminophen < 1.0 mcg/mL (10-30) L 12/30/16 09:14 - Microbiology Findings Microbiology Findings: Microbiology, Last 48 Hours 12/29/16 21:38 Blood Culture - Final Peripheral Venipuncture No growth. 12/29/16 21:33 Blood Culture - Final Peripheral Venipuncture No growth. 01/02/17 10:35 Sputum Culture - Final Sputum P. aeruginosa MDRO - Diagnostic Findings Chest x-ray: report reviewed, image reviewed - Clinical Findings Intake & Output: Intake & Output 01/06/17 01/06/17 01/07/17 15:59 23:59 07:59 Intake Total 1431 / 1431 411 / 411 395 / 395 Output Total 3600 / 3600 Balance -2169 / -2169 411 / 411 395 / 395 Weight 3000 kg 75.8 kg Consult Discharge Plan - Plan Referrals: NO,PCP [Primary Care Provider] - <Saadlla,Haval M - Last Filed: 01/07/17 14:45> Date of Encounter: 01/07/17 Objective PUL Vital signs: Last Vital Signs Temp 96.5 F L 01/07/17 11:09 Pulse 111 01/07/17 14:15 Resp 19 01/07/17 14:15 BP 112/71 01/07/17 14:15 Pulse Ox 92 01/07/17 14:15 Ventilator Settings Ventilator Settings: Ventilator Settings, Last 8 Hours Ventilator Mode VC+ Ventilator Mode VC+ Ventilator Mode VC+ Ventilator Mode VC+ Ventilator Mode VC+ Ventilator Mode VC+ Ventilator Tidal Volume 650 Setting Ventilator Tidal Volume 650 Setting Ventilator Tidal Volume 650 Setting Ventilator Tidal Volume 650 Setting Ventilator Tidal Volume 650 Setting Ventilator Tidal Volume 650 Setting Ventilator Tidal Volume 650 Setting Ventilator Respiratory Rate 16 Setting Ventilator Respiratory Rate 16 Setting Ventilator Respiratory Rate 16 Setting Ventilator Respiratory Rate 16 Setting Ventilator Respiratory Rate 16 Setting Ventilator Respiratory Rate 16 Setting Ventilator Respiratory Rate 16 Setting Actual Respiratory Rate 19 Actual Respiratory Rate 16 Actual Respiratory Rate 16 Actual Respiratory Rate 16 Actual Respiratory Rate 14 Actual Respiratory Rate 16 Actual Respiratory Rate 17 Positive End Expiratory 12 Pressure Positive End Expiratory 12 Pressure Positive End Expiratory 12 Pressure Positive End Expiratory 12 Pressure Positive End Expiratory 12 Pressure Positive End Expiratory 12 Pressure Positive End Expiratory 12 Pressure Peak Inspiratory Airway 37 Pressure Peak Inspiratory Airway 37 Pressure Peak Inspiratory Airway 33 Pressure Peak Inspiratory Airway 34 Pressure Peak Inspiratory Airway 33 Pressure Peak Inspiratory Airway 35 Pressure Peak Inspiratory Airway 35 Pressure Peak Inspiratory Airway 39 Pressure Peak Inspiratory Airway 36 Pressure Peak Inspiratory Airway 41 Pressure Results - Laboratory Findings CBC and BMP: 01/07/17 04:10 01/07/17 04:10 ABG ABG pH 7.30 pH Units (7.32-7.45) L 01/07/17 06:13 ABG pCO2 62 mmHg (35-45) H 01/07/17 06:13 ABG pO2 61 mmHg (85-104) L 01/07/17 06:13 ABG O2 Saturation 88 % (95-98) L 01/07/17 06:13 PT/INR, D-dimer PT 15.5 Seconds (9.4-12.1) H 01/03/17 07:54 Abnormal lab findings: Abnormal lab results RBC 3.62 M/mcL (4.19-5.50) L 01/07/17 04:10 Hgb 12.0 g/dL (12.9-16.9) L D 01/07/17 04:10 Hct 37.1 % (37.5-50.1) L 01/07/17 04:10 MCV 102.5 fL (83.0-100.0) H 01/07/17 04:10 Band Neutrophils % 6.0 % (0-4) H 01/04/17 04:25 Metamyelocytes % 2.0 % (0) H 01/04/17 04:25 Lymphocytes # 0.2 K/mcL (0.6-4.6) L 01/07/17 04:10 Nucleated RBCs/100 WBC 0.2 /100 WBC (0) H 01/07/17 04:10 Reactive Lymphocytes Present (Not Present) A 01/03/17 03:28 Toxic Granulation Present (Not Present) A 01/04/17 04:25 Large Platelets Present (Not Present) A 01/04/17 04:25 Polychromasia 1+ (Not Present) A 01/04/17 04:25 Poikilocytosis 1+ (Not Present) A 01/04/17 04:25 Anisocytosis 1+ (Not Present) A 01/04/17 04:25 Macrocytosis Present (Not Present) A 01/04/17 04:25 Tear Drop Cells 2+ (Not Present) A 01/04/17 04:25 PT 15.5 Seconds (9.4-12.1) H 01/03/17 07:54 ABG pH 7.30 pH Units (7.32-7.45) L 01/07/17 06:13 ABG pCO2 62 mmHg (35-45) H 01/07/17 06:13 ABG pO2 61 mmHg (85-104) L 01/07/17 06:13 ABG HCO3 30.5 mEQ/L (21-27) H 01/07/17 06:13 ABG Total CO2 32.4 mEq/L (20-26) H 01/07/17 06:13 ABG O2 Saturation 88 % (95-98) L 01/07/17 06:13 VBG pH 7.26 pH Units (7.32-7.42) L 01/03/17 20:00 VBG pCO2 64 mmHg (41-51) H 01/03/17 20:00 VBG pO2 53 mmHg (25-40) H 01/03/17 20:00 VBG HCO3 28.7 mEq/L (21-27) H 01/03/17 20:00 Sodium 134 mEq/L (136-145) L 01/07/17 04:10 Chloride 89 mEq/L (98-109) L 01/07/17 04:10 BUN 78 mg/dL (8-26) H D 01/07/17 04:10 Creatinine 4.59 mg/dL (0.72-1.25) H 01/07/17 04:10 Est GFR ( Amer) 16 (> 60) L 01/07/17 04:10 Est GFR (Non-Af Amer) 13 (> 60) L 01/07/17 04:10 Glucose 161 mg/dL (70-99) H 01/07/17 04:10 POC Glucose 183 (58-89) H 01/07/17 11:00 Calculated Osmolality 305 (280-300) H 01/07/17 04:10 Calcium 11.9 mg/dL (8.6-10.8) H 01/07/17 04:10 Ionized Calcium 1.45 mmol/L (1.15-1.35) H 01/07/17 04:10 Phosphorus 10.1 mg/dL (2.3-4.7) H 01/07/17 04:10 AST 39 Units/L (5-34) H 01/05/17 05:13 Albumin 2.8 g/dL (3.5-5.0) L 01/05/17 05:13 Globulin 4.3 g/dL (2.4-3.5) H 01/05/17 05:13 Albumin/Globulin Ratio 0.7 (1.1-2.2) L 01/05/17 05:13 PTH Intact 691.4 pg/ml (8.5-72.5) H 01/05/17 14:19 Urine Clarity Turbid (Clear) A 12/29/16 15:51 Urine Protein 100 mg/dL (Neg-Trace) H 12/29/16 15:51 Urine Blood Moderate (Negative) H 12/29/16 15:51 Urine Bilirubin Small (Negative) H 12/29/16 15:51 Ur Leukocyte Esterase Large (Negative) H 12/29/16 15:51 Urine Microscopic RBC 15-30 per hpf (0-3) H 12/29/16 15:51 Urine Microscopic WBC TNTC per hpf (0-3) H 12/29/16 15:51 Salicylates < 5.0 mg/dL (15-30) L 12/30/16 09:14 Urine Opiates Screen Positive ng/mL (Jxxqah=188) H 12/29/16 16:46 Acetaminophen < 1.0 mcg/mL (10-30) L 12/30/16 09:14 - Clinical Findings Intake & Output: Intake & Output 01/06/17 01/07/17 01/07/17 23:59 07:59 15:59 Intake Total 411 / 411 395 / 395 1143 / 1143 Output Total 0 / 0 Balance 411 / 411 395 / 395 1143 / 1143 Weight 75.8 kg - Attending Attestation I examined this patient and my medical decision-making was reviewed with the REHAB SPEC/PA/Advanced Practice Nurse/Resident Physician. I agree with the documented findings, disposition and treatment plan as described except to the extent set forth below. Patient seen and examined. Labs, radiology, chart personally reviewed. Agree with resident's history and physical, assessment, plan with following comments: VIDEO PRODUCTION SPECIALIST: Patient remained sedated, he will respond to stimuli. Pulmonary: Continue on high PEEP and started lowering his FiO2. Since patient has underlying lung disease and there is possibility of he may need tracheostomy palliative care was consulted. Cardiovascular: stable and A. fib under better control. GI: Nutrition per dietary and GI prophylaxis per routine Heme: DVT prophylaxis per routine ID: Continue antibiotics and plan to de-escalation Renal; urine out put and renal funtion reviewed and hemodialysis per band salvager Endorcine: blood glucose is monitored Lines: all lines checked and no evidence of infections Skin: skin care to prevent pressure ulcers per nursing routine care
[2017-01-07] MEDS: Chlorhexidine Rinse 15 ML MOUTHWASH MM SCH ×2 (07:57→22:35)
[2017-01-07] MEDS: FLUoxetine 20 MG CAPSULE PO SCH (07:58)
[2017-01-07] MEDS: Aspirin 81 MG TAB.CHEW PO SCH (07:58)
[2017-01-07] MEDS: Amiodarone Premix 360 MG/200 ML BAG IVC SCH ×2 (09:09→22:37)
[2017-01-07] MEDS ORDERED: Dextrose Gel 15 GM PO PRN ×2 (11:07)
[2017-01-07] MEDS ORDERED: D5% in Water 1,000 ML IVC PRN (11:07)
[2017-01-07] MEDS ORDERED: *HR* Dextrose 50 % in Water (Syg) 50 ML SYRINGE IVP PRN (11:07)
--- NOTE | 2017-01-07 11:12 | Nephrology Progress Note ---
Date of Encounter: 01/07/17 Time of Encounter: 11:10 - Assessment and Plan (1) ESRD (end stage renal disease) on dialysis Current Visit: Yes Status: Chronic Plan for HD tomorrow Avoid nephrotoxins if possible (2) Hypercalcemia Current Visit: Yes Status: Acute Ca+ down slightly to 11.9 Unclear why Ca+ remains high (3) Acute on chronic respiratory failure with hypoxia and hypercapnia Current Visit: No Status: Acute per primary team (4) Hyperphosphatemia Current Visit: No Status: Acute Phos 10.1 Unclear why phosphorus remains high PTH 691.4-was on Sensipar at home but cannot take while on vent as medicine cannot be crushed Spoke with pharmacist-will try to get Parsabiv which is a new IV medication to lower PTH and will also lower Ca+ and phos levels Subjective Principal diagnosis: Altered Mental Status Interval history: Patient seen and examined in ICU. Eyes open and seems to acknowledge my voice; on ventilator and sedated Objective - Vital Signs Vital signs: Vital Signs Temp Pulse Resp BP Pulse Ox 01/07/17 10:15 103 16 99/73 95 01/07/17 09:44 16 91/67 94 01/07/17 09:10 108 16 90/56 94 01/07/17 08:15 85 16 82/59 94 01/07/17 07:37 16 101/62 94 01/07/17 07:25 94 17 101/65 94 01/07/17 07:20 96.8 F L 01/07/17 06:06 16 82/53 92 01/07/17 06:00 84 16 82/53 92 01/07/17 05:00 94 16 83/58 94 01/07/17 04:10 18 85/52 94 01/07/17 04:00 78 18 85/52 974 01/07/17 03:15 97.8 F 01/07/17 02:11 14 89/62 92 01/07/17 02:00 115 14 89/62 92 01/07/17 01:00 102 15 96/64 92 01/07/17 00:06 19 93 01/07/17 00:00 97.5 F L 97 19 110/75 93 01/06/17 23:46 97.5 F L 01/06/17 23:00 101 18 122/82 93 01/06/17 22:05 15 112/89 93 01/06/17 22:00 87 15 112/89 93 01/06/17 21:00 97 14 114/71 94 01/06/17 20:00 97.3 F L 100 19 112/77 93 01/06/17 19:56 97.3 F L 01/06/17 19:34 14 114/68 91 01/06/17 18:00 96 14 105/64 91 01/06/17 17:54 14 114/89 94 01/06/17 17:00 105 17 99/66 91 01/06/17 16:00 124 17 114/89 91 01/06/17 15:50 101 01/06/17 15:49 97.9 F 01/06/17 15:00 98.3 F 117 20 103/87 90 01/06/17 14:35 103/87 01/06/17 14:30 119/94 01/06/17 14:15 119/80 01/06/17 14:00 119 20 108/74 89 01/06/17 13:45 105/84 01/06/17 13:30 122/48 01/06/17 13:15 117/54 01/06/17 13:00 109 14 99/69 91 01/06/17 12:45 102/63 01/06/17 12:30 90/62 01/06/17 12:15 92/59 01/06/17 12:00 99 14 90/69 91 01/06/17 11:45 97/73 01/06/17 11:30 106 102/72 01/06/17 11:17 17 87 01/06/17 11:15 77/63 01/06/17 11:11 97.2 F L Intake and Output 01/06/17 01/07/17 01/07/17 23:59 07:59 15:59 Intake Total 411 / 411 395 / 395 818 / 818 Output Total 0 / 0 Balance 411 / 411 395 / 395 818 / 818 Intake: IV Fluids 398 / 398 200 / 200 455 / 455 Amiodarone Drip Premix 200 / 200 360mg/200mL 360 mg In 200 ml @ 0.5 MG/MIN 16.667 mls/hr IVC [facility] Rx#: [id number] FentaNYL (PF) 1,000 MCG 100 / 100 100 / 100 In 0.9 % Sodium Chloride 80 ML @ 50 MCG/HR 5 mls/ hr IVC CONT [facility] Rx#: [id number] FentaNYL (PF) 3,000 MCG 255 / 255 In 0.9 % Sodium Chloride 240 ML @ 50 MCG/HR 5 mls/ hr IVC CONT [facility] Rx#: [id number] Diprivan 1,000 mg In 100 98 / 98 100 / 100 ml @ 5 MCG/KG/MIN 2.353 mls/hr IVC .Q24H [facility] Rx#: [id number] Cipro Premix 400 MG/200 200 / 200 ML 400 mg In 200 ml @ 200 mls/hr IVPB DAILY@1700 [facility] Rx#:[id number] Tube Feeding 195 / 195 163 / 163 Free Water 100 / 100 Free Water Intake Amount 100 / 100 Output: Urine 0 / 0 Other: Weight 75.8 kg Blood Glucose* 132 132 - General Appearance General appearance: Present: chronically ill, frail EENT: Present: ATNC Neck: Present: supple Respiratory: Present: clear (on ventilator) Cardiology: Present: no edema, normal S1, normal S2 Gastrointestinal: Present: no guarding Integumentary: Present: warm and dry - Lab 01/07/17 04:10 01/07/17 04:10 Most recent lab results ABG pH 7.30 pH Units (7.32-7.45) L 01/07/17 06:13 ABG pCO2 62 mmHg (35-45) H 01/07/17 06:13 ABG pO2 61 mmHg (85-104) L 01/07/17 06:13 ABG HCO3 30.5 mEQ/L (21-27) H 01/07/17 06:13 ABG O2 Saturation 88 % (95-98) L 01/07/17 06:13 Calcium 11.9 mg/dL (8.6-10.8) H 01/07/17 04:10 Phosphorus 10.1 mg/dL (2.3-4.7) H 01/07/17 04:10 Magnesium 2.4 mg/dL (1.6-2.6) 01/07/17 04:10 Consult Discharge Plan - Plan Referrals: NO,PCP [Primary Care Provider] -
[2017-01-07] MEDS: Insulin LISPRO 300 UNITS/3 ML VIAL SQ SCH ×3 (12:20→23:49)
--- NOTE | 2017-01-07 13:00 | Palliative - Consult Note ---
Date of Encounter: 01/07/17 Time of Encounter: 13:00 - Assessment and Plan (1) Dyspnea Current Visit: Yes Status: Acute Assessment and plan: Remains on vent support, steroids. Will follow closely. Qualifiers: Dyspnea type: unspecified Qualified Code(s): R06.00 - Dyspnea, unspecified (2) Anxiety Current Visit: Yes Status: Acute Assessment and plan: Remains on Propofol per ICU protocol. Monitor (3) Counseling regarding advanced care planning and goals of care Current Visit: Yes Status: Acute Assessment and plan: Attempted to contact family members for pt. Voicemail left for Sherrie and Byron, did reach son Felipe. Discussed that pt still requiring increased support on the ventilator and if continues without improvement, will need to have some decisions made in the next several days. Felipe stated that he would attempt to reach out to family and see if meeting would be possible late Fri am or early afternoon. Contacted [facility] - they state pt has not done POA as far as they were aware of. He was enrolled into [facility] with a COPD diagnosis, however, hospice nurse stated that he insisted on being full code status and desired aggressive care. Will await meeting time from son. Updated ICU primary nurse Lisa Boyd, Dr. Torres, and Dr. Randle. (4) Respiratory failure Current Visit: No Status: Acute Qualifiers: Chronicity: acute on chronic Respiratory failure complication: hypercapnia Qualified Code(s): J96.22 - Acute and chronic respiratory failure with hypercapnia (5) COPD (chronic obstructive pulmonary disease) Current Visit: No Status: Chronic Qualifiers: COPD type: unspecified COPD Qualified Code(s): J44.9 - Chronic obstructive pulmonary disease, unspecified (6) ESRD (end stage renal disease) on dialysis Current Visit: Yes Status: Chronic Palliative-CN HPI - Data of Consult Consult date: 01/07/17 Requesting Physician: Tia Mcdonald MD Primary Care Provider: PCP NO - Consult Narrative History of present illness: Mr. Ackerman is a 61 year old male who is ESRD on dialysis, who present with altered mental status. Prior to admission, he was enrolled in [facility] with a diagnosis with COPD. Other pertinent medical history include: arthritis, CHF, diabetes, GERD, hyperlipidemia, hypertension, osteoporosis, renal disease, thyroid disease. He was intubated for airway protection shortly after arrival and is currently in the intensive care unit. His ventilation requirements have increased and he is currently on vent day 8. PEEP 12 and FIO2 70%. No family is at bedside, and I am unable to reach any family by phone as of yet. It appears he lives alone. I cannot find any advanced directives on file. Upon my visit, he appears in no distress. He attempts to open eyes when name called and can shake head Yes/no to occasional simple questions. He can follow simple one step commands. Palliative care was consulted to assist with goals of care discussion. CC: Tia Mcdonald MD Past Med Surg Social Fam HX - Past Medical History Medical history: arthritis, CHF, COPD, diabetes, dialysis, GERD, hyperlipidemia , hypertension, osteoporosis, renal disease, thyroid disease, other Psychiatric history: anxiety, depression - Past Surgical History Surgical History: cataract, orthopedic, other, transplant (Transplant kidney in 1982 and then 2009. Transplant kidney biopsy 2012.), vascular surgery, other - Social History Smoking Status: Former smoker Smokeless Tobacco Status: No Alcohol use: none Drug use: none Medications and Allergies Allopurinol [Zyloprim 100 MG] 100 mg PO DAILY 11/09/15 [History] Carvedilol [Coreg] 50 mg PO BID 11/09/15 [History] Cinacalcet HCl [Sensipar] 60 mg PO DAILY 11/09/15 [History] Docusate [Colace] 100 mg PO BID 11/09/15 [History] Fluticasone Propionate Nasal [Flonase] 50 mcg NS DAILY 11/09/15 [History] Furosemide [Lasix] 40 mg PO BID 11/09/15 [History] Omeprazole [PriLOSEC] 40 mg PO DAILY 11/09/15 [History] Pravastatin Sodium 10 mg PO QPM 11/09/15 [History] Alpha Lipoic Acid 100 mg PO DAILY 06/29/16 [History] Aspirin 81 mg PO DAILY 06/29/16 [History] Levothyroxine Sodium [Synthroid] 25 mcg PO DAILY 06/29/16 [History] Sulfamethoxazole/Trimeth DS [Bactrim Ds] 1 each PO MOWEFR 06/29/16 [History] predniSONE [PredniSONE] 10 mg PO DAILY 06/29/16 [History] Ergocalciferol (VITAMIN D2) [Vitamin D] 400 unit PO BID 09/18/16 [History] Albuterol Neb [Proventil Neb] 2.5 mg IH Q6H PRN 12/29/16 [History] Albuterol Sulfate [Proair Hfa] 2 puff IH Q4-6H PRN 12/29/16 [History] Amlodipine Besylate 10 mg PO DAILY 12/29/16 [History] Ammonium Lactate [Marilee-Hydrolac] 1 appl TP DAILY 12/29/16 [History] Calcium Acetate [Phos-LO] 667 mg PO 12/29/16 [History] Diclofenac Sodium [Voltaren] 1 appl TP TID PRN 12/29/16 [History] FLUoxetine HCl [Prozac] 40 mg PO DAILY 12/29/16 [History] Famotidine [Heartburn Prevention] 20 mg PO DAILY 12/29/16 [History] Gabapentin [Neurontin] 400 mg PO TID 12/29/16 [History] Orphenadrine [Norflex] 100 mg PO HS 12/29/16 [History] Oxycodone HCl 10 mg PO Q6H PRN 12/29/16 [History] Oxygen 1 each NS CONT 12/29/16 [History] Polyethylene Glycol 3350 [Smoothlax] 17 gm PO BID 12/29/16 [History] Sennosides [Senna] 8.6 mg PO BID PRN 12/29/16 [History] Spironolactone [Aldactone] 25 mg PO DAILY 12/29/16 [History] Tiotropium [Spiriva] 18 mcg IH DAILY 12/29/16 [History] Venlafaxine XR (24 HR) [Effexor XR] 37.5 mg PO 12/29/16 [History] cloNIDine HCl [Clonidine HCl] 0.3 mg PO TID 12/29/16 [History] Allergies No Known Allergies Allergy (Verified 12/29/16 14:46) ROS unobtainable: due to endotracheal tube Palliative Care-Exam - Constitutional Vitals: Temp Pulse Resp BP Pulse Ox 96.5 F L 109 19 124/83 92 01/07/17 11:09 01/07/17 12:15 01/07/17 12:15 01/07/17 12:15 01/07/17 12:15 General appearance: Present: no acute distress - Head Head Exam: Present: normal inspection, normocephalic - Eye Eye exam: Present: normal appearance, PERRL - Respiratory Additional comments: Breath sounds course throughout. PEEP remains at 12, 70% FIO2. - Cardiovascular Cardiovascular exam: Present: +S1, +S2 - GI/Abdominal Exam GI/Abdominal exam: Present: distended, soft - Catheter Type: Urethral (Gandhi) - Extremities Exam Extremities exam: Present: normal capillary refill, normal inspection - Neurological Exam Neurological exam: Present: alert Additional comments: can respond to simple yes/no questions by nodding head. Cannot stay awake for long periods of time. - Skin Skin exam: Present: warm Internal Medicine - CN: Reslt - Labs CBC & Chem 7: 01/07/17 04:10 01/07/17 04:10 Labs: Short CBC 01/07/17 Range/Units 04:10 WBC 9.4 (4.3-11.1) K/mcL Hgb 12.0 L D (12.9-16.9) g/dL Hct 37.1 L (37.5-50.1) % Plt Count 164 (140-400) K/mcL Neutrophils # 8.6 (1.6-8.9) K/mcL BMP 01/07/17 04:10 Sodium 134 L Potassium 4.3 D Chloride 89 L Carbon Dioxide 26 BUN 78 H D Creatinine 4.59 H Glucose 161 H Calcium 11.9 H - ABG Interpretation ABG results: ABG ABG pH 7.30 pH Units (7.32-7.45) L 01/07/17 06:13 ABG pCO2 62 mmHg (35-45) H 01/07/17 06:13 ABG pO2 61 mmHg (85-104) L 01/07/17 06:13 ABG O2 Saturation 88 % (95-98) L 01/07/17 06:13 PT/INR, D-dimer PT 15.5 Seconds (9.4-12.1) H 01/03/17 07:54 - Impressions Impressions Chest X-Ray 01/06/17 17:38 IMPRESSION: Status post placement of right internal jugular central venous catheter, without evidence of pneumothorax. Persistent bibasilar airspace disease. D/ / Panchito Prescott MD / Panchito Prescott MD Interpreting Provider: Panchito Prescott MD Chest X-Ray 01/07/17 06:00 IMPRESSION: Stable bibasilar atelectasis versus pneumonia. D/ / Lars Hussein MD / Lars Hussein MD Interpreting Provider: Lars Hussein MD Chest X-Ray 01/07/17 11:26 IMPRESSION: 1. Unchanged endotracheal tube terminating near the thoracic inlet. Recommend advancement. 2. Unchanged right basilar airspace opacity, potentially atelectasis, pneumonia, or aspiration. 3. Pulmonary vascular congestion. D/ / Darnell Peters MD / Darnell Peters MD Interpreting Provider: Darnell Peters MD Consult Discharge Plan - Plan Referrals: NO,PCP [Primary Care Provider] - Palliative Quality Palliative Quality: Screen for Code Status: NA (pt on vent, awaiting family meeting), Screen for Goals of Care: NA, Screen for Pain: NA, If Pain Regimen Started, Initiate Bowel Regimen: NA, Screen for Nausea/Vomitting: NA Code Status: 12/29/16 21:14 Resuscitation Status: Active [RES] Routine Comment: Resuscitation Status: Full Code
[2017-01-07] MEDS ORDERED: Metoclopramide 10 MG/2 ML VIAL IVP ONE (13:26)
[2017-01-07] MEDS: D5 IVPB SCH (14:06)
[2017-01-07] MEDS: CEFTAZIDIME IVPB SCH (14:06)
[2017-01-07] MEDS: WATER IVPB SCH (14:06)
[2017-01-07] MEDS: Sennosides 8.6 MG TABLET PO SCH (22:35)
[2017-01-07] MEDS: Dexmedetomidine HCl 400 MCG/100 ML MLS IVC SCH (22:37)
[2017-01-08] MEDS: Ipratropium/Albuterol Neb 3 ML IH SCH ×5 (00:12→15:20)
[2017-01-08 03:43] LABS: Basophils % 0.2 %; Hematocrit 35.5 % (37.5-50.1); Hemoglobin 11.5 g/dL (12.9-16.9); Immature Granulocytes % 4.4 % (0-4); Lymphocytes # 0.3 K/mcL (0.6-4.6); Lymphocytes % 2.7 %; Mean Corpuscular HGB Conc 32.4 g/dL (31.6-35.5); Mean Corpuscular Hemoglobin 32.9 pg (28.0-33.3); Mean Corpuscular Volume 101.4 fL (83.0-100.0); Mean Platelet Volume 11.8 fL (9.4-12.4); Monocytes # 0.4 K/mcL (0.0-1.3); Monocytes % 3.9 %; Neutrophils # 9.4 K/mcL (1.6-8.9); Platelet Count 160 K/mcL (140-400); Red Cell Distribution Width 13.5 % (11.5-14.5); Segmented Neutrophils % 88.8 %
[2017-01-08 03:54] LABS: Ionized Calcium 1.25 mmol/L (1.15-1.35)
[2017-01-08 04:00] LABS: Calcium 10.7 mg/dL (8.6-10.8); Magnesium 2.5 mg/dL (1.6-2.6); Phosphorous 12.2 mg/dL (2.3-4.7); Potassium 5.2 mEq/L (3.5-4.5)
[2017-01-08 05:08] LABS: ABG Base Excess -3.1 mEq/L (-2.0 to 3.0); ABG HCO3 24.7 mEQ/L (21-27); ABG Oxygen Saturation 87 % (95-98); ABG PCO2 55 mmHg (35-45); ABG PH 7.26 pH Units (7.32-7.45); ABG PO2 61 mmHg (85-104); ABG TCO2 26.4 mEq/L (20-26)
[2017-01-08 05:09] LABS: Blood Gas FiO2 60 %
[2017-01-08] MEDS: Insulin LISPRO 300 UNITS/3 ML VIAL SQ SCH ×2 (06:03→12:09)
[2017-01-08] MEDS: *HR* Heparin 5,000 UNIT/ML VIAL SQ SCH (06:07)
[2017-01-08] MEDS: Pantoprazole 40 MG VIAL IVPB SCH (06:07)
[2017-01-08] MEDS: methylPREDNISolone 125 MG/2 ML VIAL IVP SCH (06:07)
[2017-01-08] MEDS: Lacri-Lube 3.5 GM TUBE BOTH EYES SCH ×3 (06:07→12:23)
[2017-01-08] MEDS: Levothyroxine 25 MCG TABLET PO SCH (06:08)
--- NOTE | 2017-01-08 07:06 | Pulmonology Progress Note ---
<Chel Torres - Last Filed: 01/08/17 07:05> Date of Encounter: 01/08/17 Time of Encounter: 07:05 Assessment and Plan (1) Acute respiratory failure with hypoxia Current Visit: Yes Status: Acute Acute on chronic respiratory failure with hypoxia -- Patient with respiratory failure intubated in the ED due to failure to protect his airway secondary to his altered mental status. Patient has been intubated for 8 days now. Continues to require high amounts of supplemental oxygen - FiO2 of 70%. Continue hypoxia is likely secondary to bacterial pneumonia with exacerbation of patients underlying COPD, on home O2. CT scan was negative for PE, showed emphysema and atalectasis/pneumonia. - Continue high ventilatory settings, wean as tolerated - Continue antibiotics - Continue symbicort, IV steroids and schedule duonebs. (2) COPD with acute exacerbation Current Visit: Yes Status: Acute Acute COPD exacerbation -- Patient with underlying COPD on home oxygen. Current exacerbation likely secondary to aspiration pneumonia. On appropriate antibiotic coverage for aspiration pneumonia. Will continue supportive care - Duonebs scheduled Q4H - Solu-medrol 80mg Q8H - Continue home symbicort - Continue antibiotics - Wean vent settings as tolerated (3) Aspiration pneumonia Current Visit: Yes Status: Acute Aspiration pneumonia -- Sputum culture grew MDR pseudomonas. He initially received ceftriaxone for coverage of aspiration pneumonia. This was changed to cefepime and ciprofloxicin based on culture growth (2 days). Due to culture sensitivity, antibiotics were broadened to ceftazidime and ciprofloxicin (day 2) . Plan for a total of 14 days of appropriate antibiotic coverage (day 4/14). Continue supportive care. - Continue ciprofloxicin (day 4) - Continue ceftazidime (day 2) - Continue duonebs, steroids, home symbicort - Wean vent settings as tolerated Qualifiers: Aspiration pneumonia type: unspecified Laterality: unspecified laterality Lung location: unspecified part of lung Qualified Code(s): J69.0 - Pneumonitis due to inhalation of food and vomit (4) Altered mental status Current Visit: Yes Status: Acute Patient admitted with altered mental status for several days. Intubated in the ED due to inability to protect his airway. Head CT on admission negative. Altered mental status believed to be secondary to polypharmacy with neurotin and opioids in the setting of ESRD. Due to agitation with the vent, patient is sedated. He is still requiring elevated vent settings. - Supportive care - Continue sedation - Will wean sedation as tolerated Qualifiers: Altered mental status type: unspecified Qualified Code(s): R41.82 - Altered mental status, unspecified (5) Atrial fibrillation Current Visit: Yes Status: Chronic Patient with history of atrial fibrillation on carvedilol 50mg BID and ASA at home. Currently heart rate is running between 90-115. B-jus as been on hold due to patient's lower blood pressures. Will monitor this morning. If patient does not require more vasopressors, will restart B-jus. If we are not able to do that, we will consider starting amiodarone drip today. - Monitor heart rate - Continue ASA Qualifiers: Atrial fibrillation type: chronic Qualified Code(s): I48.2 - Chronic atrial fibrillation (6) Hypotension Current Visit: Yes Status: Acute Patient with hypotension requiring levophed, currently weaned off. Blood pressure in the 80-90s/60s maintaining MAP >60. Monitor blood pressure. He may require vassopressors again with dialysis today. 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 Scheduled dialysis MWF. Nephrology consulted. - Appreciate nephrology recommendations - Dialysis MWF - Continue medications per his transplant pulmonary specialist including bactrim and prednisone. (8) CHF (congestive heart failure) Current Visit: No Status: Chronic Patient with reported history of CHF. Last ECHO showed LVEF 60% and mild diastolic dysfunction. ECHO this admission shows hyperdyamic left ventricle with EF of 70%. - Monitor fluid status Qualifiers: Congestive heart failure type: diastolic Congestive heart failure chronicity: acute on chronic Qualified Code(s): I50.33 - Acute on chronic diastolic (congestive) heart failure (9) DVT prophylaxis Current Visit: No Status: Acute Heparin Neuro: Altered mental status likely secondary to polypharmcy with ESRD. Maintain sedation. Daily sedation vacations. Pulm: Acute respiratory failure requiring FiO2 80% likely due to COPD and pseudomonas pneumonia. Continue antibiotics. On duonebs, symbicort, steroids. Cause of continued hypoxia is uncertain. Wean vent settings as tolerated Cardiac: Hypotensive with sedation. Not currently requiring vasopressors. Continue to monitor blood pressure. Maintain MAP >60. Monitor atrial fibrillation - may require B-jus or amio GI/Fluids/Electrolytes: Will adjust tube feeds due to high residuals. Protonix ppx Renal: ESRD. Dialysis MWF ID: MDR pseudomonas on ceftazidime and cipro. Heme/Onc: Heparin for DVT ppx Endocrine: Monitor glucose levels Skin: pressure ulcer on forehead and coccyx - continue ICU skin care Lines: Femoral CVC, ET, OG Dispo: ICU Subjective Principal diagnosis: Altered Mental Status Interval history: Mr Ackerman is a 61yo male admitted 12/29/2016 with AMS believed secondary to polypharmacy in setting of ESRD. Found to have MDR pseudomonas pneumonia. No acute events overnight. Patient remains sedated with precedex and fentanyl. He continues to require high FiO2 settings of 80% to maintain oxygen saturation. Patient is in atrial fibrillation with heart rate 90s-120. He was afebrile overnight. RR in the 20s. He was weaned off of levophed and is currently maintaining MAPS >60 with no vassopressor support. Patient seen and examined. He opens his eyes to voice and is a little agitated , overbreathing the vent. Lungs diminished with diffuse rhonchi and fine wheezing. Abdomen soft, non-tender. No pedal edema noted. Objective PUL Vital signs: Last Vital Signs Temp 97.7 F 01/08/17 03:45 Pulse 96 01/08/17 05:57 Resp 19 01/08/17 06:03 BP 98/66 01/08/17 05:57 Pulse Ox 92 01/08/17 06:03 Ventilator Settings Ventilator Settings: Ventilator Settings, Last 8 Hours Ventilator Mode VC+ Ventilator Mode VC+ Ventilator Mode VC+ Ventilator Mode VC+ Ventilator Mode VC+ Ventilator Mode VC+ Ventilator Mode VC+ Ventilator Mode VC+ Ventilator Mode VC+ Ventilator Mode VC+ Ventilator Mode VC+ Ventilator Mode VC+ Ventilator Tidal Volume 650 Setting Ventilator Tidal Volume 650 Setting Ventilator Tidal Volume 650 Setting Ventilator Tidal Volume 650 Setting Ventilator Tidal Volume 650 Setting Ventilator Tidal Volume 650 Setting Ventilator Tidal Volume 650 Setting Ventilator Tidal Volume 650 Setting Ventilator Tidal Volume 650 Setting Ventilator Tidal Volume 650 Setting Ventilator Tidal Volume 650 Setting Ventilator Tidal Volume 650 Setting Ventilator Respiratory Rate 16 Setting Ventilator Respiratory Rate 16 Setting Ventilator Respiratory Rate 16 Setting Ventilator Respiratory Rate 16 Setting Ventilator Respiratory Rate 16 Setting Ventilator Respiratory Rate 16 Setting Ventilator Respiratory Rate 16 Setting Ventilator Respiratory Rate 16 Setting Ventilator Respiratory Rate 16 Setting Ventilator Respiratory Rate 16 Setting Ventilator Respiratory Rate 16 Setting Ventilator Respiratory Rate 16 Setting Actual Respiratory Rate 19 Actual Respiratory Rate 19 Actual Respiratory Rate 20 Actual Respiratory Rate 16 Actual Respiratory Rate 16 Actual Respiratory Rate 16 Actual Respiratory Rate 16 Actual Respiratory Rate 16 Actual Respiratory Rate 16 Actual Respiratory Rate 16 Actual Respiratory Rate 16 Positive End Expiratory 12 Pressure Positive End Expiratory 12 Pressure Positive End Expiratory 12 Pressure Positive End Expiratory 12 Pressure Positive End Expiratory 12 Pressure Positive End Expiratory 12 Pressure Positive End Expiratory 12 Pressure Positive End Expiratory 12 Pressure Positive End Expiratory 12 Pressure Positive End Expiratory 12 Pressure Positive End Expiratory 12 Pressure Positive End Expiratory 12 Pressure Peak Inspiratory Airway 37 Pressure Peak Inspiratory Airway 35 Pressure Peak Inspiratory Airway 34 Pressure Peak Inspiratory Airway 34 Pressure Peak Inspiratory Airway 33 Pressure Peak Inspiratory Airway 33 Pressure Peak Inspiratory Airway 39 Pressure Peak Inspiratory Airway 39 Pressure Peak Inspiratory Airway 39 Pressure Peak Inspiratory Airway 37 Pressure Peak Inspiratory Airway 37 Pressure Results - Laboratory Findings CBC and BMP: 01/08/17 03:06 01/08/17 03:06 ABG ABG pH 7.26 pH Units (7.32-7.45) L 01/08/17 04:55 ABG pCO2 55 mmHg (35-45) H 01/08/17 04:55 ABG pO2 61 mmHg (85-104) L 01/08/17 04:55 ABG O2 Saturation 87 % (95-98) L 01/08/17 04:55 PT/INR, D-dimer PT 15.5 Seconds (9.4-12.1) H 01/03/17 07:54 Abnormal lab findings: Abnormal lab results RBC 3.50 M/mcL (4.19-5.50) L 01/08/17 03:06 Hgb 11.5 g/dL (12.9-16.9) L 01/08/17 03:06 Hct 35.5 % (37.5-50.1) L 01/08/17 03:06 MCV 101.4 fL (83.0-100.0) H 01/08/17 03:06 Immature Gran % 4.4 % (0-4) H 01/08/17 03:06 Band Neutrophils % 6.0 % (0-4) H 01/04/17 04:25 Metamyelocytes % 2.0 % (0) H 01/04/17 04:25 Neutrophils # 9.4 K/mcL (1.6-8.9) H 01/08/17 03:06 Lymphocytes # 0.3 K/mcL (0.6-4.6) L 01/08/17 03:06 Nucleated RBCs/100 WBC 0.2 /100 WBC (0) H 01/07/17 04:10 Reactive Lymphocytes Present (Not Present) A 01/03/17 03:28 Toxic Granulation Present (Not Present) A 01/04/17 04:25 Large Platelets Present (Not Present) A 01/04/17 04:25 Polychromasia 1+ (Not Present) A 01/04/17 04:25 Poikilocytosis 1+ (Not Present) A 01/04/17 04:25 Anisocytosis 1+ (Not Present) A 01/04/17 04:25 Macrocytosis Present (Not Present) A 01/04/17 04:25 Tear Drop Cells 2+ (Not Present) A 01/04/17 04:25 PT 15.5 Seconds (9.4-12.1) H 01/03/17 07:54 ABG pH 7.26 pH Units (7.32-7.45) L 01/08/17 04:55 ABG pCO2 55 mmHg (35-45) H 01/08/17 04:55 ABG pO2 61 mmHg (85-104) L 01/08/17 04:55 ABG Total CO2 26.4 mEq/L (20-26) H 01/08/17 04:55 ABG O2 Saturation 87 % (95-98) L 01/08/17 04:55 ABG Base Excess -3.1 mEq/L (-2.0 to 3.0) L 01/08/17 04:55 VBG pH 7.26 pH Units (7.32-7.42) L 01/03/17 20:00 VBG pCO2 64 mmHg (41-51) H 01/03/17 20:00 VBG pO2 53 mmHg (25-40) H 01/03/17 20:00 VBG HCO3 28.7 mEq/L (21-27) H 01/03/17 20:00 Sodium 132 mEq/L (136-145) L 01/08/17 03:06 Potassium 5.2 mEq/L (3.5-4.5) H 01/08/17 03:06 Chloride 86 mEq/L (98-109) L 01/08/17 03:06 BUN 128 mg/dL (8-26) H D 01/08/17 03:06 Creatinine 5.82 mg/dL (0.72-1.25) H 01/08/17 03:06 Est GFR ( Amer) 12 (> 60) L 01/08/17 03:06 Est GFR (Non-Af Amer) 10 (> 60) L 01/08/17 03:06 Glucose 141 mg/dL (70-99) H 01/08/17 03:06 POC Glucose 208 (58-89) H 01/08/17 06:00 Calculated Osmolality 318 (280-300) H 01/08/17 03:06 Phosphorus 12.2 mg/dL (2.3-4.7) H 01/08/17 03:06 AST 39 Units/L (5-34) H 01/05/17 05:13 Albumin 2.8 g/dL (3.5-5.0) L 01/05/17 05:13 Globulin 4.3 g/dL (2.4-3.5) H 01/05/17 05:13 Albumin/Globulin Ratio 0.7 (1.1-2.2) L 01/05/17 05:13 PTH Intact 691.4 pg/ml (8.5-72.5) H 01/05/17 14:19 Urine Clarity Turbid (Clear) A 12/29/16 15:51 Urine Protein 100 mg/dL (Neg-Trace) H 12/29/16 15:51 Urine Blood Moderate (Negative) H 12/29/16 15:51 Urine Bilirubin Small (Negative) H 12/29/16 15:51 Ur Leukocyte Esterase Large (Negative) H 12/29/16 15:51 Urine Microscopic RBC 15-30 per hpf (0-3) H 12/29/16 15:51 Urine Microscopic WBC TNTC per hpf (0-3) H 12/29/16 15:51 Salicylates < 5.0 mg/dL (15-30) L 12/30/16 09:14 Urine Opiates Screen Positive ng/mL ([id number]) H 12/29/16 16:46 Acetaminophen < 1.0 mcg/mL (10-30) L 12/30/16 09:14 - Clinical Findings Intake & Output: Intake & Output 01/07/17 01/07/17 01/08/17 15:59 23:59 07:59 Intake Total 1143 / 1143 905 / 905 374 / 374 Output Total 0 / 0 0 / 0 Balance 1143 / 1143 905 / 905 374 / 374 Consult Discharge Plan - Plan Referrals: NO,PCP [Primary Care Provider] - <Yelitza Randle - Last Filed: 01/08/17 12:27> Date of Encounter: 01/08/17 Objective PUL Vital signs: Last Vital Signs Temp 97.7 F 01/08/17 03:45 Pulse 96 01/08/17 05:57 Resp 15 01/08/17 09:27 BP 74/49 01/08/17 09:27 Pulse Ox 90 01/08/17 09:27 Ventilator Settings Ventilator Settings: Ventilator Settings, Last 8 Hours Ventilator Mode VC+ Ventilator Mode VC+ Ventilator Mode VC+ Ventilator Mode VC+ Ventilator Mode VC+ Ventilator Mode VC+ Ventilator Mode VC+ Ventilator Mode VC+ Ventilator Mode VC+ Ventilator Mode VC+ Ventilator Mode VC+ Ventilator Mode VC+ Ventilator Tidal Volume 680 Setting Ventilator Tidal Volume 680 Setting Ventilator Tidal Volume 650 Setting Ventilator Tidal Volume 650 Setting Ventilator Tidal Volume 650 Setting Ventilator Tidal Volume 650 Setting Ventilator Tidal Volume 650 Setting Ventilator Tidal Volume 650 Setting Ventilator Tidal Volume 650 Setting Ventilator Tidal Volume 650 Setting Ventilator Tidal Volume 650 Setting Ventilator Tidal Volume 650 Setting Ventilator Respiratory Rate 14 Setting Ventilator Respiratory Rate 16 Setting Ventilator Respiratory Rate 16 Setting Ventilator Respiratory Rate 16 Setting Ventilator Respiratory Rate 16 Setting Ventilator Respiratory Rate 16 Setting Ventilator Respiratory Rate 16 Setting Ventilator Respiratory Rate 16 Setting Ventilator Respiratory Rate 16 Setting Ventilator Respiratory Rate 16 Setting Ventilator Respiratory Rate 16 Setting Actual Respiratory Rate 17 Actual Respiratory Rate 18 Actual Respiratory Rate 19 Actual Respiratory Rate 19 Actual Respiratory Rate 20 Actual Respiratory Rate 16 Actual Respiratory Rate 16 Actual Respiratory Rate 16 Actual Respiratory Rate 16 Actual Respiratory Rate 16 Positive End Expiratory 12 Pressure Positive End Expiratory 12 Pressure Positive End Expiratory 12 Pressure Positive End Expiratory 12 Pressure Positive End Expiratory 12 Pressure Positive End Expiratory 12 Pressure Positive End Expiratory 12 Pressure Positive End Expiratory 12 Pressure Positive End Expiratory 12 Pressure Positive End Expiratory 12 Pressure Positive End Expiratory 12 Pressure Positive End Expiratory 12 Pressure Peak Inspiratory Airway 43 Pressure Peak Inspiratory Airway 35 Pressure Peak Inspiratory Airway 37 Pressure Peak Inspiratory Airway 35 Pressure Peak Inspiratory Airway 34 Pressure Peak Inspiratory Airway 34 Pressure Peak Inspiratory Airway 33 Pressure Peak Inspiratory Airway 33 Pressure Peak Inspiratory Airway 39 Pressure Peak Inspiratory Airway 39 Pressure Results - Laboratory Findings CBC and BMP: 01/08/17 03:06 01/08/17 03:06 ABG ABG pH 7.28 pH Units (7.32-7.45) L 01/08/17 09:02 ABG pCO2 48 mmHg (35-45) H 01/08/17 09:02 ABG pO2 66 mmHg (85-104) L 01/08/17 09:02 ABG O2 Saturation 90 % (95-98) L 01/08/17 09:02 PT/INR, D-dimer PT 15.5 Seconds (9.4-12.1) H 01/03/17 07:54 Abnormal lab findings: Abnormal lab results RBC 3.50 M/mcL (4.19-5.50) L 01/08/17 03:06 Hgb 11.5 g/dL (12.9-16.9) L 01/08/17 03:06 Hct 35.5 % (37.5-50.1) L 01/08/17 03:06 MCV 101.4 fL (83.0-100.0) H 01/08/17 03:06 Immature Gran % 4.4 % (0-4) H 01/08/17 03:06 Band Neutrophils % 6.0 % (0-4) H 01/04/17 04:25 Metamyelocytes % 2.0 % (0) H 01/04/17 04:25 Neutrophils # 9.4 K/mcL (1.6-8.9) H 01/08/17 03:06 Lymphocytes # 0.3 K/mcL (0.6-4.6) L 01/08/17 03:06 Nucleated RBCs/100 WBC 0.2 /100 WBC (0) H 01/07/17 04:10 Reactive Lymphocytes Present (Not Present) A 01/03/17 03:28 Toxic Granulation Present (Not Present) A 01/04/17 04:25 Large Platelets Present (Not Present) A 01/04/17 04:25 Polychromasia 1+ (Not Present) A 01/04/17 04:25 Poikilocytosis 1+ (Not Present) A 01/04/17 04:25 Anisocytosis 1+ (Not Present) A 01/04/17 04:25 Macrocytosis Present (Not Present) A 01/04/17 04:25 Tear Drop Cells 2+ (Not Present) A 01/04/17 04:25 PT 15.5 Seconds (9.4-12.1) H 01/03/17 07:54 ABG pH 7.28 pH Units (7.32-7.45) L 01/08/17 09:02 ABG pCO2 48 mmHg (35-45) H 01/08/17 09:02 ABG pO2 66 mmHg (85-104) L 01/08/17 09:02 ABG O2 Saturation 90 % (95-98) L 01/08/17 09:02 ABG Base Excess -4.3 mEq/L (-2.0 to 3.0) L 01/08/17 09:02 VBG pH 7.26 pH Units (7.32-7.42) L 01/03/17 20:00 VBG pCO2 64 mmHg (41-51) H 01/03/17 20:00 VBG pO2 53 mmHg (25-40) H 01/03/17 20:00 VBG HCO3 28.7 mEq/L (21-27) H 01/03/17 20:00 Sodium 132 mEq/L (136-145) L 01/08/17 03:06 Potassium 5.2 mEq/L (3.5-4.5) H 01/08/17 03:06 Chloride 86 mEq/L (98-109) L 01/08/17 03:06 BUN 128 mg/dL (8-26) H D 01/08/17 03:06 Creatinine 5.82 mg/dL (0.72-1.25) H 01/08/17 03:06 Est GFR ( Amer) 12 (> 60) L 01/08/17 03:06 Est GFR (Non-Af Amer) 10 (> 60) L 01/08/17 03:06 Glucose 141 mg/dL (70-99) H 01/08/17 03:06 POC Glucose 208 (58-89) H 01/08/17 06:00 Calculated Osmolality 318 (280-300) H 01/08/17 03:06 Phosphorus 12.2 mg/dL (2.3-4.7) H 01/08/17 03:06 AST 39 Units/L (5-34) H 01/05/17 05:13 Albumin 2.8 g/dL (3.5-5.0) L 01/05/17 05:13 Globulin 4.3 g/dL (2.4-3.5) H 01/05/17 05:13 Albumin/Globulin Ratio 0.7 (1.1-2.2) L 01/05/17 05:13 PTH Intact 691.4 pg/ml (8.5-72.5) H 01/05/17 14:19 Urine Clarity Turbid (Clear) A 12/29/16 15:51 Urine Protein 100 mg/dL (Neg-Trace) H 12/29/16 15:51 Urine Blood Moderate (Negative) H 12/29/16 15:51 Urine Bilirubin Small (Negative) H 12/29/16 15:51 Ur Leukocyte Esterase Large (Negative) H 12/29/16 15:51 Urine Microscopic RBC 15-30 per hpf (0-3) H 12/29/16 15:51 Urine Microscopic WBC TNTC per hpf (0-3) H 12/29/16 15:51 Salicylates < 5.0 mg/dL (15-30) L 12/30/16 09:14 Urine Opiates Screen Positive ng/mL ([id number]) H 12/29/16 16:46 Acetaminophen < 1.0 mcg/mL (10-30) L 12/30/16 09:14 - Clinical Findings Intake & Output: Intake & Output 01/07/17 01/08/17 01/08/17 23:59 07:59 15:59 Intake Total 905 / 905 374 / 374 Output Total 0 / 0 Balance 905 / 905 374 / 374 - Attending Attestation I examined this patient and my medical decision-making was reviewed with the EMERGENCY DEPARTMENT PHYSICIAN/PA/Advanced Practice Nurse/Resident Physician. I agree with the documented findings, disposition and treatment plan as described except to the extent set forth below. Patient seen and examined. Labs, radiology, chart personally reviewed. 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 Pulmonary: He continued to have significant intrinsic PEEP and made some band changes with going up on tidal volume and lowering respiratory rate with repeat ABG. Also shortened his Ti on the ventilator to minimize auto PEEP with bronchodilator use. He is to remain on high PEEP level and FiO2. Continue discussion with the family since he might need tracheostomy. Cardiovascular: A. fib with reasonably controlled rate GI: Nutrition per dietary and GI prophylaxis per routine Heme: DVT prophylaxis per routine ID: Continue antibiotics and plan to de-escalation Renal; urine out put and renal funtion reviewed Endorcine: blood glucose is monitored Lines: all lines checked and no evidence of infections Skin: skin care to prevent pressure ulcers per nursing routine care I spent 35 min of Critical Care time with this patient. It involved decision making of high complexity to assess, manipulate, and support vital organ system failure and/or to prevent further life threatening deterioration of the patient' s condition. The time involved in the performance of separately reportable procedures was not counted toward critical care time.
[2017-01-08] MEDS: Budesonide/Formoterol 80/4.5 MDI IH SCH (07:28)
[2017-01-08] MEDS ORDERED: 0.9 % Sodium Chloride 250 ML IVC PRN (08:27)
[2017-01-08] MEDS ORDERED: 0.9 % Sodium Chloride 1,000 ML PRIME SCH (08:30)
[2017-01-08 09:12] LABS: ABG Base Excess -4.3 mEq/L (-2.0 to 3.0); ABG HCO3 22.6 mEQ/L (21-27); ABG Oxygen Saturation 90 % (95-98); ABG PCO2 48 mmHg (35-45); ABG PH 7.28 pH Units (7.32-7.45); ABG PO2 66 mmHg (85-104); ABG TCO2 24.1 mEq/L (20-26)
[2017-01-08 09:16] LABS: Blood Gas FiO2 60 %
[2017-01-08] MEDS: FLUoxetine 20 MG CAPSULE PO SCH (09:58)
[2017-01-08] MEDS: Chlorhexidine Rinse 15 ML MOUTHWASH MM SCH (09:58)
[2017-01-08] MEDS: Aspirin 81 MG TAB.CHEW PO SCH (09:58)
[2017-01-08] MEDS: Sennosides 8.6 MG TABLET PO SCH (09:58)
[2017-01-08] MEDS: Dexmedetomidine HCl 400 MCG/100 ML MLS IVC SCH (10:00)
--- NOTE | 2017-01-08 10:45 | Nephrology Progress Note ---
Date of Encounter: 01/08/17 Time of Encounter: 10:42 - Assessment and Plan (1) ESRD (end stage renal disease) on dialysis Current Visit: Yes Status: Chronic HD MWF Adjust medications for renal function. (2) Altered mental status Current Visit: Yes Status: Acute Etiology unclear. May be multifactorial. Currently intubated and sedated. Qualifiers: Altered mental status type: unspecified Qualified Code(s): R41.82 - Altered mental status, unspecified (3) Acute on chronic respiratory failure with hypoxia and hypercapnia Current Visit: No Status: Acute Currently intubated on significant supplemental oxygen. I spoke with the team this morning. Awaiting family decision regarding a trach. (4) Hypercalcemia Current Visit: Yes Status: Acute Total calcium down. Low calcium bath with dialysis. (5) Hyperphosphatemia Current Visit: No Status: Acute Continue dialysis. Patient could benefit from intrvenous calcimimetic that pharmacy will attempt to obtain. Subjective Principal diagnosis: Altered Mental Status Interval history: Mr. Ackerman remains intubated and sedated. ROS is unobtainable. Objective - Vital Signs Vital signs: Vital Signs Temp Pulse Resp BP Pulse Ox 01/08/17 10:35 92 19 92/51 91 01/08/17 09:50 89 18 97/55 90 01/08/17 09:27 15 74/49 90 01/08/17 07:28 19 102/67 90 01/08/17 06:03 19 92 01/08/17 05:57 95 19 98/66 92 01/08/17 05:00 95 22 98/66 90 01/08/17 04:07 17 105/65 89 01/08/17 03:45 97.7 F 97 16 113/77 91 01/08/17 03:00 97.7 F 83 16 110/64 91 01/08/17 02:13 16 84/51 90 01/08/17 02:00 89 16 84/51 89 01/08/17 00:52 79 16 83/57 89 01/08/17 00:13 16 100/80 89 01/08/17 00:00 97.9 F 88 16 100/80 89 01/07/17 23:00 97.9 F 114 17 115/71 91 01/07/17 22:10 17 91/72 90 01/07/17 22:00 113 20 91/72 90 01/07/17 21:00 96 19 106/76 90 01/07/17 20:26 16 112/84 90 01/07/17 20:00 113 20 112/84 90 01/07/17 19:00 97.5 F L 86 19 105/72 91 01/07/17 18:22 17 99/72 90 01/07/17 18:15 91 17 99/66 91 01/07/17 17:15 96 18 99/72 90 01/07/17 16:15 89 18 92/67 91 01/07/17 15:44 97.5 F L 01/07/17 15:17 17 96/58 89 01/07/17 15:15 100 17 96/58 90 01/07/17 14:15 111 19 112/71 92 01/07/17 13:15 113 17 123/84 91 01/07/17 12:15 109 19 124/83 92 01/07/17 11:17 16 122/88 94 01/07/17 11:09 96.5 F L Intake and Output 01/07/17 01/08/17 01/08/17 23:59 07:59 15:59 Intake Total 905 / 905 374 / 374 674 / 674 Output Total 0 / 0 Balance 905 / 905 374 / 374 674 / 674 Intake: IV Fluids 300 / 300 200 / 200 100 / 100 Amiodarone Drip Premix 200 / 200 360mg/200mL 360 mg In 200 ml @ 0.5 MG/MIN 16.667 mls/hr IVC CONT [facility] Rx#: [id number] Diprivan 1,000 mg In 100 100 / 100 200 / 200 100 / 100 ml @ 5 MCG/KG/MIN 2.353 mls/hr IVC .Q24H [facility] Rx#: [id number] Tube Feeding 605 / 605 174 / 174 474 / 474 Free Water 50 / 50 Free Water Intake Amount 50 / 50 Output: Urine 0 / 0 Other: Blood Glucose* 146 208 - General Appearance General appearance: Present: well-developed, well-nourished, sedated on ventilator, intubated EENT: Present: ATNC Respiratory: Present: course breath sounds Cardiology: Present: regular rate Gastrointestinal: Present: no tenderness Integumentary: Present: warm and dry Additional Comments: Intubated. - Lab 01/08/17 03:06 01/08/17 03:06 Most recent lab results ABG pH 7.28 pH Units (7.32-7.45) L 01/08/17 09:02 ABG pCO2 48 mmHg (35-45) H 01/08/17 09:02 ABG pO2 66 mmHg (85-104) L 01/08/17 09:02 ABG HCO3 22.6 mEQ/L (21-27) 01/08/17 09:02 ABG O2 Saturation 90 % (95-98) L 01/08/17 09:02 Calcium 10.7 mg/dL (8.6-10.8) 01/08/17 03:06 Phosphorus 12.2 mg/dL (2.3-4.7) H 01/08/17 03:06 Magnesium 2.5 mg/dL (1.6-2.6) 01/08/17 03:06 Consult Discharge Plan - Plan Referrals: NO,PCP [Primary Care Provider] -
[2017-01-08] MEDS ORDERED: Albumin 25% 12.5gm/50mL 25.0 GM/100 ML IV.SOLN ONE (10:51)
[2017-01-08] MEDS ORDERED: 0.9 % Sodium Chloride 2,000 ML ONE (11:14)
[2017-01-08] MEDS ORDERED: Norepinephrine 4 MG in D5% in Water 250 ML IVC SCH (12:00)
[2017-01-08] MEDS: Amiodarone Premix 360 MG/200 ML BAG IVC SCH (12:38)
[2017-01-08] MEDS: FentaNYL (PF) 3,000 MCG in 0.9 % Sodium Chloride 240 ML IVC SCH (12:44)
[2017-01-08] MEDS ORDERED: Albumin 25% 25gram/100mL 25 GM/100 ML IV.SOLN IVPB ONE (13:29)
--- NOTE | 2017-01-08 15:32 | Event Note ---
Date of Encounter: 01/08/17 Time of Encounter: 15:30 60 minute family meeting with pt 2 sons, (Byron/Tommy), 2 stepdaughters, mother, patient's 2 sisters and pt brother, myself, Dr. Brown, and pt Primary nurse Conchita. Discussed current clinical status and future decisions that would need made re: trach, ongoing vent support, possible PEG, versus a comfort care approach and hospice care. Patients family asked many questions re: prognosis and required care after such procedures. Discussed possible need for subacute care and possible nursing facility placement. Discussed quality of life, and patient's previously known wishes with family as well. At 1530, Dr. Randle joined pt meeting. Family has decided to pursue a transfer to [facility] for a second opinion. Dr. Randle did disclose that if family requests transfer and we are providing the same level of care here, there is a chance that they may be billed for the cost of transport. Family remain in agreement to transfer. Family expressed gratitude and appreciation for the care he has received.
[2017-01-08 15:33] VITALS: BP 106/75
[2017-01-08] MEDS: WATER IVPB SCH (15:47)
[2017-01-08] MEDS: D5 IVPB SCH (15:47)
[2017-01-08] MEDS: CEFTAZIDIME IVPB SCH (15:47)
--- NOTE | 2017-01-08 15:47 | Discharge Summary ---
<Len Brown - Last Filed: 01/08/17 16:54> Date of Encounter: 01/08/17 Time of Encounter: 15:41 - Discharge Diagnosis (1) Acute respiratory failure with hypoxia Priority: Primary Status: Acute (2) COPD with acute exacerbation Priority: Primary Status: Acute (3) Aspiration pneumonia Priority: Primary Status: Acute Qualifiers: Aspiration pneumonia type: unspecified Laterality: unspecified laterality Lung location: unspecified part of lung Qualified Code(s): J69.0 - Pneumonitis due to inhalation of food and vomit (4) Altered mental status Priority: Primary Status: Acute Qualifiers: Altered mental status type: unspecified Qualified Code(s): R41.82 - Altered mental status, unspecified (5) ESRD (end stage renal disease) on dialysis Priority: Primary Status: Chronic (6) Hypotension Priority: Secondary Status: Acute Qualifiers: Hypotension type: hypotension due to drug Qualified Code(s): I95.2 - Hypotension due to drugs (7) Atrial fibrillation Priority: Primary Status: Chronic Qualifiers: Atrial fibrillation type: chronic Qualified Code(s): I48.2 - Chronic atrial fibrillation (8) CHF (congestive heart failure) Priority: Primary Status: Chronic Qualifiers: Congestive heart failure type: diastolic Congestive heart failure chronicity: acute on chronic Qualified Code(s): I50.33 - Acute on chronic diastolic (congestive) heart failure (9) DVT prophylaxis Priority: Primary Status: Acute - Discharge Medications Home Medications: Allopurinol [Zyloprim 100 MG] 100 mg PO DAILY 11/09/15 [History] Carvedilol [Coreg] 50 mg PO BID 11/09/15 [History] Cinacalcet HCl [Sensipar] 60 mg PO DAILY 11/09/15 [History] Docusate [Colace] 100 mg PO BID 11/09/15 [History] Fluticasone Propionate Nasal [Flonase] 50 mcg NS DAILY 11/09/15 [History] Furosemide [Lasix] 40 mg PO BID 11/09/15 [History] Omeprazole [PriLOSEC] 40 mg PO DAILY 11/09/15 [History] Pravastatin Sodium 10 mg PO QPM 11/09/15 [History] Alpha Lipoic Acid 100 mg PO DAILY 06/29/16 [History] Aspirin 81 mg PO DAILY 06/29/16 [History] Levothyroxine Sodium [Synthroid] 25 mcg PO DAILY 06/29/16 [History] Sulfamethoxazole/Trimeth DS [Bactrim Ds] 1 each PO MOWEFR 06/29/16 [History] predniSONE [PredniSONE] 10 mg PO DAILY 06/29/16 [History] Ergocalciferol (VITAMIN D2) [Vitamin D] 400 unit PO BID 09/18/16 [History] Albuterol Neb [Proventil Neb] 2.5 mg IH Q6H PRN 12/29/16 [History] Albuterol Sulfate [Proair Hfa] 2 puff IH Q4-6H PRN 12/29/16 [History] Amlodipine Besylate 10 mg PO DAILY 12/29/16 [History] Ammonium Lactate [Marilee-Hydrolac] 1 appl TP DAILY 12/29/16 [History] Calcium Acetate [Phos-LO] 667 mg PO 12/29/16 [History] Diclofenac Sodium [Voltaren] 1 appl TP TID PRN 12/29/16 [History] FLUoxetine HCl [Prozac] 40 mg PO DAILY 12/29/16 [History] Famotidine [Heartburn Prevention] 20 mg PO DAILY 12/29/16 [History] Gabapentin [Neurontin] 400 mg PO TID 12/29/16 [History] Orphenadrine [Norflex] 100 mg PO HS 12/29/16 [History] Oxycodone HCl 10 mg PO Q6H PRN 12/29/16 [History] Oxygen 1 each NS CONT 12/29/16 [History] Polyethylene Glycol 3350 [Smoothlax] 17 gm PO BID 12/29/16 [History] Sennosides [Senna] 8.6 mg PO BID PRN 12/29/16 [History] Spironolactone [Aldactone] 25 mg PO DAILY 12/29/16 [History] Tiotropium [Spiriva] 18 mcg IH DAILY 12/29/16 [History] Venlafaxine XR (24 HR) [Effexor XR] 37.5 mg PO 12/29/16 [History] cloNIDine HCl [Clonidine HCl] 0.3 mg PO TID 12/29/16 [History] Allergies/Adverse Reactions: Allergies No Known Allergies Allergy (Verified 12/29/16 14:46) Labs on day of discharge: Labs from last 24 hours 01/08/17 01/08/17 01/08/17 12:00 09:02 06:00 WBC RBC Hgb Hct MCV MCH MCHC RDW Plt Count MPV Immature Gran % Seg Neutrophils % Lymphocytes % Monocytes % Eosinophils % Basophils % Neutrophils # Lymphocytes # Monocytes # Eosinophils # Basophils # ABG pH 7.28 L ABG pCO2 48 H ABG pO2 66 L ABG HCO3 22.6 ABG Total CO2 24.1 ABG O2 Saturation 90 L ABG Base Excess -4.3 L Blood Gas Modality VC+ Inspired O2 60 Sodium Potassium Chloride Carbon Dioxide BUN Creatinine Est GFR ( Amer) Est GFR (Non-Af Amer) BUN/Creatinine Ratio Glucose POC Glucose 134 H 208 H Calculated Osmolality Calcium Ionized Calcium Phosphorus Magnesium 01/08/17 01/08/17 01/08/17 04:55 03:06 03:06 WBC 10.6 RBC 3.50 L Hgb 11.5 L Hct 35.5 L MCV 101.4 H MCH 32.9 MCHC 32.4 RDW 13.5 Plt Count 160 MPV 11.8 Immature Gran % 4.4 H Seg Neutrophils % 88.8 Lymphocytes % 2.7 Monocytes % 3.9 Eosinophils % 0.0 Basophils % 0.2 Neutrophils # 9.4 H Lymphocytes # 0.3 L Monocytes # 0.4 Eosinophils # 0.0 Basophils # 0.0 ABG pH 7.26 L ABG pCO2 55 H ABG pO2 61 L ABG HCO3 24.7 ABG Total CO2 26.4 H ABG O2 Saturation 87 L ABG Base Excess -3.1 L Blood Gas Modality VC+ Inspired O2 60 Sodium 132 L Potassium 5.2 H Chloride 86 L Carbon Dioxide 21 BUN 128 H D Creatinine 5.82 H Est GFR ( Amer) 12 L Est GFR (Non-Af Amer) 10 L BUN/Creatinine Ratio 22 Glucose 141 H POC Glucose Calculated Osmolality 318 H Calcium 10.7 Ionized Calcium 1.25 Phosphorus 12.2 H Magnesium 2.5 01/07/17 23:39 WBC RBC Hgb Hct MCV MCH MCHC RDW Plt Count MPV Immature Gran % Seg Neutrophils % Lymphocytes % Monocytes % Eosinophils % Basophils % Neutrophils # Lymphocytes # Monocytes # Eosinophils # Basophils # ABG pH ABG pCO2 ABG pO2 ABG HCO3 ABG Total CO2 ABG O2 Saturation ABG Base Excess Blood Gas Modality Inspired O2 Sodium Potassium Chloride Carbon Dioxide BUN Creatinine Est GFR ( Amer) Est GFR (Non-Af Amer) BUN/Creatinine Ratio Glucose POC Glucose 147 H Calculated Osmolality Calcium Ionized Calcium Phosphorus Magnesium - Impressions ITS Impressions Chest X-Ray 12/29/16 20:30 IMPRESSION: Limited study due to patient rotation. The tania is not well seen, but the endotracheal tube tip is projecting in area of the right mainstem bronchus origin. Consider retraction of tube or repeat radiograph. D/ / Stanford Clayton MD / Stanford Clayton MD Interpreting Provider: Stanford Clayton MD X-Ray 12/29/16 20:30 IMPRESSION: Tip and side port of the enteric tube in the gastric body. D/ / Torsten Price MD / Torsten Price MD Interpreting Provider: Torsten Price MD Chest X-Ray 12/30/16 08:40 IMPRESSION: 1. Support devices as above. 2. Slight improvement in the left perihilar opacification. 3. Minimal right basilar opacification, which may represent atelectasis. D/ / Kirby Banda MD / Kirby Banda MD Interpreting Provider: Kirby Banda MD Chest X-Ray 12/31/16 08:17 IMPRESSION: Mild bibasilar atelectasis. 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 Persistent mild atelectatic changes in the left base. D/ / 01/01/2017 07:25:26 Leticia Sabillon MD / ebdave Interpreting Provider: Leticia Sabillon MD Chest CTA 01/01/17 09:00 IMPRESSION: 1. No pulmonary embolism. 2. Dense consolidation in the left greater than right lower lobe. Pattern may represent aspiration or developing pneumonia. 3. Appropriate positioning of endotracheal tube and orogastric tube. D/ / Srinath Trevino MD / Srinath Trevino MD Interpreting Provider: Srinath Trevino MD Chest X-Ray 01/04/17 06:00 IMPRESSION: 1. The endotracheal tube has been significantly withdrawn. The tip is 12.7 cm above the tania. Advancement is suggested. 2. Patchy bibasilar airspace disease, pneumonia versus atelectasis. 3. The side port of the nasogastric tube is at the GE junction, advancement is suggested. D/ / 01/04/2017 08:00:04 Dustin Randle MD / tae Interpreting Provider: Dustin Randle MD Chest X-Ray 01/04/17 09:22 IMPRESSION: 1. Endotracheal tube with the tip above the clavicles. Recommend advancement by approximately 6 cm. 2. The side port of the enteric tube appears to be at the level of the GE junction. 3. Mild patchy bibasilar opacification. D/ / Kirby aBnda MD / Kirby Banda MD Interpreting Provider: Kirby Banda MD Chest X-Ray 01/06/17 08:11 IMPRESSION: No significant change in positioning of endotracheal tube. This may have slightly advanced to the level of the clavicle. Orogastric tube is appropriately positioned. Improved aeration in the lower lung zones bilaterally. D/ / Srinath Trevino MD / Srinath Trevino MD Interpreting Provider: Srinath Trevino MD Chest X-Ray 01/06/17 17:38 IMPRESSION: Status post placement of right internal jugular central venous catheter, without evidence of pneumothorax. Persistent bibasilar airspace disease. D/ / Panchito Prescott MD / Panchito Prescott MD Interpreting Provider: Panchito Prescott MD Chest X-Ray 01/07/17 06:00 IMPRESSION: Stable bibasilar atelectasis versus pneumonia. D/ / Lars Hussein MD / Lars Hussein MD Interpreting Provider: Lars Hussein MD Chest X-Ray 01/07/17 11:26 IMPRESSION: 1. Unchanged endotracheal tube terminating near the thoracic inlet. Recommend advancement. 2. Unchanged right basilar airspace opacity, potentially atelectasis, pneumonia, or aspiration. 3. Pulmonary vascular congestion. D/ / Darnell Peters MD / Darnell Peters MD Interpreting Provider: Darnell Peters MD Chest X-Ray 01/08/17 06:56 IMPRESSION: Status post extubation. Otherwise stable chest with persistent right basilar atelectasis or infiltrate and mild perihilar edema. D/ / 01/08/2017 07:53:18 Davis Reddy MD / earnold Interpreting Provider: Davis Reddy MD Chest X-Ray 01/08/17 09:35 IMPRESSION: Endotracheal tube tip projects above the expected location of the thoracic inlet. The position appears similar to the 01/04/2017 study. Advancement should be considered. Otherwise, no significant change. Findings were called to the patient's nurse, Conchita on 01/08/2017 at 1009 hours. D/ / Steven Luis MD / Steven Luis MD Interpreting Provider: Steven Luis MD Date of admission: 12/29/16 20:06 Primary care physician: PCP NO Consults: 12/29/16 21:08 Consult to Nephrology [CONS] Routine Consulting Provider: Kidney Candice/JOSE LUIS/LULY/PREMA Reason for Consult: ESRD MWF dialysis Time Notified: 21:05 Call Completed: Yes 12/29/16 21:14 Consult to Pulmonology [CONS] Routine Consulting Provider: Pulm Crit Care & Sleep Candice Reason for Consult: Resp Failure Call Completed: Yes 12/30/16 09:45 Consult to Dialysis [CONS] ONCE 01/01/17 08:15 Consult to Dialysis [CONS] ONCE 01/02/17 09:00 Consult to Dialysis [CONS] ONCE 01/04/17 09:15 Consult to Dialysis [CONS] ONCE 01/06/17 10:30 Consult to Dialysis [CONS] ONCE 01/07/17 11:27 Consult to Palliative Care [CONS] Routine Comment: Consulting Provider: Palliative Care [place] Reason for Consult: POC Call Completed: Yes 01/08/17 08:30 Consult to Dialysis [CONS] ONCE Discharging clinician: Yelitza Randle - Patient Status Disposition: Transfer Other Condition: Fair Functional capacity at discharge: bed bound Overall status at discharge: patient is not back to baseline - Discharge Instructions Follow Up With: NO,PCP [Primary Care Provider] - - Diet and Activity Activity: other Diet: other (NPO) - Hospital Course Hospital course: Mr. Ackerman is a 61 year old male with PMH of ESRD s/p transplant on dialysis, COPD, HTN, chronic atrial fibrillation, and CHF who presented with altered mental status for several days. Patient was gurgling and not following commands in the ED so patient was intubated for airway protection on 12/29. Altered mental status work up revealed negative head CT. UDS was positive for opiates. UA suggestive of UTI. He was initially treated with ceftriaxone to cover for the UTI. His altered mentation is suspected secondary to polypharmacy with gabapentin and opioids in the setting of end-stage renal disease. He has required high amounts of ventilatory support with a high FiO2 and PEEP, current settings 14/680/60%/PEEP 5. His hospital admission has been complicated by bacteria pneumonia and COPD exacerbation. CTA of the chest was performed on which revealed dense consolidation more in the left than the right suggestive of a developing pneumonia or possible aspiration. Antibiotics were later escalated to Cefepime and Levaquin. On 01/05, his sputum culture from 01/02 grew Pseudomonas multi drug resistance which showed intermediate sensitivity to Cefepime and Levaquin and therefore switched on to Ceftazidime and Cipro. He is currently on day 4 appropriate antibiotics. Through his stay he has been receiving scheduled brochodilators and steroids. Dialysis scheduled MWF. Currently off vasopressors and on Amiodarone for his chronic atrial fibrillation. Family meeting earlier this afternoon 01/08/2017. Discussed further options such as tracheostomy. Currently the patient is on day 10 of ventilatory support. The art director and palliative teams were present at the family discussion. All questions were answered. After our discussion family began to inquire about possible transfer and a 2nd opinion. The eldest son had spoke to [facility] prior to coming to the hospital today stating the transfer team with the happy to take his father if requested. He has been admitted to [facility]. Given the patient's current settings with Fi02 60 % and PEEP 12 patient is stable for transfer if desired. Family has decided for transfer to [facility]. [facility] transfer center was contacted patient has been accepted. Family is aware and informed about costs for transportation and wish to continue with transfer. Transportation is being arranged. - Time Spent with Patient Total time spent providing and/or coordinating discharge services: Greater than 30 minutes Physical Examination Vital Signs: Vital Signs, Last 4 Hours Temp Pulse Resp BP Pulse Ox 01/08/17 15:21 14 106/75 87 01/08/17 14:48 98.4 F 22 142/82 01/08/17 14:20 130/79 01/08/17 14:00 109 14 129/77 90 01/08/17 13:51 115 22 128/96 93 01/08/17 13:45 128/96 01/08/17 13:30 122/76 01/08/17 13:29 98.1 F 01/08/17 13:15 113/70 01/08/17 13:00 106/70 01/08/17 12:55 103/72 01/08/17 12:50 97/64 01/08/17 12:45 104/71 01/08/17 12:40 104/82 01/08/17 12:35 104/64 01/08/17 12:30 94/59 01/08/17 12:20 80/50 01/08/17 12:15 82/53 01/08/17 12:10 65/51 01/08/17 12:07 103 19 82/53 89 01/08/17 12:00 80/52 01/08/17 11:55 75/47 01/08/17 11:50 76/55 General appearance: no acute distress (sedated and intubated) Eyes: nonicteric, other (PERRL) ENT: other (endotracheal intubation with OG tube) Effort: other (mechanically ventilated) Auscultation: left: wheezes, right: rales Cardiovascular: irregular rhythm Gastrointestinal: soft, non-tender, other (old scar along lower abdomen) Integumentary: other (left AV fistula, multiple scabs on the hands, ecchymosis along the chest) Extremities: no cyanosis, no edema, no clubbing Musculoskeletal: other (chronic ankle derformity) pupils equal and round, unable to assess due to mental status (sedated on versed and fentanyl) <Yelitza Randle M - Last Filed: 01/08/17 17:30> Date of Encounter: 01/08/17 Labs on day of discharge: Labs from last 24 hours 01/08/17 01/08/17 01/08/17 12:00 09:02 06:00 WBC RBC Hgb Hct MCV MCH MCHC RDW Plt Count MPV Immature Gran % Seg Neutrophils % Lymphocytes % Monocytes % Eosinophils % Basophils % Neutrophils # Lymphocytes # Monocytes # Eosinophils # Basophils # ABG pH 7.28 L ABG pCO2 48 H ABG pO2 66 L ABG HCO3 22.6 ABG Total CO2 24.1 ABG O2 Saturation 90 L ABG Base Excess -4.3 L Blood Gas Modality VC+ Inspired O2 60 Sodium Potassium Chloride Carbon Dioxide BUN Creatinine Est GFR ( Amer) Est GFR (Non-Af Amer) BUN/Creatinine Ratio Glucose POC Glucose 134 H 208 H Calculated Osmolality Calcium Ionized Calcium Phosphorus Magnesium 01/08/17 01/08/17 01/08/17 04:55 03:06 03:06 WBC 10.6 RBC 3.50 L Hgb 11.5 L Hct 35.5 L MCV 101.4 H MCH 32.9 MCHC 32.4 RDW 13.5 Plt Count 160 MPV 11.8 Immature Gran % 4.4 H Seg Neutrophils % 88.8 Lymphocytes % 2.7 Monocytes % 3.9 Eosinophils % 0.0 Basophils % 0.2 Neutrophils # 9.4 H Lymphocytes # 0.3 L Monocytes # 0.4 Eosinophils # 0.0 Basophils # 0.0 ABG pH 7.26 L ABG pCO2 55 H ABG pO2 61 L ABG HCO3 24.7 ABG Total CO2 26.4 H ABG O2 Saturation 87 L ABG Base Excess -3.1 L Blood Gas Modality VC+ Inspired O2 60 Sodium 132 L Potassium 5.2 H Chloride 86 L Carbon Dioxide 21 BUN 128 H D Creatinine 5.82 H Est GFR ( Amer) 12 L Est GFR (Non-Af Amer) 10 L BUN/Creatinine Ratio 22 Glucose 141 H POC Glucose Calculated Osmolality 318 H Calcium 10.7 Ionized Calcium 1.25 Phosphorus 12.2 H Magnesium 2.5 01/07/17 23:39 WBC RBC Hgb Hct MCV MCH MCHC RDW Plt Count MPV Immature Gran % Seg Neutrophils % Lymphocytes % Monocytes % Eosinophils % Basophils % Neutrophils # Lymphocytes # Monocytes # Eosinophils # Basophils # ABG pH ABG pCO2 ABG pO2 ABG HCO3 ABG Total CO2 ABG O2 Saturation ABG Base Excess Blood Gas Modality Inspired O2 Sodium Potassium Chloride Carbon Dioxide BUN Creatinine Est GFR ( Amer) Est GFR (Non-Af Amer) BUN/Creatinine Ratio Glucose POC Glucose 147 H Calculated Osmolality Calcium Ionized Calcium Phosphorus Magnesium - Impressions ITS Impressions Chest X-Ray 12/29/16 20:30 IMPRESSION: Limited study due to patient rotation. The tania is not well seen, but the endotracheal tube tip is projecting in area of the right mainstem bronchus origin. Consider retraction of tube or repeat radiograph. D/ / Stanford Clayton MD / Stanford Clayton MD Interpreting Provider: Stanford Clayton MD X-Ray 12/29/16 20:30 IMPRESSION: Tip and side port of the enteric tube in the gastric body. D/ / Torsten Price MD / Torsten Price MD Interpreting Provider: Torsten Price MD Chest X-Ray 12/30/16 08:40 IMPRESSION: 1. Support devices as above. 2. Slight improvement in the left perihilar opacification. 3. Minimal right basilar opacification, which may represent atelectasis. D/ / Kirby Banda MD / Kirby Banda MD Interpreting Provider: Kirby Banda MD Chest X-Ray 12/31/16 08:17 IMPRESSION: Mild bibasilar atelectasis. 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 Persistent mild atelectatic changes in the left base. D/ / 01/01/2017 07:25:26 Leticia Sabillon MD / ebdave Interpreting Provider: Leticia Sabillon MD Chest CTA 01/01/17 09:00 IMPRESSION: 1. No pulmonary embolism. 2. Dense consolidation in the left greater than right lower lobe. Pattern may represent aspiration or developing pneumonia. 3. Appropriate positioning of endotracheal tube and orogastric tube. D/ / Srinath Trevino MD / Srinath Trevino MD Interpreting Provider: Srinath Trevino MD Chest X-Ray 01/04/17 06:00 IMPRESSION: 1. The endotracheal tube has been significantly withdrawn. The tip is 12.7 cm above the tania. Advancement is suggested. 2. Patchy bibasilar airspace disease, pneumonia versus atelectasis. 3. The side port of the nasogastric tube is at the GE junction, advancement is suggested. D/ / 01/04/2017 08:00:04 Dustin Randle MD / tae Interpreting Provider: Dustin Randle MD Chest X-Ray 01/04/17 09:22 IMPRESSION: 1. Endotracheal tube with the tip above the clavicles. Recommend advancement by approximately 6 cm. 2. The side port of the enteric tube appears to be at the level of the GE junction. 3. Mild patchy bibasilar opacification. D/ / Kirby Banda MD / Kirby Banda MD Interpreting Provider: Kirby Banda MD Chest X-Ray 01/06/17 08:11 IMPRESSION: No significant change in positioning of endotracheal tube. This may have slightly advanced to the level of the clavicle. Orogastric tube is appropriately positioned. Improved aeration in the lower lung zones bilaterally. D/ / Srinath Trevino MD / Srinath Trevino MD Interpreting Provider: Srinath Trevino MD Chest X-Ray 01/06/17 17:38 IMPRESSION: Status post placement of right internal jugular central venous catheter, without evidence of pneumothorax. Persistent bibasilar airspace disease. D/ / Panchito Prescott MD / Panchito Prescott MD Interpreting Provider: Panchito Prescott MD Chest X-Ray 01/07/17 06:00 IMPRESSION: Stable bibasilar atelectasis versus pneumonia. D/ / Lars Hussein MD / Lars Hussein MD Interpreting Provider: Lars Hussein MD Chest X-Ray 01/07/17 11:26 IMPRESSION: 1. Unchanged endotracheal tube terminating near the thoracic inlet. Recommend advancement. 2. Unchanged right basilar airspace opacity, potentially atelectasis, pneumonia, or aspiration. 3. Pulmonary vascular congestion. D/ / Darnell Peters MD / Darnell Peters MD Interpreting Provider: Darnell Peters MD Chest X-Ray 01/08/17 06:56 IMPRESSION: Status post extubation. Otherwise stable chest with persistent right basilar atelectasis or infiltrate and mild perihilar edema. D/ / 01/08/2017 07:53:18 Davis Reddy MD / earnold Interpreting Provider: Davis Reddy MD Chest X-Ray 01/08/17 09:35 IMPRESSION: Endotracheal tube tip projects above the expected location of the thoracic inlet. The position appears similar to the 01/04/2017 study. Advancement should be considered. Otherwise, no significant change. Findings were called to the patient's nurse, Conchita on 01/08/2017 at 1009 hours. D/ / Steven Luis MD / Steven Luis MD Interpreting Provider: Steven Luis MD Chest X-Ray 01/08/17 11:31 IMPRESSION: ET tube placement as described. Recommend advancement. Developing vascular congestion with right lower lobe atelectasis or infiltrate. D/ / 01/08/2017 16:01:21 Magdiel Segura MD / jean marie Interpreting Provider: Magdiel Segura MD Date of admission: 12/29/16 20:06 Primary care physician: PCP NO Consults: 12/29/16 21:08 Consult to Nephrology [CONS] Routine Consulting Provider: Kidney Candice/JOSE LUIS/LULY/PREMA Reason for Consult: ESRD MWF dialysis Time Notified: 21:05 Call Completed: Yes 12/29/16 21:14 Consult to Pulmonology [CONS] Routine Consulting Provider: Pulm Crit Care & Sleep Candice Reason for Consult: Resp Failure Call Completed: Yes 12/30/16 09:45 Consult to Dialysis [CONS] ONCE 01/01/17 08:15 Consult to Dialysis [CONS] ONCE 01/02/17 09:00 Consult to Dialysis [CONS] ONCE 01/04/17 09:15 Consult to Dialysis [CONS] ONCE 01/06/17 10:30 Consult to Dialysis [CONS] ONCE 01/07/17 11:27 Consult to Palliative Care [CONS] Routine Comment: Consulting Provider: Palliative Care [facility] Reason for Consult: POC Call Completed: Yes 01/08/17 08:30 Consult to Dialysis [CONS] ONCE - Hospital Course Hospital course: Mr. Ackerman is a 61 year old male - Time Spent with Patient Total time spent providing and/or coordinating discharge services: Physical Examination Vital Signs: Vital Signs, Last 4 Hours Temp Pulse Resp BP Pulse Ox 01/08/17 15:30 145 15 106/75 91 01/08/17 15:21 14 106/75 87 01/08/17 14:48 98.4 F 22 142/82 01/08/17 14:20 130/79 01/08/17 14:00 109 14 129/77 90 01/08/17 13:51 115 22 128/96 93 01/08/17 13:45 128/96 01/08/17 13:30 122/76 - Attending Attestation I examined this patient and my medical decision-making was reviewed with the CHUCKING MACHINE SET UP OPERATOR/PA/Advanced Practice Nurse/Resident Physician. I agree with the documented findings, disposition and treatment plan as described except to the extent set forth below. After family meeting, family requested patient is to be transferred to ICU for second opinion and I did personally call transfer center. I have explained to the family since they are requesting that transfer, then they will be responsible for the transportation. They understand and they agreed.
--- NOTE | 2017-01-08 18:36 | Electrocardiograph Report ---
[address] [id number] Test Date: 2017-01-07 Pat Name: Shyam Ackerman Department: 109 Room: 02 Gender: M Manager Gas: SREE : [id number] Requested By: Peter Godwin Order Number: [id number] Reading MD: Adan Sandoval MD Measurements Intervals [place] Rate: 99 P: DC: 0 QRS: 74 QRSD: 110 T: 76 QT: 357 QTc: 413 Interpretive Statements ATRIAL FIBRILLATION Electronically Signed On 01-08-2017 18:35:31 EDT by Adan Sandoval MD
== END 2017-01-08 17:30 | disposition short-term general hospital (02) | DRG 207 ==
LOC: 2ANU 14:41 → EMEROO 14:41 → ICNU 18:55
PROVIDERS: ADMIT Internal Medicine; ATTEND Internal Medicine